=== PATIENT | male | born 1955 | race Two or more races ===

== ENCOUNTER 2020-12-29 15:27 | Emergency (ER) | payer SELFPAY ==
[~2020-12-29] VITALS: Ht 162.6 cm; Wt 76.2 kg
--- NOTE | 2020-12-29 15:40 | NUR ---
[id number] C/O GEN WEAKNESS X 4DAYS. BG 84. PT AAOX4, VSS. RR EVEN & UNLABORED. DENIES CP, SOB, DIZZINESS, N/V/D AT THIS TIME. AWAITING EVAL BY ERMD & WILL CONT TO MONITOR.
[2020-12-29] MEDS ORDERED: BISACODYL SUPP (10 MG) 10 MG/SUPP.RECT SUPP.RECT RC ONE (16:08)
[2020-12-29] MEDS: BISACODYL SUPP (10 MG) 10 MG/SUPP.RECT SUPP.RECT RC ONE (16:11)
--- NOTE | 2020-12-29 16:11 | NUR ---
MEDICATED ORDERED, PT TIMUR WELL.
[2020-12-29 16:17] LABS: BASOPHILS # (AUTO) 0.1 K/uL (0.0-0.2); BASOPHILS % (AUTO) 0.5 % (0.0-2.0); EOSINOPHILS % (AUTO) 1.4 % (0.0-6.0); HEMATOCRIT 43 % (39-51); HEMOGLOBIN 14.2 g/dL (13.5-17.5); LYMPHOCYTES # (AUTO) 2.7 K/uL (0.8-4.8); LYMPHOCYTES % (AUTO) 28.8 % (20.0-44.0); MEAN CORPUSCULAR HGB CONC 33 g/dl (31.0-36.0); MEAN CORPUSCULAR VOLUME 87 fL (80-96); MONOCYTES # (AUTO) 0.9 K/uL (0.1-1.30); MONOCYTES % (AUTO) 9.6 % (2.0-12.0); NEUTROPHILS # (AUTO) 5.5 K/uL (1.8-8.9); NEUTROPHILS % (AUTO) 59.7 % (43.0-81.0); PLATELET COUNT (AUTO) 405 K/uL (150-450); RED BLOOD CELL COUNT(AUTO) 4.91 MIL/uL (4.5-6.0); WHITE BLOOD COUNT (AUTO) 9.2 K/uL (4.3-11.0)
[2020-12-29 17:15] LABS: CREATININE 1.6 mg/dL (0.6-1.3); POTASSIUM 3.6 mmol/L (3.5-5.1)
[2020-12-29 17:31] LABS: ALBUMIN 3.9 g/dL (3.4-5.0); BILIRUBIN,DIRECT 0.2 mg/dL (0.0-0.2); BILIRUBIN,TOTAL 0.9 mg/dL (0.2-1.0); TOTAL PROTEIN, SERUM 7.6 g/dL (6.4-8.2)
[2020-12-29 17:53] LABS: BILIRUBIN,URINE SMALL (NEGATIVE); COLOR,URINE DARK YELLOW (YELLOW); LEUKOCYTE ESTERASE ,URINE NEGATIVE (NEGATIVE); NITRITE, URINE NEGATIVE (NEGATIVE); PROTEIN,URINE 100 mg/dl (NEGATIVE); UGLUCOSE NEGATIVE (NEGATIVE); UROBILINOGEN,URINE 0.2 EU/dL (0.2)
[2020-12-29 18:00] LABS: BACTERIA,URINE None seen /HPF (None Seen); RBC,URINE 0-2 /HPF (0-2); SQUAMOUS EPITHELIAL CELL,UR Few /HPF (None Seen)
[2020-12-29 18:01] LABS: MUCUS,URINE Moderate /LPF (None Seen); SPERM,URINE Many /HPF (None Seen); URINE AMORPHOUS URATE Moderate /HPF (None Seen)
[2020-12-29] MEDS ORDERED: POLY17PO4 PO (18:40)
--- NOTE | 2020-12-29 19:16 | NUR ---
Patient discharged to home in stable condition. Written and verbal after care instructions given. Patient verbalizes understanding of instruction. IV removed. Catheter intact and site benign. Pressure and 4x4 applied to site. No bleeding noted.
[2020-12-29 19:17] VITALS: BP 118/65
== END 2020-12-29 19:17 | disposition home or self-care (01) ==
LOC: ER 15:32
DX: K59.00 Constipation, unspecified (principal); N28.9 Disorder of kidney and ureter, unspecified; E11.9 Type 2 diabetes mellitus without complications; I10 Essential (primary) hypertension; I25.10 Atherosclerotic heart disease of native coronary artery without angina pectoris; E78.5 Hyperlipidemia, unspecified; D64.9 Anemia, unspecified
CPT/HCPCS: 36415; 80048-TC; 80076-TC; 81001; 83690-TC; 84484-TC; 85025-TC

== ENCOUNTER 2020-12-31 16:52 | Inpatient (IN) | payer MEDICARE, OTHER ==
[~2020-12-31] VITALS: Ht 165.1 cm; Wt 70.3 kg
[~2020-12-31 16:52] MED LIST: POLY17PO4 PO
--- NOTE | 2020-12-31 17:20 | NUR ---
PATIENT BIB RA [facility] HOME C/O INCREASING HALLUCINATIONS X 4 DAYS. PATIENT ALERT AND ORIENTED X3. PATIENT AWAKE AND COOPERATIVE. NO RESPIRATORY DISTRESS NOTED. RESPIRATIONS EVEN AND UNLABORED. WILL CONTINUE TO MONITOR.
[2020-12-31] MEDS ORDERED: APIX5TAB PO (18:01)
[2020-12-31] MEDS ORDERED: CARV6.252 PO (18:01)
[2020-12-31] MEDS ORDERED: EZET10TA32 PO (18:01)
[2020-12-31] MEDS ORDERED: ATOR80TA PO (18:01)
[2020-12-31] MEDS ORDERED: SPIR25TA6 PO (18:01)
[2020-12-31] MEDS ORDERED: ARIP10TA9 PO (18:01)
[2020-12-31] MEDS ORDERED: FLUO40CA49 PO (18:01)
--- NOTE | 2020-12-31 18:08 | NUR ---
MOVE SHEET SUBMITTED.
[2020-12-31] MEDS ORDERED: HYDR-3980 PO (18:14)
[2020-12-31] MEDS ORDERED: LOSA1TAB39 PO (18:14)
[2020-12-31] MEDS ORDERED: OMEP1CAP25 PO (18:14)
[2020-12-31] MEDS ORDERED: GABA800T11 PO (18:14)
[2020-12-31] MEDS ORDERED: QUET200T PO (18:14)
[2020-12-31] MEDS ORDERED: FURO40TA5 PO (18:14)
[2020-12-31] MEDS ORDERED: TRAZ-182 PO (18:14)
[2020-12-31] MEDS ORDERED: POTA10TA48 PO (18:15)
[2020-12-31] MEDS ORDERED: METF-440 PO (18:15)
--- NOTE | 2020-12-31 18:20 | NUR ---
BLOOD AND URINE SENT TO LAB
--- NOTE | 2020-12-31 18:39 | NUR ---
COVID SWAB SENT TO LAB
[2020-12-31 18:40] LABS: BILIRUBIN,URINE Negative (NEGATIVE); COLOR,URINE YELLOW (YELLOW); LEUKOCYTE ESTERASE ,URINE Negative (NEGATIVE); NITRITE, URINE Negative (NEGATIVE); PH,URINE 5.5 (5.0-8.0); PROTEIN,URINE Negative (NEGATIVE); UGLUCOSE Negative (NEGATIVE); UROBILINOGEN,URINE 0.2 EU/dL (0.2)
[2020-12-31 18:43] LABS: BASOPHILS # (AUTO) 0.1 K/uL (0.0-0.2); BASOPHILS % (AUTO) 0.8 % (0.0-2.0); EOSINOPHILS % (AUTO) 2.7 % (0.0-6.0); HEMATOCRIT 42 % (39-51); HEMOGLOBIN 13.9 g/dL (13.5-17.5); LYMPHOCYTES # (AUTO) 2.9 K/uL (0.8-4.8); LYMPHOCYTES % (AUTO) 35.9 % (20.0-44.0); MEAN CORPUSCULAR HGB CONC 34 g/dl (31.0-36.0); MEAN CORPUSCULAR VOLUME 87 fL (80-96); MONOCYTES # (AUTO) 0.9 K/uL (0.1-1.30); MONOCYTES % (AUTO) 10.7 % (2.0-12.0); NEUTROPHILS % (AUTO) 49.9 % (43.0-81.0); PLATELET COUNT (AUTO) 376 K/uL (150-450); RED BLOOD CELL COUNT(AUTO) 4.76 MIL/uL (4.5-6.0); WHITE BLOOD COUNT (AUTO) 8.1 K/uL (4.3-11.0)
[2020-12-31 18:47] LABS: BACTERIA,URINE None seen /HPF (None Seen); RBC,URINE 0-2 /HPF (0-2); SQUAMOUS EPITHELIAL CELL,UR Few /HPF (None Seen); WBC,URINE 0-2 /HPF (0-3)
[2020-12-31 18:52] LABS: CALCIUM, SERUM 8.9 mg/dL (8.5-10.1); CARBON DIOXIDE 23 mmol/L (21-32); CHLORIDE 108 mmol/L (98-107); CREATININE 1.4 mg/dL (0.6-1.3); GLUCOSE 109 mg/dL (74-106); SODIUM SERUM 142 mmol/L (136-145); UREA NITROGEN, BLOOD 28 mg/dL (7-18)
[2020-12-31 18:57] LABS: ACETAMINOPHEN < 0 ug/ml (10-30); ALANINE AMINOTRANSFERASE 16 U/L (12-78); ALBUMIN 3.6 g/dL (3.4-5.0); ALCOHOL, BLOOD < 3 mg/dL (0-0); ALKALINE PHOSPHATASE 97 U/L (46-116); ASPARTATE AMINOTRANSFERASE 15 U/L (15-37); BILIRUBIN,DIRECT 0.1 mg/dL (0.0-0.2); BILIRUBIN,TOTAL 0.4 mg/dL (0.2-1.0); TOTAL PROTEIN, SERUM 7.2 g/dL (6.4-8.2)
[2020-12-31] MEDS ORDERED: IV NS 0.9% 500 ML BAG IV ONE ×2 (19:30→20:00)
--- NOTE | 2020-12-31 22:00 | NUR ---
PATIENT IN BED RESTING. PATIENT VSS, PATIENT CONNECTEDTO MONITORS. PATIENT IN NO ACUTE DISTRESS.
--- NOTE | 2020-12-31 22:09 | NUR ---
CALLED AFFILIATE MARKETING SPECIALIST PATRICIA LEFT VOICEMAIL
--- NOTE | 2020-12-31 22:18 | NUR ---
RECEIVED CALL FROM ART, STATES WILL ARRIVE HERE LATER AFTER ENCINO CASE
--- NOTE | 2021-01-01 01:17 | NUR ---
REPORT GIVEN TO GPS RN
--- NOTE | 2021-01-01 01:21 | NUR ---
PATIENT TRANSFERRED TO GPS ROOM 214, PT VSS, NO ACUTE DISTRESS NOTED.
[2021-01-01 01:30] VITALS: BP 123/76
[2021-01-01] MEDS ORDERED: ACETAMINOPHEN 325 MG TABLET PO PRN (02:00)
[2021-01-01] MEDS ORDERED: MAG HYDROX/AL HYDROX/SIMETH 30 ML UDC PO PRN (02:00)
[2021-01-01] MEDS ORDERED: TEMAZEPAM 7.5 MG CAPSULE PO PRN (02:00)
[2021-01-01] MEDS ORDERED: MAGNESIUM HYDROXIDE 30 ML UDC PO PRN (02:00)
[2021-01-01] MEDS ORDERED: LORAZEPAM 0.5 MG TABLET PO PRN (02:00)
[2021-01-01] MEDS ORDERED: BLOOD SUGAR DIAGNOSTIC 1 EACH STRIP IN ONE (02:30)
--- NOTE | 2021-01-01 02:38 | NUR ---
GPS JUMPBASTING ARMHOLE BASTER NOTES: RECEIVED PATIENT FROM [facility] ER. PATIENT ARRIVED TO GPS AT 0125 ON A GURNEY WITH AN ER ESCORT. PATIENT IS ON A 5150 HOLD FOR GD. PER HOLD, PATIENT IS A & O IN ALL SPHERES EXCEPT THE MONTH. HE REPORTS FEELING VERY DEPRESSED AND UNABLE TO TAKE CARE OF HIMSELF. PATIENT HAS NO IDEA WHY HE IS DEPRESSED. PATIENT IS A POOR HISTORIAN. HE IS SOMEWHAT DISORGANIZED. PATIENT HEARS VOICES AND AT TIMES SEES THINGS THAT ARE NOT THERE. PATIENT IS UNABLE TO TO PROVIDE FOR HIS FOOD, USP OR CLOTHING DUE TO A MENTAL DISORDER. UPON FACE TO FACE EVALUATION, PATIENT IS ALERT AND ORIENTED X2, FORGETFUL. APPEARS DEPRESSED AND TIRED, DISHEVELED, COOPERATIVE, PASSIVE, GUARDED. DISORGANIZED, FLAT AFFECT, HALLUCINATES, ANXIOUS AT TIMES BUT REDIRECTABLE. PATIENT BS 100MG/DL. SKIN ASSESSMENT DONE, PICTURES TAKEN, PLACED IN CHART. PATIENT REFUSED TO SIGN ALL ADMISSION PAPER WORKS DUE TO CURRENT MENTAL STATUS. PATIENT DENIES SI/HI AT THIS TIME. PATIENT HAS NO S/S OF DISTRESS AND NO C/O OF PAIN AT THIS TIME. RESPIRATION EVEN AND UNLABORED WITH EQUAL RISE AND FALL OF THE CHEST, ON ROOM AIR. PER PATIENT, PATIENT ADVISED OF HIS HOLD AND PATIENT RIGHT HANDBOOK AND A GUIDE TO PRESCRIPTION MEDICATIONS BOOKLET GIVEN. PATIENT IS UNDER THE PSYCHIATRIC CARE OF DR BANEGAS AND MEDICAL CARE OF DR GABO BROOKS. PATIENT BELONGINGS WERE INVENTORIED AND CHECKED FOR CONTRABAND. ALL PATIENT CARE NEEDS HAVE BEEN MET AT THIS TIME. AMBULATORY BUT UNSTEADY AT TIMES. REMINDED THE PATIENT TO CALL FOR HELP WHEN NEEDED. BED ALARM ON. BED IS IN LOWEST POSITION AND LOCKED, WILL CONTINUE TO MONITOR Q15 FOR SAFETY, MOOD AND BEHAVIOR.
--- NOTE | 2021-01-01 02:48 | NUR ---
RN NOTE PER PATIENT THERE IS NO FAMILY TO INFORM ABOUT HIS ADMISSION AT [facility] GPS UNIT. PER PATIENT HE LIVES WITH SOMEONE & HAS NO CLOSE FAMILY MEMBER TO BE NOTIFIED.
--- NOTE | 2021-01-01 03:20 | NUR ---
GPS RN NOTE, PAGED [facility]. INFORMED GABO BROOKS DNP THAT THIS PATIENT WAS ADMITTED AND NEEDS A MEDICATION RECONCILIATION. GABO BROOKS DNP AGREED DO HIS THIS PATIENT MEDICATION RECONCILIATION SOON POSSIBLE. WILL CONTINUE TO MONITOR THIS PATIENT WITH THE HELP OF STAFF.
[2021-01-01] MEDS ORDERED: HYDROCODONE/APAP 10/325MG TABLET PO PRN (04:00)
--- NOTE | 2021-01-01 04:06 | NUR ---
RN NOTE GABO BROOKS DNP RECONCILED PATIENT'S MEDICATIONS.
[2021-01-01 08:00] VITALS: BP 116/64
[2021-01-01] MEDS: GLUCERNA SHAKE 237 ML CAN PO SCH ×2 (08:00→17:11)
--- NOTE | 2021-01-01 09:02 | NUR ---
WOUND CARE CONSULT: PT PRESENTS WITH DISCOLORATIONS TO BILATERAL ARMS, NO DRAINAGE. WILL SEE PRN. CURRENT ROMINA SCORE IS 20.
[2021-01-01] MEDS: LOSARTAN/HCTZ 50-12.5MG/ 1 EA TABLET PO SCH (09:10)
[2021-01-01] MEDS: CARVEDILOL 6.25 MG TABLET PO SCH ×2 (09:11→16:07)
[2021-01-01] MEDS: SPIRONOLACTONE 25 MG TABLET PO SCH (09:11)
[2021-01-01] MEDS: PANTOPRAZOLE 40 MG TABLET.DR PO SCH (09:11)
[2021-01-01] MEDS: METFORMIN 500 MG TABLET PO SCH ×2 (09:11→16:07)
[2021-01-01] MEDS: FUROSEMIDE 40 MG TABLET PO SCH (09:11)
[2021-01-01] MEDS: POTASSIUM CHLORIDE 20 MEQ POWDER PACKET PO SCH (09:11)
[2021-01-01] MEDS: EZETIMIBE 10 MG TABLET PO SCH (09:11)
[2021-01-01] MEDS: APIXABAN 5 MG TABLET PO SCH ×2 (09:12→17:11)
--- NOTE | 2021-01-01 10:12 | NUR ---
RN OPENING NOTE PT IN BED RESTING. MED COMPLIANT. DEPRESSED. WILL CONTINUE TO MONITOR Q15 MINUTES FOR SAFETY.
--- NOTE | 2021-01-01 14:30 | NUR ---
Point of Contact: SW stated he has a son who is not really active in his life and pt. states he does not want son involved in his care. However, pt. provided number for his SW, Montserrat Martin [phone] who he would like to be involved. Noted.
[2021-01-01 16:00] VITALS: BP 103/74
[2021-01-01] MEDS: GABAPENTIN 300 MG CAPSULE PO SCH (16:07)
--- NOTE | 2021-01-01 16:30 | NUR ---
Initial D/C Plan: [place] [facility] [facility] [address] [address]. Pt. states he rents a room and his roommate, Kerri [phone] is a support system for him. Pt. states he would like to return there once ready for D/C.
--- NOTE | 2021-01-01 18:01 | NUR ---
RN CLOSING NOTE PT RESTING IN BED COMFORTABLY. COOPERATIVE AND DEPRESSED. ANXIOUS IN PERIODS. AVH PRESENT. DENIES ANY SI/HI. MED COMPLIANT. SAFETY PRECAUTIONS IN PLACE. Q15 MINUTE CHECKS SIGNED. WILL GIVE REPORT TO NIGHT NURSE FOR GIULIA.
[2021-01-01 20:35] VITALS: BP 106/74
[2021-01-01] MEDS: ARIPIPRAZOLE 5 MG TABLET PO SCH (21:40)
[2021-01-01] MEDS: MIRTAZAPINE 15 MG TABLET PO SCH (21:41)
[2021-01-01] MEDS: ATORVASTATIN 40 MG TABLET PO SCH (21:41)
[2021-01-02 07:03] LABS: BASOPHILS # (AUTO) 0.1 K/uL (0.0-0.2); BASOPHILS % (AUTO) 0.7 % (0.0-2.0); EOSINOPHILS % (AUTO) 3.1 % (0.0-6.0); HEMATOCRIT 42 % (39-51); HEMOGLOBIN 14.1 g/dL (13.5-17.5); LYMPHOCYTES # (AUTO) 3.1 K/uL (0.8-4.8); LYMPHOCYTES % (AUTO) 35.8 % (20.0-44.0); MEAN CORPUSCULAR HGB CONC 33 g/dl (31.0-36.0); MEAN CORPUSCULAR VOLUME 88 fL (80-96); MONOCYTES # (AUTO) 0.8 K/uL (0.1-1.30); MONOCYTES % (AUTO) 9.7 % (2.0-12.0); NEUTROPHILS # (AUTO) 4.4 K/uL (1.8-8.9); NEUTROPHILS % (AUTO) 50.7 % (43.0-81.0); PLATELET COUNT (AUTO) 347 K/uL (150-450); RED BLOOD CELL COUNT(AUTO) 4.82 MIL/uL (4.5-6.0); WHITE BLOOD COUNT (AUTO) 8.7 K/uL (4.3-11.0)
[2021-01-02 07:29] LABS: ALBUMIN 3.6 g/dL (3.4-5.0); BILIRUBIN,TOTAL 0.7 mg/dL (0.2-1.0); CALCIUM, SERUM 9.5 mg/dL (8.5-10.1); CREATININE 1.2 mg/dL (0.6-1.3); POTASSIUM 3.9 mmol/L (3.5-5.1); TOTAL PROTEIN, SERUM 7.3 g/dL (6.4-8.2)
[2021-01-02 08:00] VITALS: BP 100/64
[2021-01-02] MEDS: LOSARTAN/HCTZ 50-12.5MG/ 1 EA TABLET PO SCH (09:00)
[2021-01-02] MEDS: SPIRONOLACTONE 25 MG TABLET PO SCH (09:00)
[2021-01-02] MEDS: FUROSEMIDE 40 MG TABLET PO SCH (09:00)
[2021-01-02] MEDS: METFORMIN 500 MG TABLET PO SCH ×2 (09:03→16:25)
[2021-01-02] MEDS: EZETIMIBE 10 MG TABLET PO SCH (09:03)
[2021-01-02] MEDS: POTASSIUM CHLORIDE 20 MEQ POWDER PACKET PO SCH (09:04)
[2021-01-02] MEDS: PANTOPRAZOLE 40 MG TABLET.DR PO SCH (09:05)
[2021-01-02] MEDS: APIXABAN 5 MG TABLET PO SCH ×2 (09:08→16:25)
[2021-01-02] MEDS: GLUCERNA SHAKE 237 ML CAN PO SCH ×2 (09:09→16:26)
[2021-01-02] MEDS: GABAPENTIN 300 MG CAPSULE PO SCH ×3 (09:13→16:25)
[2021-01-02] MEDS: CARVEDILOL 6.25 MG TABLET PO SCH ×2 (09:14→16:26)
[2021-01-02] MEDS: FLUOXETINE HCL 20 MG CAPSULE PO SCH (13:04)
[2021-01-02 16:00] VITALS: BP 100/65
[2021-01-02 20:00] VITALS: BP 101/69
[2021-01-02 20:20] VITALS: BP 101/69
[2021-01-02] MEDS: ARIPIPRAZOLE 5 MG TABLET PO SCH (21:23)
[2021-01-02] MEDS: ATORVASTATIN 40 MG TABLET PO SCH (21:24)
[2021-01-02] MEDS: MIRTAZAPINE 15 MG TABLET PO SCH (21:24)
--- NOTE | 2021-01-02 23:56 | NUR ---
RN NOTES: --AT 2222 PATIENT WAS STILL AWAKE, HE REQUEST TO HAVE HIS SLEEPING PILL, PUT IN COMFORTABLE POSITION , ADDITIONAL BLANKER PROVIDED, ENCOURAGE TO DO DEEP BREATHING TO MAKE HIM RELAX AND ENHANCE SLEEP. -- AT 2350- PATIENT IS IN DEEP SLEEP, FALL AND SAFETY PRECAUTION OBSERVED, BED LOW AND LOCKED.
--- NOTE | 2021-01-03 06:44 | NUR ---
RN NOTES: ENDORSED TO F/U IN THE MORNING, 5150 HOLD DUE ON 01/03/2021 AT 2352.
[2021-01-03 08:00] VITALS: BP 125/73
[2021-01-03] MEDS: LOSARTAN/HCTZ 50-12.5MG/ 1 EA TABLET PO SCH (08:38)
[2021-01-03] MEDS: CARVEDILOL 6.25 MG TABLET PO SCH ×2 (08:38→16:36)
[2021-01-03] MEDS: METFORMIN 500 MG TABLET PO SCH ×2 (08:38→16:36)
[2021-01-03] MEDS: PANTOPRAZOLE 40 MG TABLET.DR PO SCH (08:39)
[2021-01-03] MEDS: SPIRONOLACTONE 25 MG TABLET PO SCH (08:39)
[2021-01-03] MEDS: EZETIMIBE 10 MG TABLET PO SCH (08:39)
[2021-01-03] MEDS: POTASSIUM CHLORIDE 20 MEQ POWDER PACKET PO SCH (08:39)
[2021-01-03] MEDS: APIXABAN 5 MG TABLET PO SCH ×2 (08:40→16:36)
[2021-01-03] MEDS: GABAPENTIN 300 MG CAPSULE PO SCH ×3 (08:40→16:36)
[2021-01-03] MEDS: FUROSEMIDE 40 MG TABLET PO SCH (08:41)
[2021-01-03] MEDS: GLUCERNA SHAKE 237 ML CAN PO SCH ×2 (08:42→16:37)
[2021-01-03] MEDS: FLUOXETINE HCL 20 MG CAPSULE PO SCH (12:17)
[2021-01-03 16:00] VITALS: BP 117/71
[2021-01-03 20:20] VITALS: BP 107/72
[2021-01-03] MEDS: ARIPIPRAZOLE 5 MG TABLET PO SCH (21:03)
[2021-01-03] MEDS: ATORVASTATIN 40 MG TABLET PO SCH (21:03)
[2021-01-03] MEDS: MIRTAZAPINE 15 MG TABLET PO SCH (21:12)
[2021-01-04] MEDS: GLUCERNA SHAKE 237 ML CAN PO SCH ×2 (07:42→17:35)
[2021-01-04] MEDS: PANTOPRAZOLE 40 MG TABLET.DR PO SCH (07:54)
[2021-01-04 08:00] VITALS: BP 118/80
[2021-01-04] MEDS: EZETIMIBE 10 MG TABLET PO SCH (08:06)
[2021-01-04] MEDS: METFORMIN 500 MG TABLET PO SCH ×2 (08:06→16:41)
[2021-01-04] MEDS: FUROSEMIDE 40 MG TABLET PO SCH (08:06)
[2021-01-04] MEDS: GABAPENTIN 300 MG CAPSULE PO SCH ×3 (08:06→16:41)
[2021-01-04] MEDS: CARVEDILOL 6.25 MG TABLET PO SCH ×2 (08:06→16:43)
[2021-01-04] MEDS: SPIRONOLACTONE 25 MG TABLET PO SCH (08:06)
[2021-01-04] MEDS: POTASSIUM CHLORIDE 20 MEQ POWDER PACKET PO SCH (08:12)
[2021-01-04] MEDS: LOSARTAN/HCTZ 50-12.5MG/ 1 EA TABLET PO SCH (08:12)
[2021-01-04] MEDS: APIXABAN 5 MG TABLET PO SCH ×2 (08:14→16:42)
[2021-01-04] MEDS: Fluoxetine 10 mg capsule PO SCH (12:17)
[2021-01-04 16:00] VITALS: BP_SYST 100; BP_SYST 92; BP_DIAS 62
[2021-01-04 20:00] VITALS: BP 91/50
[2021-01-04] MEDS: MIRTAZAPINE 15 MG TABLET PO SCH (21:15)
[2021-01-04] MEDS: ATORVASTATIN 40 MG TABLET PO SCH (21:15)
[2021-01-04] MEDS: ARIPIPRAZOLE 5 MG TABLET PO SCH (21:15)
--- NOTE | 2021-01-04 21:21 | NUR ---
GPS RN NOTES: ABILIFY 2.5MG PARTIAL DOSE WASTED PER ORDER.
--- NOTE | 2021-01-05 07:01 | NUR ---
GPS RN CLOSING NOTES: PATIENT IS SLEEPING COMFORTABLY IN BED. NO BEHAVIORAL ISSUES THIS SHIFT. PATIENT HAS NO S/S OF DISTRESS. RESPIRATION EVEN AND UNLABORED WITH EQUAL RISE AND FALL OF THE CHEST, ON ROOM AIR. ALL PATIENT CARE NEEDS HAVE BEEN MET ANTICIPATED. WILL CONTINUE TO MONITOR AND ENDORSE TO AM SHIFT.
[2021-01-05] MEDS: GLUCERNA SHAKE 237 ML CAN PO SCH ×2 (07:42→16:04)
[2021-01-05] MEDS: PANTOPRAZOLE 40 MG TABLET.DR PO SCH (07:42)
[2021-01-05 08:00] VITALS: BP 134/94
[2021-01-05] MEDS: APIXABAN 5 MG TABLET PO SCH ×2 (08:18→16:15)
[2021-01-05] MEDS: GABAPENTIN 300 MG CAPSULE PO SCH ×3 (08:18→16:14)
[2021-01-05] MEDS: EZETIMIBE 10 MG TABLET PO SCH (08:18)
[2021-01-05] MEDS: CARVEDILOL 6.25 MG TABLET PO SCH ×2 (08:18→16:13)
[2021-01-05] MEDS: FUROSEMIDE 40 MG TABLET PO SCH (08:19)
[2021-01-05] MEDS: POTASSIUM CHLORIDE 20 MEQ POWDER PACKET PO SCH (08:19)
[2021-01-05] MEDS: LOSARTAN/HCTZ 50-12.5MG/ 1 EA TABLET PO SCH (08:19)
[2021-01-05] MEDS: METFORMIN 500 MG TABLET PO SCH ×2 (08:19→16:14)
[2021-01-05] MEDS: SPIRONOLACTONE 25 MG TABLET PO SCH (08:23)
[2021-01-05] MEDS: Fluoxetine 10 mg capsule PO SCH (12:09)
[2021-01-05] MEDS: FLUOXETINE HCL 20 MG CAPSULE PO SCH (13:00)
[2021-01-05 16:00] VITALS: BP 101/64
[2021-01-05 20:00] VITALS: BP 100/61
[2021-01-05 21:40] VITALS: BP 98/58
[2021-01-05] MEDS: ATORVASTATIN 40 MG TABLET PO SCH (21:55)
[2021-01-05] MEDS: ARIPIPRAZOLE 5 MG TABLET PO SCH (21:56)
[2021-01-05] MEDS: MIRTAZAPINE 15 MG TABLET PO SCH (21:56)
--- NOTE | 2021-01-05 21:57 | NUR ---
RN NOTE - ABILIFY AND REMERON NOT GIVEN DUE TO DECREASED BP.
--- NOTE | 2021-01-06 06:49 | NUR ---
GPS RN NOTE: PATIENT SLEPT WELL AT NIGHT.. NO BEHAVIORAL ISSUES THIS SHIFT. PATIENT HAS NO S/S OF DISTRESS NOTED. ALL PATIENT CARE NEEDS HAVE BEEN MET ANTICIPATED. WILL CONTINUE TO MONITOR FOR SAFETY AND BEHAVIOR.
[2021-01-06 08:00] VITALS: BP 93/64
[2021-01-06] MEDS: GLUCERNA SHAKE 237 ML CAN PO SCH ×2 (08:21→17:17)
[2021-01-06] MEDS: PANTOPRAZOLE 40 MG TABLET.DR PO SCH (08:21)
[2021-01-06] MEDS: POTASSIUM CHLORIDE 20 MEQ POWDER PACKET PO SCH (08:59)
[2021-01-06] MEDS: EZETIMIBE 10 MG TABLET PO SCH (09:00)
[2021-01-06] MEDS: METFORMIN 500 MG TABLET PO SCH ×2 (09:00→17:15)
[2021-01-06] MEDS: LOSARTAN/HCTZ 50-12.5MG/ 1 EA TABLET PO SCH (09:00)
[2021-01-06] MEDS: CARVEDILOL 6.25 MG TABLET PO SCH ×2 (09:00→17:00)
[2021-01-06] MEDS: GABAPENTIN 300 MG CAPSULE PO SCH ×3 (09:00→17:15)
[2021-01-06] MEDS: FUROSEMIDE 40 MG TABLET PO SCH (09:00)
[2021-01-06] MEDS: APIXABAN 5 MG TABLET PO SCH ×2 (09:04→17:16)
[2021-01-06] MEDS: SPIRONOLACTONE 25 MG TABLET PO SCH (09:04)
[2021-01-06] MEDS: FLUOXETINE HCL 20 MG CAPSULE PO SCH (12:09)
--- NOTE | 2021-01-06 12:33 | NUR ---
SNF referral SW fax[facility] clinical[facility], , for review.
[2021-01-06 16:00] VITALS: BP 107/63
[2021-01-06 20:41] VITALS: BP 118/69
[2021-01-06] MEDS: ARIPIPRAZOLE 5 MG TABLET PO SCH (21:01)
[2021-01-06] MEDS: MIRTAZAPINE 15 MG TABLET PO SCH (21:01)
[2021-01-06] MEDS: ATORVASTATIN 40 MG TABLET PO SCH (21:01)
[2021-01-07] MEDS: GLUCERNA SHAKE 237 ML CAN PO SCH ×2 (07:46→16:02)
[2021-01-07 08:00] VITALS: BP 125/72
[2021-01-07] MEDS: PANTOPRAZOLE 40 MG TABLET.DR PO SCH (08:07)
[2021-01-07] MEDS: SPIRONOLACTONE 25 MG TABLET PO SCH (08:07)
[2021-01-07] MEDS: EZETIMIBE 10 MG TABLET PO SCH (08:07)
[2021-01-07] MEDS: POTASSIUM CHLORIDE 20 MEQ POWDER PACKET PO SCH (08:08)
[2021-01-07] MEDS: FUROSEMIDE 40 MG TABLET PO SCH (08:08)
[2021-01-07] MEDS: GABAPENTIN 300 MG CAPSULE PO SCH ×3 (08:08→16:02)
[2021-01-07] MEDS: METFORMIN 500 MG TABLET PO SCH ×2 (08:08→16:02)
[2021-01-07] MEDS: CARVEDILOL 6.25 MG TABLET PO SCH ×2 (08:08→16:02)
[2021-01-07] MEDS: LOSARTAN/HCTZ 50-12.5MG/ 1 EA TABLET PO SCH (08:08)
[2021-01-07] MEDS: APIXABAN 5 MG TABLET PO SCH ×2 (08:12→16:02)
[2021-01-07] MEDS: FLUOXETINE HCL 20 MG CAPSULE PO SCH (12:01)
--- NOTE | 2021-01-07 12:30 | NUR ---
Probable Cause Hearing Pt's 5250 hold is upheld on the grounds of gravely disabled.
[2021-01-07 16:00] VITALS: BP 110/63
[2021-01-07 20:54] VITALS: BP 95/61
[2021-01-07] MEDS: ATORVASTATIN 40 MG TABLET PO SCH (21:10)
[2021-01-07] MEDS: ARIPIPRAZOLE 5 MG TABLET PO SCH (21:10)
[2021-01-07] MEDS: MIRTAZAPINE 15 MG TABLET PO SCH (21:11)
--- NOTE | 2021-01-08 06:14 | NUR ---
RN notes No significant change of condition. Compliant with medication. Stayed in bed the whole night.
[2021-01-08 07:19] LABS: CALCIUM, SERUM 8.7 mg/dL (8.5-10.1); CREATININE 1.3 mg/dL (0.6-1.3)
[2021-01-08 08:00] VITALS: BP 110/63
[2021-01-08] MEDS: METFORMIN 500 MG TABLET PO SCH ×2 (08:34→16:59)
[2021-01-08] MEDS: APIXABAN 5 MG TABLET PO SCH ×2 (08:34→16:58)
[2021-01-08] MEDS: POTASSIUM CHLORIDE 20 MEQ POWDER PACKET PO SCH (08:34)
[2021-01-08] MEDS: EZETIMIBE 10 MG TABLET PO SCH (08:34)
[2021-01-08] MEDS: GABAPENTIN 300 MG CAPSULE PO SCH ×3 (08:35→16:59)
[2021-01-08] MEDS: PANTOPRAZOLE 40 MG TABLET.DR PO SCH (08:35)
[2021-01-08] MEDS: GLUCERNA SHAKE 237 ML CAN PO SCH ×2 (08:36→16:56)
[2021-01-08] MEDS: FUROSEMIDE 40 MG TABLET PO SCH (08:37)
[2021-01-08] MEDS: CARVEDILOL 6.25 MG TABLET PO SCH ×2 (08:37→16:59)
[2021-01-08] MEDS: SPIRONOLACTONE 25 MG TABLET PO SCH (08:37)
[2021-01-08] MEDS: LOSARTAN/HCTZ 50-12.5MG/ 1 EA TABLET PO SCH (08:38)
--- NOTE | 2021-01-08 11:00 | NUR ---
SNF Referral SW faxed clinicals to [facility], , for review.
[2021-01-08] MEDS: FLUOXETINE HCL 20 MG CAPSULE PO SCH (13:45)
--- NOTE | 2021-01-08 13:58 | NUR ---
SNF Update SW was notified that pt has been accepted to [facility] ([phone]).
[2021-01-08 16:00] VITALS: BP 111/67
[2021-01-08 20:44] VITALS: BP 103/61
[2021-01-08] MEDS: ARIPIPRAZOLE 5 MG TABLET PO SCH (21:14)
[2021-01-08] MEDS: ATORVASTATIN 40 MG TABLET PO SCH (21:15)
[2021-01-08] MEDS: MIRTAZAPINE 15 MG TABLET PO SCH (21:15)
[2021-01-09 08:00] VITALS: BP 122/76
[2021-01-09] MEDS: GLUCERNA SHAKE 237 ML CAN PO SCH ×2 (08:13→17:08)
[2021-01-09] MEDS: APIXABAN 5 MG TABLET PO SCH ×2 (08:17→17:12)
[2021-01-09] MEDS: POTASSIUM CHLORIDE 20 MEQ POWDER PACKET PO SCH (08:53)
[2021-01-09] MEDS: FUROSEMIDE 40 MG TABLET PO SCH (08:54)
[2021-01-09] MEDS: PANTOPRAZOLE 40 MG TABLET.DR PO SCH (08:54)
[2021-01-09] MEDS: EZETIMIBE 10 MG TABLET PO SCH (08:54)
[2021-01-09] MEDS: CARVEDILOL 6.25 MG TABLET PO SCH ×2 (08:54→17:11)
[2021-01-09] MEDS: METFORMIN 500 MG TABLET PO SCH ×2 (08:54→17:10)
[2021-01-09] MEDS: GABAPENTIN 300 MG CAPSULE PO SCH ×3 (08:54→17:10)
[2021-01-09] MEDS: LOSARTAN/HCTZ 50-12.5MG/ 1 EA TABLET PO SCH (08:55)
[2021-01-09] MEDS: SPIRONOLACTONE 25 MG TABLET PO SCH (08:55)
[2021-01-09] MEDS: FLUOXETINE HCL 20 MG CAPSULE PO SCH (13:24)
[2021-01-09 16:00] VITALS: BP 113/63
[2021-01-09 20:06] VITALS: BP 108/74
[2021-01-09] MEDS: ATORVASTATIN 40 MG TABLET PO SCH (21:37)
[2021-01-09] MEDS: MIRTAZAPINE 15 MG TABLET PO SCH (21:37)
[2021-01-09] MEDS: ARIPIPRAZOLE 5 MG TABLET PO SCH (21:37)
[2021-01-10] MEDS: PANTOPRAZOLE 40 MG TABLET.DR PO SCH (06:32)
[2021-01-10 08:00] VITALS: BP 100/65
[2021-01-10] MEDS: APIXABAN 5 MG TABLET PO SCH ×2 (08:14→17:53)
[2021-01-10] MEDS: GLUCERNA SHAKE 237 ML CAN PO SCH ×2 (08:25→17:50)
[2021-01-10] MEDS: SPIRONOLACTONE 25 MG TABLET PO SCH (08:45)
[2021-01-10] MEDS: LOSARTAN/HCTZ 50-12.5MG/ 1 EA TABLET PO SCH (08:45)
[2021-01-10] MEDS: CARVEDILOL 6.25 MG TABLET PO SCH ×2 (08:45→17:52)
[2021-01-10] MEDS: POTASSIUM CHLORIDE 20 MEQ POWDER PACKET PO SCH (08:46)
[2021-01-10] MEDS: FUROSEMIDE 40 MG TABLET PO SCH (08:46)
[2021-01-10] MEDS: EZETIMIBE 10 MG TABLET PO SCH (08:48)
[2021-01-10] MEDS: METFORMIN 500 MG TABLET PO SCH ×2 (08:48→17:51)
[2021-01-10] MEDS: GABAPENTIN 300 MG CAPSULE PO SCH ×3 (08:48→17:51)
[2021-01-10] MEDS: FLUOXETINE HCL 20 MG CAPSULE PO SCH (13:59)
[2021-01-10 16:00] VITALS: BP 110/64
[2021-01-10 20:28] VITALS: BP 112/65
[2021-01-10] MEDS: ATORVASTATIN 40 MG TABLET PO SCH (21:56)
[2021-01-10] MEDS: ARIPIPRAZOLE 5 MG TABLET PO SCH (21:56)
[2021-01-10] MEDS: MIRTAZAPINE 15 MG TABLET PO SCH (21:56)
[2021-01-11 08:00] VITALS: BP 116/75
[2021-01-11] MEDS: GLUCERNA SHAKE 237 ML CAN PO SCH ×2 (08:01→16:36)
[2021-01-11] MEDS: METFORMIN 500 MG TABLET PO SCH ×2 (08:07→16:36)
[2021-01-11] MEDS: EZETIMIBE 10 MG TABLET PO SCH (08:07)
[2021-01-11] MEDS: APIXABAN 5 MG TABLET PO SCH ×2 (08:07→16:37)
[2021-01-11] MEDS: SPIRONOLACTONE 25 MG TABLET PO SCH (08:07)
[2021-01-11] MEDS: PANTOPRAZOLE 40 MG TABLET.DR PO SCH (08:07)
[2021-01-11] MEDS: CARVEDILOL 6.25 MG TABLET PO SCH ×2 (08:08→16:38)
[2021-01-11] MEDS: GABAPENTIN 300 MG CAPSULE PO SCH ×3 (08:08→16:37)
[2021-01-11] MEDS: POTASSIUM CHLORIDE 20 MEQ POWDER PACKET PO SCH (08:09)
[2021-01-11] MEDS: LOSARTAN/HCTZ 50-12.5MG/ 1 EA TABLET PO SCH (08:16)
[2021-01-11] MEDS: FUROSEMIDE 40 MG TABLET PO SCH (08:17)
[2021-01-11 10:08] LABS: CALCIUM, SERUM 8.9 mg/dL (8.5-10.1); CREATININE 1.2 mg/dL (0.6-1.3)
[2021-01-11] MEDS: FLUOXETINE HCL 20 MG CAPSULE PO SCH (12:07)
[2021-01-11 16:00] VITALS: BP 106/68
[2021-01-11 20:00] VITALS: BP 103/50
[2021-01-11 20:06] VITALS: BP 103/50
[2021-01-11] MEDS: MIRTAZAPINE 15 MG TABLET PO SCH (21:44)
[2021-01-11] MEDS: ARIPIPRAZOLE 5 MG TABLET PO SCH (21:44)
[2021-01-11] MEDS: ATORVASTATIN 40 MG TABLET PO SCH (21:46)
--- NOTE | 2021-01-11 21:48 | NUR ---
RN NOTE IN OMNICELL, 10 LIPITOR TABLETS 40 MG EACH WAS THERE. PATIENT NEEDED TO TAKE 80 MG (2 TABLETS) BUT RESERVOIR CARETAKER TOOK 1 TABLET 40 MG OUT ONLY. SECOND LIPITOR 40 MG WAS TAKEN OUT AGAIN & TOTAL OF 8 LIPITOR TABLETS WERE REMAINING IN OMNICELL.
--- NOTE | 2021-01-12 06:51 | NUR ---
RN NOTE PATIENT SLEPT WELL AT NIGHT, NO BEHAVIOR EPISODE NOTED THROUGH OUT THE SHIFT.
[2021-01-12 08:00] VITALS: BP 106/65
[2021-01-12] MEDS: EZETIMIBE 10 MG TABLET PO SCH (08:27)
[2021-01-12] MEDS: METFORMIN 500 MG TABLET PO SCH (08:28)
[2021-01-12] MEDS: GABAPENTIN 300 MG CAPSULE PO SCH ×2 (08:28→12:17)
[2021-01-12] MEDS: PANTOPRAZOLE 40 MG TABLET.DR PO SCH (08:28)
[2021-01-12] MEDS: FUROSEMIDE 40 MG TABLET PO SCH (08:30)
[2021-01-12] MEDS: APIXABAN 5 MG TABLET PO SCH (08:37)
[2021-01-12] MEDS: POTASSIUM CHLORIDE 20 MEQ POWDER PACKET PO SCH (08:38)
[2021-01-12] MEDS: LOSARTAN/HCTZ 50-12.5MG/ 1 EA TABLET PO SCH (08:38)
[2021-01-12] MEDS: CARVEDILOL 6.25 MG TABLET PO SCH (08:38)
[2021-01-12] MEDS: SPIRONOLACTONE 25 MG TABLET PO SCH (08:39)
[2021-01-12] MEDS: GLUCERNA SHAKE 237 ML CAN PO SCH (08:49)
[2021-01-12] MEDS: FLUOXETINE HCL 20 MG CAPSULE PO SCH (12:17)
--- NOTE | 2021-01-12 15:05 | NUR ---
Homehealth Order Faxed SW faxed Homehealth MD order to [facility] at [phone] (ph: [phone]).
[2021-01-12 16:00] VITALS: BP 114/65
--- NOTE | 2021-01-12 17:04 | NUR ---
RN-DISCHARGE NOTES PATIENT HAD A DISCHARGE ORDER FROM DR. BANEGAS ( PSYCHIATRIST) DR. WHITE MEDICALLY CLEARED PATIENT FOR DISCHARGE.PATIENT WAS DISCHARGE TO HOME ,PATIENT DID NOT VERBALIZE SI/HI ,DENIES VISUAL/AUDITORY HALLUCINATIONS AT THE TIME OF DISCHARGE. INSTRUCTED PATIENT TO FOLLOW UP WITH PSYCHIATRIST AND PCP APPOINTMENT IN A WEEK OR NEEDED. ALL DISCHARGE MEDICATIONS WAS REVIEWED WITH THE PATIENT WITH UNDERSTANDING. RX WAS GIVEN TO HIM. INSTRUCTED PATIENT TO CALL 911 OR GO TO THE NEAREST EMERGENCY ROOM IN CASE OF EMERGENCY.PATIENT LEFT THE UNIT IN STABLE CONDITION A/O X3 AMBULATORY STEADY GAIT. HE WAS ASSISTED IN THE LOBBY BY ONE COMPUTATIONAL LINGUIST FOR SAFETY WITH ALL HIS BELONGINGS.LEFT THE HOSPITAL VIA TAXI.
--- NOTE | 2021-01-13 09:52 | NUR ---
SS D/C NOTE Pt. was discharged back to his apartment located at [[address] [address]] with roommate, Kerri [phone] and resumed [facility] [phone]. Pt. was discharged at around 5 pm via Taxi. Pt.s SW, Montserrat Martin [phone] was made aware of the discharge and was agreeable. Upon discharge, pt. was in a euthymic mood and presented with a calm affect. Pt. was alert and oriented x4 (time, place, self and situation). Pt. ambulates independently. Pt denied both suicidal and homicidal ideation as well as auditory and visual hallucinations. Pt. has an appt. with psychiatrist, Dr. Sraah Borges on 01/16/2021 10:45 am and appt. with PCP: Dr. Ema Desouza on 01/13/2021 2:30 pm at [facility] [[address] [facility] [address]; [phone]]. The multidisciplinary exit care form was done, printed, signed, and given to the patient.
== END 2021-01-12 17:00 | disposition home or self-care (01) | DRG 885 ==
LOC: ER 16:54 → GPS 01-01 01:10
PROVIDERS: ADMIT Psychiatry & Neurology Psychosomatic Medicine; ATTEND Nurse Practitioner Acute Care
DX: F33.3 Major depressive disorder, recurrent, severe with psychotic symptoms (principal); F01.50 Vascular dementia, unspecified severity, without behavioral disturbance, psychotic disturbance, mood disturbance, and anxiety; N17.0 Acute kidney failure with tubular necrosis; I11.0 Hypertensive heart disease with heart failure; G93.41 Metabolic encephalopathy; D68.59 Other primary thrombophilia; I50.32 Chronic diastolic (congestive) heart failure; F29 Unspecified psychosis not due to a substance or known physiological condition; F41.9 Anxiety disorder, unspecified; E11.40 Type 2 diabetes mellitus with diabetic neuropathy, unspecified; F43.10 Post-traumatic stress disorder, unspecified; I48.0 Paroxysmal atrial fibrillation; Z79.01 Long term (current) use of anticoagulants; Z79.84 Long term (current) use of oral hypoglycemic drugs; Z79.899 Other long term (current) drug therapy; E78.5 Hyperlipidemia, unspecified; Z20.822 Contact with and (suspected) exposure to COVID-19; Z73.6 Limitation of activities due to disability
CPT/HCPCS: 36415; 80048-TC; 80053-TC; 80061-TC; 80076-TC; 81001; 82962-TC; 83690-TC; 84484-TC; 85025-TC; 87081-TC; 97116-TC; 97530-TC; C9803; G0480

== ENCOUNTER 2021-01-18 15:20 | Inpatient (IN) | payer MEDICARE, OTHER ==
[~2021-01-18] VITALS: Ht 162.6 cm; Wt 80.3 kg
[2021-01-18] VITALS (17 sets, daily range): BP systolic 71–153; BP diastolic 45–68
[~2021-01-18 15:20] MED LIST changes: +APIX5TAB PO; +ATOR80TA PO; +CARV6.252 PO; +EZET10TA32 PO; +FURO40TA5 PO; +GABA800T11 PO; +HYDR-3980 PO; +LOSA1TAB39 PO; +METF-440 PO; +OMEP1CAP25 PO; -POLY17PO4 PO; +POTA10TA48 PO; +SPIR25TA6 PO
--- NOTE | 2021-01-18 15:50 | NUR ---
dylan, from home, c/o abd pain since last night 8 ps. On room air, breathing evenly and unlabored. Connected to the monitor and pulse ox. Kept comfortable, will continue to monitor accordingly.
--- NOTE | 2021-01-18 15:55 | NUR ---
IV started and blood drawned and sent to lab. Urine collected.
[2021-01-18 16:09] LABS: BASOPHILS # (AUTO) 0.1 K/uL (0.0-0.2); BASOPHILS % (AUTO) 0.5 % (0.0-2.0); HEMATOCRIT 36 % (39-51); HEMOGLOBIN 11.7 g/dL (13.5-17.5); LYMPHOCYTES # (AUTO) 1.4 K/uL (0.8-4.8); LYMPHOCYTES % (AUTO) 8.1 % (20.0-44.0); MEAN CORPUSCULAR HGB CONC 33 g/dl (31.0-36.0); MEAN CORPUSCULAR VOLUME 89 fL (80-96); MONOCYTES # (AUTO) 1.1 K/uL (0.1-1.30); MONOCYTES % (AUTO) 6.4 % (2.0-12.0); NEUTROPHILS # (AUTO) 14.3 K/uL (1.8-8.9); PLATELET COUNT (AUTO) 325 K/uL (150-450); RED BLOOD CELL COUNT(AUTO) 4.03 MIL/uL (4.5-6.0); WHITE BLOOD COUNT (AUTO) 16.8 K/uL (4.3-11.0)
[2021-01-18 16:28] LABS: BILIRUBIN,URINE SMALL (NEGATIVE); COLOR,URINE YELLOW (YELLOW); LEUKOCYTE ESTERASE ,URINE Negative (NEGATIVE); NITRITE, URINE Negative (NEGATIVE); PH,URINE 5.5 (5.0-8.0); PROTEIN,URINE 30 mg/dl (NEGATIVE); UGLUCOSE Negative (NEGATIVE)
[2021-01-18 16:29] LABS: CALCIUM, SERUM 8.5 mg/dL (8.5-10.1); CARBON DIOXIDE 23 mmol/L (21-32); CHLORIDE 105 mmol/L (98-107); CREATININE 1.3 mg/dL (0.6-1.3); GLUCOSE 132 mg/dL (74-106); POTASSIUM 3.7 mmol/L (3.5-5.1); SODIUM SERUM 138 mmol/L (136-145); UREA NITROGEN, BLOOD 14 mg/dL (7-18)
[2021-01-18 16:30] LABS: BACTERIA,URINE Rare /HPF (None Seen); RBC,URINE NONE SEEN /HPF (0-2); SQUAMOUS EPITHELIAL CELL,UR Few /HPF (None Seen); WBC,URINE NONE SEEN /HPF (0-3)
[2021-01-18 16:35] LABS: ALANINE AMINOTRANSFERASE 22 U/L (12-78); ALBUMIN 3.2 g/dL (3.4-5.0); ALKALINE PHOSPHATASE 72 U/L (46-116); ASPARTATE AMINOTRANSFERASE 14 U/L (15-37); BILIRUBIN,DIRECT 0.3 mg/dL (0.0-0.2); BILIRUBIN,TOTAL 1.6 mg/dL (0.2-1.0); LIPASE 69 U/L (73-393); TOTAL PROTEIN, SERUM 7.1 g/dL (6.4-8.2)
[2021-01-18] MEDS ORDERED: IOHEXOL-300 100 ML VIAL IV ONE (16:39)
[2021-01-18] MEDS ORDERED: PIPERACILLIN /TAZOBACTAM 3.375 G in IV D5W 50 ML IV ONE (17:30)
--- NOTE | 2021-01-18 17:38 | NUR ---
NURSING SUP GAVE M/S 322.
--- NOTE | 2021-01-18 17:48 | NUR ---
REPORT GIVEN TO CHARGE NURSE ARLIN FOR GIULIA.
[2021-01-18] MEDS ORDERED: ARIP5TAB59 PO (18:02)
[2021-01-18] MEDS ORDERED: GABA-532 PO (18:02)
[2021-01-18] MEDS ORDERED: ROSU20TA32 PO (18:02)
[2021-01-18] MEDS ORDERED: FLUO20CA42 PO (18:02)
[2021-01-18] MEDS ORDERED: POTA10TA11 PO (18:02)
[2021-01-18] MEDS ORDERED: MIRT-90 PO (18:02)
--- NOTE | 2021-01-18 18:18 | NUR ---
patient picked up by OR nurse going to OR for surgery.
[2021-01-18] MEDS ORDERED: HYDROMORPHONE INJ 2 MG/ML DISP.SYRIN ONE (18:26)
[2021-01-18] MEDS ORDERED: FENTANYL PF 250MCG/5ML AMPUL ONE (18:26)
[2021-01-18] MEDS ORDERED: ROCURONIUM BROMIDE 50 MG/5 ML ONE (18:27)
[2021-01-18] MEDS ORDERED: FAMOTIDINE/PF INJ 20 MG/2 ML VIAL IV ONE (18:27)
[2021-01-18] MEDS ORDERED: MIDAZOLAM HCL 2 MG/2ML VIAL ONE (18:27)
[2021-01-18] MEDS ORDERED: Z GUARD REMEDY 2 OZ OINT TP PRN (18:30)
[2021-01-18] MEDS ORDERED: ACETAMINOPHEN 325 MG TABLET PO PRN (18:30)
[2021-01-18] MEDS ORDERED: MORPHINE SULFATE INJ 2 MG/ML DISP.SYRIN IV PRN (18:30)
[2021-01-18] MEDS ORDERED: ONDANSETRON HCL/PF 4 MG/2 ML VIAL IVP PRN (18:30)
[2021-01-18] MEDS ORDERED: IV NS 0.9% 1,000 ML IV PRN (18:30)
[2021-01-18] MEDS ORDERED: BUPIVACAINE 0.5 % PF 150 MG/30 ML VIAL ONE (18:58)
[2021-01-18] MEDS ORDERED: FUROSEMIDE 20 MG/2 ML VIAL ONE (20:03)
[2021-01-18] MEDS ORDERED: HYDROCODONE/APAP 5/325MG TABLET PO PRN (20:30)
--- NOTE | 2021-01-18 20:30 | NUR ---
RN/ICU- RECEIVED PT FROM OR VIA GURRAHEL, ACCOMPANIED BY OR CREW AND ANESTHESIA PER ACLS PROTOCOL. W/ ETT ON CONTINUOUS BAGGING BY ANESTHESIA, PT. AGITATED, THRASHING, JODY. SOFT WRIST RESTRAINT APPLIED IMMEDIATELY PER PROTOCOL. WILL OBTAIN ORDER AND START DIPRIVAN DRIP PER PROTOCOL.EKG ST W/ RBBB. 124/MIN. BP-129/73. S/P LAP APPENDECTOMY, NOTED X3 ABDOMINAL SCOPE INCISIONS INTACT W/OCCLUSIVE DRESSING,W/ I GEOVANNA DRAIN CHARGED, W/ MODERATE AMOUNT OF SEROSANGUINEOUS OUTPUT. FEVERISH TEMPT.100/F, COOLING MEASURES IN EFFECT. WILL MEDICATE TYLENOL 650MG PER NGT.NO S/S OF PAIN OR DISTRESS.PT. IS A FULL CODE.
[2021-01-18] MEDS: PROPOFOL 100 ML IV PRN (20:40)
--- NOTE | 2021-01-18 20:40 | NUR ---
RN/ICU-PT. REMAINS AGITATED SAS 6, W/ JODY. WRIST RESTRAINTS, DIPRIVAN DRIP STARTED AT 5 MCG/KG/MIN. PER PROTOCOL.
--- NOTE | 2021-01-18 20:50 | NUR ---
RT NOTE Pt rec'd orally intubated via ETT sz #8.0 secured @ 23CM from OR department. ETT is patent and secured. Pt placed on mech on AC mode settings as charted. Pt sx'd for thick pale yellow mod amount of secretions. Alarms are set and audible. Vent plugged into red outlet. Ambu bag bedside. ABG to be taken within 1 hr. Waiting on Chest Xray results. Will continue to monitor closely. Addendum: 01/18/21 at 2056 by RADHA SHIPLEY RT Amended: Links added.
[2021-01-18 21:43] LABS: ABG OXYGEN SATURATION 95.8 % (92.0-98.5); ABG PCO2 30.6 mmHg (35.0-45.0); ABG PH 7.367 (7.350-7.450); ABG PO2 83.1 mmHg (75.0-100.0); COHb 0.6 % (0.5-1.5); MetHb 0.1 % (0.0-1.5); O2Hb 95.1 % (94.0-97.0); PEEP,BG 5 cm H2O; SITE, ABG Right Brachial; VENT MODE, BG AC18 VT550 60% PEEP+5; VT, ABG 550 mL
--- NOTE | 2021-01-18 21:50 | NUR ---
RN/ICU-ABG DONE BY RT W/ RESULTS IN , RELAYED TO DR. TAVAREZ W/ ORDERS NOTED, NO VENT CHANGES.
[2021-01-18] MEDS ORDERED: PIPERACILLIN /TAZOBACTAM 3.375 G VIAL IV ONE (22:02)
[2021-01-18] MEDS: PIPERACILLIN /TAZOBACTAM 3.375 G in IV D5W 100 ML IV SCH (22:04)
--- NOTE | 2021-01-18 23:26 | NUR ---
RN/ICU- BP-75/52,HR-110,DR. TAVAREZ MADE AWARE OF PT. BP. W/ ORDERS NOTED.
[2021-01-18] MEDS ORDERED: IV NS 0.9% 1,000 ML IV STA (23:29)
[2021-01-18] MEDS ORDERED: MIDODRINE HCL (5MG) 5 MG TABLET PO STA (23:31)
[2021-01-19] VITALS (56 sets, daily range): BP systolic 62–124; BP diastolic 31–78
[2021-01-19] MEDS ORDERED: PIPERACILLIN /TAZOBACTAM 4.5 G in IV D5W 50 ML IV SCH
--- NOTE | 2021-01-19 | NUR ---
RN/ICU- LATEST TEMPT-97/F, BP-80/52, HR-105, W/ ONGOING NS IL WIDE OPEN.MIDODRINE 10MG/NGT GIVEN WELL. WILL REASSESSED PT. FOR EFFECTIVENESS
[2021-01-19] MEDS ORDERED: NOREPINEPHRINE 8MG/250ML RTU 250 ML IV ONE (01:36)
--- NOTE | 2021-01-19 01:50 | NUR ---
RN/ICU-BP REMAINS LOW 63/45, HR-95, DR. TAVAREZ NOTIFIED W/ PHONE ORDER. LEVOPHED DRIP STARTED AT .1MCG/KG/MIN PER PROTOCOL. WILL TITRATE TO KEEP MAP65.
[2021-01-19] MEDS: NOREPINEPHRINE 8 MG in IV NS 0.9% 242 ML IV PRN (01:57)
--- NOTE | 2021-01-19 02:00 | NUR ---
RN/ICU- NOW PT. NOTED TO HAVE UNI FOCCAL PVCS IN TRIGEMINY AND COUPLETS, WILL CONTINUE TO MONITOR PER PROTOCOL.
--- NOTE | 2021-01-19 02:20 | NUR ---
RN/ICU-NOW PT. NOTED OCCASIONAL UNI FOCCAL PVCS. WILL CONTINUE TO MONITOR PER PROTOCOL.
[2021-01-19] MEDS: PROPOFOL 100 ML IV PRN (03:07)
[2021-01-19 04:34] LABS: HEMATOCRIT 33 % (39-51); LYMPHOCYTES # (AUTO) 0.5 K/uL (0.8-4.8); LYMPHOCYTES % (AUTO) 2.4 % (20.0-44.0); MEAN CORPUSCULAR HGB CONC 33 g/dl (31.0-36.0); MEAN CORPUSCULAR VOLUME 89 fL (80-96); MONOCYTES # (AUTO) 0.6 K/uL (0.1-1.30); MONOCYTES % (AUTO) 2.8 % (2.0-12.0); NEUTROPHILS # (AUTO) 20.4 K/uL (1.8-8.9); NEUTROPHILS % (AUTO) 94.8 % (43.0-81.0); PLATELET COUNT (AUTO) 272 K/uL (150-450); RED BLOOD CELL COUNT(AUTO) 3.73 MIL/uL (4.5-6.0); WHITE BLOOD COUNT (AUTO) 21.6 K/uL (4.3-11.0)
[2021-01-19 05:10] LABS: ALBUMIN 2.7 g/dL (3.4-5.0); CALCIUM, SERUM 7.5 mg/dL (8.5-10.1); CREATININE 2.4 mg/dL (0.6-1.3); MAGNESIUM 1.7 mg/dL (1.8-2.4); PHOSPHORUS 2.1 mg/dL (2.5-4.9); POTASSIUM 3.6 mmol/L (3.5-5.1); TOTAL PROTEIN, SERUM 6.3 g/dL (6.4-8.2)
[2021-01-19] MEDS ORDERED: PIPERACILLIN /TAZOBACTAM 3.375 G VIAL IV ONE (05:17)
[2021-01-19] MEDS: PIPERACILLIN /TAZOBACTAM 3.375 G in IV D5W 100 ML IV SCH ×3 (05:23→21:52)
[2021-01-19 06:18] LABS: BAND % (MANUAL) 19 % (0.0-5.0); LYMPHOCYTES % (MANUAL) 2 % (16-48); MONOCYTES % (MANUAL) 2 % (0-11.0); NEUTROPHILS % (MANUAL) 77 (42-76)
--- NOTE | 2021-01-19 06:42 | NUR ---
RN/ICU-PT. REMAINS LIGHTLY SEDATED W/ DIPRIVAN DRIP AT 30MCG/KG/MIN, W/ JODY. SOFT WRIST RESTRAINTS, W/ OFF AND ON AGITATION. REMAINS ON LEVOPHED DRIP PER PROTOCOL. U/O 465. AFEBRILE, NO S/S OF DISTRESS OR PAIN.
--- NOTE | 2021-01-19 07:30 | NUR ---
RN OPENING NOTES PATIENT RECEIVED IN BED ON DIPRIVAN RUNNING AT 30 MCG/KG/ MIN AND LEVO AT 0.05 MCG/KG. PATIENT NOTED WITH BILATERAL WRIST RESTRAINTS AND NOTED WITH MOVEMENT OF EYES TO TOUCH. PATIENT NOTED WITH RIGHT NARE NG TUBE CLAMPED. WILL CONTINUE TO MONITOR. CALL LIGHT WITH IN REACH.
[2021-01-19 08:42] LABS: ABG BASE EXCESS -7.2 mmol/L; ABG OXYGEN SATURATION 97.4 % (92.0-98.5); ABG PCO2 28.8 mmHg (35.0-45.0); ABG PH 7.382 (7.350-7.450); AaDO2 156.1 mmHg; COHb 0.3 % (0.5-1.5); MetHb 0.3 % (0.0-1.5); O2Hb 96.8 % (94.0-97.0); SITE, ABG Right Radial; VENT MODE, BG ac18 550 40% +5
--- NOTE | 2021-01-19 08:45 | NUR ---
Diprivan titration started. Patient tolerating well.
--- NOTE | 2021-01-19 09:30 | NUR ---
Received order from Dr johnson for SIMV 4 PEEP OF 5 I:E RATIO PSV 15. RT aware and changed made. Blood gas to be taken at 10 am.
[2021-01-19] MEDS ORDERED: Magnesium 1GM/D5W 100ML PREMIX 100 ML IV SCH (10:00)
[2021-01-19] MEDS ORDERED: HEPARIN SODIUM, PORCINE 5000 UNITS/1 ML VIAL SQ SCH (10:00)
[2021-01-19 10:12] LABS: ABG BASE EXCESS -8.7 mmol/L; ABG OXYGEN SATURATION 95.7 % (92.0-98.5); ABG PCO2 24.7 mmHg (35.0-45.0); ABG PH 7.392 (7.350-7.450); ABG PO2 79.4 mmHg (75.0-100.0); AaDO2 105.5 mmHg; COHb 0.3 % (0.5-1.5); O2Hb 95.4 % (94.0-97.0); SITE, ABG Right Radial
--- NOTE | 2021-01-19 10:30 | NUR ---
Patient tolerating well and awake and alert and not in any distress.
[2021-01-19] MEDS: IV NS 0.9% 1,000 ML IV PRN ×2 (10:50→15:12)
[2021-01-19] MEDS ORDERED: Sodium Phosphate 30 MMOL in IV NS 0.9% 250 ML IV SCH (12:00)
[2021-01-19 14:59] LABS: ABG BASE EXCESS -5.9 mmol/L; ABG OXYGEN SATURATION 96.7 % (92.0-98.5); ABG PCO2 28.1 mmHg (35.0-45.0); ABG PH 7.413 (7.350-7.450); ABG PO2 91.3 mmHg (75.0-100.0); AaDO2 89.6 mmHg; COHb 0.3 % (0.5-1.5); MetHb 0.2 % (0.0-1.5); O2Hb 96.2 % (94.0-97.0); SITE, ABG Right Femoral
--- NOTE | 2021-01-19 15:45 | NUR ---
Patient extubated and tolerating well , on room air. Will monitor. HOB kept elevated. Vitals wnl.
[2021-01-19] MEDS ORDERED: DC PROPOFOL WHEN EXTUBATED XX SCH (16:00)
[2021-01-19] MEDS ORDERED: DEXTROSE 50%-WATER 50 ML DISP.SYRIN IV PRN (17:00)
--- NOTE | 2021-01-19 17:00 | NUR ---
NURSING SWALLOW EVAL DONE AND PATIENT ABLE TO TOLERATE WITHOUT COUGHING. PER DR MAGDALENO OK TO RESUME DIET. PER DR ROZ FERNANDEZ MILD SLIDING SCALE INSULIN. ORDERS NOTED AND CARRIED OUT.
[2021-01-19] MEDS: INSULIN REGULAR, HUMAN 100 UNIT/ML 3 ML VIAL SQ PRN ×2 (18:18→22:00)
[2021-01-19] MEDS: BLOOD SUGAR DIAGNOSTIC 1 EACH STRIP IN SCH ×2 (18:18→21:52)
--- NOTE | 2021-01-19 19:28 | NUR ---
ORDNANCE KEEPER CLOSING NOTES Patient is in bed in stable condition. No c/o pain or discomfort. Breathing even and unlabored. Patient is on room air saturating well. HOB kept elevated. right upper arm picc line flushes and patent. Right ac, left wrist and left forearm iv sites patent and flushes well. Noted with urine output of 1100 cc. GEOVANNA drainage noted with 10 cc output sanguineous in color. Patient kept clean and dry. Patient had intake of 100 % for dinner marky well. No coughing noted. Endorsed to next shift for GIULIA. Call light with in reach. Bed is in lowest and locked position.
--- NOTE | 2021-01-19 19:30 | NUR ---
RN NOTE RECEIVED PATIENT IN BED. A/OX3, SAMI SPEAKING, ABLE TO MAKE BASIC NEEDS KNOWN. TOLERATING ROOM AIR. RESPIRATIONS ARE EVEN AND UNLABORED. NO S/S SOB NOTED. C/O PAIN IN ABDOMEN, INFORMED HIM HIS BP IS TOO LOW AT THIS TIME. TELE MONITOR READS SINUS RHYTHM WITH BBB, WITH OCCASIONAL PVCS HR 94. IN NO APPARENT DISTRESS. IV ACCESS IN SUSANNA PICC LINE, RAC #18, NOLA #22 and LFA#20 PATENT AND SALINE LOCKED. GEOVANNA DRAIN IN LLQ TO BULB SUCTION. VILLA CATHETER IS PRESENT, DRAINING TO GRAVITY, URINE IS YELLOW AND CLEAR. BED IS LOW AND LOCKED, HOB ELEVATED IN SEMI FOWLERS, SIDE RIALS UP X2, CALL LIGHT WITHIN REACH. WILL CONTINUE TO MONITOR THROUGHOUT THE SHIFT.
[2021-01-20] VITALS (51 sets, daily range): BP systolic 93–123; BP diastolic 51–81
[2021-01-20] MEDS: MORPHINE SULFATE INJ 2 MG/ML DISP.SYRIN IV PRN ×4 (01:02→19:36)
[2021-01-20] MEDS: NOREPINEPHRINE 8 MG in IV NS 0.9% 242 ML IV PRN (01:52)
[2021-01-20 04:49] LABS: BASOPHILS % (AUTO) 0.2 % (0.0-2.0); EOSINOPHILS % (AUTO) 0.3 % (0.0-6.0); HEMATOCRIT 44 % (39-51); HEMOGLOBIN 14.5 g/dL (13.5-17.5); LYMPHOCYTES # (AUTO) 0.8 K/uL (0.8-4.8); LYMPHOCYTES % (AUTO) 5.4 % (20.0-44.0); MEAN CORPUSCULAR HGB CONC 33 g/dl (31.0-36.0); MEAN CORPUSCULAR VOLUME 89 fL (80-96); MONOCYTES # (AUTO) 0.8 K/uL (0.1-1.30); MONOCYTES % (AUTO) 5.2 % (2.0-12.0); NEUTROPHILS % (AUTO) 88.9 % (43.0-81.0); PLATELET COUNT (AUTO) 155 K/uL (150-450); RED BLOOD CELL COUNT(AUTO) 4.94 MIL/uL (4.5-6.0); WHITE BLOOD COUNT (AUTO) 14.6 K/uL (4.3-11.0)
[2021-01-20] MEDS: PIPERACILLIN /TAZOBACTAM 3.375 G in IV D5W 100 ML IV SCH ×3 (05:04→21:43)
[2021-01-20 05:14] LABS: ALBUMIN 2.3 g/dL (3.4-5.0); BILIRUBIN,TOTAL 1.2 mg/dL (0.2-1.0); CALCIUM, SERUM 7.6 mg/dL (8.5-10.1); CREATININE 1.5 mg/dL (0.6-1.3); MAGNESIUM 2.4 mg/dL (1.8-2.4); POTASSIUM 3.3 mmol/L (3.5-5.1); TOTAL PROTEIN, SERUM 6.1 g/dL (6.4-8.2)
--- NOTE | 2021-01-20 06:32 | NUR ---
RN NOTE PATIENT RESTING IN BED. A/OX3, HAD INTERRUPT SLEEP. TOLERATING ROOM AIR. NO RESP DISTRESS. PLACED ON O2 2L NC FOR AN HOUR BUT PATIENT REMOVED HE WAS UNCOMFORTABLE AND TRYING TO SLEEP, O2 SAT REMAIN FINE AFTER REMOVAL. TELE MONITOR READS SINUS RHYTHM. RESTARTED LEVO AT 2230 D/T BP 80/50S. LEVO NOW RUNNING AT 0.02MCG. IV ACCESS IN SUSANNA PICC LINE, RAC #18, NOLA #22 and LFA#20 . GEOVANNA DRAIN OUTPUT SANGUINEOUS 10CC. VILLA CATHETER OUTPUT 550CC, YELLOW AND CLEAR. BED REMAINS LOW AND LOCKED, HOB ELEVATED IN SEMI FOWLERS, SIDE RIALS UP X2, CALL LIGHT WITHIN REACH. WILL ENDORSE TO ONCOMING SHIFT.
--- NOTE | 2021-01-20 07:30 | NUR ---
SHIRT FOLDING MACHINE OPERATOR OPENING NOTES Patient is alert and oriented. Breathing even and unlabored. On room air with 02 saturation of 98%. Patient noted with right upper arm picc line and rac peripheral line 20 gauze. Noted with left wrist and left forearm iv sites, saline lock. HOB kept elevated. Bravo cath intact and hanging to gravity with clear yellow urine. Patient is noted with raul drain. Will continue to monitor. Call light with in reach.
[2021-01-20] MEDS: BLOOD SUGAR DIAGNOSTIC 1 EACH STRIP IN SCH ×4 (07:52→21:41)
[2021-01-20] MEDS: INSULIN REGULAR, HUMAN 100 UNIT/ML 3 ML VIAL SQ PRN ×3 (07:53→17:22)
--- NOTE | 2021-01-20 08:00 | NUR ---
MD LICONA INFORMED REGARDING PATIENT FINISHING 2 LITERS OF FLUIDS AND IF ANY FURTHER ORDERS. PER MD HE WILL REVIEW HIS CHART.
--- NOTE | 2021-01-20 09:34 | NUR ---
MED RECON FAXED AND PER MD LICONA PATIENT TO START ELIQUIS AND OTHER MEDS AND HOLD BP AND DIURETICS.
[2021-01-20] MEDS: POTASSIUM CL. PREMIX PERIPHER. 50 ML IV SCH ×3 (09:37→11:40)
[2021-01-20] MEDS: IV NS 0.9% 1,000 ML IV PRN ×2 (10:39→18:43)
--- NOTE | 2021-01-20 10:40 | NUR ---
LEVO TURNED OFF AND PATIENT TOLERATING WELL AND BP WNL
[2021-01-20] MEDS ORDERED: HYDROCODONE/APAP 10/325MG TABLET PO PRN (13:00)
[2021-01-20] MEDS: GABAPENTIN 100 MG CAPSULE PO SCH ×2 (13:30→17:20)
[2021-01-20] MEDS: METFORMIN 500 MG TABLET PO SCH (17:20)
[2021-01-20] MEDS: APIXABAN 5 MG TABLET PO SCH (17:22)
--- NOTE | 2021-01-20 19:21 | NUR ---
OLIVE PACKER CLOSING NOTES Patient is alert and oriented. Breathing even and unlabored. On room air with 02 saturation of 99%. Patient noted with right upper arm picc line and rac peripheral line 18 gauze SALINE LOCK. HOB kept elevated. Bravo cath intact and hanging to gravity with clear yellow urine. Patient is noted with raul drain and total ouput of 600 cc during shift. 400cc of output of serosanguineous and 200 cc of serous thereafter. Patient provided morphine with good effect.Bed is in lowest and locked position. Dr Carson made aware of drainage from RAUL DRAIN. Will continue to monitor. Call light with in reach. Endorsed to next shift for GIULIA. Iv lines to left wrist and left forearm discontinued due to patient c/o discomfort.
--- NOTE | 2021-01-20 19:36 | NUR ---
RN/ICU-RECEIVED PT. 1N BED ON HIGH GORDILLO'S POSITION,AWAKE, ALERT, EXPRESSIVE OF NEEDS. BREATHING SPONTANEOUSLY TO ROOM AIR. SATS.-96%, EKG SR W/ RBBB W/ OCCASIONAL UNI FOCAL PVCS. PT. W/ 3 SCOPE INCISIONS INTACT W/ OCCLUSIVE DRESSING, W/ 1 GEOVANNA DRAIN CHARGED W/ LARGE AMOUNT OF SEROUS OUTPUT. AFEBRILE. NOT IN ANY DISTRESS. COMPLAINED OF ABDOMINAL INCISIONAL PAIN, SHARP, 10/10, MEDICATED W/ MORPHINE 2 MG SIVP. WILL REASSESS FOR PRN EFFECTIVENESS.PT. IS A FULL CODE.
[2021-01-20] MEDS: ARIPIPRAZOLE 5 MG TABLET PO SCH (21:39)
[2021-01-20] MEDS: MIRTAZAPINE 15 MG TABLET PO SCH (21:39)
[2021-01-21] VITALS (16 sets, daily range): BP systolic 105–128; BP diastolic 64–88
[2021-01-21] MEDS: IV NS 0.9% 1,000 ML IV PRN ×2 (03:24→12:24)
[2021-01-21 04:20] LABS: BASOPHILS # (AUTO) 0.1 K/uL (0.0-0.2); BASOPHILS % (AUTO) 0.5 % (0.0-2.0); EOSINOPHILS % (AUTO) 1.7 % (0.0-6.0); HEMATOCRIT 31 % (39-51); HEMOGLOBIN 10.2 g/dL (13.5-17.5); LYMPHOCYTES # (AUTO) 1.6 K/uL (0.8-4.8); LYMPHOCYTES % (AUTO) 10.8 % (20.0-44.0); MEAN CORPUSCULAR HGB CONC 33 g/dl (31.0-36.0); MEAN CORPUSCULAR VOLUME 89 fL (80-96); MONOCYTES % (AUTO) 6.3 % (2.0-12.0); NEUTROPHILS # (AUTO) 12.2 K/uL (1.8-8.9); NEUTROPHILS % (AUTO) 80.7 % (43.0-81.0); PLATELET COUNT (AUTO) 268 K/uL (150-450); RED BLOOD CELL COUNT(AUTO) 3.49 MIL/uL (4.5-6.0); WHITE BLOOD COUNT (AUTO) 15.2 K/uL (4.3-11.0)
[2021-01-21] MEDS: MORPHINE SULFATE INJ 2 MG/ML DISP.SYRIN IV PRN ×4 (04:30→19:58)
[2021-01-21 04:36] LABS: CALCIUM, SERUM 7.5 mg/dL (8.5-10.1); CREATININE 1.2 mg/dL (0.6-1.3)
[2021-01-21] MEDS: PIPERACILLIN /TAZOBACTAM 3.375 G in IV D5W 100 ML IV SCH ×3 (06:06→21:53)
--- NOTE | 2021-01-21 07:30 | NUR ---
OPENING NOTE: REPORT RECEIVED FROM CHEMA SANTIAGO. PT ALERT OX3. PT ON RA. 3 POKE SITES NOTED ON ABD FROM LAP APPY, WITH GEOVANNA NOTED, DRAINING SEROUS FLUID, COMPRESSED PER MD ORDERS. PER REPORT LEVOPHED HAS BEEN OFF SINCE YESTERDAY AT 1600. PT CHECKED ON HOURLY AND PRN BY NURSING STAFF.
[2021-01-21] MEDS: BLOOD SUGAR DIAGNOSTIC 1 EACH STRIP IN SCH ×4 (07:47→21:53)
[2021-01-21] MEDS: EZETIMIBE 10 MG TABLET PO SCH (08:32)
[2021-01-21] MEDS: PANTOPRAZOLE 40 MG TABLET.DR PO SCH (08:32)
[2021-01-21] MEDS: GABAPENTIN 100 MG CAPSULE PO SCH ×3 (08:32→16:46)
[2021-01-21] MEDS: ATORVASTATIN 40 MG TABLET PO SCH (08:32)
[2021-01-21] MEDS: APIXABAN 5 MG TABLET PO SCH ×2 (08:33→16:46)
[2021-01-21] MEDS: METFORMIN 500 MG TABLET PO SCH ×2 (08:34→16:46)
[2021-01-21] MEDS: FLUOXETINE HCL 20 MG CAPSULE PO SCH (08:34)
--- NOTE | 2021-01-21 10:05 | NUR ---
TELEPHONE REPORT GIVEN TO STEPHAN SANTIAGO FOR TRANSFER TO ROOM 321-2 MED/SURG
--- NOTE | 2021-01-21 10:49 | NUR ---
PT TRANSPORTED TO BED 321-1 VIA BED ACCOMPANIED BY RN AND DIRECTOR FEDERAL. PT WORE FACEMASK FOR TRANSPORT. STEPHAN RN MET RN IN ROOM FOR HANDOFF OF PATIENT. VILLA CATHETER AND GEOVANNA DRAIN EMPTIED PRIOR TO TRANSPORT. PT STATED UNDERSTANDING OF TRANSPORT. ALL PERSONAL BELONGINGS SENT WITH PATIENT.
--- NOTE | 2021-01-21 10:51 | NUR ---
RN NOTES PT TRANSFERRED FROM ICU TO 321-1 VIA HIS BED ACCOMPANIED BY KRISTY SCRAP SORTER. PT IS A/O X4. ABLE TO MAKE NEEDS KNOWN. ORIENTED TO STAFF AND ROOM. ON ROOM AIR, BREATHING EVEN AND UNLABORED. PT WITH 3 SURGICAL INCISION ON LOWER ABDOMEN ALL C/D/I. GEOVANNA DRAIN ON MED LOWER ABDOMEN IN PLACE WITH SEROUS DRAINAGE OUTPUT NOTED. PT WITH TRIPLE LUMEN PICC LINE IN PLACE ON SUSANNA WITH IVF OF NS @ 125ML/HR INFUSING WELL. SAFETY MEASURES IN PLACE: BED PLACED IN LOWEST LOCKED POSITION WITH SR UP X2. CALL LIGHT AND BEDSIDE TABLE W/IN EASY REACH OF PT. WILL CONTINUE TO MONITOR PT.
[2021-01-21] MEDS: INSULIN REGULAR, HUMAN 100 UNIT/ML 3 ML VIAL SQ PRN ×2 (11:41→18:19)
--- NOTE | 2021-01-21 19:27 | NUR ---
MS RN CLOSING NOTES PT IN BED AWAKE AND WATCHING TV AT THIS TIME. A/O X4. ABLE TO MAKE NEEDS KNOWN. ON ROOM AIR, BREATHING EVEN AND UNLABORED. 3 SURGICAL INCISION ON LOWER ABDOMEN ALL C/D/I. GEOVANNA DRAIN ON MED LOWER ABDOMEN IN PLACE WITH SEROUS DRAINAGE OUTPUT NOTED. TRIPLE LUMEN PICC LINE IN PLACE ON SUSANNA WITH IVF OF NS @ 125ML/HR INFUSING WELL. VILLA IN PLACE AND DRAINING TEA COLORED URINE TO BEDSIDE URINARY BAG, VILLA CARE DONE. ALL NEEDS AND CARE ATTENDED WELL. SAFETY MEASURES IN PLACE: BED PLACED IN LOWEST LOCKED POSITION WITH SR UP X2. CALL LIGHT AND BEDSIDE TABLE W/IN EASY REACH OF PT. ENDORSED GIULIA TO FURNITURE REPAIRER RN AMERICO.
--- NOTE | 2021-01-21 19:45 | NUR ---
MS RN NOTES RECEIVED ON BED WITH HOB ELEVATED,A/O X4,SPEAK NAMIBIAN,ABLE TO UNDERSTAND CHINESE,S/P LAP APPY,WITH X3 SMALL ABDOMINAL INCISION,WITH J CARLOS BARBER IN PLACE DRAINING SANGUINOUS OUTPUT.WITH RIGHT UPPER ARM PICC LINE INFUSING IV ABX VIA IV PUMP.RIGHT AC SALINE LOCK INTACT AND PATENT.WILL CONTINUE TO MONITOR STATUS.
--- NOTE | 2021-01-21 19:58 | NUR ---
MS RN NOTES PAIN MANAGEMENT MOANING IN PAIN 9/10 ON PAIN SCALE,MEDICATED WITH MORPHINE 2MG IV ORDERED FOR SEVERE PAIN, BP-118/85,PULSE-99.
--- NOTE | 2021-01-21 21:30 | NUR ---
MS RN NOTES ACCU-CHECK BLOOD SUGAR CHECK 113,NO INSULIN COVERAGE
[2021-01-21] MEDS: MIRTAZAPINE 15 MG TABLET PO SCH (21:53)
[2021-01-21] MEDS: ARIPIPRAZOLE 5 MG TABLET PO SCH (21:53)
[2021-01-22] MEDS: MORPHINE SULFATE INJ 2 MG/ML DISP.SYRIN IV PRN ×4 (00:20→14:52)
--- NOTE | 2021-01-22 05:30 | NUR ---
MS RN NOTES ACCU-CHECK BLOOD SUGAR CHECK 84,NO INSULIN COVERAGE.
[2021-01-22] MEDS: PIPERACILLIN /TAZOBACTAM 3.375 G in IV D5W 100 ML IV SCH ×2 (05:34→14:10)
[2021-01-22] MEDS: BLOOD SUGAR DIAGNOSTIC 1 EACH STRIP IN SCH ×4 (06:09→22:21)
--- NOTE | 2021-01-22 06:09 | NUR ---
MS RN NOTES PAIN MANAGEMENT MOANS IN PAIN,CLAIMED 12/08,MEDICATED WITH MORPHINE 2MG IV ORDERED
--- NOTE | 2021-01-22 06:32 | NUR ---
MS RN NOTES MOANS WHEN IN PAIN,MANAGE WITH MORPHINE,IV ABX INFUSING THIS TIME AT EXTENDED RATE VIA RIGHT UPPER ARM PICC LINE VIA IV PUMP.ABLE TO AMBULATE WITH WALKER.VITAL SIGNS WITH IN NORMAL LIMITS.IN NO ACUTE DISTRESS.
[2021-01-22 06:47] LABS: BASOPHILS % (AUTO) 0.4 % (0.0-2.0); EOSINOPHILS % (AUTO) 3.6 % (0.0-6.0); HEMATOCRIT 31 % (39-51); HEMOGLOBIN 10.4 g/dL (13.5-17.5); LYMPHOCYTES # (AUTO) 1.8 K/uL (0.8-4.8); LYMPHOCYTES % (AUTO) 16.8 % (20.0-44.0); MEAN CORPUSCULAR HGB CONC 33 g/dl (31.0-36.0); MEAN CORPUSCULAR VOLUME 89 fL (80-96); MONOCYTES # (AUTO) 0.9 K/uL (0.1-1.30); MONOCYTES % (AUTO) 8.6 % (2.0-12.0); NEUTROPHILS # (AUTO) 7.5 K/uL (1.8-8.9); NEUTROPHILS % (AUTO) 70.6 % (43.0-81.0); PLATELET COUNT (AUTO) 281 K/uL (150-450); WHITE BLOOD COUNT (AUTO) 10.7 K/uL (4.3-11.0)
[2021-01-22 07:08] LABS: CALCIUM, SERUM 7.6 mg/dL (8.5-10.1); CREATININE 1.1 mg/dL (0.6-1.3); POTASSIUM 3.6 mmol/L (3.5-5.1)
--- NOTE | 2021-01-22 07:40 | NUR ---
MS/RN OPENING NOTES RECEIVED PATIENT ON BED WITH HOB ELEVATED,A/O X4,SPEAK ENGLISH,ABLE TO UNDERSTAND SWEDISH. STABLE ON ROOM AIR. NO DISTRESS NOTED. S/P LAP APPY,WITH X3 SMALL ABDOMINAL INCISION,WITH J CARLOS BARBER IN PLACE DRAINING SANGUINOUS OUTPUT.WITH RIGHT UPPER ARM PICC LINE INFUSING IV ABX VIA IV PUMP.RIGHT AC SALINE LOCK INTACT AND PATENT. VILLA CATHETER IS DRAINING INTO A BLOOD TINGE URINE. SAFETY PRECAUTIONS IN PLACED: BED LOCKED ON LOWEST POSITION, SIDE RAILS UPX2, CALL LIGHT WITHIN REACH. WILL CONTINUE TO MONITOR STATUS.
[2021-01-22] MEDS: GABAPENTIN 100 MG CAPSULE PO SCH ×3 (09:02→17:24)
[2021-01-22] MEDS: EZETIMIBE 10 MG TABLET PO SCH (09:03)
[2021-01-22] MEDS: ATORVASTATIN 40 MG TABLET PO SCH (09:03)
[2021-01-22] MEDS: APIXABAN 5 MG TABLET PO SCH ×2 (09:03→17:26)
[2021-01-22] MEDS: METFORMIN 500 MG TABLET PO SCH ×2 (09:03→17:23)
[2021-01-22] MEDS: PANTOPRAZOLE 40 MG TABLET.DR PO SCH (09:03)
[2021-01-22] MEDS: FLUOXETINE HCL 20 MG CAPSULE PO SCH (09:08)
[2021-01-22 10:35] VITALS: BP 126/71
[2021-01-22] MEDS: IV NS 0.9% 1,000 ML IV PRN (14:13)
[2021-01-22] MEDS ORDERED: POTASSIUM CHLORIDE 20 MEQ TAB.PRT.SR PO ONE (17:00)
[2021-01-22] MEDS: MEROPENEM 1 G in IV NS 0.9% 100 ML IV SCH (18:39)
--- NOTE | 2021-01-22 19:19 | NUR ---
MS/RN CLOSING NOTES PATIENT ON BED WITH HOB ELEVATED,A/O X4,SPEAK MALAY,ABLE TO UNDERSTAND ARABIC. STABLE ON ROOM AIR. NO DISTRESS NOTED. S/P LAP APPY,WITH X3 SMALL ABDOMINAL INCISION,WITH J CARLOS BARBER IN PLACE DRAINING TO YELLOW CLEAR OUTPUT.WITH RIGHT UPPER ARM PICC LINE INFUSING IV ABX VIA IV PUMP.RIGHT AC SALINE LOCK INTACT AND PATENT. VILLA CATHETER IS DRAINING INTO A BLOOD TINGE URINE. SAFETY PRECAUTIONS IN PLACED: BED LOCKED ON LOWEST POSITION, SIDE RAILS UPX2, CALL LIGHT WITHIN REACH. WILL ENDORSE TO THE NEXT SHIFT FOR GIULIA.
--- NOTE | 2021-01-22 19:56 | NUR ---
MS RN OPENING NOTES: RECEIVED PATIENT AWAKE IN BED, BED IN LOW POSITION, CALL LIGHTS WITHIN REACH, NO COMPLAIN OF PAIN AND DISCOMFORT AT THIS TIME, PATIENT WAS BR HOB AT 30-45 DEGREE ON RA NO RESP DISTRESS WAS OBSERVED, ON FC WITH 200CC URINE OUTPUT, GINA COLORED, PER AM NURSE WAS MADE AWARE, GEOVANNA RANJAN ON LEFT SIDE, PATIENT KEPT CLEAN AND DRY, ALL NEEDS, WILL CONTINUE TO MONITOR.
[2021-01-22 20:00] VITALS: BP 115/72
[2021-01-22] MEDS: MIRTAZAPINE 15 MG TABLET PO SCH (21:57)
[2021-01-22] MEDS: ARIPIPRAZOLE 5 MG TABLET PO SCH (21:57)
[2021-01-23] MEDS: MEROPENEM 1 G in IV NS 0.9% 100 ML IV SCH ×3 (02:52→17:07)
[2021-01-23 04:10] VITALS: BP 115/72
[2021-01-23 06:37] LABS: BASOPHILS % (AUTO) 0.4 % (0.0-2.0); EOSINOPHILS % (AUTO) 5.7 % (0.0-6.0); HEMATOCRIT 34 % (39-51); HEMOGLOBIN 11.3 g/dL (13.5-17.5); LYMPHOCYTES # (AUTO) 1.7 K/uL (0.8-4.8); MEAN CORPUSCULAR HGB CONC 33 g/dl (31.0-36.0); MEAN CORPUSCULAR VOLUME 89 fL (80-96); MONOCYTES # (AUTO) 1.2 K/uL (0.1-1.30); MONOCYTES % (AUTO) 14.8 % (2.0-12.0); NEUTROPHILS # (AUTO) 4.9 K/uL (1.8-8.9); NEUTROPHILS % (AUTO) 59.1 % (43.0-81.0); PLATELET COUNT (AUTO) 290 K/uL (150-450); RED BLOOD CELL COUNT(AUTO) 3.84 MIL/uL (4.5-6.0); WHITE BLOOD COUNT (AUTO) 8.2 K/uL (4.3-11.0)
[2021-01-23 06:51] LABS: CALCIUM, SERUM 8.1 mg/dL (8.5-10.1); CREATININE 1.1 mg/dL (0.6-1.3); POTASSIUM 3.6 mmol/L (3.5-5.1)
[2021-01-23] MEDS: BLOOD SUGAR DIAGNOSTIC 1 EACH STRIP IN SCH ×4 (06:54→21:17)
--- NOTE | 2021-01-23 07:30 | NUR ---
MS/RN OPENING NOTES RECEIVED PATIENT ON BED WITH HOB ELEVATED,A/O X4,SPEAK POLISH,ABLE TO UNDERSTAND AZERI. STABLE ON ROOM AIR. NO DISTRESS NOTED. S/P LAP APPY,WITH X3 SMALL ABDOMINAL INCISION,WITH J CARLOS BARBER IN PLACE DRAINING YELLOW OUTPUT.WITH RIGHT UPPER ARM PICC LINE ON SALINE LOCK. VILLA CATHETER IS DRAINING INTO GINA COLORED URINE. SAFETY PRECAUTIONS IN PLACED: BED LOCKED ON LOWEST POSITION, SIDE RAILS UPX2, CALL LIGHT WITHIN REACH. WILL CONTINUE TO MONITOR STATUS.
--- NOTE | 2021-01-23 07:33 | NUR ---
MS RN CLOSING NOTE: RECEIVED PATIENT AWAKE IN BED, BED IN LOW POSITION, CALL LIGHTS WITHIN REACH, NO COMPLAIN OF PAIN AND DISCOMFORT AT THIS TIME, PATIENT ON FC WITH 1450 CC OUTPUT, ON GEOVANNA PRAT- 150 OUTPUT, PATIENT HAS SUSANNA PICC LINE, KEPT CLEAN AND DRY, ALL NEEDS MET, ENDORSE TO INCOMING SHIFT.
[2021-01-23] MEDS: MORPHINE SULFATE INJ 2 MG/ML DISP.SYRIN IV PRN (07:47)
[2021-01-23] MEDS ORDERED: MAGNESIUM HYDROXIDE 30 ML UDC PO PRN (08:30)
[2021-01-23] MEDS: GABAPENTIN 100 MG CAPSULE PO SCH ×3 (08:51→16:25)
[2021-01-23] MEDS: ATORVASTATIN 40 MG TABLET PO SCH (08:51)
[2021-01-23] MEDS: EZETIMIBE 10 MG TABLET PO SCH (08:51)
[2021-01-23] MEDS: METFORMIN 500 MG TABLET PO SCH ×2 (08:51→16:25)
[2021-01-23] MEDS: PANTOPRAZOLE 40 MG TABLET.DR PO SCH (08:51)
[2021-01-23] MEDS: FLUOXETINE HCL 20 MG CAPSULE PO SCH (08:51)
[2021-01-23] MEDS: APIXABAN 5 MG TABLET PO SCH ×2 (08:55→16:26)
[2021-01-23 10:50] VITALS: BP 129/78
--- NOTE | 2021-01-23 12:03 | NUR ---
MS/RN NOTES- ANXIETY PATIENT REPORTED HE IS HAVING ANXIETY, REQUESTING MEDICATION THAT COULD CALM HIM DOWN. CALLED DR. COURTNEY AND MD ORDERED ATIVAN 0.5MG PO ONE TIME ONLY. WILL CARRY OUT ORDER.
[2021-01-23] MEDS ORDERED: LORAZEPAM 0.5 MG TABLET PO ONE (12:30)
--- NOTE | 2021-01-23 16:27 | NUR ---
MS/RN NOTES- WITHHELD ELIQUIS WITHHELD ELIQUIS MEDICATION DUE TO BLOOD TINGE URINE. DR. COURTNEY AWARE.
--- NOTE | 2021-01-23 18:53 | NUR ---
MS/RN CLOSING NOTES PATIENT ON BED WITH HOB ELEVATED,A/O X4,SPEAK CHINESE,ABLE TO UNDERSTAND [place]. STABLE ON ROOM AIR. NO DISTRESS NOTED. S/P LAP MK,WITH X3 SMALL ABDOMINAL INCISION,WITH J CARLOS BARBER IN PLACE DRAINING YELLOW OUTPUT.WITH RIGHT UPPER ARM PICC LINE ON SALINE LOCK. VILLA CATHETER IS DRAINING INTO BLOOD TINGED URINE. ALL NEEDS MET. SAFETY PRECAUTIONS IN PLACED: BED LOCKED ON LOWEST POSITION, SIDE RAILS UPX2, CALL LIGHT WITHIN REACH. WILL ENDORSE TO THE NEXT SHIFT FOR GIULIA.
--- NOTE | 2021-01-23 19:30 | NUR ---
MS RN OPENING NOTE RECEIVED PT AWAKE IN BED. A/O X4. PT IS GUAMANIAN-SPEAKING, ABLE TO UNDERSTAND MICRONESIAN. PT IS STABLE ON ROOM AIR WITH NO SOB OR S/S OF RESPIRATORY DISTRESS NOTED. S/P LAP APPENDECTOMY WITH X 3 SMALL ABDOMINAL INCISIONS. PT NOTED WITH J CARLOS BARBER IN PLACE DRAINING YELLOW OUTPUT. IV ACCESS IN SUSANNA PICC LINE SALINE-LOCKED. VILLA CATH IN PLACE DRAINING GINA-COLORED URINE. SAFETY PRECAUTIONS MAINTAINED. BED IN LOWEST LOCKED POSITION, HOB ELEVATED, SIDE RAILS UP X2. CALL LIGHT AND TABLE WITHIN REACH. WILL CONTINUE TO MONITOR.
[2021-01-23 20:00] VITALS: BP 125/81
[2021-01-23] MEDS: ARIPIPRAZOLE 5 MG TABLET PO SCH (21:06)
[2021-01-23] MEDS: MIRTAZAPINE 15 MG TABLET PO SCH (21:06)
[2021-01-24] MEDS: MEROPENEM 1 G in IV NS 0.9% 100 ML IV SCH ×3 (01:45→17:44)
[2021-01-24] MEDS: LORAZEPAM 0.5 MG TABLET PO PRN (01:57)
--- NOTE | 2021-01-24 01:57 | NUR ---
RN NOTE ANXIETY PT C/O ANXIETY AND REQUESTED ATIVAN. RECEIVED ORDERS FROM SHUKRI FINK CREW LEADER/CONTROL ROOM OPERATOR TO ADMINISTER ATIVAN 0.5MG PO Q6H PRN. ORDER READ BACK AND CARRIED OUT. WILL CONTINUE TO MONITOR PT.
[2021-01-24] MEDS: BLOOD SUGAR DIAGNOSTIC 1 EACH STRIP IN SCH ×4 (06:33→22:43)
[2021-01-24 06:55] LABS: BASOPHILS % (AUTO) 0.4 % (0.0-2.0); EOSINOPHILS % (AUTO) 4.9 % (0.0-6.0); HEMATOCRIT 33 % (39-51); HEMOGLOBIN 11.1 g/dL (13.5-17.5); LYMPHOCYTES # (AUTO) 2.3 K/uL (0.8-4.8); MEAN CORPUSCULAR HGB CONC 33 g/dl (31.0-36.0); MEAN CORPUSCULAR VOLUME 88 fL (80-96); MONOCYTES # (AUTO) 1.6 K/uL (0.1-1.30); MONOCYTES % (AUTO) 17.3 % (2.0-12.0); NEUTROPHILS # (AUTO) 4.8 K/uL (1.8-8.9); NEUTROPHILS % (AUTO) 52.4 % (43.0-81.0); PLATELET COUNT (AUTO) 295 K/uL (150-450); RED BLOOD CELL COUNT(AUTO) 3.77 MIL/uL (4.5-6.0); WHITE BLOOD COUNT (AUTO) 9.1 K/uL (4.3-11.0)
--- NOTE | 2021-01-24 07:00 | NUR ---
MS RN CLOSING NOTE PT IS IN BED WITH EYES CLOSED, AROUSABLE TO STIMULATION. A/O X4. PT IS WALLISIAN-SPEAKING, ABLE TO UNDERSTAND ALBANIAN. PT IS STABLE ON ROOM AIR WITH NO SOB OR S/S OF RESPIRATORY DISTRESS NOTED. S/P LAP APPENDECTOMY WITH X 3 SMALL ABDOMINAL INCISIONS. PT NOTED WITH J CARLOS BARBER IN PLACE DRAINING YELLOW OUTPUT. IV ACCESS IN SUSANNA PICC LINE SALINE-LOCKED. VILLA CATH IN PLACE DRAINING GINA-COLORED URINE. ALL NEEDS HAVE BEEN MET. SAFETY PRECAUTIONS MAINTAINED AT ALL TIMES. BED IN LOWEST LOCKED POSITION, HOB ELEVATED, SIDE RAILS UP X2. CALL LIGHT AND TABLE WITHIN REACH. WILL ENDORSE TO ONCOMING NURSE FOR GIULIA.
[2021-01-24 07:47] LABS: CALCIUM, SERUM 8.2 mg/dL (8.5-10.1); CREATININE 0.9 mg/dL (0.6-1.3); POTASSIUM 3.7 mmol/L (3.5-5.1)
--- NOTE | 2021-01-24 07:49 | NUR ---
MS/RN OPENING NOTES RECEIVED PATIENT IN BED WITH HOB ELEVATED,A/O X4,SPEAK TURKISH,ABLE TO UNDERSTAND NIGERIAN. STABLE ON ROOM AIR. NO DISTRESS NOTED. S/P LAP MK,WITH X3 SMALL ABDOMINAL INCISION,WITH J CARLOS BARBER IN PLACE DRAINING YELLOW OUTPUT.WITH RIGHT UPPER ARM PICC LINE ON SALINE LOCK. VILLA CATHETER IS DRAINING INTO GINA COLORED URINE WITH SOME BLOOD NOTED. SAFETY PRECAUTIONS IN PLACED: BED LOCKED ON LOWEST POSITION, SIDE RAILS UPX2, CALL LIGHT WITHIN REACH. WILL CONTINUE TO MONITOR STATUS.
[2021-01-24 08:25] VITALS: BP 109/78
[2021-01-24] MEDS: ATORVASTATIN 40 MG TABLET PO SCH (08:45)
[2021-01-24] MEDS: GABAPENTIN 100 MG CAPSULE PO SCH ×3 (08:45→16:27)
[2021-01-24] MEDS: FLUOXETINE HCL 20 MG CAPSULE PO SCH (08:45)
[2021-01-24] MEDS: EZETIMIBE 10 MG TABLET PO SCH (08:45)
[2021-01-24] MEDS: PANTOPRAZOLE 40 MG TABLET.DR PO SCH (08:45)
[2021-01-24] MEDS: METFORMIN 500 MG TABLET PO SCH ×2 (08:45→16:27)
[2021-01-24] MEDS: APIXABAN 5 MG TABLET PO SCH ×2 (08:46→16:28)
--- NOTE | 2021-01-24 08:46 | NUR ---
MS/RN NOTES- ELIQUIS EYAD ALLEN DUE TO SOME BLOOD PRESENT IN THE URINE. DR. COURTNEY IS AWARE. WILL CONTINUE TO MONITOR
[2021-01-24 10:33] VITALS: BP 109/78
[2021-01-24 16:35] VITALS: BP 114/76
--- NOTE | 2021-01-24 19:20 | NUR ---
MS RN CLOSING NOTE PT IS IN BED WITH EYES CLOSED, AROUSABLE TO STIMULATION. A/O X4. PT IS ALGERIAN-SPEAKING, ABLE TO UNDERSTAND [place]. PT IS STABLE ON ROOM AIR WITH NO SOB OR S/S OF RESPIRATORY DISTRESS NOTED. S/P LAP APPENDECTOMY WITH X 3 SMALL ABDOMINAL INCISIONS. PT NOTED WITH J CARLOS BARBER IN PLACE DRAINING YELLOW OUTPUT. IV ACCESS IN SUSANNA PICC LINE SALINE-LOCKED. VILLA CATH IN PLACE DRAINING GINA-COLORED URINE. ALL NEEDS HAVE BEEN MET. SAFETY PRECAUTIONS MAINTAINED AT ALL TIMES. BED IN LOWEST LOCKED POSITION, HOB ELEVATED, SIDE RAILS UP X2. CALL LIGHT AND TABLE WITHIN REACH. WILL ENDORSE TO ONCOMING NURSE FOR GIULIA.
--- NOTE | 2021-01-24 19:50 | NUR ---
MS RN OPENING NOTES PATIENT WAS LAST SEEN AWAKE RESTING IN BED. PATIENT'S A/OX3. PATIENT'S STABLE ON ROOM AIR. PATIENT'S NOTED WITH A J CARLOS BARBER DRAIN. SUSANNA PICC LINE NOTED SALINE-LOCKED. VILLA CATH IN PLACE. PATIENT'S IN NO ACUTE DISTRESS AT THIS TIME. SAFETY MEASURES IN PLACE: BED LOCKED, BED ALARM ON, SIDE RAILS UPX3, AND CALL LIGHT WITHIN REACH OF THE PATIENT. WILL ENDORSE TO THE DAY SHIFT NURSE.
[2021-01-24 20:00] VITALS: BP 126/86
[2021-01-24] MEDS: ARIPIPRAZOLE 5 MG TABLET PO SCH (21:38)
[2021-01-24] MEDS: MIRTAZAPINE 15 MG TABLET PO SCH (21:38)
--- NOTE | 2021-01-24 22:50 | NUR ---
MS RN NOTES PATIENT'S BS AT 2223 WAS 102 MG/DL. WILL CONTINUE TO MONITOR THE PATIENT.
[2021-01-25] MEDS: LORAZEPAM 0.5 MG TABLET PO PRN ×2 (02:02→12:32)
[2021-01-25] MEDS: MEROPENEM 1 G in IV NS 0.9% 100 ML IV SCH ×3 (02:02→18:26)
[2021-01-25 06:28] LABS: BASOPHILS % (AUTO) 0.5 % (0.0-2.0); EOSINOPHILS % (AUTO) 4.5 % (0.0-6.0); HEMATOCRIT 32 % (39-51); HEMOGLOBIN 10.9 g/dL (13.5-17.5); LYMPHOCYTES # (AUTO) 2.5 K/uL (0.8-4.8); LYMPHOCYTES % (AUTO) 26.3 % (20.0-44.0); MEAN CORPUSCULAR HGB CONC 34 g/dl (31.0-36.0); MEAN CORPUSCULAR VOLUME 89 fL (80-96); MONOCYTES # (AUTO) 1.3 K/uL (0.1-1.30); MONOCYTES % (AUTO) 13.1 % (2.0-12.0); NEUTROPHILS # (AUTO) 5.4 K/uL (1.8-8.9); NEUTROPHILS % (AUTO) 55.6 % (43.0-81.0); PLATELET COUNT (AUTO) 307 K/uL (150-450); RED BLOOD CELL COUNT(AUTO) 3.66 MIL/uL (4.5-6.0); WHITE BLOOD COUNT (AUTO) 9.6 K/uL (4.3-11.0)
--- NOTE | 2021-01-25 06:45 | NUR ---
MS RN NOTES PATIENT'S BLOOD SUGAR AT 0642 WAS 91 MG/DL. WILL CONTINUE TO MONITOR THE PATIENT.
[2021-01-25] MEDS: BLOOD SUGAR DIAGNOSTIC 1 EACH STRIP IN SCH ×4 (06:46→22:56)
--- NOTE | 2021-01-25 06:54 | NUR ---
MS RN CLOSING NOTES PATIENT WAS LAST SEEN AWAKE RESTING IN BED. PATIENT'S A/OX3. PATIENT'S STABLE ON ROOM AIR. PATIENT'S NOTED WITH A J CARLOS BARBER DRAIN. SUSANNA PICC LINE NOTED SALINE-LOCKED. VILLA CATH IN PLACE. PATIENT'S IN NO ACUTE DISTRESS AT THIS TIME. SAFETY MEASURES IN PLACE: BED LOCKED, BED ALARM ON, SIDE RAILS UPX3, AND CALL LIGHT WITHIN REACH OF THE PATIENT. WILL ENDORSE TO THE DAY SHIFT NURSE.
[2021-01-25 07:26] LABS: POTASSIUM 3.5 mmol/L (3.5-5.1)
--- NOTE | 2021-01-25 07:34 | NUR ---
MS RN OPENING NOTE RECEIVED PATIENT IN BED, ASLEEP, EASY TO AROUSE. ALERT AND ORIENTED X 4, MACEDONIAN SPEAKING. NO S/S OF DISTRESS NOTED. BREATHING IS EVEN AND UNLABORED. IV ACCESS SUSANNA PICC PATENT AND INTACT. PATIENT NOTED WITH GEOVANNA DRAIN WITH SEROUS FLUID. SAFETY MEASURES IN PLACE WITH BED LOCKED IN LOW POSITION, SIDE RAILS UP X 2. CALL LIGHT WITHIN REACH. WILL CONTINUE TO MONITOR THROUGHOUT SHIFT.
[2021-01-25 08:00] VITALS: BP 132/54
[2021-01-25] MEDS: APIXABAN 5 MG TABLET PO SCH ×2 (08:44→16:41)
[2021-01-25] MEDS: FLUOXETINE HCL 20 MG CAPSULE PO SCH (08:44)
[2021-01-25] MEDS: PANTOPRAZOLE 40 MG TABLET.DR PO SCH (08:44)
[2021-01-25] MEDS: METFORMIN 500 MG TABLET PO SCH ×2 (08:44→16:47)
[2021-01-25] MEDS: EZETIMIBE 10 MG TABLET PO SCH (08:44)
[2021-01-25] MEDS: ATORVASTATIN 40 MG TABLET PO SCH (08:44)
[2021-01-25] MEDS: GABAPENTIN 100 MG CAPSULE PO SCH ×3 (08:44→16:46)
[2021-01-25 09:04] LABS: BAND % (MANUAL) 2 % (0.0-5.0); EOSINOPHILS % (MANUAL) 3 % (0-4); LYMPHOCYTES % (MANUAL) 30 % (16-48); METAMYELOCYTES % 1 % (0-0); MONOCYTES % (MANUAL) 9 % (0-11.0); MYELOCYTES % 1 % (0-0); NEUTROPHILS % (MANUAL) 54 (42-76)
[2021-01-25 16:00] VITALS: BP 128/61
--- NOTE | 2021-01-25 19:26 | NUR ---
MS RN CLOSING NOTE PATIENT IN BED RESTING COMFORTABLY. ALERT AND ORIENTED X 4, UKRAINIAN SPEAKING. NO S/S OF DISTRESS NOTED. BREATHING IS EVEN AND UNLABORED. IV ACCESS SUSANNA PICC PATENT AND INTACT. PATIENT NOTED WITH GEOVANNA DRAIN WITH SEROUS FLUID. SAFETY MEASURES MAINTAINED. CALL LIGHT WITHIN REACH. ALL NEEDS MET THROUGHOUT SHIFT. WILL ENDORSE CONTINUITY OF CARE TO ONCOMING SHIFT.
--- NOTE | 2021-01-25 19:29 | NUR ---
RN OPENING NOTES PATIENT IN BED RESTING COMFORTABLY. ALERT AND ORIENTED X 4, CITIZEN OF [place] SPEAKING. NO S/S OF DISTRESS NOTED. BREATHING IS EVEN AND UNLABORED. IV ACCESS SUSANNA PICC PATENT AND INTACT. PATIENT NOTED WITH GEOVANNA DRAIN WITH SEROUS FLUID. SAFETY MEASURES MAINTAINED. CALL LIGHT WITHIN REACH. ALL NEEDS MET AT THIS TIME. WILL CONTINUE TO MONITOR.
[2021-01-25 20:00] VITALS: BP 116/66
[2021-01-25] MEDS: ARIPIPRAZOLE 5 MG TABLET PO SCH (22:13)
[2021-01-25] MEDS: MIRTAZAPINE 15 MG TABLET PO SCH (22:13)
[2021-01-26] MEDS: MEROPENEM 1 G in IV NS 0.9% 100 ML IV SCH ×2 (01:23→12:05)
--- NOTE | 2021-01-26 04:22 | NUR ---
RN NOTES PT WAS FEELING NAUSEATED PRN ZOFRAN GIVEN WILL CONTINUE TO MONITOR.
--- NOTE | 2021-01-26 06:31 | NUR ---
RN NOTES PATIENT IN BED RESTING COMFORTABLY. ALERT AND ORIENTED X 4, DUTCH SPEAKING. NO S/S OF DISTRESS NOTED. BREATHING IS EVEN AND UNLABORED. IV ACCESS SUSANNA PICC PATENT AND INTACT. PATIENT NOTED WITH GEOVANNA DRAIN WITH SEROUS FLUID 80 ML. SAFETY MEASURES MAINTAINED. CALL LIGHT WITHIN REACH. ALL NEEDS MET AT THIS TIME. WILL ENDORSE CARE TO DAY SHIFT NURSE.
[2021-01-26 06:57] LABS: BASOPHILS # (AUTO) 0.1 K/uL (0.0-0.2); BASOPHILS % (AUTO) 0.6 % (0.0-2.0); EOSINOPHILS % (AUTO) 3.6 % (0.0-6.0); HEMATOCRIT 32 % (39-51); HEMOGLOBIN 10.8 g/dL (13.5-17.5); LYMPHOCYTES # (AUTO) 2.4 K/uL (0.8-4.8); LYMPHOCYTES % (AUTO) 20.8 % (20.0-44.0); MEAN CORPUSCULAR HGB CONC 34 g/dl (31.0-36.0); MEAN CORPUSCULAR VOLUME 88 fL (80-96); MONOCYTES # (AUTO) 1.1 K/uL (0.1-1.30); MONOCYTES % (AUTO) 9.3 % (2.0-12.0); NEUTROPHILS # (AUTO) 7.6 K/uL (1.8-8.9); NEUTROPHILS % (AUTO) 65.7 % (43.0-81.0); PLATELET COUNT (AUTO) 337 K/uL (150-450); RED BLOOD CELL COUNT(AUTO) 3.63 MIL/uL (4.5-6.0); WHITE BLOOD COUNT (AUTO) 11.6 K/uL (4.3-11.0)
--- NOTE | 2021-01-26 07:12 | NUR ---
RN OPENING NOTES PATIENT IN BED RESTING COMFORTABLY. ALERT AND ORIENTED X 4, MONGOLIAN SPEAKING MOSTLY. NO S/S OF DISTRESS NOTED. BREATHING IS EVEN AND UNLABORED. IV ACCESS SUSANNA PICC PATENT AND INTACT. PATIENT NOTED WITH GEOVANNA DRAIN WITH SEROUS FLUID. SAFETY MEASURES MAINTAINED. CALL LIGHT WITHIN REACH. SAFETY MEASURES ENSURED WITH BED AT LOWEST POSITION AND LOCKED. SIDERAILS RAISED. CALL LIGHT AND BEDSIDE TABLE WITHIN REACH AT ALL TIMES. WILL CONTINUE TO MONITOR PATIENT.
[2021-01-26 07:23] LABS: CALCIUM, SERUM 7.8 mg/dL (8.5-10.1); CREATININE 0.9 mg/dL (0.6-1.3); POTASSIUM 3.7 mmol/L (3.5-5.1)
[2021-01-26 08:00] VITALS: BP 122/66
[2021-01-26] MEDS: BLOOD SUGAR DIAGNOSTIC 1 EACH STRIP IN SCH ×2 (08:02→12:06)
[2021-01-26] MEDS: EZETIMIBE 10 MG TABLET PO SCH (09:23)
[2021-01-26] MEDS: METFORMIN 500 MG TABLET PO SCH (09:24)
[2021-01-26] MEDS: FLUOXETINE HCL 20 MG CAPSULE PO SCH (09:24)
[2021-01-26] MEDS: PANTOPRAZOLE 40 MG TABLET.DR PO SCH (09:24)
[2021-01-26] MEDS: GABAPENTIN 100 MG CAPSULE PO SCH ×2 (09:24→12:23)
[2021-01-26] MEDS: ATORVASTATIN 40 MG TABLET PO SCH (09:24)
[2021-01-26] MEDS: APIXABAN 5 MG TABLET PO SCH (09:36)
--- NOTE | 2021-01-26 11:00 | NUR ---
MS RN NOTE PATIENT WITH ORDER FOR DISCHARGE. DISCHARGE INSTRUCTIONS GIVEN TO PATIENT. VERBALIZED UNDERSTANDIGN AND APPRECIATION. WILL CONTINUE TO MONITOR PATIENT.
[2021-01-26 12:46] LABS: EOSINOPHILS % (MANUAL) 5 % (0-4); LYMPHOCYTES % (MANUAL) 25 % (16-48); MONOCYTES % (MANUAL) 6 % (0-11.0); MYELOCYTES % 2 % (0-0); NEUTROPHILS % (MANUAL) 62 (42-76)
--- NOTE | 2021-01-26 13:30 | NUR ---
MS R NOTE PATIENT DISCHARGED ORDERED TO [place]. PATIENT ENDORSED TO JACK [phone]. IV ACCESS REMOVED AND COVERED WIT DRESSING. TOLERATED WELL. ID BAN REMOVED. ACCOMPANIED BY EMT VIA [facility]. IN STABLE CONDITION. ENDORSED ACCORDINGLY.
== END 2021-01-26 13:38 | DRG 853 ==
LOC: ER 15:49 → MED 17:37 → ICU 20:28 → MED 01-21 10:37
PROVIDERS: ADMIT Internal Medicine; ATTEND Internal Medicine
PROC: 0DTJ4ZZ Resection of Appendix, Percutaneous Endoscopic Approach (ICD-10-PCS; principal; 2021-01-18)
PROC: 5A1935Z Respiratory Ventilation, Less than 24 Consecutive Hours (ICD-10-PCS; 2021-01-18)
PROC: 0BH17EZ Insertion of Endotracheal Airway into Trachea, Via Natural or Artificial Opening (ICD-10-PCS; 2021-01-18)
PROC: 02HV33Z Insertion of Infusion Device into Superior Vena Cava, Percutaneous Approach (ICD-10-PCS; 2021-01-19)
PROC: B548ZZA Ultrasonography of Superior Vena Cava, Guidance (ICD-10-PCS; 2021-01-19)
DX: A41.9 Sepsis, unspecified organism (principal); N17.0 Acute kidney failure with tubular necrosis; E43 Unspecified severe protein-calorie malnutrition; J96.01 Acute respiratory failure with hypoxia; K35.33 Acute appendicitis with perforation, localized peritonitis, and gangrene, with abscess; R65.21 Severe sepsis with septic shock; I50.32 Chronic diastolic (congestive) heart failure; E11.52 Type 2 diabetes mellitus with diabetic peripheral angiopathy with gangrene; E87.2 Acidosis; I11.0 Hypertensive heart disease with heart failure; I48.0 Paroxysmal atrial fibrillation; E11.9 Type 2 diabetes mellitus without complications; N40.0 Benign prostatic hyperplasia without lower urinary tract symptoms; E78.5 Hyperlipidemia, unspecified; E83.39 Other disorders of phosphorus metabolism; E83.42 Hypomagnesemia; E86.1 Hypovolemia; E87.6 Hypokalemia; Z79.01 Long term (current) use of anticoagulants; Z79.84 Long term (current) use of oral hypoglycemic drugs; Z87.891 Personal history of nicotine dependence; Z20.822 Contact with and (suspected) exposure to COVID-19; Z68.30 Body mass index [BMI] 30.0-30.9, adult; R31.9 Hematuria, unspecified; Z79.899 Other long term (current) drug therapy; E88.09 Other disorders of plasma-protein metabolism, not elsewhere classified
CPT/HCPCS: 31720; 36415; 36569; 36600; 71045-TC; 80048-TC; 80053-TC; 80076-TC; 81001; 82533; 82565-TC; 82803-TC; 82962-TC; 83605-TC; 83690-TC; 83735-TC; 84100-TC; 84484-TC; 85025-TC; 85730-TC; 87040-TC; 87070-TC; 87075-TC; 87081-TC; 87086-TC; 87186-TC; 88304-TC; 93307-TC; 94002-TC; 94003-TC; 94799-TC; 97112-TC; 97116-TC; 97530-TC; A9563; G0378; J0690; J1170; J1815; J1940; J2185; J2250; J2270; J2405; J2543; J2704; J2765; J3010; J3475; J3480; J3490; J7030; J7050; J7060; Q9967

== ENCOUNTER 2021-02-03 17:43 | Inpatient (IN) | payer MEDICARE, OTHER ==
[~2021-02-03] VITALS: Ht 162.6 cm; Wt 76.7 kg
[~2021-02-03 17:43] MED LIST changes: +ARIP5TAB59 PO; -ATOR80TA PO; +FLUO20CA42 PO; +GABA-532 PO; -GABA800T11 PO; +MIRT-90 PO; +POTA10TA11 PO; -POTA10TA48 PO; +ROSU20TA32 PO
--- NOTE | 2021-02-03 18:04 | NUR ---
BIB RA 39 FROM HOME,HOME HEALTH NURSE CALLED 911 DURING A VISIT, NO REASON GIVEN, C/O BODY PAIN P/S 09/07, AAOX4, BREATHING EVEN AND NON LABORED, ATTACHED TO MONITOR
[2021-02-03 18:27] LABS: BASOPHILS # (AUTO) 0.1 K/uL (0.0-0.2); BASOPHILS % (AUTO) 1.1 % (0.0-2.0); EOSINOPHILS % (AUTO) 1.9 % (0.0-6.0); HEMATOCRIT 39 % (39-51); HEMOGLOBIN 12.7 g/dL (13.5-17.5); LYMPHOCYTES # (AUTO) 2.5 K/uL (0.8-4.8); LYMPHOCYTES % (AUTO) 33.5 % (20.0-44.0); MEAN CORPUSCULAR HGB CONC 33 g/dl (31.0-36.0); MEAN CORPUSCULAR VOLUME 88 fL (80-96); MONOCYTES # (AUTO) 1.2 K/uL (0.1-1.30); MONOCYTES % (AUTO) 16.1 % (2.0-12.0); NEUTROPHILS # (AUTO) 3.5 K/uL (1.8-8.9); NEUTROPHILS % (AUTO) 47.4 % (43.0-81.0); PLATELET COUNT (AUTO) 652 K/uL (150-450); RED BLOOD CELL COUNT(AUTO) 4.39 MIL/uL (4.5-6.0); WHITE BLOOD COUNT (AUTO) 7.4 K/uL (4.3-11.0)
[2021-02-03 18:48] LABS: CALCIUM, SERUM 8.7 mg/dL (8.5-10.1); CREATININE 1.5 mg/dL (0.6-1.3); POTASSIUM 3.9 mmol/L (3.5-5.1)
[2021-02-03 19:01] LABS: ALBUMIN 3.4 g/dL (3.4-5.0); BILIRUBIN,DIRECT 0.1 mg/dL (0.0-0.2); BILIRUBIN,TOTAL 0.5 mg/dL (0.2-1.0); TOTAL PROTEIN, SERUM 7.5 g/dL (6.4-8.2)
[2021-02-03 19:09] LABS: LYMPHOCYTES % (MANUAL) 35 % (16-48); MONOCYTES % (MANUAL) 15 % (0-11.0); NEUTROPHILS % (MANUAL) 50 (42-76)
--- NOTE | 2021-02-03 19:11 | NUR ---
COVID SWAB DONE. SPECIMEN TO THE LAB
--- NOTE | 2021-02-03 19:37 | NUR ---
RECIEVED REPORT FOR GIULIA. PT RESTING COMOFRTABLY IN BED RESPIRATIONS EVEN AND UNLABORED VSS.
--- NOTE | 2021-02-03 19:54 | NUR ---
CALLED HOUSE [facility]P FOR MS BED
--- NOTE | 2021-02-03 20:05 | NUR ---
DR COSTA ON THE PHONE WITH YANET RIVERA NP
--- NOTE | 2021-02-03 20:17 | NUR ---
MOVE SHEET SUBMITTED
--- NOTE | 2021-02-03 20:21 | NUR ---
GOT BED 327-2
--- NOTE | 2021-02-03 20:58 | NUR ---
REPORT GIVEN TO KARL
--- NOTE | 2021-02-03 21:14 | NUR ---
PT TRANSPORTED WITHOUT INCIDENT
[2021-02-03 21:20] VITALS: BP 97/70
[2021-02-03] MEDS ORDERED: IV 1/2NS 1000 ML 1,000 ML IV ONE (21:30)
[2021-02-03] MEDS ORDERED: ONDANSETRON HCL/PF 4 MG/2 ML VIAL IVP PRN (21:30)
[2021-02-03] MEDS ORDERED: ACETAMINOPHEN 325 MG TABLET PO PRN (21:30)
[2021-02-03] MEDS: CARVEDILOL 6.25 MG TABLET PO SCH (21:30)
[2021-02-03] MEDS ORDERED: MAG HYDROX/AL HYDROX/SIMETH 30 ML UDC PO PRN (21:30)
[2021-02-03] MEDS ORDERED: Z GUARD REMEDY 2 OZ OINT TP PRN (21:30)
[2021-02-03] MEDS ORDERED: ZOLPIDEM TARTRATE 5 MG TABLET PO PRN (21:30)
[2021-02-03] MEDS ORDERED: MAGNESIUM HYDROXIDE 30 ML UDC PO PRN (21:30)
[2021-02-03 21:53] VITALS: BP 97/70
[2021-02-03] MEDS: MIRTAZAPINE 15 MG TABLET PO SCH (22:21)
[2021-02-03] MEDS: ARIPIPRAZOLE 5 MG TABLET PO SCH (22:21)
[2021-02-03] MEDS: APIXABAN 5 MG TABLET PO SCH (22:24)
--- NOTE | 2021-02-03 23:34 | NUR ---
ADMISSION NOTES PATIENT ARRIVED AT 2119. PT IS AOx4. ABLE TO MAKE NEEDS KNOWN. VENEZUELAN SPEAKING BUT UNDERSTANDS SOME SOMALI. ON RA AND TOLERATING WELL. NO SOB NOTED. NO S/SX OF RESPIRATORY DISTRESS NOTED. IV ACCESS IN RAC#20. IV IS INTACT, PATENT AND FLUSHING WELL. SAFETY PRECAUTIONS IN PLACE: BED IN LOWEST, LOCKED POSITION, SIDERAILS UPx2, BRAKES ON. TABLE AND CALL LIGHT WITHIN REACH. WILL CONTINUE TO MONITOR.
[2021-02-04 06:12] LABS: BASOPHILS # (AUTO) 0.1 K/uL (0.0-0.2); BASOPHILS % (AUTO) 1.3 % (0.0-2.0); EOSINOPHILS % (AUTO) 2.9 % (0.0-6.0); HEMATOCRIT 37 % (39-51); HEMOGLOBIN 12.6 g/dL (13.5-17.5); LYMPHOCYTES # (AUTO) 2.5 K/uL (0.8-4.8); MEAN CORPUSCULAR HGB CONC 34 g/dl (31.0-36.0); MEAN CORPUSCULAR VOLUME 88 fL (80-96); MONOCYTES # (AUTO) 0.9 K/uL (0.1-1.30); MONOCYTES % (AUTO) 14.1 % (2.0-12.0); NEUTROPHILS # (AUTO) 2.6 K/uL (1.8-8.9); NEUTROPHILS % (AUTO) 41.7 % (43.0-81.0); PLATELET COUNT (AUTO) 620 K/uL (150-450); RED BLOOD CELL COUNT(AUTO) 4.25 MIL/uL (4.5-6.0); WHITE BLOOD COUNT (AUTO) 6.3 K/uL (4.3-11.0)
--- NOTE | 2021-02-04 06:44 | NUR ---
MS RN OPENING NOTES PT IN BED, SLEEPING, AWAKENS TO VERBAL STIMULI. PT IS AOx4. ABLE TO MAKE NEEDS KNOWN. SAMI SPEAKING BUT UNDERSTANDS SOME CHINESE. ON RA AND TOLERATING WELL. NO SOB NOTED. NO S/SX OF RESPIRATORY DISTRESS NOTED. IV ACCESS IN RAC#20. IV IS INTACT, PATENT AND FLUSHING WELL. ALL NEEDS MET. PT KEPT CLEAN AND DRY. SAFETY PRECAUTIONS IN PLACE: BED IN LOWEST, LOCKED POSITION, SIDERAILS UPx2, BRAKES ON. TABLE AND CALL LIGHT WITHIN REACH. WILL ENDORSE TO ONCOMING SHIFT.
[2021-02-04 07:11] LABS: THYROID STIMULATING HORMONE 1.644 uIU/mL (0.358-3.74)
[2021-02-04 07:15] LABS: CALCIUM, SERUM 8.7 mg/dL (8.5-10.1); CREATININE 1.3 mg/dL (0.6-1.3); MAGNESIUM 2.5 mg/dL (1.8-2.4); POTASSIUM 4.4 mmol/L (3.5-5.1)
--- NOTE | 2021-02-04 07:30 | NUR ---
MS RN OPENING NOTES RECEIVED PATIENT ON BED, AWAKE AND A/O X4. ON ROOM AIR TOLERATING WELL. NO SOB NOTED. NOT IN DISTRESS. WITH NO COMPLAINTS OF PAIN OR DISCOMFORT AT THIS TIME. WITH IV ACCESS AT RIGHT AC G20 WITH IVF 1/2 NS AT 75ML/HR, INTACT AND PATENT. SAFETY MEASURES IN PLACE. CALL LIGHT WITHIN REACH. BED ON LOWEST AND LOCKED POSITION. SIDE RAILS UP X2. WILL CONTINUE TO MONITOR.
[2021-02-04] MEDS: PANTOPRAZOLE 40 MG TABLET.DR PO SCH (07:53)
[2021-02-04 08:57] VITALS: BP 112/68
[2021-02-04] MEDS: SPIRONOLACTONE 25 MG TABLET PO SCH (08:58)
[2021-02-04] MEDS: EZETIMIBE 10 MG TABLET PO SCH (08:58)
[2021-02-04] MEDS: FUROSEMIDE 40 MG TABLET PO SCH (08:59)
[2021-02-04] MEDS: ATORVASTATIN 40 MG TABLET PO SCH (08:59)
[2021-02-04] MEDS: GABAPENTIN 300 MG CAPSULE PO SCH ×3 (09:00→16:28)
[2021-02-04] MEDS ORDERED: Medication Not On Formulary EA (Losartan/Hydrochlorothiazide (Losartan-Hctz 100-25 Mg Ta PO SCH (09:00)
[2021-02-04] MEDS: FLUOXETINE HCL 20 MG CAPSULE PO SCH (09:01)
[2021-02-04] MEDS: APIXABAN 5 MG TABLET PO SCH ×2 (09:02→16:29)
[2021-02-04] MEDS: CARVEDILOL 6.25 MG TABLET PO SCH ×2 (09:03→16:53)
[2021-02-04] MEDS: NICOTINE PATCH (14MG) 14 MG PATCH.TD24 TD SCH (09:05)
[2021-02-04 16:12] VITALS: BP 99/64
--- NOTE | 2021-02-04 18:38 | NUR ---
MS RN CLOSING NOTES PATIENT RESTING ON BED, AWAKE AND A/O X4. ON ROOM AIR TOLERATING WELL. NO SOB NOTED. NOT IN DISTRESS. WITH NO COMPLAINTS OF PAIN OR DISCOMFORT AT THIS TIME. WITH IV ACCESS AT LEFT HAND G22, SALINE LOCKED, INTACT AND PATENT. DUE MEDS GIVEN. SAFETY MEASURES IN PLACE. CALL LIGHT WITHIN REACH. BED ON LOWEST AND LOCKED POSITION. SIDE RAILS UP X2. WILL ENDORSE TO NEXT SHIFT FOR GIULIA.
--- NOTE | 2021-02-04 19:40 | NUR ---
MS RN OPENING NOTE PT A/OX4 ABLE TO MAKE NEEDS KNOWN. TOLERATING R/A WELL WITH NO SOB. PT DENIES PAIN OR DISCOMFORT AT THIS TIME. R HAND #22G S/L; PATENT AND INTACT. SAFETY MEASURES IN PLACE: BED IN LOWEST LOCKED POSITION; SIDE RAILS UPX2, CALL LIGHT WITHIN EASY REACH, BED ALARMS ON. PATIENT IN STABLE CONDITION, WILL CONTINUE PLAN OF CARE.
[2021-02-04 20:11] VITALS: BP 108/64
[2021-02-04] MEDS: MIRTAZAPINE 15 MG TABLET PO SCH (21:34)
[2021-02-04] MEDS: ARIPIPRAZOLE 5 MG TABLET PO SCH (21:34)
[2021-02-05 00:25] VITALS: BP 109/66
--- NOTE | 2021-02-05 06:09 | NUR ---
MS RN CLOSING NOTE PT A/OX4 ABLE TO MAKE NEEDS KNOWN. TOLERATING R/A WELL WITH NO SOB. PT DENIES PAIN OR DISCOMFORT AT THIS TIME. R HAND #22G S/L; PATENT AND INTACT. SAFETY MEASURES IN PLACE: BED IN LOWEST LOCKED POSITION; SIDE RAILS UPX2, CALL LIGHT WITHIN EASY REACH, BED ALARMS ON. PATIENT IN STABLE CONDITION, WILL ENDORSE PLAN OF CARE TO ONCOMING MORNING RN.
--- NOTE | 2021-02-05 07:30 | NUR ---
MS RN OPENING NOTE RECEIVED PT AWAKE IN BED. A/O X4. PT IS STABLE ON ROOM AIR TOLERATING WELL. NO SOB OR S/S OF RESPIRATORY DISTRESS NOTED. PT HAS NO C/O PAIN OR DISCOMFORT AT THIS TIME. IV ACCESS IN RIGHT HAND #22 SALINE-LOCKED, INTACT AND PATENT. SAFETY PRECAUTIONS MAINTAINED. BED IN LOWEST LOCKED POSITION, HOB ELEVATED, SIDE RAILS UP X2. CALL LIGHT AND TABLE WITHIN REACH. WILL CONTINUE WITH PLAN OF CARE.
--- NOTE | 2021-02-05 07:40 | NUR ---
WOUND CARE CONSULT: PT PRESENTS WITH OPEN AREA TO LOWER ABDOMEN, PRESENT ON ADMISSION. SURGICAL CONSULT REQUESTED FROM DR SARAH DUNNE. PT ALSO NOTE3D TO HAVE LESION/RASH TO LOWER BACK/BUTTOCKS AREA. RECOMMENDATIONS MADE FOR SKIN PROTECTION. DISCUSSED WITH NURSING STAFF. IN AGREEMENT WITH PLAN OF CARE. Addendum: 02/05/21 at 4944 by JEREL KAN WNDNU Amended: Links added.
[2021-02-05] MEDS: PANTOPRAZOLE 40 MG TABLET.DR PO SCH (07:41)
[2021-02-05] MEDS: NICOTINE PATCH (14MG) 14 MG PATCH.TD24 TD SCH (08:58)
[2021-02-05] MEDS: GABAPENTIN 300 MG CAPSULE PO SCH ×2 (08:58→12:54)
[2021-02-05] MEDS: FLUOXETINE HCL 20 MG CAPSULE PO SCH (08:58)
[2021-02-05] MEDS: FUROSEMIDE 40 MG TABLET PO SCH (08:59)
[2021-02-05] MEDS: EZETIMIBE 10 MG TABLET PO SCH (08:59)
[2021-02-05] MEDS: ATORVASTATIN 40 MG TABLET PO SCH (08:59)
[2021-02-05] MEDS: SPIRONOLACTONE 25 MG TABLET PO SCH (09:00)
[2021-02-05 09:01] VITALS: BP 175/78
[2021-02-05] MEDS: CARVEDILOL 6.25 MG TABLET PO SCH (09:01)
[2021-02-05] MEDS: APIXABAN 5 MG TABLET PO SCH (09:03)
[2021-02-05] MEDS ORDERED: INFLUENZA VACCINE 2021-22 0.5 ML DISP.SYRIN IM ONE (12:30)
--- NOTE | 2021-02-05 17:15 | NUR ---
MS MANAGER RESTAURANT NOTE PT DISCHARGED [place] [facility] [place]. PT IS MEDICALLY STABLE AND CLEARED FOR DISCHARGE BY DR. BURGER. ALL PT CARE, NEEDS, MEDICATIONS, AND TREATMENT ADMINISTERED PER ORDER. DISCHARGE INSTRUCTIONS PROVIDED TO PT. PT VERBALIZED UNDERSTANDING. PT KEPT CLEAN AND DRY. PT'S MEDICATIONS PICKED UP FROM PHARMACY AND RETURNED TO PT. PICTURES TAKEN AND FILED IN CHART. BELONGINGS LIST ACCOUNTED FOR AND SIGNED BY PT. IV ACCESS REMOVED, PRESSURE APPLIED, AND SECURED WITH GAUZE AND TAPE. NO SIGNS OF BLEEDING NOTED. ID BAND REMOVED. PT TRANSPORTED VIA [facility] BY 2 EMT'S. DONNELL CHARGE NURSE AND DR. BURGER AWARE.
== END 2021-02-05 17:06 | DRG 683 ==
LOC: ER 17:51 → MED 20:28
PROVIDERS: ADMIT Nurse Practitioner Family
DX: N17.0 Acute kidney failure with tubular necrosis (principal); I50.32 Chronic diastolic (congestive) heart failure; R62.7 Adult failure to thrive; I11.0 Hypertensive heart disease with heart failure; I48.0 Paroxysmal atrial fibrillation; E78.5 Hyperlipidemia, unspecified; K21.9 Gastro-esophageal reflux disease without esophagitis; E11.9 Type 2 diabetes mellitus without complications; Z79.01 Long term (current) use of anticoagulants; Z79.84 Long term (current) use of oral hypoglycemic drugs; F17.210 Nicotine dependence, cigarettes, uncomplicated; Z71.6 Tobacco abuse counseling; R60.0 Localized edema; Z20.822 Contact with and (suspected) exposure to COVID-19
CPT/HCPCS: 36415; 71045-TC; 76770-TC; 80048-TC; 80076-TC; 83690-TC; 83735-TC; 84443-TC; 85025-TC; 87081-TC; 93971-TC; 97116-TC; 97530-TC; C9803; G0378; J3490; Q2036

== ENCOUNTER 2021-10-07 03:51 | Inpatient (IN) | payer MEDICARE, OTHER ==
[~2021-10-07] VITALS: Ht 162.6 cm; Wt 81.6 kg
--- NOTE | 2021-10-07 04:06 | NUR ---
HELEN 86 FROM HOME FOR C/O L SIDED NON- RADIATING CP. ASA 325MG AND 1 SPRAY OF NITRO GIVEN HEAT TREATER HELPER. PATIENT ALERT AND ORIENTED X3. AMBULATORY WTIH NON LABORED BREATHING IN BED 09 AWAITING MD CARL.
--- NOTE | 2021-10-07 04:13 | NUR ---
BLOOD COLLECTED AND SENT TO LAB
--- NOTE | 2021-10-07 04:15 | NUR ---
EMT AT BEDSIDE FOR EKG
[2021-10-07 04:18] LABS: BASOPHILS # (AUTO) 0.1 K/uL (0.0-0.2); BASOPHILS % (AUTO) 0.9 % (0.0-2.0); EOSINOPHILS % (AUTO) 4.5 % (0.0-6.0); HEMATOCRIT 46 % (39-51); HEMOGLOBIN 15.4 g/dL (13.5-17.5); LYMPHOCYTES # (AUTO) 2.9 K/uL (0.8-4.8); LYMPHOCYTES % (AUTO) 28.7 % (20.0-44.0); MEAN CORPUSCULAR HGB CONC 33 g/dl (31.0-36.0); MEAN CORPUSCULAR VOLUME 89 fL (80-96); MONOCYTES # (AUTO) 1.1 K/uL (0.1-1.30); NEUTROPHILS # (AUTO) 5.5 K/uL (1.8-8.9); NEUTROPHILS % (AUTO) 54.9 % (43.0-81.0); PLATELET COUNT (AUTO) 329 K/uL (150-450); RED BLOOD CELL COUNT(AUTO) 5.15 MIL/uL (4.5-6.0)
--- NOTE | 2021-10-07 04:28 | NUR ---
COVID SWAB DONE AND SENT TO LAB
[2021-10-07 04:42] LABS: ALANINE AMINOTRANSFERASE 28 U/L (12-78); ALBUMIN 3.7 g/dL (3.4-5.0); ALKALINE PHOSPHATASE 107 U/L (46-116); ASPARTATE AMINOTRANSFERASE 20 U/L (15-37); BILIRUBIN,DIRECT 0.1 mg/dL (0.0-0.2); BILIRUBIN,TOTAL 0.7 mg/dL (0.2-1.0); CHLORIDE 105 mmol/L (98-107); POTASSIUM 4.1 mmol/L (3.5-5.1); SODIUM SERUM 142 mmol/L (136-145); TOTAL PROTEIN, SERUM 7.5 g/dL (6.4-8.2)
[2021-10-07 04:51] LABS: CARBON DIOXIDE 28 mmol/L (21-32); CREATININE 1.5 mg/dL (0.6-1.3); GLUCOSE 106 mg/dL (74-106); UREA NITROGEN, BLOOD 15 mg/dL (7-18)
[2021-10-07] MEDS ORDERED: Z GUARD REMEDY 4 OZ OINT TP PRN (05:00)
[2021-10-07] MEDS ORDERED: MAG HYDROX/AL HYDROX/SIMETH 30 ML UDC PO PRN (05:00)
[2021-10-07] MEDS ORDERED: ONDANSETRON HCL/PF 4 MG/2 ML VIAL IVP PRN (05:00)
[2021-10-07] MEDS ORDERED: ZOLPIDEM TARTRATE 5 MG TABLET PO PRN (05:00)
[2021-10-07] MEDS ORDERED: ACETAMINOPHEN 325 MG TABLET PO PRN (05:00)
[2021-10-07] MEDS ORDERED: ENOXAPARIN SODIUM 40 MG/0.4 ML DISP.SYRIN SQ SCH (05:00)
[2021-10-07] MEDS ORDERED: MAGNESIUM HYDROXIDE 30 ML UDC PO PRN (05:00)
[2021-10-07] MEDS ORDERED: IV 1/2NS 1000 ML 1,000 ML IV PRN (05:00)
--- NOTE | 2021-10-07 06:19 | NUR ---
REPORT GIVEN TO JACK CAN
--- NOTE | 2021-10-07 06:44 | NUR ---
patient transferred to [facility] via acls
[2021-10-07 06:50] VITALS: BP 140/90
--- NOTE | 2021-10-07 06:52 | NUR ---
NEW ADMIT Patient transferred from ER via [facility]. Patient ambulated to the bed, independent with mobility. VS taken, recorded. [place] to room, unit, staff. Leads applied, on Tele monitor. Patient seen by Cardio Dr. Ron. Instructed to use call light if assistance needed, patient verbalized understanding. Will endorse to oncoming RN to complete admission process.
[2021-10-07] MEDS ORDERED: SACU1TAB7 PO (07:23)
[2021-10-07] MEDS ORDERED: PANTOPRAZOLE 40 MG TABLET.DR PO SCH (07:30)
--- NOTE | 2021-10-07 07:48 | NUR ---
MELTER CASTER OPENING NOTE RECEIVED PATIENT IN BED DURING SHIFT CHANGE. PATIENT A&0X4. RECEIVED WITH R ACH IV ACCESS. HOB UP @ 30 DEGREES, SIDE RAILS UP X2. NO SOB, NO SIGN OF DISTRESS OR PAIN OBSERVED. CALL-LIGHT WITHIN REACH. WILL CONTINUE TO MONITOR.
[2021-10-07 08:00] VITALS: BP 125/60
[2021-10-07] MEDS ORDERED: ASPIRIN 81 MG TAB.CHEW PO SCH (09:00)
[2021-10-07] MEDS ORDERED: ASPI-1420 PO (10:24)
--- NOTE | 2021-10-07 10:30 | NUR ---
COMBINATION MACHINE TOOL OPERATOR NOTE PATIENT SEEN BY DOCTOR SARAH
[2021-10-07 12:26] VITALS: BP 142/85
--- NOTE | 2021-10-07 12:56 | NUR ---
AIR PUMPERGLASS SELECTOR NOTE PATIENT DISCHARGED ORDERED. IN STABLE MEDICAL CONDITION. IV ACCESS REMOVED AND DISCONTINUED. PATIENT TEACHING AND MEDICATION ORDERS GIVEN; VERBALIZED UNDERSTANDING. PATIENT ACCOMPANIED TO LOBBY BY NURSE VIA WHEELCHAIR. ENDORSE ACCORDINGLY.
== END 2021-10-07 13:40 | disposition home or self-care (01) | DRG 303 ==
LOC: ER 04:09 → TELE 05:39
PROVIDERS: ADMIT Student in an Organized Health Care Education/Training Program; ATTEND Student in an Organized Health Care Education/Training Program
DX: I25.10 Atherosclerotic heart disease of native coronary artery without angina pectoris (principal); I50.22 Chronic systolic (congestive) heart failure; I42.9 Cardiomyopathy, unspecified; I11.0 Hypertensive heart disease with heart failure; I48.0 Paroxysmal atrial fibrillation; E78.5 Hyperlipidemia, unspecified; E11.9 Type 2 diabetes mellitus without complications; I44.7 Left bundle-branch block, unspecified; Z79.01 Long term (current) use of anticoagulants; E66.9 Obesity, unspecified; Z68.30 Body mass index [BMI] 30.0-30.9, adult; Z20.822 Contact with and (suspected) exposure to COVID-19; F29 Unspecified psychosis not due to a substance or known physiological condition
CPT/HCPCS: 36415; 71045-TC; 80048-TC; 80076-TC; 83880; 84484-TC; 85025-TC; 85730-TC; 87081-TC; C9803; G0378; J1650; J3490

== ENCOUNTER 2021-10-30 17:29 | Inpatient (IN) | payer MEDICARE, OTHER ==
[~2021-10-30] VITALS: Ht 162.6 cm; Wt 84.4 kg
[~2021-10-30 17:29] MED LIST changes: +ASPI-1420 PO; +SACU1TAB7 PO
--- NOTE | 2021-10-30 17:37 | NUR ---
TO ER BED 8. [id number] C/O ABDOMINAL PAIN 7/10 X5DAYS, -NAUSEA/VOMITING/DIARRHEA. VITALS ARE WITHIN NORMAL LIMITS, NO RESP DISTRESS NOTED. AWAITING MD CARL.
[2021-10-30] MEDS ORDERED: ONDANSETRON HCL/PF 4 MG/2 ML VIAL IVP ONE (18:00)
[2021-10-30] MEDS ORDERED: MORPHINE SULFATE INJ 2 MG/ML DISP.SYRIN IV ONE (18:00)
[2021-10-30] MEDS ORDERED: MORPHINE SULFATE INJ 4 MG/ML DISP.SYRIN ONE (18:10)
[2021-10-30] MEDS ORDERED: ONDANSETRON HCL/PF 4 MG/2 ML VIAL ONE (18:10)
--- NOTE | 2021-10-30 18:18 | NUR ---
PT TAKEN TO CT VIA [place]
--- NOTE | 2021-10-30 18:30 | NUR ---
ANAI Claire FA 18G. LABS DRAWN AND COLLECTED AT BEDSIDE.
--- NOTE | 2021-10-30 18:42 | NUR ---
COVID TEST COLLECTED AND SENT
--- NOTE | 2021-10-30 19:17 | NUR ---
URINE COLLECTED AND SENT
[2021-10-30 19:47] LABS: CALCIUM, SERUM 8.6 mg/dL (8.5-10.1); CARBON DIOXIDE 25 mmol/L (21-32); CHLORIDE 106 mmol/L (98-107); CREATININE 1.2 mg/dL (0.6-1.3); GLUCOSE 103 mg/dL (74-106); POTASSIUM 3.7 mmol/L (3.5-5.1); SODIUM SERUM 138 mmol/L (136-145); UREA NITROGEN, BLOOD 14 mg/dL (7-18)
[2021-10-30 19:52] LABS: ALANINE AMINOTRANSFERASE 19 U/L (12-78); ALBUMIN 3.7 g/dL (3.4-5.0); ALKALINE PHOSPHATASE 89 U/L (46-116); ASPARTATE AMINOTRANSFERASE 13 U/L (15-37); BILIRUBIN,DIRECT 0.1 mg/dL (0.0-0.2); BILIRUBIN,TOTAL 0.6 mg/dL (0.2-1.0); LIPASE 200 U/L (73-393); TOTAL PROTEIN, SERUM 7.4 g/dL (6.4-8.2)
[2021-10-30 19:55] LABS: BILIRUBIN,URINE SMALL (NEGATIVE); COLOR,URINE YELLOW (YELLOW); LEUKOCYTE ESTERASE ,URINE NEGATIVE (NEGATIVE); NITRITE, URINE NEGATIVE (NEGATIVE); PH,URINE 5.5 (5.0-8.0); PROTEIN,URINE NEGATIVE (NEGATIVE); UGLUCOSE NEGATIVE (NEGATIVE); UROBILINOGEN,URINE 0.2 EU/dL (0.2)
[2021-10-30] MEDS ORDERED: PIPERACILLIN /TAZOBACTAM 3.375 G in IV D5W 50 ML IV ONE (20:00)
[2021-10-30] MEDS ORDERED: IV NS 0.9% 1,000 ML BAG IV ONE (20:00)
--- NOTE | 2021-10-30 20:00 | NUR ---
PT RESTING COMFORTABLY IN BED, DENIES ANY PAIN AT THIS TIME. WILL CONTINUE TO MONITOR.
[2021-10-30] MEDS ORDERED: PIPERACILLIN /TAZOBACTAM 3.375 G VIAL IV ONE (20:04)
[2021-10-30 20:38] LABS: BASOPHILS # (AUTO) 0.1 K/uL (0.0-0.2); BASOPHILS % (AUTO) 0.5 % (0.0-2.0); EOSINOPHILS % (AUTO) 1.6 % (0.0-6.0); HEMATOCRIT 46 % (39-51); HEMOGLOBIN 15.3 g/dL (13.5-17.5); LYMPHOCYTES # (AUTO) 2.5 K/uL (0.8-4.8); LYMPHOCYTES % (AUTO) 21.6 % (20.0-44.0); MEAN CORPUSCULAR HGB CONC 33 g/dl (31.0-36.0); MEAN CORPUSCULAR VOLUME 90 fL (80-96); MONOCYTES # (AUTO) 1.1 K/uL (0.1-1.30); MONOCYTES % (AUTO) 9.1 % (2.0-12.0); NEUTROPHILS # (AUTO) 7.9 K/uL (1.8-8.9); NEUTROPHILS % (AUTO) 67.2 % (43.0-81.0); PLATELET COUNT (AUTO) 336 K/uL (150-450); RED BLOOD CELL COUNT(AUTO) 5.16 MIL/uL (4.5-6.0); WHITE BLOOD COUNT (AUTO) 11.7 K/uL (4.3-11.0)
[2021-10-30] MEDS ORDERED: PIPERACILLIN /TAZOBACTAM 3.375 G in IV D5W 50 ML IV SCH (21:00)
[2021-10-30] MEDS ORDERED: ONDANSETRON HCL/PF 4 MG/2 ML VIAL IVP PRN (21:00)
[2021-10-30] MEDS ORDERED: Z GUARD REMEDY 4 OZ OINT TP PRN (21:00)
--- NOTE | 2021-10-30 22:28 | NUR ---
TRANSFERRING PT TO 311-1 VIA [facility]
--- NOTE | 2021-10-30 22:28 | NUR ---
REPORT GIVEN TO JACK FLORES
[2021-10-30 22:45] VITALS: BP 109/64
--- NOTE | 2021-10-30 23:00 | NUR ---
MS RN NOTES PT A/O X4 FRENCH SPEAKING BUT UNDERSTAND MICRONESIAN.ABLE TO MAKE NEEDS KNOWN NO REPORT OF PAIN OR DISTRESS AT THIS TIME. ON ROOM AIR TOLERATING WELL. PT WAS ABLE TO AMBULATE TO BED WITHIN USE OF CANE AND STAND BY BY ASSIST. IV ACCESS NOTED ON THE RIGHT HAND 18G RUNNING D5 1/2 NS @ 50 ML/HR TOLERATING WELL. PT REFUSED SKIN ASSESSMENT PER PT " I DON'T HAVE ANY WOUNDS YOU DON'T HAVE TO CHECK" RISK AND BENEFITS EXPLAINED X3. BELONGINGS CHECKED. PT TO REMAIN NPO AT THIS TIME PT AWARE AND UNDERSTANDS. BILATERAL SIDE RAILS UP CALL LIGHT AND TABLE WITHIN REACH. ORIENTED TO UNIT AND ROOM.WILL CONTINUE TO MONITOR.
[2021-10-30 23:21] VITALS: BP 119/70
[2021-10-30] MEDS: PANTOPRAZOLE 40 MG VIAL IV SCH (23:32)
[2021-10-30] MEDS: IV D5/0.45 NACL 1,000 ML IV PRN (23:33)
[2021-10-31] MEDS ORDERED: PIPERACILLIN /TAZOBACTAM 3.375 G in IV D5W 50 ML IV SCH (05:00)
[2021-10-31] MEDS ORDERED: PIPERACILLIN /TAZOBACTAM 3.375 G VIAL IV ONE (05:39)
[2021-10-31] MEDS: MORPHINE SULFATE INJ 2 MG/ML DISP.SYRIN IV PRN ×4 (05:47→19:48)
--- NOTE | 2021-10-31 06:14 | NUR ---
ms rn notes prn morphine given pt moaning for pain 8/10 on a numeric pain scale tolerated well.
--- NOTE | 2021-10-31 06:33 | NUR ---
MS RN NOTES PT A/O X4 MACEDONIAN SPEAKING BUT UNDERSTAND [place].ABLE TO MAKE NEEDS KNOWN NO REPORT OF PAIN OR DISTRESS AT THIS TIME. ON ROOM AIR TOLERATING WELL. IV ACCESS NOTED ON THE RIGHT HAND 18G RUNNING D5 1/2 NS @ 50 ML/HR TOLERATING WELL. PT REFUSED SKIN ASSESSMENT PER PT " I DON'T HAVE ANY WOUNDS YOU DON'T HAVE TO CHECK" RISK AND BENEFITS EXPLAINED X3. PT TO REMAIN NPO AT THIS TIME PT AWARE AND UNDERSTANDS. BILATERAL SIDE RAILS UP CALL LIGHT AND TABLE WITHIN REACH. ORIENTED TO UNIT AND ROOM.WILL CONTINUE TO MONITOR.
[2021-10-31 06:34] LABS: BASOPHILS % (AUTO) 0.4 % (0.0-2.0); EOSINOPHILS % (AUTO) 2.1 % (0.0-6.0); HEMATOCRIT 45 % (39-51); HEMOGLOBIN 14.5 g/dL (13.5-17.5); LYMPHOCYTES # (AUTO) 2.4 K/uL (0.8-4.8); LYMPHOCYTES % (AUTO) 26.7 % (20.0-44.0); MEAN CORPUSCULAR HGB CONC 33 g/dl (31.0-36.0); MEAN CORPUSCULAR VOLUME 90 fL (80-96); MONOCYTES % (AUTO) 10.7 % (2.0-12.0); NEUTROPHILS # (AUTO) 5.4 K/uL (1.8-8.9); NEUTROPHILS % (AUTO) 60.1 % (43.0-81.0); PLATELET COUNT (AUTO) 293 K/uL (150-450); RED BLOOD CELL COUNT(AUTO) 4.95 MIL/uL (4.5-6.0); WHITE BLOOD COUNT (AUTO) 8.9 K/uL (4.3-11.0)
[2021-10-31 07:12] LABS: CALCIUM, SERUM 8.4 mg/dL (8.5-10.1); CREATININE 1.3 mg/dL (0.6-1.3); MAGNESIUM 2.3 mg/dL (1.8-2.4); PHOSPHORUS 3.1 mg/dL (2.5-4.9); POTASSIUM 3.9 mmol/L (3.5-5.1)
--- NOTE | 2021-10-31 07:38 | NUR ---
MS RN NOTES PT A/O X4 LAO SPEAKING, WITH SOME NEPALI COMPREHENSION. ABLE TO MAKE NEEDS KNOWN, DENIES PAIN OR DISTRESS AT THIS TIME. ON ROOM AIR TOLERATING WELL, NO S/S OF SOB NOTED. IV ACCESS ON THE RIGHT HAND 18G RUNNING D5 1/2 NS @ 50 ML/HR TOLERATING WELL. PT TO REMAIN NPO AT THIS TIME PT AWARE AND UNDERSTANDS. SAFETY MEASURES IN PLACE: BILATERAL SIDE RAILS UP, CALL LIGHT AND TABLE WITHIN REACH, WILL CONTINUE TO MONITOR.
[2021-10-31 08:00] VITALS: BP 100/70
[2021-10-31] MEDS: PANTOPRAZOLE 40 MG VIAL IV SCH (08:33)
--- NOTE | 2021-10-31 12:00 | NUR ---
MS RN NOTES: PT STILL COMPLAINS OF ABD PAIN @ 7-12/08 AFTER RECEIVING MORPHINE 4MG IV @ 1047. MESSAGE SENT TO FOR ADVISE, CHANGED ORDER TO Q3, DISCONTINUED MORPHINE 4MG IV, Q4.
[2021-10-31] MEDS: PIPERACILLIN /TAZOBACTAM 3.375 G in IV D5W 100 ML IV SCH ×2 (13:47→21:52)
--- NOTE | 2021-10-31 15:00 | NUR ---
MS RN NOTES: PT EJECTION FRACTION = 30%, MD IS AWARE. AWAITING LIFE VE[facility] TO TAKE HOME AT DISCHARGE.
[2021-10-31 16:00] VITALS: BP 104/60
--- NOTE | 2021-10-31 18:58 | NUR ---
MS RN CLOSING NOTES PT IS ASLEEP BUT EASILY ROUSED. A/O X4 BILINGUAL UPPER SORBIAN/MAORI. ABLE TO MAKE NEEDS KNOWN. NO ACUTE DISTRESS NOTED AND PAIN IS CONTROLLED AT THIS TIME. ON ROOM AIR TOLERATING WELL, NO S/S OF SOB NOTED. IV ACCESS ON THE RIGHT HAND 18G RUNNING D5 1/2 NS @ 50 ML/HR TOLERATING WELL. PT WAS CHANGED TO CLEAR LIQUID DIET, RATIONALE EXPLAINED BY RN, PT VERBALIZED UNDERSTANDING. SAFETY MEASURES IN PLACE: BILATERAL SIDE RAILS UP, CALL LIGHT AND TABLE WITHIN REACH, WILL ENDORSE TO NEXT SHIFT.
--- NOTE | 2021-10-31 20:14 | NUR ---
MS RN OPENING NOTES: RECEIVED PATIENT AWAKE IN BED, BED IN LOW POSITION CALL LIGHTS WITHIN REACH, NO COMPLAIN OF PAIN AND DISCOMFORT AT THIS TIME, ON ROOM AIR SATURATING WELL, WITH IV LINE AT RT HAND #22 WITH ONGOING D5 1/2 NSS@50ML/HR INFUSING WELL, PATIENT KEPT CLEAN AND DRY ALL NEEDS MET WILL CONTINUE TO MONITOR.
[2021-10-31 20:17] VITALS: BP 107/68
[2021-11-01] MEDS: IV D5/0.45 NACL 1,000 ML IV PRN (04:42)
[2021-11-01] MEDS: PIPERACILLIN /TAZOBACTAM 3.375 G in IV D5W 100 ML IV SCH ×3 (05:47→22:00)
[2021-11-01] MEDS: MORPHINE SULFATE INJ 2 MG/ML DISP.SYRIN IV PRN ×2 (07:08→16:01)
--- NOTE | 2021-11-01 07:59 | NUR ---
MS RN CLOSING NOTES: PATIENT SLEEP IN BED COMFORTABLY, AROUSABLE TO VERBAL STIMULI, BED IN LOW POSITION CALL LIGHTS WITHIN REACH, NO COMPLAIN OF PAIN AND DISCOMFORT AT THIS TIME, ON ROOM AIR SATURATING WELL, WITH IV LINE AT RIGHT HAND #20 WITH D5 1/2 NSS@50ML PER HOUR INFUSING WELL, PATIENT KEPT CLEAN AND DRY ALL NEEDS MET ENDORSE TO INCOMING SHIFT.
--- NOTE | 2021-11-01 08:03 | NUR ---
RN OPENING NOTE PATIENT RECEIVED IN BED, AO X 4, ABLE TO RESPONDS ALL STIMULI. IN NO ACUTE DISTRESS NOTED. DENIES ABD PAIN AT THIS TIME. RESPIRATORY EVEN AND UNLABORED ON ROOM AIR. SKIN IS WARM TO TOUCH, KEEP CLEAN/DRY. KEPT ELEVATED HOB FOR ENSURE AIRWAY AND ASPIRATION PRECAUTION, ALSO LOWEST POSITION OF THE BED, S/R UP X 3, BED ALARM IS ON AT ALL THE TIMES. ALL SAFETY PRECAUTION APPLIED. CALL LIGHT WITHIN REACH, WILL CONTINUE TO MONITOR.
[2021-11-01] MEDS: PANTOPRAZOLE 40 MG VIAL IV SCH (08:16)
[2021-11-01] MEDS: VALSARTAN 80 MG TABLET PO SCH (09:30)
--- NOTE | 2021-11-01 18:47 | NUR ---
RN CLOSING NOTE PATIENT IN BED SLEEPING, AO X 3-4, TEL[place] SPEAKING. PRESENT. IN NO ACUTE DISTRESS NOTED. RESPIRATORY EVEN AND UNLABORED ON ROOM AIR. SKIN IS WARM TO TOUCH, KEEP CLEAN/DRY. KEPT ELEVATED HOB FOR ENSURE AIRWAY AND ASPIRATION PRECAUTION, BED IN LOWEST POSITION AND LOCK. BED ALARM IS ON AT ALL THE TIMES. SAFETY MEASURED IN PLACED. CALL LIGHT WITHIN REACH, WILL ENDORSED TO NEXT SHIFT.
[2021-11-01 20:00] VITALS: BP 109/66
--- NOTE | 2021-11-01 20:18 | NUR ---
MS RN OPENING NOTES: RECEIVED PATIENT AWAKE IN BED, BED IN LOW POSITION CALL LIGHTS WITHIN REACH, ON ROOM AIR SATURATING WELL, NO COMPLAIN OF PAIN AND DISCOMFORT AT THIS TIME, PATIENT ON PAIN MANAGEMENT , AMBULATORY WITH ASSISTANCE, WITH IV LINE AT RAC#20 WITH ONGOING D5 1/2 NSS@50 ML/HR INFUSING WELL, PATIENT KEPT CLEAN AND DRY ALL NEEDS MET WILL CONTINUE TO MONITOR.
[2021-11-02] MEDS ORDERED: TEMAZEPAM 15 MG CAPSULE PO PRN
[2021-11-02] MEDS: PIPERACILLIN /TAZOBACTAM 3.375 G in IV D5W 100 ML IV SCH ×3 (05:59→22:10)
--- NOTE | 2021-11-02 07:31 | NUR ---
MS RN CLOSING NOTES: PATIENT SLEEP IN BED COMFORTABLY, AROUSABLE TO VERBAL STIMULI, BED IN LOW POSITION CALL LIGHTS WITHIN REACH, NO COMPLAIN OF PAIN AND DISCOMFORT AT THIS TIME, ON ROOM AIR SATURATING WELL, WITH IV LINE AT RAC#20 WITH ONGOING D5 1/2 NSS@50ML/HR INFUSING WELL, PATIENT IS A/OX4 AMBULATORY ABLE TO MAKE NEEDS KNOWN, PATIENT KEPT CLEAN AND DRY ALL NEEDS MET ENDORSE TO INCOMING SHIFT.
[2021-11-02 08:00] VITALS: BP 116/72
[2021-11-02] MEDS: PANTOPRAZOLE 40 MG VIAL IV SCH (08:06)
[2021-11-02] MEDS: VALSARTAN 80 MG TABLET PO SCH (08:06)
[2021-11-02] MEDS: MORPHINE SULFATE INJ 2 MG/ML DISP.SYRIN IV PRN ×4 (08:06→20:45)
--- NOTE | 2021-11-02 08:06 | NUR ---
RN NOTE PARTIAL MORPHINE DOSE GIVEN RETURNED 2MG/1ML BACK TO [facility].
--- NOTE | 2021-11-02 09:57 | NUR ---
RN OPENING NOTES: RECEIVED PATIENT AWAKE IN BED, BED IN LOW POSITION CALL LIGHTS WITHIN REACH, ON ROOM AIR SATURATING WELL, NO COMPLAIN OF PAIN AND DISCOMFORT AT THIS TIME, PATIENT ON PAIN MANAGEMENT , AMBULATORY WITH ASSISTANCE, WITH IV LINE AT RAC#20R.
[2021-11-02] MEDS ORDERED: LEVO750T46 PO (10:44)
[2021-11-02 16:00] VITALS: BP 118/79
[2021-11-02 16:04] VITALS: BP 118/79
--- NOTE | 2021-11-02 18:42 | NUR ---
RN CLOSING NOTES: PATIENT SLEEP IN BED COMFORTABLY, RESPONDS TO VERBAL STIMULI, BED IN LOW POSITION CALL LIGHTS WITHIN REACH, NO COMPLAIN OF PAIN AND DISCOMFORT AT THIS TIME, ON ROOM AIR SATURATING WELL, WITH IV LINE AT RAC#20 WITH ONGOING D5 1/2 NSS@50ML/HR INFUSING WELL, PATIENT IS A/OX4 AMBULATORY ABLE TO MAKE NEEDS KNOWN, PATIENT KEPT CLEAN AND DRY ALL NEEDS MET ENDORSE TO INCOMING SHIFT.
--- NOTE | 2021-11-02 19:47 | NUR ---
MS/TELE/RN RECEIVED PATIENT LYING IN BED APPEARS SLEEPING, APPEARS COMFORTABLE, NO SIGNS OF DISTRESS NOTED, CALL LIGHT IN REACH, FALL PRECAUTIONS PER PROTOCOL IMPLEMENTED, WILL MONITOR.
[2021-11-02 20:00] VITALS: BP 98/59
--- NOTE | 2021-11-03 02:09 | NUR ---
MS/TELE/RN PATIENT IS SLEEPING, APPEARS COMFORTABLE, NO SIGNS OF DISTRESS NOTED, CALL LIGHT IN REACH, WILL CONTINUE TO MONITOR.
[2021-11-03] MEDS: MORPHINE SULFATE INJ 2 MG/ML DISP.SYRIN IV PRN ×4 (03:22→18:34)
[2021-11-03] MEDS: PIPERACILLIN /TAZOBACTAM 3.375 G in IV D5W 100 ML IV SCH ×3 (05:42→21:20)
[2021-11-03] MEDS: LORAZEPAM INJ 2 MG/ML VIAL IV PRN ×2 (05:50→15:05)
--- NOTE | 2021-11-03 05:56 | NUR ---
MS/TELE/RN PATIENT IS VERY ANXIOUS REQUESTED FOR ATIVAN, ATIVAN 1 MG IVP WAS GIVEN ORDERED. WILL MONITOR.
--- NOTE | 2021-11-03 06:42 | NUR ---
MS/TELE/RN PATIENT IS SLEEPING AT THIS TIME, APPEARS COMFORTABLE, NO SIGNS OF DISTRESS NOTED, CALL LIGHT IN REACH, ALL NEEDS ATTENDED AT THIS TIME, WILL CONTINUE TO MONITOR.
[2021-11-03 08:00] VITALS: BP 104/58
--- NOTE | 2021-11-03 08:01 | NUR ---
RN OPENING NOTE PATIENT AWAKE IN BED RESTING, A/O X 4. NO S/S OF PAIN NOTED AT THIS TIME. ON ROOM AIR, NO DISTRESS OR SHORTNESS OF BREATH NOTED. IV ACCESS, RAC #20G, INTACT PATENT AND FLUSHING WELL. FALL AND SAFETY MEASURES IN PLACE, BED ALARM ON, BED IN LOW AND LOCK POSITION, CALL LIGHT AND TABLE WITHIN EASY REACH, SIDE RAILS UP X2. WILL CONTINUE TO MONITOR.
[2021-11-03] MEDS: PANTOPRAZOLE 40 MG TABLET.DR PO SCH (08:47)
[2021-11-03] MEDS: VALSARTAN 80 MG TABLET PO SCH (08:48)
[2021-11-03] MEDS: IV D5/0.45 NACL 1,000 ML IV PRN (15:05)
[2021-11-03 15:57] VITALS: BP 120/81
--- NOTE | 2021-11-03 19:30 | NUR ---
MS RN NOTES RECEIVED ON BED SLEEPING,EASILY AROUSABLE TO VERBAL STIMULI,BREATHING EASY,NO SOB,PRESENT IVF INFUSING WELL VIA IV PUMP ON LEFT HAND #20,SITE PATENT.DENIES DISCOMFORTS AT THE MOMENT.FALL PRECAUTION OBSERVED,BED ALAR,.BED ON LOWEST POSITION AND LOCKED,CALL LIGHT IN REACH,NEEDS ANTICIPATED.
--- NOTE | 2021-11-03 19:39 | NUR ---
RN CLOSING NOTE PATIENT AWAKE IN BED RESTING, A/O X 4. NO S/S OF PAIN NOTED AT THIS TIME. ON ROOM AIR, NO DISTRESS OR SHORTNESS OF BREATH NOTED. IV ACCESS, RAC #20G, INTACT PATENT AND FLUSHING WELL. FALL AND SAFETY MEASURES IN PLACE, BED ALARM ON, BED IN LOW AND LOCK POSITION, CALL LIGHT AND TABLE WITHIN EASY REACH, SIDE RAILS UP X2. WILL ENDORSE TO WELL SERVICE FLOOR WORKER.
[2021-11-03 20:00] VITALS: BP 118/65
[2021-11-04] MEDS: LORAZEPAM INJ 2 MG/ML VIAL IV PRN ×2 (01:52→08:43)
--- NOTE | 2021-11-04 01:52 | NUR ---
MS RN NOTES FEELING ANXIOUS,COMMENTED "VERY STRONG",ATIVAN 1MG IV GIVEN PER PATIENT REQUEST.
[2021-11-04] MEDS: PIPERACILLIN /TAZOBACTAM 3.375 G in IV D5W 100 ML IV SCH (05:21)
--- NOTE | 2021-11-04 06:50 | NUR ---
MS RN NOTES NO SIGNIFICANT CHANGE IN STATUS,SLEEP WELL AT NIGHT WITH ATIVAN,NO FALL NO INJURY,FOR DISCHARGE TODAY TO [facility].ENDORSE TO DAY NURSE FOR GIULIA.
--- NOTE | 2021-11-04 07:35 | NUR ---
RN OPENING NOTE PATIENT AWAKE IN BED RESTING, A/O X 4. NO S/S OF PAIN NOTED AT THIS TIME. ON ROOM AIR, NO DISTRESS OR SHORTNESS OF BREATH NOTED. IV ACCESS, R HAND #20G, INTACT PATENT AND FLUSHING WELL. FALL AND SAFETY MEASURES IN PLACE, BED ALARM ON, BED IN LOW AND LOCK POSITION, CALL LIGHT AND TABLE WITHIN EASY REACH, SIDE RAILS UP X2. WILL CONTINUE TO MONITOR.
[2021-11-04 08:00] VITALS: BP 131/88
[2021-11-04] MEDS: PANTOPRAZOLE 40 MG TABLET.DR PO SCH (08:42)
[2021-11-04 08:43] VITALS: BP 131/88
[2021-11-04] MEDS: VALSARTAN 80 MG TABLET PO SCH (08:43)
--- NOTE | 2021-11-04 09:40 | NUR ---
SACK LIFTER NOTE PATIENT DISCHARGED IN MEDICAL STABLE CONDITION. A/O X4. V/S TAKEN, STABLE AND RECORDED. NO IV ACCESS. SKIN ASSESSMENT DONE, SKIN INTACT. NAME ARM BAND REMOVED. ALL BELONGINGS CHECKED AND SIGNED. HEALTH TEACHING AND DISCHARGE INSTRUCTIONS GIVEN AND VERBALIZED UNDERSTANDING. REPORT WAS GIVEN TO XENIA AT [facility] . PATIENT LEFT UNIT VIA GURNEY WITH NO SIGNS OF DISTRESS, ACCOMPANIED BY RN TO THE LOBBY. CHARGE NURSE AWARE OF DISCHARGE.
== END 2021-11-04 10:20 | DRG 391 ==
LOC: ER 17:36 → TELE 22:21 → MED 23:52
PROVIDERS: ADMIT Nurse Practitioner Acute Care; ATTEND Internal Medicine
DX: K57.20 Diverticulitis of large intestine with perforation and abscess without bleeding (principal); K65.9 Peritonitis, unspecified; I50.22 Chronic systolic (congestive) heart failure; I42.9 Cardiomyopathy, unspecified; I11.0 Hypertensive heart disease with heart failure; I48.0 Paroxysmal atrial fibrillation; Z79.01 Long term (current) use of anticoagulants; E11.9 Type 2 diabetes mellitus without complications; E66.9 Obesity, unspecified; Z68.30 Body mass index [BMI] 30.0-30.9, adult; E78.5 Hyperlipidemia, unspecified; F17.210 Nicotine dependence, cigarettes, uncomplicated; F32.A Depression, unspecified; K21.9 Gastro-esophageal reflux disease without esophagitis; Z79.82 Long term (current) use of aspirin; Z79.84 Long term (current) use of oral hypoglycemic drugs; Z79.899 Other long term (current) drug therapy; Z90.49 Acquired absence of other specified parts of digestive tract; Z20.822 Contact with and (suspected) exposure to COVID-19; I25.10 Atherosclerotic heart disease of native coronary artery without angina pectoris; I77.811 Abdominal aortic ectasia
CPT/HCPCS: 36415; 71045-TC; 80048-TC; 80076-TC; 83605-TC; 83690-TC; 83735-TC; 84100-TC; 84484-TC; 85025-TC; 85730-TC; 87040-TC; 87081-TC; 93307-TC; C9113; C9803; G0378; J2060; J2270; J2405; J2543; J3490; J7060

== ENCOUNTER 2021-11-05 07:59 | Inpatient (IN) | payer MEDICARE, OTHER ==
[~2021-11-05] VITALS: Ht 162.6 cm; Wt 84.4 kg
[~2021-11-05 07:59] MED LIST changes: +LEVO750T46 PO
--- NOTE | 2021-11-05 08:14 | NUR ---
RN NOTE PHLEB AT BEDSIDE FOR BLOOD DRAW.
--- NOTE | 2021-11-05 08:19 | NUR ---
RN NOTE CHEST X RAY DONE.
[2021-11-05 08:25] LABS: BASOPHILS % (AUTO) 0.6 % (0.0-2.0); HEMATOCRIT 45 % (39-51); LYMPHOCYTES # (AUTO) 1.9 K/uL (0.8-4.8); MEAN CORPUSCULAR HGB CONC 34 g/dl (31.0-36.0); MEAN CORPUSCULAR VOLUME 89 fL (80-96); MONOCYTES # (AUTO) 0.6 K/uL (0.1-1.30); MONOCYTES % (AUTO) 9.3 % (2.0-12.0); NEUTROPHILS # (AUTO) 3.9 K/uL (1.8-8.9); NEUTROPHILS % (AUTO) 59.1 % (43.0-81.0); PLATELET COUNT (AUTO) 319 K/uL (150-450); RED BLOOD CELL COUNT(AUTO) 5.02 MIL/uL (4.5-6.0); WHITE BLOOD COUNT (AUTO) 6.7 K/uL (4.3-11.0)
[2021-11-05 08:40] LABS: CALCIUM, SERUM 8.9 mg/dL (8.5-10.1); CARBON DIOXIDE 27 mmol/L (21-32); CHLORIDE 106 mmol/L (98-107); CREATININE 1.2 mg/dL (0.6-1.3); GLUCOSE 117 mg/dL (74-106); POTASSIUM 3.5 mmol/L (3.5-5.1); SODIUM SERUM 144 mmol/L (136-145); UREA NITROGEN, BLOOD 11 mg/dL (7-18)
--- NOTE | 2021-11-05 09:33 | NUR ---
MOVE PACKET SUBMITTED.
--- NOTE | 2021-11-05 09:53 | NUR ---
TELE BED REQUESTED.
[2021-11-05] MEDS ORDERED: FUROSEMIDE 40 MG/4 ML VIAL IV ONE (10:00)
[2021-11-05] MEDS ORDERED: FUROSEMIDE 40 MG/4 ML VIAL ONE (10:08)
--- NOTE | 2021-11-05 13:24 | NUR ---
BED 324-1
--- NOTE | 2021-11-05 13:29 | NUR ---
REPORT GIVEN TO DEMARIO SANTIAGO OF TELE UNIT
[2021-11-05] MEDS ORDERED: INSULIN REGULAR, HUMAN 100 UNIT/ML 3 ML VIAL SQ PRN (13:30)
[2021-11-05] MEDS ORDERED: TEMAZEPAM 15 MG CAPSULE PO PRN (13:30)
[2021-11-05] MEDS ORDERED: Z GUARD REMEDY 4 OZ OINT TP PRN (13:30)
[2021-11-05] MEDS ORDERED: MAGNESIUM HYDROXIDE 30 ML UDC PO PRN (13:30)
[2021-11-05] MEDS ORDERED: ONDANSETRON HCL/PF 4 MG/2 ML VIAL IVP PRN (13:30)
[2021-11-05] MEDS ORDERED: HOME MED MISCELLANEOUS XX SCH (13:30)
[2021-11-05] MEDS ORDERED: MAG HYDROX/AL HYDROX/SIMETH 30 ML UDC PO PRN (13:30)
[2021-11-05] MEDS ORDERED: DEXTROSE 50%-WATER 50 ML DISP.SYRIN IV PRN (13:30)
[2021-11-05] MEDS ORDERED: ACETAMINOPHEN 325 MG TABLET PO PRN (13:30)
[2021-11-05] MEDS ORDERED: ENTRESTO PO SCH (13:30)
[2021-11-05] MEDS ORDERED: MORPHINE SULFATE INJ 4 MG/ML DISP.SYRIN IV PRN (14:00)
--- NOTE | 2021-11-05 14:00 | NUR ---
ADVERTISING SALES CONSULTANT ADMITTING NOTE PATIENT ARRIVED TO UNIT VIA GURNEY FROM ER AND TRANSFERRED TO BED WITHOUT INCIDENT. PATIENT PRESENTED WITH STABLE VITAL SIGNS, TOLERATING WELL ON ROOM AIR WITH NO S/S RESPIRATORY DISTRESS, AND NO COMPLAINT OF PAIN OR DISCOMFORT. R AC # 18 G SL CLEAN, INTACT, AND FLUSHING WELL. SAFETY MEASURES INITIATED: BED IN LOWEST LOCKED POSITION, SIDE RAILS UP X 2, CALL LIGHT WITHIN REACH. WILL CONTINUE TO MONITOR.
[2021-11-05] MEDS: HYDROCODONE/APAP 5/325MG TABLET PO PRN ×2 (14:54→14:56)
[2021-11-05] MEDS: LEVOFLOXACIN (250MG) 250 MG TABLET PO SCH (14:54)
[2021-11-05] MEDS: CARVEDILOL 6.25 MG TABLET PO SCH (16:47)
[2021-11-05] MEDS: LORAZEPAM 0.5 MG TABLET PO PRN (16:47)
[2021-11-05] MEDS: METFORMIN 500 MG TABLET PO SCH ×2 (16:47→16:58)
[2021-11-05] MEDS: APIXABAN 5 MG TABLET PO SCH (16:54)
[2021-11-05] MEDS: BLOOD SUGAR DIAGNOSTIC 1 EACH STRIP IN SCH ×2 (16:55→21:12)
--- NOTE | 2021-11-05 18:51 | NUR ---
SALVAGE INSPECTOR WOOD PARTS CLOSING NOTE PATIENT LAYING IN BED, A/O X 4, NIGERIAN SPEAKING, ABLE TO MAKE NEEDS KNOWN. TOLERATING WELL ON ROOM AIR WITH NO S/S RESPIRATORY DISTRESS. NO COMPLAINTS OF PAIN OR DISCOMFORT AT THIS TIME. R AC # 18G SL CLEAN, INTACT, AND FLUSHING WELL. SAFETY MEASURES IN PLACE: BED IN LOWEST LOCKED POSITION, SIDE RAILS UP X 2, CALL LIGHT WITHIN REACH. ALL NEEDS MET. WILL ENDORSE TO FIRE FIGHTER AIRPORT FOR GIULIA.
[2021-11-05 20:00] VITALS: BP 138/92
[2021-11-05] MEDS ORDERED: MIRTAZAPINE 15 MG TABLET PO SCH (22:00)
[2021-11-05] MEDS ORDERED: ARIPIPRAZOLE 5 MG TABLET PO SCH (22:00)
[2021-11-06] MEDS: LORAZEPAM 0.5 MG TABLET PO PRN ×2 (00:42→09:21)
--- NOTE | 2021-11-06 05:20 | NUR ---
CLOSING NOTES: ALERT AND ORIENTATED X4 ANXIOUS ORDERED ATIVAN PO GIVEN WITH SOME RELEIDF RESTORIL GIVEN SLEPT 5 HOURS NO CHESTPAIN THIS 12 HOURS NO SOB SKIN WARM AND DRY
[2021-11-06 06:11] LABS: BASOPHILS % (AUTO) 0.3 % (0.0-2.0); EOSINOPHILS % (AUTO) 1.4 % (0.0-6.0); HEMATOCRIT 46 % (39-51); HEMOGLOBIN 15.4 g/dL (13.5-17.5); LYMPHOCYTES # (AUTO) 1.8 K/uL (0.8-4.8); LYMPHOCYTES % (AUTO) 18.8 % (20.0-44.0); MEAN CORPUSCULAR HGB CONC 33 g/dl (31.0-36.0); MEAN CORPUSCULAR VOLUME 89 fL (80-96); MONOCYTES # (AUTO) 1.1 K/uL (0.1-1.30); NEUTROPHILS # (AUTO) 6.6 K/uL (1.8-8.9); NEUTROPHILS % (AUTO) 68.5 % (43.0-81.0); PLATELET COUNT (AUTO) 311 K/uL (150-450); RED BLOOD CELL COUNT(AUTO) 5.19 MIL/uL (4.5-6.0); WHITE BLOOD COUNT (AUTO) 9.7 K/uL (4.3-11.0)
[2021-11-06] MEDS: BLOOD SUGAR DIAGNOSTIC 1 EACH STRIP IN SCH ×3 (06:20→17:25)
[2021-11-06 06:44] LABS: CALCIUM, SERUM 9.1 mg/dL (8.5-10.1); CREATININE 1.1 mg/dL (0.6-1.3); MAGNESIUM 2.6 mg/dL (1.8-2.4); PHOSPHORUS 2.9 mg/dL (2.5-4.9); POTASSIUM 3.4 mmol/L (3.5-5.1)
--- NOTE | 2021-11-06 07:00 | NUR ---
THEATER EDUCATION TEACHER OPENING NOTES PATIENT LAYING IN BED, A/O X 4, COMORAN SPEAKING, ABLE TO MAKE NEEDS KNOWN. TOLERATING WELL ON ROOM AIR WITH NO S/S RESPIRATORY DISTRESS. NO COMPLAINTS OF PAIN OR DISCOMFORT AT THIS TIME. R AC # 18G SL CLEAN, INTACT, AND FLUSHING WELL. SAFETY MEASURES IN PLACE: BED IN LOWEST LOCKED POSITION, SIDE RAILS UP X 2, CALL LIGHT WITHIN REACH. WILL CONTINUE TO MONITOR.
[2021-11-06] MEDS ORDERED: PANTOPRAZOLE 40 MG TABLET.DR PO SCH (07:30)
[2021-11-06] MEDS: METFORMIN 500 MG TABLET PO SCH ×2 (08:57→16:16)
[2021-11-06] MEDS: CARVEDILOL 6.25 MG TABLET PO SCH ×2 (08:59→16:24)
[2021-11-06] MEDS ORDERED: HYDROCHLOROTHIAZIDE 25 MG TABLET PO SCH (09:00)
[2021-11-06] MEDS ORDERED: FUROSEMIDE 40 MG/4 ML VIAL IV SCH (09:00)
[2021-11-06] MEDS ORDERED: ATORVASTATIN 40 MG TABLET PO SCH (09:00)
[2021-11-06] MEDS ORDERED: POTASSIUM CHLORIDE 10 MEQ TABLET.SA PO SCH (09:00)
[2021-11-06] MEDS ORDERED: GABAPENTIN 300 MG CAPSULE PO SCH (09:00)
[2021-11-06] MEDS ORDERED: LOSARTAN POTASSIUM 50 MG TABLET PO SCH (09:00)
[2021-11-06] MEDS ORDERED: SPIRONOLACTONE 25 MG TABLET PO SCH (09:00)
[2021-11-06] MEDS ORDERED: EZETIMIBE 10 MG TABLET PO SCH (09:00)
[2021-11-06] MEDS ORDERED: ASPIRIN EC 81 MG TABLET.DR PO SCH (09:00)
[2021-11-06] MEDS ORDERED: FLUOXETINE HCL 20 MG CAPSULE PO SCH (09:00)
[2021-11-06] MEDS: APIXABAN 5 MG TABLET PO SCH ×2 (09:01→16:24)
[2021-11-06] MEDS: POTASSIUM CHLORIDE 20 MEQ TAB.PRT.SR PO SCH ×3 (09:21→10:06)
[2021-11-06] MEDS: HYDROCODONE/APAP 5/325MG TABLET PO PRN (11:13)
[2021-11-06] MEDS: LEVOFLOXACIN (250MG) 250 MG TABLET PO SCH (13:23)
--- NOTE | 2021-11-06 17:00 | NUR ---
RECORDIST CHIEFCONTROLLED AREA CHECKER NOTES PATIENT MADE AWARE OF MD DISCHARGE NOTES. PATIENT VERBALIZED UNDERSTANDING OF MD DISCHARGE INSTRUCTIONS AND SIGNED MD DISCHARGE INSTRUCTIONS SHEET. PATIENT VERBALIZED POSSESSION OF ALL BELONGINGS AND SIGNED BELONGINGS SHEET. IV LINE AND ID BANDS REMOVED. TELE MONITOR REMOVED. FACILITY CALLED AND REPORT GIVEN TO FACILITY RN. COPIES OF ALL PAPERWORK PROVIDED TO PATIENT. PATIENT TRANSFERRED TO [facility] WITHOUT INCIDENT AND TRANSPORTED OFF OF UNIT ACCOMPANIED BY 2 SHIRT MARKER. PATIENT STABLE AT TIME OF DISCHARGE.
== END 2021-11-06 17:25 | DRG 291 ==
LOC: ER 08:14 → TELE 13:02
PROVIDERS: ADMIT Nurse Practitioner Acute Care; ATTEND Nurse Practitioner Acute Care
DX: I11.0 Hypertensive heart disease with heart failure (principal); I50.23 Acute on chronic systolic (congestive) heart failure; K57.92 Diverticulitis of intestine, part unspecified, without perforation or abscess without bleeding; I48.0 Paroxysmal atrial fibrillation; E11.9 Type 2 diabetes mellitus without complications; E78.5 Hyperlipidemia, unspecified; F17.210 Nicotine dependence, cigarettes, uncomplicated; F32.A Depression, unspecified; I42.9 Cardiomyopathy, unspecified; K21.9 Gastro-esophageal reflux disease without esophagitis; Z79.01 Long term (current) use of anticoagulants; Z79.82 Long term (current) use of aspirin; Z79.84 Long term (current) use of oral hypoglycemic drugs; R07.89 Other chest pain; Z20.822 Contact with and (suspected) exposure to COVID-19
CPT/HCPCS: 36415; 71045-TC; 80048-TC; 82962-TC; 83735-TC; 83880; 84100-TC; 84484-TC; 85025-TC; 87081-TC; C9803; G0378; J1815; J1940; J2270

== ENCOUNTER 2022-02-11 10:27 | Emergency (ER) | payer MEDICARE, OTHER ==
[~2022-02-11] VITALS: Ht 162.6 cm; Wt 79.8 kg
--- NOTE | 2022-02-11 10:41 | NUR ---
TECH AT BEDSIDE FOR EKG
--- NOTE | 2022-02-11 11:29 | NUR ---
PT RETURNED FROM RADIOLOGY
--- NOTE | 2022-02-11 11:43 | NUR ---
L WRIST #20 ESTABLISHED AUDIENCE COORDINATOR; BLOOD DRAWN AND SENT TO LAB
--- NOTE | 2022-02-11 11:43 | NUR ---
URINE SAMPLE COLLECTED AND SENT TO LAB
[2022-02-11 11:58] LABS: BASOPHILS % (AUTO) 0.5 % (0.0-2.0); EOSINOPHILS % (AUTO) 0.3 % (0.0-6.0); HEMATOCRIT 43 % (39-51); HEMOGLOBIN 14.4 g/dL (13.5-17.5); LYMPHOCYTES # (AUTO) 1.9 K/uL (0.8-4.8); LYMPHOCYTES % (AUTO) 21.4 % (20.0-44.0); MEAN CORPUSCULAR HGB CONC 33 g/dl (31.0-36.0); MEAN CORPUSCULAR VOLUME 90 fL (80-96); MONOCYTES # (AUTO) 0.9 K/uL (0.1-1.30); MONOCYTES % (AUTO) 10.5 % (2.0-12.0); NEUTROPHILS % (AUTO) 67.3 % (43.0-81.0); PLATELET COUNT (AUTO) 280 K/uL (150-450); RED BLOOD CELL COUNT(AUTO) 4.79 MIL/uL (4.5-6.0)
[2022-02-11 12:08] LABS: BILIRUBIN,URINE NEGATIVE (NEGATIVE); COLOR,URINE YELLOW (YELLOW); LEUKOCYTE ESTERASE ,URINE NEGATIVE (NEGATIVE); NITRITE, URINE NEGATIVE (NEGATIVE); PROTEIN,URINE NEGATIVE (NEGATIVE); UGLUCOSE NEGATIVE (NEGATIVE); UROBILINOGEN,URINE 0.2 EU/dL (0.2)
[2022-02-11 12:20] LABS: ALANINE AMINOTRANSFERASE 19 U/L (12-78); ALBUMIN 3.4 g/dL (3.4-5.0); ALKALINE PHOSPHATASE 69 U/L (46-116); ASPARTATE AMINOTRANSFERASE 16 U/L (15-37); BILIRUBIN,DIRECT 0.1 mg/dL (0.0-0.2); BILIRUBIN,TOTAL 0.7 mg/dL (0.2-1.0); CALCIUM, SERUM 8.9 mg/dL (8.5-10.1); CARBON DIOXIDE 25 mmol/L (21-32); CHLORIDE 106 mmol/L (98-107); CREATININE 1.1 mg/dL (0.6-1.3); GLUCOSE 114 mg/dL (74-106); LIPASE 138 U/L (73-393); POTASSIUM 3.7 mmol/L (3.5-5.1); SODIUM SERUM 141 mmol/L (136-145); TOTAL PROTEIN, SERUM 6.8 g/dL (6.4-8.2); UREA NITROGEN, BLOOD 17 mg/dL (7-18)
[2022-02-11] MEDS ORDERED: FAMO20TA8 PO (14:41)
[2022-02-11] MEDS ORDERED: DICYCLOMINE HCL 10 MG CAPSULE PO ONE ×2 (15:00)
--- NOTE | 2022-02-11 16:29 | NUR ---
TY FROM [facility] CALLED [phone].
--- NOTE | 2022-02-11 16:29 | NUR ---
JACKIE [phone] WORKS WITH [facility].
[2022-02-11] MEDS ORDERED: LORA-259 PO (16:47)
[2022-02-11] MEDS ORDERED: FLUO20CA42 PO (16:47)
[2022-02-11] MEDS ORDERED: ARIP5TAB10 PO (16:47)
--- NOTE | 2022-02-11 17:12 | NUR ---
[facility] CALLED FOR TRANSPORT ETA 60-75 MINS.
--- NOTE | 2022-02-11 18:06 | NUR ---
IV removed. Catheter intact and site benign. Pressure and 4x4 applied to site. No bleeding noted.
--- NOTE | 2022-02-11 18:15 | NUR ---
EMT AT BEDSIDE TO PICKUP PT
--- NOTE | 2022-02-11 18:18 | NUR ---
Patient discharged to home in stable condition, accompanied by 2 emergency department nurse via [facility]. Written and verbal after care instructions given. Patient verbalizes understanding of instruction.
[2022-02-11 18:19] VITALS: BP 124/70
== END 2022-02-11 18:20 | disposition home or self-care (01) ==
LOC: ER 10:30
DX: R10.84 Generalized abdominal pain (principal); I10 Essential (primary) hypertension; E11.9 Type 2 diabetes mellitus without complications; I48.91 Unspecified atrial fibrillation; K21.9 Gastro-esophageal reflux disease without esophagitis; F41.9 Anxiety disorder, unspecified; Z90.89 Acquired absence of other organs; Z60.2 Problems related to living alone; Z79.899 Other long term (current) drug therapy
CPT/HCPCS: 36415; 71045-TC; 80048-TC; 80076-TC; 83690-TC; 84484-TC; 85025-TC

== ENCOUNTER 2022-05-19 15:25 | Inpatient (IN) | payer MEDICARE, OTHER ==
[~2022-05-19] VITALS: Ht 167.6 cm; Wt 72.6 kg
[~2022-05-19 15:25] MED LIST changes: +ARIP5TAB10 PO; +FAMO20TA8 PO; +LORA-259 PO
--- NOTE | 2022-05-19 15:40 | NUR ---
RT NOTE PLACED PT ON BIPAP MODE PER ER MD ORDER. TOLERATING WELL AT THIS TIME. RN NOTIFIED AND AWARE. WILL CONTINUE TO MONITOR THE PATIENT FOR ANY CHANGES.
[2022-05-19] MEDS ORDERED: FUROSEMIDE 40 MG/4 ML VIAL ONE (15:57)
[2022-05-19] MEDS ORDERED: CEFEPIME 1 GM in IV D5W 50 ML IV ONE (16:00)
[2022-05-19] MEDS ORDERED: FUROSEMIDE 40 MG/4 ML VIAL IV ONE (16:00)
[2022-05-19] MEDS ORDERED: VANCOMYCIN 1 GM in IV D5W 250 ML IV ONE (16:00)
--- NOTE | 2022-05-19 16:00 | NUR ---
RAC #18. PT AWAKE AND VERBALLEY RESPONSIVE, LASIX IV GIVEN INDICATED.
[2022-05-19] MEDS ORDERED: OLAN2.5T3 PO (16:04)
--- NOTE | 2022-05-19 16:10 | NUR ---
COVID SWAB COLLECTED AND SENT TO LAB
[2022-05-19 16:26] LABS: BASOPHILS # (AUTO) 0.1 K/uL (0.0-0.2); BASOPHILS % (AUTO) 0.8 % (0.0-2.0); EOSINOPHILS % (AUTO) 1.5 % (0.0-6.0); HEMATOCRIT 47 % (39-51); HEMOGLOBIN 15.2 g/dL (13.5-17.5); LYMPHOCYTES # (AUTO) 4.9 K/uL (0.8-4.8); LYMPHOCYTES % (AUTO) 34.1 % (20.0-44.0); MEAN CORPUSCULAR HGB CONC 32 g/dl (31.0-36.0); MEAN CORPUSCULAR VOLUME 92 fL (80-96); MONOCYTES # (AUTO) 1.3 K/uL (0.1-1.30); MONOCYTES % (AUTO) 8.8 % (2.0-12.0); NEUTROPHILS # (AUTO) 7.8 K/uL (1.8-8.9); NEUTROPHILS % (AUTO) 54.8 % (43.0-81.0); PLATELET COUNT (AUTO) 397 K/uL (150-450); RED BLOOD CELL COUNT(AUTO) 5.14 MIL/uL (4.5-6.0); WHITE BLOOD COUNT (AUTO) 14.3 K/uL (4.3-11.0)
[2022-05-19 16:51] LABS: CALCIUM, SERUM 8.3 mg/dL (8.5-10.1); CARBON DIOXIDE 19 mmol/L (21-32); CHLORIDE 104 mmol/L (98-107); CREATININE 1.6 mg/dL (0.6-1.3); GLUCOSE 210 mg/dL (74-106); SODIUM SERUM 139 mmol/L (136-145); UREA NITROGEN, BLOOD 24 mg/dL (7-18)
[2022-05-19 16:57] LABS: ABG BASE EXCESS -3.3 mmol/L; ABG PCO2 37.3 mmHg (35.0-45.0); ABG PH 7.375 (7.350-7.450); COHb 1.4 % (0.5-1.5); MetHb 0.3 % (0.0-1.5); O2Hb 96.9 % (94.0-97.0); SITE, ABG Right Radial
--- NOTE | 2022-05-19 17:00 | NUR ---
RT AT BEDSIDE FOR BIPAP SETTING
[2022-05-19 17:02] LABS: ALANINE AMINOTRANSFERASE 14 U/L (12-78); ALBUMIN 3.2 g/dL (3.4-5.0); ALKALINE PHOSPHATASE 96 U/L (46-116); ASPARTATE AMINOTRANSFERASE 22 U/L (15-37); BILIRUBIN,DIRECT 0.1 mg/dL (0.0-0.2); BILIRUBIN,TOTAL 0.5 mg/dL (0.2-1.0); TOTAL PROTEIN, SERUM 7.2 g/dL (6.4-8.2)
[2022-05-19] MEDS ORDERED: DEXTROSE 50%-WATER 50 ML DISP.SYRIN IV PRN (17:30)
[2022-05-19] MEDS ORDERED: ONDANSETRON HCL/PF 4 MG/2 ML VIAL IVP PRN (17:30)
[2022-05-19] MEDS ORDERED: Z GUARD REMEDY 4 OZ OINT TP PRN (17:30)
[2022-05-19] MEDS ORDERED: ACETAMINOPHEN 325 MG TABLET PO PRN (17:30)
[2022-05-19] MEDS ORDERED: PIPERACILLIN /TAZOBACTAM 4.5 G in IV D5W 50 ML IV SCH (18:00)
[2022-05-19] MEDS ORDERED: ASPIRIN 325 MG TABLET PO ONE (19:30)
[2022-05-19] MEDS ORDERED: ASPIRIN EC 325 MG TABLET.DR PO ONE (19:48)
[2022-05-19 19:50] LABS: BAND % (MANUAL) 1 % (0.0-5.0); EOSINOPHILS % (MANUAL) 3 % (0-4); LYMPHOCYTES % (MANUAL) 20 % (16-48); MONOCYTES % (MANUAL) 12 % (0-11.0); NEUTROPHILS % (MANUAL) 64 (42-76)
[2022-05-19] MEDS ORDERED: MORPHINE SULFATE INJ 2 MG/ML DISP.SYRIN IV ONE (20:00)
[2022-05-19] MEDS ORDERED: ONDANSETRON HCL/PF - ER 4 MG/2 ML VIAL IV ONE (20:00)
--- NOTE | 2022-05-19 20:08 | NUR ---
PT TO CT
[2022-05-19] MEDS ORDERED: ONDANSETRON HCL/PF 4 MG/2 ML VIAL ONE (21:41)
[2022-05-19] MEDS ORDERED: MORPHINE SULFATE INJ 4 MG/ML DISP.SYRIN ONE (21:42)
[2022-05-19] MEDS: MIRTAZAPINE 15 MG TABLET PO SCH (22:00)
[2022-05-19] MEDS: ARIPIPRAZOLE 5 MG TABLET PO SCH (22:00)
--- NOTE | 2022-05-19 22:06 | NUR ---
REPORT GIVEN TO JACK BEJARANO
[2022-05-19 22:45] VITALS: BP 94/62
[2022-05-19] MEDS: BLOOD SUGAR DIAGNOSTIC 1 EACH STRIP VI SCH ×2 (22:49→22:51)
--- NOTE | 2022-05-19 22:49 | NUR ---
PATIENT TRANSFFERED UNDER ACLS
[2022-05-19 23:00] VITALS: BP 90/57
[2022-05-19] MEDS ORDERED: PIPERACILLIN /TAZOBACTAM 2.25 G VIAL IV ONE (23:22)
[2022-05-19] MEDS: IV NS 0.9% 250 ML IV PRN (23:22)
[2022-05-19] MEDS: ZOSYN IVPB 4.5 G in IV D5W 50ml IV SCH (23:28)
[2022-05-20] VITALS (27 sets, daily range): BP systolic 73–113; BP diastolic 24–73
--- NOTE | 2022-05-20 | NUR ---
HAND BOX COVERER. ADMISSION. RECEIVED THE PT FROM ER VIA [employer]. PT IA AWAKE, ALERT. FOLLOW COMMANDS. PT BEING ADMITTED FOR PNA. SEPSIS, N STEMI. BARKEEPER SHOWING NSR. IV RT AND LT HAND 20G. TKO RUNNING. HOB ELEVATED. OXYGEN VENTURI MASK 40%, 4L SAT 94%. NO ACUTE DISTRESS NOTED. WILL CONTINUE TO MONITOR VITALS.
--- NOTE | 2022-05-20 01:17 | NUR ---
INSECTICIDE SUPERVISOR. JOSE AND ELIANA 2200 NOT GIVEN.PT IS SLEEPING
[2022-05-20] MEDS ORDERED: NOREPINEPHRINE 8 MG in IV NS 0.9% 242 ML IV PRN (02:30)
[2022-05-20] MEDS ORDERED: PIPERACILLIN /TAZOBACTAM 2.25 G VIAL IV ONE (02:53)
--- NOTE | 2022-05-20 03:59 | NUR ---
SECTION SUPERVISOR. AM CARE GIVEN, REMAINING SAME OXYGEN TOLERATED WELL. SAT 98%. NO ACUTE DISTRESS NOTED. GAMING CAGE WORKER SHOWING NSR. IV RT AND LT HAND TKO RUNNING, HOB ELEVATED. WILL CONTINUE TO MONITOR VITALS.
[2022-05-20 04:44] LABS: BASOPHILS % (AUTO) 0.3 % (0.0-2.0); EOSINOPHILS % (AUTO) 0.3 % (0.0-6.0); HEMATOCRIT 41 % (39-51); HEMOGLOBIN 13.4 g/dL (13.5-17.5); LYMPHOCYTES # (AUTO) 1.6 K/uL (0.8-4.8); LYMPHOCYTES % (AUTO) 12.7 % (20.0-44.0); MEAN CORPUSCULAR HGB CONC 33 g/dl (31.0-36.0); MEAN CORPUSCULAR VOLUME 90 fL (80-96); MONOCYTES # (AUTO) 1.2 K/uL (0.1-1.30); MONOCYTES % (AUTO) 9.2 % (2.0-12.0); NEUTROPHILS # (AUTO) 9.9 K/uL (1.8-8.9); NEUTROPHILS % (AUTO) 77.5 % (43.0-81.0); PLATELET COUNT (AUTO) 267 K/uL (150-450); RED BLOOD CELL COUNT(AUTO) 4.52 MIL/uL (4.5-6.0); WHITE BLOOD COUNT (AUTO) 12.8 K/uL (4.3-11.0)
[2022-05-20 04:58] LABS: ABG BASE EXCESS 1.4 mmol/L; ABG OXYGEN SATURATION 94.2 % (92.0-98.5); ABG PCO2 43.1 mmHg (35.0-45.0); ABG PH 7.405 (7.350-7.450); ABG PO2 73.7 mmHg (75.0-100.0); AaDO2 161.9 mmHg; COHb 1.3 % (0.5-1.5); MetHb 0.1 % (0.0-1.5); O2Hb 92.9 % (94.0-97.0); SITE, ABG Right Radial; VENT MODE, BG VENTI MASK 40%
[2022-05-20 05:19] LABS: ALBUMIN 2.8 g/dL (3.4-5.0); BILIRUBIN,TOTAL 1.4 mg/dL (0.2-1.0); CREATININE 1.3 mg/dL (0.6-1.3); MAGNESIUM 2.2 mg/dL (1.8-2.4); PHOSPHORUS 3.2 mg/dL (2.5-4.9); POTASSIUM 3.7 mmol/L (3.5-5.1); TOTAL PROTEIN, SERUM 6.2 g/dL (6.4-8.2)
[2022-05-20] MEDS: ZOSYN IVPB 4.5 G in IV D5W 50ml IV SCH (05:46)
--- NOTE | 2022-05-20 07:05 | NUR ---
ELECTRICAL LINE WORKER Bedside report taken from [facility] nurse Celeste SANTIAGO. pt awake, alert and oriented x3, follows commands. pt moves bue and ble 5/5. perrla. pt on venturi mask 4 L at 40 % spo2 98%, tolerating well. jeff lung sounds clear but diminished. pt npo at this time except meds. pt NSR on monitor with HR 80s, bue and ble pulses present and palpable. pt has bowel sounds, abdomen soft and rounded. pt continent of urine and stool, voids in urinal. all lines traced. all drips verified. safety measures in place. will continue to monitor.
[2022-05-20] MEDS: BLOOD SUGAR DIAGNOSTIC 1 EACH STRIP VI SCH ×4 (07:30→22:29)
--- NOTE | 2022-05-20 08:30 | NUR ---
GEOTHERMAL ELECTRICAL ENGINEER Dr Silva at bedside assessing pt and updated on pt status. new orders pending per md.
--- NOTE | 2022-05-20 08:45 | NUR ---
CARDIOPULMONARY PHYSICAL THERAPIST Pt sitting up in bed feeding self breakfast tray. pt tolerating well. no visible signs of aspiration noted. vitals stable. will continue to monitor.
[2022-05-20] MEDS: APIXABAN 5 MG TABLET PO SCH ×2 (08:51→17:07)
[2022-05-20] MEDS: GABAPENTIN 100 MG CAPSULE PO SCH ×3 (08:51→17:16)
[2022-05-20] MEDS: SPIRONOLACTONE 25 MG TABLET PO SCH (08:52)
[2022-05-20] MEDS: FUROSEMIDE 40 MG/4 ML VIAL IV SCH ×3 (08:52→21:31)
[2022-05-20] MEDS: OLANZAPINE 2.5 MG TABLET PO SCH (08:52)
[2022-05-20] MEDS: EZETIMIBE 10 MG TABLET PO SCH (08:55)
[2022-05-20] MEDS: CARVEDILOL 6.25 MG TABLET PO SCH ×2 (09:00→17:00)
--- NOTE | 2022-05-20 09:16 | NUR ---
ACCOUNTING INSTRUCTOR covid test done and taken to lab.
--- NOTE | 2022-05-20 09:51 | NUR ---
VISION SPECIALIST consent for CT angio with 3d photos signed by pt and placed in pt chart.
[2022-05-20] MEDS: ZOSYN IVPB 3.375 G in IV D5W 50ml IV SCH ×2 (11:29→17:08)
--- NOTE | 2022-05-20 11:44 | NUR ---
SHEET METAL FOREMAN Pt sitting up in bed feeding self lunch tray. pt tolerating well. no visible signs of aspiration noted. vitals stable. will continue to monitor.
--- NOTE | 2022-05-20 15:29 | NUR ---
TOLL TEST WORKER per CT angio team, pt unable to be taken to procedure today because pt hr too high 80s and bp too low 90-105, and pt bp will not tolerate metoprolol to lower HR. charge nurse Shira SANTIAGO aware. Per charge nurse she will notify
--- NOTE | 2022-05-20 15:31 | NUR ---
SHOOK SPLICER Pt bathed and cleaned. linen change done. skin check done, no new wounds noted. pt tolerated well. vitals stable. safety measures in place. will continue to monitor.
[2022-05-20] MEDS ORDERED: VANCOMYCIN 1.25 GM in IV D5W 250 ML IV SCH (16:00)
--- NOTE | 2022-05-20 18:55 | NUR ---
HOUSEKEEPER/CUSTODIAN/LAUNDRY WORKER Bedside report given to noc nurse Celeste SANTIAGO. pt asleep, easily arousable. AAO x3, independent bed mobility. pt ambulatory with steady gait. pt clean and dry. safety measures in place. no signs of acute distress at this time.
[2022-05-20] MEDS ORDERED: CEFEPIME 1 GM in IV D5W 50 ML IV SCH (20:30)
[2022-05-20] MEDS: CEFEPIME 2 GM in IV D5W 100 ML IV SCH (21:31)
[2022-05-20] MEDS: ARIPIPRAZOLE 5 MG TABLET PO SCH (21:32)
[2022-05-20] MEDS: MIRTAZAPINE 15 MG TABLET PO SCH (22:29)
--- NOTE | 2022-05-20 22:30 | NUR ---
agricultural extension educator. initial assessment. received the pt rest in bed. awake, alert , follow commands. site monitor showing nsr. iv rt hand 20g. tko running. hob elevated. rt ac iv was leaking , changed , will continue to monitor vitals.
[2022-05-21] VITALS (22 sets, daily range): BP systolic 89–127; BP diastolic 21–84
--- NOTE | 2022-05-21 02:49 | NUR ---
curriculum and assessment coordinator. am care given. remaining same oxygen tolerated well. sat 98%. no acute distress noted. screen printing inspector showing nsr. will continue to monitor vitals.
--- NOTE | 2022-05-21 07:30 | NUR ---
OPENING NOTE: REPORT RECEIVED FROM LIANNA SANTIAGO. ORDERS AND LABS REVIEWED DURING REPORT. PT ALERT OX3, INDEPENDENT IN ROOM. PT IS ON 4L NASAL CANNULA AT THIS TIME. PT CHECKED ON HOURLY AND PRN BY NURSING STAFF.
[2022-05-21 08:08] LABS: BASOPHILS % (AUTO) 0.4 % (0.0-2.0); EOSINOPHILS % (AUTO) 2.8 % (0.0-6.0); HEMATOCRIT 43 % (39-51); HEMOGLOBIN 14.1 g/dL (13.5-17.5); LYMPHOCYTES # (AUTO) 1.8 K/uL (0.8-4.8); LYMPHOCYTES % (AUTO) 20.6 % (20.0-44.0); MEAN CORPUSCULAR HGB CONC 33 g/dl (31.0-36.0); MEAN CORPUSCULAR VOLUME 91 fL (80-96); MONOCYTES # (AUTO) 0.9 K/uL (0.1-1.30); NEUTROPHILS # (AUTO) 5.7 K/uL (1.8-8.9); NEUTROPHILS % (AUTO) 66.2 % (43.0-81.0); PLATELET COUNT (AUTO) 291 K/uL (150-450); RED BLOOD CELL COUNT(AUTO) 4.73 MIL/uL (4.5-6.0); WHITE BLOOD COUNT (AUTO) 8.6 K/uL (4.3-11.0)
[2022-05-21] MEDS: BLOOD SUGAR DIAGNOSTIC 1 EACH STRIP VI SCH ×4 (08:14→21:12)
[2022-05-21 08:20] LABS: CALCIUM, SERUM 8.8 mg/dL (8.5-10.1); CREATININE 1.2 mg/dL (0.6-1.3); POTASSIUM 3.7 mmol/L (3.5-5.1)
[2022-05-21] MEDS: CEFEPIME 2 GM in IV D5W 100 ML IV SCH ×2 (09:04→21:11)
[2022-05-21] MEDS: OLANZAPINE 2.5 MG TABLET PO SCH (09:05)
[2022-05-21] MEDS: EZETIMIBE 10 MG TABLET PO SCH (09:05)
[2022-05-21] MEDS: CARVEDILOL 6.25 MG TABLET PO SCH ×2 (09:05→16:46)
[2022-05-21] MEDS: SPIRONOLACTONE 25 MG TABLET PO SCH (09:06)
[2022-05-21] MEDS: GABAPENTIN 100 MG CAPSULE PO SCH ×3 (09:06→16:46)
[2022-05-21] MEDS: APIXABAN 5 MG TABLET PO SCH ×2 (09:08→16:48)
[2022-05-21] MEDS: IV NS 0.9% 250 ML IV PRN (09:08)
[2022-05-21] MEDS: POTASSIUM CHLORIDE 20 MEQ TAB.PRT.SR PO SCH ×3 (09:51→11:49)
[2022-05-21] MEDS: FUROSEMIDE 40 MG/4 ML VIAL IV SCH ×3 (09:51→16:49)
[2022-05-21] MEDS: LORAZEPAM 0.5 MG TABLET PO PRN ×3 (09:52→23:09)
[2022-05-21] MEDS ORDERED: PANTOPRAZOLE 40 MG VIAL IV SCH (10:00)
[2022-05-21] MEDS: INSULIN REGULAR, HUMAN 100 UNIT/ML 3 ML VIAL SQ PRN (12:14)
--- NOTE | 2022-05-21 13:50 | NUR ---
PT TRANSFERRED TO ROOM 110 VIA BED USING ACLS PROTOCOL. TELEPHONE REPORT GIVEN TO GRAND SANTIAGO WITH BEDSIDE UPDATES. PT SETTLED IN ROOM. GRAND SANTIAGO MET CLOTH FINISHING RANGE OPERATOR CHIEF IN ROOM FOR HAND OFF. ALL BELONGINGS SENT WITH PATIENT.
--- NOTE | 2022-05-21 14:00 | NUR ---
RECEIVED PATIENT FROM [id number], BUD RN, PATIENT IS AWAKE,ALERT,ORIENTEDX3, NO SIGNS OF IN DISTRESS, SPO2-99% ROOM AIR , UNLABORED BREATHING, VITAL SIGNS ARE STABLE, NO COMPLAINT OF PAIN, NO EDEMA NOTICED, RIGHT HAND PIV, LEFT AC PIV, PATENT, SIDE RAILS UP, CALL LIGHT WITHIN REACH.
--- NOTE | 2022-05-21 15:59 | NUR ---
ATIVAN 0.5MG PO GIVEN DUE TO ANXIETY.
--- NOTE | 2022-05-21 19:38 | NUR ---
RN OPENING NOTE PATIENT AWAKE IN BED. A/OX3. NO S/S OF DISTRESS, BREATHING WITHOUT DIFFICULTY ON ROOM AIR. R-HAND #20 SL INTACT AND PATENT. TELE READS SR 75. SAFETY MEASURES IN PLACE: BED LOCKED IN PLACE WITH BED AT LOWEST POSITION, RAILS UP X2, CALL BETTENCOURT WITHIN REACH. WILL CONTINUE TO MONITOR PATIENT.
[2022-05-21] MEDS: ARIPIPRAZOLE 5 MG TABLET PO SCH (21:11)
[2022-05-21] MEDS: *INSULIN REGULAR(HUMULIN R)HUM 100 UNIT/ML VIAL SQ PRN (21:12)
[2022-05-21] MEDS: MIRTAZAPINE 15 MG TABLET PO SCH (21:12)
[2022-05-22 00:37] VITALS: BP 105/68
[2022-05-22 04:29] VITALS: BP_SYST 107; BP_SYST 98; BP_DIAS 59; BP_DIAS 67
--- NOTE | 2022-05-22 06:08 | NUR ---
RN CLOSING NOTE PATIENT ASLEEP IN BED. A/OX3. NO S/S OF DISTRESS, BREATHING WITHOUT DIFFICULTY ON ROOM AIR. L-HAND #20 SL INTACT AND PATENT. TELE READS SR 80. SAFETY MEASURES IN PLACE: BED LOCKED IN PLACE WITH BED AT LOWEST POSITION, RAILS UP X2, CALL BETTENCOURT WITHIN REACH. WILL ENDORSE TO NEXT SHIFT FOR GIULIA.
[2022-05-22] MEDS: LORAZEPAM 0.5 MG TABLET PO PRN ×2 (06:13→13:42)
--- NOTE | 2022-05-22 07:30 | NUR ---
DRESS OPERATOR OPEN NOTE: AWAKE AND RESPONSIVE TO VERBAL STIMULI. MOIST ORAL MUCOSA. UNLABORED BREATHING AT ROOM AIR SATING 96 %. ON SKATE MAKER WITH A READING OF SINUS RHYTHM 82. IV ON RIGHT HAND PATENT. NO S/S OF COMPLICATIONS. KEPT CLEAN AND COMFORTABLE. HOB ELEVATED SEMI-FOWLERS POSITION. BED IN LOCKED, IN LOW POSITION, EXIT ALARM ON. CALL LIGHT IN REACH. BILATERAL HALF SIDE RAILS UP X2.
[2022-05-22 07:39] LABS: BASOPHILS # (AUTO) 0.1 K/uL (0.0-0.2); EOSINOPHILS % (AUTO) 2.7 % (0.0-6.0); HEMATOCRIT 46 % (39-51); HEMOGLOBIN 15.1 g/dL (13.5-17.5); LYMPHOCYTES # (AUTO) 2.5 K/uL (0.8-4.8); LYMPHOCYTES % (AUTO) 29.5 % (20.0-44.0); MEAN CORPUSCULAR HGB CONC 33 g/dl (31.0-36.0); MEAN CORPUSCULAR VOLUME 91 fL (80-96); MONOCYTES # (AUTO) 0.8 K/uL (0.1-1.30); MONOCYTES % (AUTO) 10.2 % (2.0-12.0); NEUTROPHILS # (AUTO) 4.7 K/uL (1.8-8.9); NEUTROPHILS % (AUTO) 56.6 % (43.0-81.0); PLATELET COUNT (AUTO) 343 K/uL (150-450); RED BLOOD CELL COUNT(AUTO) 5.08 MIL/uL (4.5-6.0); WHITE BLOOD COUNT (AUTO) 8.3 K/uL (4.3-11.0)
[2022-05-22] MEDS: PANTOPRAZOLE 40 MG TABLET.DR PO SCH (07:41)
[2022-05-22] MEDS: BLOOD SUGAR DIAGNOSTIC 1 EACH STRIP VI SCH ×4 (07:48→23:20)
[2022-05-22 07:56] LABS: ALBUMIN 3.4 g/dL (3.4-5.0); BILIRUBIN,TOTAL 0.9 mg/dL (0.2-1.0); CALCIUM, SERUM 9.1 mg/dL (8.5-10.1); CREATININE 1.4 mg/dL (0.6-1.3); MAGNESIUM 2.7 mg/dL (1.8-2.4); PHOSPHORUS 2.9 mg/dL (2.5-4.9); POTASSIUM 3.9 mmol/L (3.5-5.1); TOTAL PROTEIN, SERUM 7.9 g/dL (6.4-8.2)
[2022-05-22 08:00] VITALS: BP 120/65
[2022-05-22] MEDS: APIXABAN 5 MG TABLET PO SCH ×2 (09:00→18:04)
[2022-05-22] MEDS: CEFEPIME 2 GM in IV D5W 100 ML IV SCH (10:11)
[2022-05-22] MEDS: CARVEDILOL 6.25 MG TABLET PO SCH ×2 (10:12→17:57)
[2022-05-22] MEDS: OLANZAPINE 2.5 MG TABLET PO SCH (10:12)
[2022-05-22] MEDS: GABAPENTIN 100 MG CAPSULE PO SCH ×3 (10:13→17:57)
[2022-05-22] MEDS: EZETIMIBE 10 MG TABLET PO SCH (10:13)
[2022-05-22] MEDS: SPIRONOLACTONE 25 MG TABLET PO SCH (10:13)
--- NOTE | 2022-05-22 10:14 | NUR ---
Mauri held patient going for procedure.
[2022-05-22] MEDS ORDERED: METOPROLOL TARTRATE 50 MG TABLET PO ONE (10:40)
[2022-05-22 12:00] VITALS: BP 110/65
[2022-05-22] MEDS ORDERED: IOHEXOL-350 100 ML VIAL IV ONE (13:50)
[2022-05-22] MEDS ORDERED: IV NS 0.9% 250 ML IV ONE (13:50)
[2022-05-22] MEDS ORDERED: CT SWABBABLE VALVE TRANS SET 1 EA INFUS.SET MC ONE (13:50)
--- NOTE | 2022-05-22 14:30 | NUR ---
PATIENT VITAL SIGNS BP 110/60 HR 77 R [address] ANGIO HEART WIHT 3D IMAGE PROCEDURE ON HOLD DUE TO BP 110/60 ADELITA AT RADIOLOGY INFORMED PER DEPARTMENT CHAIRPERSON. NEW IV LINE ON LEFT FOREARM INTACT. PATENT.
[2022-05-22 16:00] VITALS: BP 100/59
--- NOTE | 2022-05-22 18:30 | NUR ---
REFRIGERATOR CAR ICER CLOSING NOTE: AWAKE AND RESPONSIVE TO VERBAL STIMULI. MOIST ORAL MUCOSA. UNLABORED BREATHING AT ROOM AIR SATING 98 %. ON AUTO CLAIM REPRESENTATIVE WITH A READING OF SINUS RHYTHM 79. IV ON RIGHT HAND PATENT. IV ON LEFT FOREARM INTACT, PATENT. NO S/S OF COMPLICATIONS. KEPT CLEAN AND COMFORTABLE. HOB ELEVATED SEMI-FOWLERS POSITION. BED IN LOCKED, IN LOW POSITION, EXIT ALARM ON. CALL LIGHT IN REACH. BILATERAL HALF SIDE RAILS UP X2. DECLINES PAIN OR DISCOMFORT
[2022-05-22 20:00] VITALS: BP 114/53
--- NOTE | 2022-05-22 20:00 | NUR ---
JUNIOR PHP DEVELOPER OPENING NOTE PT AWAKE, ALERT AND ORIENTED X3. ON RA, NO SOB, NO ACUTE RESP DISTRESS NOTED, O2 SAT 94%. IV ACCESS ON R HAND #20 SL, PATENT AND LFA G18 INTACT AND PATENT SL, NO S/S INFX/INFILTRATION. SAFETY PRECAUTIONS IMPLEMENTED: BED IN LOCKED, IN LOW POSITION. CALL LIGHT WITHIN EASY REACH. BSR X2. WILL CONT POC.
[2022-05-22] MEDS: ARIPIPRAZOLE 5 MG TABLET PO SCH (22:29)
[2022-05-22] MEDS: MIRTAZAPINE 15 MG TABLET PO SCH (22:29)
[2022-05-22] MEDS: *INSULIN REGULAR(HUMULIN R)HUM 100 UNIT/ML VIAL SQ PRN (23:20)
[2022-05-23] VITALS: BP 96/64
[2022-05-23 04:00] VITALS: BP 113/72
--- NOTE | 2022-05-23 06:59 | NUR ---
CAPACITY PLANNING MANAGER CLOSING NOTE PT IN BED, ASLEEP, EASILY AROUSABLE. ON RA, NO SOB, NO ACUTE RESP DISTRESS NOTED, O2 SAT 96%. IV ACCESS ON R HAND #20 SL, PATENT AND LFA G18 INTACT AND PATENT SL, NO S/S INFX/INFILTRATION. ALL DUE MEDICATIONS GIVEN ORDERED. ALL NEEDS ATTENDED. SAFETY PRECAUTIONS IMPLEMENTED: BED IN LOCKED, IN LOW POSITION. CALL LIGHT WITHIN EASY REACH. BSR X2. WILL ENDORSE TO AM NURSE.
--- NOTE | 2022-05-23 07:10 | NUR ---
BELLSTAFF OPENING NOTES: RECEIVED PATIENT IN BED, AWAKE, ALERT, ORIENTED X 3. NO RESPIRATORY DISTRESS NOTED AT THIS TIME, BREATHING EVEN AND UNLABORED. ON SR ON TELE MONITOR WITH HR OF 87. PATIENT HAS IV ACCESSES ON RIGHT HAND AND LEFT FOREARM, BOTH INTACT, PATENT AND FLUSHES WELL WITH NO S/S INFILTRATION NOTED. NO C/O PAIN OR DISCOMFORT AT THIS TIME. ALL SAFETY MEASURES IN PLACE. BED LOCKED AND IN LOWEST POSITION WITH BED ALARM ON. CALL LIGHT WITHIN REACH. WILL CONTINUE TO MONITOR PATIENT THROUGHOUT SHIFT.
[2022-05-23] MEDS: PANTOPRAZOLE 40 MG TABLET.DR PO SCH (07:35)
[2022-05-23] MEDS: BLOOD SUGAR DIAGNOSTIC 1 EACH STRIP VI SCH ×4 (07:49→21:49)
[2022-05-23 08:00] VITALS: BP 115/74
[2022-05-23] MEDS: OLANZAPINE 2.5 MG TABLET PO SCH (08:14)
[2022-05-23] MEDS: SPIRONOLACTONE 25 MG TABLET PO SCH (08:14)
[2022-05-23] MEDS: LORAZEPAM 0.5 MG TABLET PO PRN (08:15)
[2022-05-23] MEDS: EZETIMIBE 10 MG TABLET PO SCH (08:15)
[2022-05-23] MEDS: GABAPENTIN 100 MG CAPSULE PO SCH ×3 (08:15→16:15)
[2022-05-23] MEDS: CARVEDILOL 6.25 MG TABLET PO SCH ×2 (08:24→16:15)
[2022-05-23] MEDS: APIXABAN 5 MG TABLET PO SCH ×2 (08:28→16:14)
[2022-05-23] MEDS ORDERED: METOPROLOL SUCCINATE 50 MG TAB.SR.24H PO SCH (08:30)
[2022-05-23 12:00] VITALS: BP 105/67
--- NOTE | 2022-05-23 14:00 | NUR ---
PATIENT RECEIVED COVID PCR RESULT NON DETECTED. PATIENT INFORMED.
--- NOTE | 2022-05-23 14:25 | NUR ---
PATIENT WAS PICKED UP FOR CTA WITH SR ON TELE MONITOR WITH HR OF 65
[2022-05-23] MEDS ORDERED: NITROGLYCERIN 0.4 MG/TAB BOTTLE SL ONE (15:00)
[2022-05-23] MEDS: METOPROLOL TARTRATE INJ 5 MG/5 ML AMPUL IVP PRN ×2 (15:00→15:05)
[2022-05-23] MEDS ORDERED: IOHEXOL-350 100 ML VIAL IV ONE (15:01)
--- NOTE | 2022-05-23 15:01 | NUR ---
PATIENT WAS PLACED BACK IN THE ROOM AFTER THE PROCEDURE IN NO ACUTE DISTRESS NOTED
[2022-05-23 16:00] VITALS: BP 106/68
--- NOTE | 2022-05-23 18:27 | NUR ---
FIELD APPLICATION ENGINEER CLOSING NOTE PATIENT IN BED, ASLEEP BUT EASILY AROUSES TO VOICE AND TOUCH. NO RESPIRATORY DISTRESS NOTED THROUGHOUT SHIFT. ON RA WITH OXYGEN SATURATION OF 91%. PATIENT ON SR WITH HR OF 61 PER TELE MONITOR. IV ACCESS INTACT ON LEFT FOREARM AND RIGHT HAND, BOTH FLUSHES WELL AND NO S/S INFILTRATION NOTED. PATIENT SAFELY AMBULATES TO THE BATHROOM AND EMPTIED 800 ML OF YELLOW COLORED URINE, NO HEMATURIA AND NO SEDIMENTATION NOTED. ALL NEEDS MET AND ATTENDED TO. SAFETY PRECAUTIONS IMPLEMENTED: BED IN LOCKED AND IN LOW POSITION WITH BED ALARM ON. CALL LIGHT WITHIN EASY REACH. WILL ENDORSE TO NEXT SHIFT NURSE.
--- NOTE | 2022-05-23 19:50 | NUR ---
CHIEF I DISPATCHER NOTE PT IN BED ASLEEP, EASILY AROUSABLE. NO SOB,NO DISTRESS OR DISCOMFORT NOTED. DENIES PAIN. ON TELE SR 69. SL LFA #18 G AND RT HAND #20 G INTACT AND PATENT. NO SS OF HYPO OR HYPERGLYCEMIA NOTED. SIDE RAILS UP X 2 AND CALL LIGHT WITHIN REACH. VSS. CONTINUE TO MONITOR.
[2022-05-23 20:00] VITALS: BP 101/53
[2022-05-23] MEDS: ARIPIPRAZOLE 5 MG TABLET PO SCH (21:39)
[2022-05-23] MEDS: MIRTAZAPINE 15 MG TABLET PO SCH (21:39)
[2022-05-24] VITALS: BP 99/66
[2022-05-24 04:00] VITALS: BP 96/58
[2022-05-24] MEDS: LORAZEPAM 0.5 MG TABLET PO PRN ×2 (04:51→21:49)
--- NOTE | 2022-05-24 04:51 | NUR ---
GENERATION TECHNOLOGIST NOTE PT WOKE UP AND C/O ANXIETY, ATIVAN 0.5 MG PO GIVEN. CONTINUE TO MONITOR HIM.
--- NOTE | 2022-05-24 06:58 | NUR ---
ASBESTOS MICROSCOPIST NOTE PT IN BED ASLEEP, AROUSABLE. ANXIETY SUBSIDED. NO DISTRESS OR DISCOMFORT NOTED. DENIES PAIN. ON TELE S R. SIDE RAILS UP X 2 AND CALL LIGHT WITHIN REACH. WILL ENDORSE TO DAY SHIFT NURSE FOR CONTINUE TO CARE.
--- NOTE | 2022-05-24 07:20 | NUR ---
REALTY SPECIALIST OPEN NOTE: PT IN BED AWAKE AND RESPONSIVE TO VERBAL STIMULI. MOIST ORAL MUCOSA. UNLABORED BREATHING AT ROOM AIR SATING 96 %. ON WHEAT FARMER WITH A READING OF SINUS RHYTHM 82. IV ON RIGHT HAND PATENT. NO S/S OF COMPLICATIONS. KEPT CLEAN AND COMFORTABLE. HOB ELEVATED SEMI-FOWLERS POSITION. BED IN LOCKED, IN LOW POSITION, EXIT ALARM ON. CALL LIGHT IN REACH. BILATERAL HALF SIDE RAILS UP X2.
[2022-05-24] MEDS: PANTOPRAZOLE 40 MG TABLET.DR PO SCH (07:34)
[2022-05-24] MEDS: BLOOD SUGAR DIAGNOSTIC 1 EACH STRIP VI SCH ×4 (07:46→21:58)
[2022-05-24 08:00] VITALS: BP 107/74
[2022-05-24] MEDS: SPIRONOLACTONE 25 MG TABLET PO SCH (09:16)
[2022-05-24] MEDS: GABAPENTIN 100 MG CAPSULE PO SCH ×3 (09:16→17:22)
[2022-05-24] MEDS: OLANZAPINE 2.5 MG TABLET PO SCH (09:16)
[2022-05-24] MEDS: EZETIMIBE 10 MG TABLET PO SCH (09:16)
[2022-05-24] MEDS: CARVEDILOL 6.25 MG TABLET PO SCH ×2 (09:16→17:23)
[2022-05-24 12:00] VITALS: BP 110/76
[2022-05-24 16:00] VITALS: BP 108/61
[2022-05-24 20:00] VITALS: BP 107/74
[2022-05-24] MEDS: MIRTAZAPINE 15 MG TABLET PO SCH (21:41)
[2022-05-24] MEDS: ARIPIPRAZOLE 5 MG TABLET PO SCH (21:41)
[2022-05-24] MEDS: INSULIN REGULAR, HUMAN 100 UNIT/ML 3 ML VIAL SQ PRN (21:59)
[2022-05-25] VITALS: BP 110/67
[2022-05-25 04:00] VITALS: BP 100/60
[2022-05-25 05:54] LABS: BASOPHILS % (AUTO) 0.5 % (0.0-2.0); EOSINOPHILS % (AUTO) 2.9 % (0.0-6.0); HEMATOCRIT 43 % (39-51); HEMOGLOBIN 14.2 g/dL (13.5-17.5); LYMPHOCYTES # (AUTO) 1.9 K/uL (0.8-4.8); LYMPHOCYTES % (AUTO) 28.8 % (20.0-44.0); MEAN CORPUSCULAR HGB CONC 33 g/dl (31.0-36.0); MEAN CORPUSCULAR VOLUME 90 fL (80-96); MONOCYTES # (AUTO) 0.8 K/uL (0.1-1.30); MONOCYTES % (AUTO) 11.1 % (2.0-12.0); NEUTROPHILS # (AUTO) 3.8 K/uL (1.8-8.9); NEUTROPHILS % (AUTO) 56.7 % (43.0-81.0); PLATELET COUNT (AUTO) 293 K/uL (150-450); RED BLOOD CELL COUNT(AUTO) 4.78 MIL/uL (4.5-6.0); WHITE BLOOD COUNT (AUTO) 6.8 K/uL (4.3-11.0)
[2022-05-25 06:28] LABS: CALCIUM, SERUM 8.7 mg/dL (8.5-10.1); CREATININE 1.1 mg/dL (0.6-1.3); MAGNESIUM 2.3 mg/dL (1.8-2.4); PHOSPHORUS 2.9 mg/dL (2.5-4.9); POTASSIUM 4.1 mmol/L (3.5-5.1)
--- NOTE | 2022-05-25 07:28 | NUR ---
TECHNICAL DOCUMENTATION SPECIALIST OPENING NOTE RECEIVED PT ASLEEP IN BED, EASILY AROUSED. PT IS A/O X3, AFGHAN SPEAKING. CREDIT COLLECTIONS SPECIALIST AVAILABLE NEEDED. PT ABLE TO MAKE NEED KNOWN. PT IS ON ROOM AIR, TOLERATING WELL. NO SOB NOTED. NOT IN ANY SIGN OF RESPIRATORY DISTRESS. ON TELE NETWORK DEVELOPER WITH CURRENT READING OF SINUS RHYTHM, HR 85. NO C/O CARDIAC DISTRESS VOICED OUT AT THIS TIME. IV ACCESS IN LFA G#18 AND RIGHT HAND G#20, INTACT AND PATENT. SAFETY MEASURE IN PLACE: BED IN LOWEST AND LOCKED POSITION, SIDE RAILS UP X2, AND CALL LIGHT WITHIN REACH. WILL CONTINUE TO MONITOR PT.
[2022-05-25 08:00] VITALS: BP 105/62
[2022-05-25] MEDS: INSULIN REGULAR, HUMAN 100 UNIT/ML 3 ML VIAL SQ PRN ×3 (08:10→16:38)
[2022-05-25] MEDS: BLOOD SUGAR DIAGNOSTIC 1 EACH STRIP VI SCH ×4 (08:10→21:32)
--- NOTE | 2022-05-25 08:11 | NUR ---
PATIENT NOW NPO PER MD'S ORDER. PATIENT IS FOR ACD PLACEMENT TODAY. CONSENT FOR THE PROCEDURE, ANAESTHESIA CONSENT AND PRE OP CHECK LISTS WERE ALL PRINTED OUT FOR THE PATIENT. PATIENT SIGNED THE CONSENT FOR THE ACD PLACEMENT AT 12OO NOON TODAY SINCE THE MD SAID TO HAVE EXPLAINED THE PROCEDURE WITH IT'S PROS AND CONS OF THE PROCEDURE AND THE PATIENT ACKNOWLEDGED.
[2022-05-25] MEDS: PANTOPRAZOLE 40 MG TABLET.DR PO SCH (08:13)
[2022-05-25] MEDS: SPIRONOLACTONE 25 MG TABLET PO SCH (08:40)
[2022-05-25] MEDS: GABAPENTIN 100 MG CAPSULE PO SCH ×3 (08:40→16:30)
[2022-05-25] MEDS: EZETIMIBE 10 MG TABLET PO SCH (08:40)
[2022-05-25] MEDS: CARVEDILOL 6.25 MG TABLET PO SCH ×2 (08:41→16:30)
[2022-05-25] MEDS: OLANZAPINE 2.5 MG TABLET PO SCH (08:41)
[2022-05-25] MEDS ORDERED: ANESTHESIA TRAY IN PYXIS 1 EA TRAY MC ONE ×3 (09:46→12:37)
[2022-05-25] MEDS ORDERED: LIDOCAINE HCL/MPF 1% 30 ML VIAL IJ ONE (09:48)
[2022-05-25] MEDS ORDERED: BUPIVACAINE 0.25% 75 MG/30 ML VIAL ONE (10:17)
[2022-05-25] MEDS ORDERED: IOHEXOL 240MG/ML 0 ML IV ONE (10:17)
[2022-05-25] MEDS ORDERED: LIDOCAINE 1% INJ 50 ML MDV IJ ONE (10:17)
[2022-05-25] MEDS ORDERED: HEPARIN SODIUM, PORCINE 1,000 UNIT/ML VIAL ONE (10:17)
[2022-05-25] MEDS ORDERED: MIDAZOLAM HCL 2 MG/2ML VIAL ONE (11:13)
[2022-05-25] MEDS ORDERED: KETAMINE HCL (500MG/10ML) 50 MG/ML VIAL ONE (11:13)
[2022-05-25] MEDS ORDERED: FENTANYL PF 100MCG/2ML AMPUL ONE (11:13)
--- NOTE | 2022-05-25 11:45 | NUR ---
RN NOTE PT LEFT THE UNIT TO OR VIA BED ACCOMPANIED BY THE OR NURSE FOR A BIV ICD INSERTION PROCEDURE.
[2022-05-25 12:00] VITALS: BP 108/70
--- NOTE | 2022-05-25 12:30 | NUR ---
RN NOTE PT BACK FROM OR VIA BED ACCOMPANIED BY OR NURSE ROSA. PER ROSA, ANESTHESIOLOGIST CANCELLED THE PROCEDURE BECAUSE PT'S CONDITION IS A HIGH RISK AND IS A COMPLICATED CASE AND SHOULD BE PERFORMED AT A HOSPITAL WITH CARDIOPULMONARY BYPASS. CALLED YANET RIVERA NP AND MADE HIM AWARE WITH NO NEW ORDERS AT THIS TIME.
--- NOTE | 2022-05-25 13:00 | NUR ---
RN NOTE CALLED DR. LICONA AND ALSO MADE HIM AWARE THAT THE BIV ICD INSERTION PROCEDURE WAS CANCELLED BY THE ANESTHESIOLOGIST. PER DR. LICONA, TO DC AND TO FOLLOW UP WITH DR. CARTER.
[2022-05-25 16:00] VITALS: BP 99/54
[2022-05-25] MEDS: LORAZEPAM 0.5 MG TABLET PO PRN (16:40)
--- NOTE | 2022-05-25 16:42 | NUR ---
RN NOTE PT C/O FEELING ANXIOUS AND REQUESTED FOR ATIVAN. ATIVAN 0.5MG PO GIVEN ORDERED QID PRN FOR ANXIETY. WILL MONITOR AND REASSESS PT.
--- NOTE | 2022-05-25 18:52 | NUR ---
INTERFACE CONTROL OFFICER CLOSING NOTE PT ASLEEP IN BED, EASILY AROUSED. PT IS A/O X3, MALTESE SPEAKING. EDUCATION RN AVAILABLE NEEDED. PT ABLE TO MAKE NEED KNOWN. PT IS ON ROOM AIR, TOLERATING WELL. NO SOB NOTED. NOT IN ANY SIGN OF RESPIRATORY DISTRESS. ON TELE SHIP OFFICER WITH CURRENT READING OF SINUS RHYTHM, HR 70. NO C/O CARDIAC DISTRESS VOICED OUT AT THIS TIME. IV ACCESS IN LFA G#18 AND RIGHT HAND G#20, INTACT AND PATENT. ALL NEEDS ATTENDED. KEPT CLEAN AND COMFORTABLE AT ALL TIMES. SAFETY MEASURE IN PLACE: BED IN LOWEST AND LOCKED POSITION, SIDE RAILS UP X2, AND CALL LIGHT WITHIN REACH. WILL ENDORSE TO ACTIVITIES COORDINATOR NURSE FOR GIULIA.
--- NOTE | 2022-05-25 19:00 | NUR ---
WAITER/WAITRESS COCKTAIL LOUNGE OPENING NOTE PT IS SLEEPING IN BED, EASILY BEING AROUSED. PT IS ALERT AND ORIENTED, A/O X3. PT IS TAJIK SPEAKING, BUT ABLE TO UNDERSTAND SIMPLE MOLDOVAN. PT IS ABLE TO MAKE NEED KNOWN. HE IS ON ROOM AIR, TOLERATING WELL. NO SOB OR DISTRESS. ON EXTERNAL RACE RELATIONS ADVISER, IT SHOWS PT'S HEART RHYTHM IS SINUS RHYTHM WITH BBB WITH HR AT 60S. PT DENIES OF HAVING CHEST PAIN. PT DID NOT HAVE ANY IV ACCESS. SAFETY MEASURES IN PLACE: BED IN LOWEST AND LOCKED POSITION, SIDE RAILS UP X2, AND CALL LIGHT WITHIN REACH. WILL CONTINUE MONITOR THE PATIENT AND PROVIDE THE CARE PATIENT NEEDS.
--- NOTE | 2022-05-25 19:10 | NUR ---
SUPERVISOR FUSING ROOM NOTE INSERTED IV ACCESS ON PT'S RIGHT HAND, #22G. SALINE LOCK. PATIENT AND INTACT.
[2022-05-25 20:00] VITALS: BP 103/56
[2022-05-25] MEDS: MIRTAZAPINE 15 MG TABLET PO SCH (21:31)
[2022-05-25] MEDS: ARIPIPRAZOLE 5 MG TABLET PO SCH (21:31)
[2022-05-26] VITALS: BP 94/49
[2022-05-26 04:00] VITALS: BP 101/62
[2022-05-26] MEDS: LORAZEPAM 0.5 MG TABLET PO PRN ×2 (04:23→13:22)
[2022-05-26 06:27] LABS: BASOPHILS % (AUTO) 0.5 % (0.0-2.0); EOSINOPHILS % (AUTO) 2.1 % (0.0-6.0); HEMATOCRIT 43 % (39-51); HEMOGLOBIN 14.3 g/dL (13.5-17.5); LYMPHOCYTES # (AUTO) 2.2 K/uL (0.8-4.8); MEAN CORPUSCULAR HGB CONC 33 g/dl (31.0-36.0); MEAN CORPUSCULAR VOLUME 89 fL (80-96); MONOCYTES # (AUTO) 0.9 K/uL (0.1-1.30); MONOCYTES % (AUTO) 11.7 % (2.0-12.0); NEUTROPHILS # (AUTO) 4.2 K/uL (1.8-8.9); NEUTROPHILS % (AUTO) 56.7 % (43.0-81.0); PLATELET COUNT (AUTO) 297 K/uL (150-450); WHITE BLOOD COUNT (AUTO) 7.5 K/uL (4.3-11.0)
--- NOTE | 2022-05-26 06:46 | NUR ---
AUTOMOTIVE SPECIALTY TECHNICIAN CLOSING NOTE PT IS SLEEPING IN BED, EASILY BEING AROUSED. PT IS ALERT AND ORIENTED, A/O X3. PT IS ABLE TO MAKE NEEDS KNOWN DURING THE SHIFT. HE IS ON ROOM AIR, TOLERATING WELL. NO SOB OR DISTRESS. ON EXTERNAL INFORMATION TECHNOLOGY COORDINATOR, IT SHOWS PT'S HEART RHYTHM IS SINUS RHYTHM WITH BBB WITH HR AT 60S. PT DENIES OF HAVING CHEST PAIN. IV ACCESS IS ON HIS RIGHT HAND, #22G; PATENT AND INTACT. SAFETY MEASURES IN PLACE: BED IN LOWEST AND LOCKED POSITION, SIDE RAILS UP X2, AND CALL LIGHT WITHIN REACH. WILL ENDORSE NEXT SHIFT NURSE FOR CONTINUING PATIENT CARE.
[2022-05-26] MEDS: BLOOD SUGAR DIAGNOSTIC 1 EACH STRIP VI SCH ×2 (06:49→13:14)
[2022-05-26 06:51] LABS: CALCIUM, SERUM 9.1 mg/dL (8.5-10.1); MAGNESIUM 2.4 mg/dL (1.8-2.4); PHOSPHORUS 2.9 mg/dL (2.5-4.9); POTASSIUM 4.3 mmol/L (3.5-5.1)
[2022-05-26 08:00] VITALS: BP 120/78
[2022-05-26] MEDS: OLANZAPINE 2.5 MG TABLET PO SCH (08:36)
[2022-05-26 08:37] VITALS: BP 120/78
[2022-05-26] MEDS: PANTOPRAZOLE 40 MG TABLET.DR PO SCH (08:37)
[2022-05-26] MEDS: SPIRONOLACTONE 25 MG TABLET PO SCH (08:37)
[2022-05-26] MEDS: CARVEDILOL 6.25 MG TABLET PO SCH (08:37)
[2022-05-26] MEDS: GABAPENTIN 100 MG CAPSULE PO SCH ×2 (08:37→13:22)
[2022-05-26] MEDS: EZETIMIBE 10 MG TABLET PO SCH (09:38)
[2022-05-26] MEDS: *INSULIN REGULAR(HUMULIN R)HUM 100 UNIT/ML VIAL SQ PRN (13:20)
== END 2022-05-26 15:49 | disposition home or self-care (01) | DRG 871 ==
LOC: ER 15:28 → ICU 21:49 → TELE1 05-21 13:48
PROVIDERS: ADMIT Internal Medicine; ATTEND Nurse Practitioner Family
PROC: 5A09357 Assistance with Respiratory Ventilation, Less than 24 Consecutive Hours, Continuous Positive Airway Pressure (ICD-10-PCS; principal; 2022-05-19)
DX: A41.9 Sepsis, unspecified organism (principal); I21.A1 Myocardial infarction type 2; J69.0 Pneumonitis due to inhalation of food and vomit; I50.23 Acute on chronic systolic (congestive) heart failure; J96.01 Acute respiratory failure with hypoxia; N17.0 Acute kidney failure with tubular necrosis; D68.59 Other primary thrombophilia; I42.0 Dilated cardiomyopathy; I11.0 Hypertensive heart disease with heart failure; Z20.822 Contact with and (suspected) exposure to COVID-19; Z90.49 Acquired absence of other specified parts of digestive tract; F17.210 Nicotine dependence, cigarettes, uncomplicated; I48.91 Unspecified atrial fibrillation; K29.70 Gastritis, unspecified, without bleeding; E11.9 Type 2 diabetes mellitus without complications; F43.10 Post-traumatic stress disorder, unspecified; F29 Unspecified psychosis not due to a substance or known physiological condition; E78.5 Hyperlipidemia, unspecified; D64.9 Anemia, unspecified; Z79.899 Other long term (current) drug therapy; Z79.84 Long term (current) use of oral hypoglycemic drugs; Z79.01 Long term (current) use of anticoagulants; Z79.82 Long term (current) use of aspirin; K21.9 Gastro-esophageal reflux disease without esophagitis; F32.A Depression, unspecified; E88.09 Other disorders of plasma-protein metabolism, not elsewhere classified; Z53.9 Procedure and treatment not carried out, unspecified reason; I71.43 Infrarenal abdominal aortic aneurysm, without rupture; N30.91 Cystitis, unspecified with hematuria
CPT/HCPCS: 36415; 36600; 71045-TC; 71250-TC; 75574; 80048-TC; 80053-TC; 80076-TC; 82803-TC; 82962-TC; 83605-TC; 83735-TC; 83880; 84100-TC; 84484-TC; 85025-TC; 85610-TC; 87040-TC; 87081-TC; 93307-TC; 94799-TC; C9113; C9803; G0378; J0692; J1644; J1815; J1940; J2250; J2270; J2405; J2543; J3010; J3370; J3490; J7050; J7060; Q9966; Q9967; U0003

== ENCOUNTER 2022-07-03 18:39 | Inpatient (IN) | payer MEDICARE, OTHER ==
[~2022-07-03] VITALS: Ht 167.6 cm; Wt 83.7 kg
[~2022-07-03 18:39] MED LIST changes: -ARIP5TAB10 PO; -ASPI-1420 PO; -FAMO20TA8 PO; -FLUO20CA42 PO; -LEVO750T46 PO; +OLAN2.5T3 PO
[2022-07-03] MEDS ORDERED: Magnesium 1GM/D5W 100ML PREMIX 200 ML IV ONE (18:53)
[2022-07-03] MEDS ORDERED: FUROSEMIDE 40 MG/4 ML VIAL ONE (18:53)
[2022-07-03] MEDS ORDERED: methylPREDNISolone SOD SUCC 125 MG/2ML VIAL ONE (18:53)
[2022-07-03] MEDS ORDERED: ALBUTEROL FS 2.5 MG/3 ML VIAL.NEB CONTNEB ONE (19:00)
[2022-07-03] MEDS ORDERED: FUROSEMIDE 40 MG/4 ML VIAL IV ONE (19:00)
[2022-07-03] MEDS ORDERED: methylPREDNISolone SOD SUCC 125 MG/2ML VIAL IV ONE (19:00)
[2022-07-03] MEDS ORDERED: Magnesium 1 GM/2 ML VIAL IV ONE (19:00)
[2022-07-03] MEDS ORDERED: ALBUTEROL FS 2.5 MG/3 ML VIAL.NEB ONE (19:24)
[2022-07-03 19:40] LABS: CALCIUM, SERUM 8.1 mg/dL (8.5-10.1); CARBON DIOXIDE 19 mmol/L (21-32); CHLORIDE 106 mmol/L (98-107); CREATININE 1.6 mg/dL (0.6-1.3); GLUCOSE 171 mg/dL (74-106); POTASSIUM 3.8 mmol/L (3.5-5.1); SODIUM SERUM 140 mmol/L (136-145); UREA NITROGEN, BLOOD 20 mg/dL (7-18)
[2022-07-03 19:54] LABS: ALANINE AMINOTRANSFERASE 25 U/L (12-78); ALBUMIN 3.5 g/dL (3.4-5.0); ALKALINE PHOSPHATASE 97 U/L (46-116); ASPARTATE AMINOTRANSFERASE 20 U/L (15-37); BILIRUBIN,DIRECT 0.1 mg/dL (0.0-0.2); BILIRUBIN,TOTAL 0.5 mg/dL (0.2-1.0); TOTAL PROTEIN, SERUM 7.3 g/dL (6.4-8.2)
[2022-07-03 20:08] LABS: BASOPHILS # (AUTO) 0.1 K/uL (0.0-0.2); BASOPHILS % (AUTO) 0.6 % (0.0-2.0); EOSINOPHILS % (AUTO) 1.9 % (0.0-6.0); HEMATOCRIT 45 % (39-51); HEMOGLOBIN 14.9 g/dL (13.5-17.5); LYMPHOCYTES # (AUTO) 3.6 K/uL (0.8-4.8); LYMPHOCYTES % (AUTO) 38.1 % (20.0-44.0); MEAN CORPUSCULAR HGB CONC 33 g/dl (31.0-36.0); MEAN CORPUSCULAR VOLUME 90 fL (80-96); MONOCYTES # (AUTO) 0.9 K/uL (0.1-1.30); MONOCYTES % (AUTO) 9.5 % (2.0-12.0); NEUTROPHILS # (AUTO) 4.7 K/uL (1.8-8.9); NEUTROPHILS % (AUTO) 49.9 % (43.0-81.0); PLATELET COUNT (AUTO) 343 K/uL (150-450); RED BLOOD CELL COUNT(AUTO) 5.04 MIL/uL (4.5-6.0); WHITE BLOOD COUNT (AUTO) 9.4 K/uL (4.3-11.0)
[2022-07-03 22:00] VITALS: BP 109/67
[2022-07-03] MEDS ORDERED: ONDANSETRON HCL/PF 4 MG/2 ML VIAL IVP PRN (22:00)
[2022-07-03] MEDS ORDERED: ALBUTEROL FS 2.5 MG/0.5 ML VIAL.NEB NEB PRN (22:00)
[2022-07-03] MEDS ORDERED: DEXTROSE 50%-WATER 50 ML DISP.SYRIN IV PRN (22:00)
[2022-07-03] MEDS ORDERED: ACETAMINOPHEN 325 MG TABLET PO PRN (22:00)
[2022-07-03] MEDS ORDERED: MORPHINE SULFATE INJ 2 MG/ML DISP.SYRIN IV PRN (22:00)
[2022-07-03] MEDS: ARIPIPRAZOLE 5 MG TABLET PO SCH (22:24)
[2022-07-03] MEDS: BLOOD SUGAR DIAGNOSTIC 1 EACH STRIP VI SCH (22:31)
[2022-07-03] MEDS: *INSULIN REGULAR(HUMULIN R)HUM 100 UNIT/ML VIAL SQ PRN (22:34)
[2022-07-03 23:00] VITALS: BP 90/55
[2022-07-03] MEDS ORDERED: FUROSEMIDE 40 MG/4 ML VIAL IV SCH (23:30)
[2022-07-04] VITALS (27 sets, daily range): BP systolic 80–144; BP diastolic 42–113
[2022-07-04] MEDS ORDERED: IPRATROPIUM/ALBUTEROL INHALER IH SCH
[2022-07-04] MEDS: IPRATROPIUM NEB FS 0.5 MG/2.5 ML AMPUL.NEB NEB SCH ×4 (01:50→19:42)
[2022-07-04 05:22] LABS: HEMATOCRIT 44 % (39-51); HEMOGLOBIN 14.2 g/dL (13.5-17.5); LYMPHOCYTES # (AUTO) 1.2 K/uL (0.8-4.8); LYMPHOCYTES % (AUTO) 8.2 % (20.0-44.0); MEAN CORPUSCULAR HGB CONC 33 g/dl (31.0-36.0); MEAN CORPUSCULAR VOLUME 89 fL (80-96); MONOCYTES # (AUTO) 0.4 K/uL (0.1-1.30); MONOCYTES % (AUTO) 2.9 % (2.0-12.0); NEUTROPHILS # (AUTO) 12.5 K/uL (1.8-8.9); NEUTROPHILS % (AUTO) 88.9 % (43.0-81.0); PLATELET COUNT (AUTO) 305 K/uL (150-450); RED BLOOD CELL COUNT(AUTO) 4.88 MIL/uL (4.5-6.0); WHITE BLOOD COUNT (AUTO) 14.1 K/uL (4.3-11.0)
[2022-07-04 05:37] LABS: ALBUMIN 3.5 g/dL (3.4-5.0); BILIRUBIN,TOTAL 0.6 mg/dL (0.2-1.0); CALCIUM, SERUM 8.5 mg/dL (8.5-10.1); CREATININE 1.4 mg/dL (0.6-1.3); MAGNESIUM 2.9 mg/dL (1.8-2.4); PHOSPHORUS 3.2 mg/dL (2.5-4.9); POTASSIUM 4.4 mmol/L (3.5-5.1); TOTAL PROTEIN, SERUM 7.3 g/dL (6.4-8.2)
[2022-07-04] MEDS: BLOOD SUGAR DIAGNOSTIC 1 EACH STRIP VI SCH ×4 (07:33→21:30)
[2022-07-04] MEDS: PANTOPRAZOLE 40 MG TABLET.DR PO SCH (07:33)
[2022-07-04] MEDS: FUROSEMIDE 100 MG/10 ML VIAL IV SCH ×3 (08:28→16:27)
[2022-07-04] MEDS: SPIRONOLACTONE 25 MG TABLET PO SCH (08:29)
[2022-07-04] MEDS: EZETIMIBE 10 MG TABLET PO SCH (08:29)
[2022-07-04] MEDS: CARVEDILOL 6.25 MG TABLET PO SCH ×2 (08:30→16:29)
[2022-07-04] MEDS: OLANZAPINE 2.5 MG TABLET PO SCH (08:30)
[2022-07-04] MEDS: GABAPENTIN 100 MG CAPSULE PO SCH ×3 (08:30→16:28)
[2022-07-04] MEDS: POTASSIUM CHLORIDE 10 MEQ TABLET.SA PO SCH (08:30)
[2022-07-04] MEDS: APIXABAN 5 MG TABLET PO SCH ×2 (08:32→16:31)
[2022-07-04] MEDS: *INSULIN REGULAR(HUMULIN R)HUM 100 UNIT/ML VIAL SQ PRN ×2 (08:33→21:30)
[2022-07-04] MEDS ORDERED: FUROSEMIDE 40 MG/4 ML VIAL IV SCH (09:00)
[2022-07-04] MEDS ORDERED: Medication Not On Formulary EA (Omeprazole/Sodium Bicarbonate (Omeprazole-Bicarb 40-1,10 PO SCH (09:00)
[2022-07-04] MEDS ORDERED: CEFEPIME 2 GM in IV D5W 100 ML IV SCH (09:00)
[2022-07-04] MEDS: CEFEPIME 2 GM in IV D5W 100 ML IV SCH ×2 (09:20→21:17)
[2022-07-04] MEDS ORDERED: IV NS 0.9% 250 ML IV PRN (09:30)
[2022-07-04] MEDS: INSULIN REGULAR, HUMAN 100 UNIT/ML 3 ML VIAL SQ PRN (11:27)
[2022-07-04] MEDS: SACUBITRIL PO SCH ×2 (14:01→20:00)
[2022-07-04] MEDS: VALSARTAN PO SCH ×2 (14:01→20:00)
[2022-07-04 16:00] LABS: CREATININE, URINE 18.3 MG/DL (30.0-125.0)
[2022-07-04 16:13] LABS: BILIRUBIN,URINE NEGATIVE (NEGATIVE); COLOR,URINE YELLOW (YELLOW); LEUKOCYTE ESTERASE ,URINE NEGATIVE (NEGATIVE); NITRITE, URINE NEGATIVE (NEGATIVE); PH,URINE 5.5 (5.0-8.0); PROTEIN,URINE NEGATIVE (NEGATIVE); UGLUCOSE NEGATIVE (NEGATIVE); UROBILINOGEN,URINE 0.2 EU/dL (0.2)
[2022-07-04] MEDS: ARIPIPRAZOLE 5 MG TABLET PO SCH (21:17)
[2022-07-04] MEDS: ATORVASTATIN 40 MG TABLET PO SCH (21:17)
[2022-07-05] VITALS (23 sets, daily range): BP systolic 79–116; BP diastolic 35–76
[2022-07-05] MEDS: IPRATROPIUM NEB FS 0.5 MG/2.5 ML AMPUL.NEB NEB SCH ×4 (01:28→20:07)
[2022-07-05] MEDS: LORAZEPAM 1 MG TABLET PO PRN ×4 (03:55→21:34)
[2022-07-05 04:05] LABS: BASOPHILS % (AUTO) 0.3 % (0.0-2.0); EOSINOPHILS % (AUTO) 0.3 % (0.0-6.0); HEMATOCRIT 47 % (39-51); HEMOGLOBIN 15.1 g/dL (13.5-17.5); LYMPHOCYTES # (AUTO) 2.5 K/uL (0.8-4.8); LYMPHOCYTES % (AUTO) 20.3 % (20.0-44.0); MEAN CORPUSCULAR HGB CONC 33 g/dl (31.0-36.0); MEAN CORPUSCULAR VOLUME 89 fL (80-96); MONOCYTES # (AUTO) 1.2 K/uL (0.1-1.30); MONOCYTES % (AUTO) 9.5 % (2.0-12.0); NEUTROPHILS # (AUTO) 8.6 K/uL (1.8-8.9); NEUTROPHILS % (AUTO) 69.6 % (43.0-81.0); PLATELET COUNT (AUTO) 319 K/uL (150-450); RED BLOOD CELL COUNT(AUTO) 5.21 MIL/uL (4.5-6.0); WHITE BLOOD COUNT (AUTO) 12.4 K/uL (4.3-11.0)
[2022-07-05 05:02] LABS: ALBUMIN 3.7 g/dL (3.4-5.0); BILIRUBIN,TOTAL 0.7 mg/dL (0.2-1.0); CALCIUM, SERUM 8.7 mg/dL (8.5-10.1); CREATININE 1.7 mg/dL (0.6-1.3); MAGNESIUM 2.7 mg/dL (1.8-2.4); PHOSPHORUS 4.6 mg/dL (2.5-4.9); POTASSIUM 3.3 mmol/L (3.5-5.1); TOTAL PROTEIN, SERUM 7.8 g/dL (6.4-8.2)
[2022-07-05 05:15] LABS: THYROID STIMULATING HORMONE 0.873 uIU/mL (0.358-3.74)
[2022-07-05] MEDS: BLOOD SUGAR DIAGNOSTIC 1 EACH STRIP VI SCH ×4 (08:04→21:30)
[2022-07-05] MEDS: EZETIMIBE 10 MG TABLET PO SCH (08:31)
[2022-07-05] MEDS: VALSARTAN PO SCH ×2 (08:31→17:52)
[2022-07-05] MEDS: SACUBITRIL PO SCH ×2 (08:31→17:52)
[2022-07-05] MEDS: SPIRONOLACTONE 25 MG TABLET PO SCH (08:32)
[2022-07-05] MEDS: POTASSIUM CHLORIDE 10 MEQ TABLET.SA PO SCH (08:32)
[2022-07-05] MEDS: OLANZAPINE 2.5 MG TABLET PO SCH (08:32)
[2022-07-05] MEDS: CARVEDILOL 6.25 MG TABLET PO SCH ×2 (08:32→17:00)
[2022-07-05] MEDS: GABAPENTIN 100 MG CAPSULE PO SCH ×3 (08:32→17:53)
[2022-07-05] MEDS: PANTOPRAZOLE 40 MG TABLET.DR PO SCH (08:32)
[2022-07-05] MEDS: APIXABAN 5 MG TABLET PO SCH ×2 (08:34→17:54)
[2022-07-05] MEDS: ATORVASTATIN 40 MG TABLET PO SCH (21:03)
[2022-07-05] MEDS: ARIPIPRAZOLE 5 MG TABLET PO SCH (21:03)
[2022-07-05] MEDS: INSULIN REGULAR, HUMAN 100 UNIT/ML 3 ML VIAL SQ PRN (21:29)
[2022-07-06] MEDS: IPRATROPIUM NEB FS 0.5 MG/2.5 ML AMPUL.NEB NEB SCH ×3 (01:21→13:41)
[2022-07-06] MEDS: LORAZEPAM 1 MG TABLET PO PRN ×2 (04:54→11:20)
[2022-07-06 06:08] LABS: BASOPHILS % (AUTO) 0.4 % (0.0-2.0); EOSINOPHILS % (AUTO) 1.6 % (0.0-6.0); HEMATOCRIT 47 % (39-51); HEMOGLOBIN 15.3 g/dL (13.5-17.5); LYMPHOCYTES # (AUTO) 2.4 K/uL (0.8-4.8); LYMPHOCYTES % (AUTO) 24.4 % (20.0-44.0); MEAN CORPUSCULAR HGB CONC 33 g/dl (31.0-36.0); MEAN CORPUSCULAR VOLUME 89 fL (80-96); MONOCYTES # (AUTO) 1.2 K/uL (0.1-1.30); MONOCYTES % (AUTO) 12.2 % (2.0-12.0); NEUTROPHILS % (AUTO) 61.4 % (43.0-81.0); PLATELET COUNT (AUTO) 343 K/uL (150-450); RED BLOOD CELL COUNT(AUTO) 5.27 MIL/uL (4.5-6.0); WHITE BLOOD COUNT (AUTO) 9.8 K/uL (4.3-11.0)
[2022-07-06 06:24] VITALS: BP 95/57
[2022-07-06] MEDS: BLOOD SUGAR DIAGNOSTIC 1 EACH STRIP VI SCH ×2 (06:40→11:53)
[2022-07-06 06:55] LABS: CALCIUM, SERUM 8.6 mg/dL (8.5-10.1); CREATININE 1.2 mg/dL (0.6-1.3); PHOSPHORUS 3.2 mg/dL (2.5-4.9); POTASSIUM 3.7 mmol/L (3.5-5.1)
[2022-07-06 08:00] VITALS: BP 93/61
[2022-07-06] MEDS: EZETIMIBE 10 MG TABLET PO SCH (09:13)
[2022-07-06] MEDS: PANTOPRAZOLE 40 MG TABLET.DR PO SCH (09:13)
[2022-07-06] MEDS: OLANZAPINE 2.5 MG TABLET PO SCH (09:13)
[2022-07-06] MEDS: APIXABAN 5 MG TABLET PO SCH ×2 (09:13→16:08)
[2022-07-06] MEDS: GABAPENTIN 100 MG CAPSULE PO SCH ×3 (09:13→16:08)
[2022-07-06] MEDS: SPIRONOLACTONE 25 MG TABLET PO SCH (09:13)
[2022-07-06] MEDS: POTASSIUM CHLORIDE 10 MEQ TABLET.SA PO SCH (09:13)
[2022-07-06] MEDS: CARVEDILOL 6.25 MG TABLET PO SCH ×2 (09:14→16:08)
[2022-07-06 12:00] VITALS: BP 74/39
[2022-07-06] MEDS: SACUBITRIL PO SCH (12:40)
[2022-07-06] MEDS: VALSARTAN PO SCH (12:40)
[2022-07-06 16:00] VITALS: BP 91/77
[2022-07-06 16:08] VITALS: BP 74/39
== END 2022-07-06 16:30 | disposition short-term general hospital (02) | DRG 291 ==
LOC: ER 18:47 → ICU 21:33 → TELE 07-05 18:16
PROVIDERS: ADMIT Internal Medicine; ATTEND Nurse Practitioner Acute Care
PROC: 5A09357 Assistance with Respiratory Ventilation, Less than 24 Consecutive Hours, Continuous Positive Airway Pressure (ICD-10-PCS; principal; 2022-07-03)
DX: I13.0 Hypertensive heart and chronic kidney disease with heart failure and stage 1 through stage 4 chronic kidney disease, or unspecified chronic kidney disease (principal); I50.43 Acute on chronic combined systolic (congestive) and diastolic (congestive) heart failure; J96.21 Acute and chronic respiratory failure with hypoxia; N17.0 Acute kidney failure with tubular necrosis; E78.5 Hyperlipidemia, unspecified; F32.A Depression, unspecified; I42.0 Dilated cardiomyopathy; I48.91 Unspecified atrial fibrillation; K21.9 Gastro-esophageal reflux disease without esophagitis; Z20.822 Contact with and (suspected) exposure to COVID-19; Z79.84 Long term (current) use of oral hypoglycemic drugs; Z79.01 Long term (current) use of anticoagulants; I25.10 Atherosclerotic heart disease of native coronary artery without angina pectoris; F17.210 Nicotine dependence, cigarettes, uncomplicated; N18.9 Chronic kidney disease, unspecified; E11.22 Type 2 diabetes mellitus with diabetic chronic kidney disease; J47.9 Bronchiectasis, uncomplicated; I95.9 Hypotension, unspecified; I35.1 Nonrheumatic aortic (valve) insufficiency
CPT/HCPCS: 36415; 36600; 71045-TC; 71250-TC; 76770-TC; 80048-TC; 80053-TC; 80076-TC; 82570-TC; 82803-TC; 82962-TC; 83735-TC; 83880; 84100-TC; 84300-TC; 84443-TC; 84484-TC; 85025-TC; 85730-TC; 87081-TC; 94660; 94799-TC; A4223; C9803; G0378; J0692; J1815; J1940; J2930; J3475; J7030; J7040; J7050; J7060

== ENCOUNTER 2023-01-29 17:10 | Emergency (ER) | payer OTHER ==
[~2023-01-29] VITALS: Ht 167.6 cm; Wt 85.3 kg
[2023-01-29 17:51] LABS: BASOPHILS # (AUTO) 0.1 K/uL (0.0-0.2); BASOPHILS % (AUTO) 0.7 % (0.0-2.0); EOSINOPHILS # (AUTO) 0.3 K/uL (0.0-0.7); EOSINOPHILS % (AUTO) 3.4 % (0.0-6.0); HEMATOCRIT 45 % (39-51); HEMOGLOBIN 14.9 g/dL (13.5-17.5); LYMPHOCYTES # (AUTO) 2.2 K/uL (0.8-4.8); LYMPHOCYTES % (AUTO) 30.5 % (20.0-44.0); MEAN CORPUSCULAR HEMOGLOBIN 29 PG (26.0-33.0); MEAN CORPUSCULAR HGB CONC 33 g/dl (31.0-36.0); MEAN CORPUSCULAR VOLUME 89 fL (80-96); MONOCYTES # (AUTO) 0.8 K/uL (0.1-1.30); MONOCYTES % (AUTO) 11.2 % (2.0-12.0); NEUTROPHILS % (AUTO) 54.2 % (43.0-81.0); PLATELET COUNT (AUTO) 238 K/uL (150-450); RED CELL DISTRIBUTION WIDTH 16.5 % (11.5-15.0); WHITE BLOOD COUNT (AUTO) 7.4 K/uL (4.3-11.0)
[2023-01-29] MEDS ORDERED: LIDOCAINE VISCOUS 2% UD 15 ML UDC MM ONE (18:00)
[2023-01-29] MEDS ORDERED: PANTOPRAZOLE 40 MG VIAL IV ONE (18:00)
[2023-01-29] MEDS ORDERED: MAG HYDROX/AL HYDROX/SIMETH 30 ML UDC PO ONE (18:00)
[2023-01-29] MEDS ORDERED: IV NS 0.9% 1,000 ML BAG IV ONE (18:00)
[2023-01-29] MEDS ORDERED: MAG HYDROX/AL HYDROX/SIMETH 30 ML UDC ONE (18:01)
[2023-01-29] MEDS ORDERED: PANTOPRAZOLE 40 MG VIAL ONE (18:01)
[2023-01-29] MEDS ORDERED: LIDOCAINE VISCOUS 2% UD 15 ML UDC ONE (18:02)
[2023-01-29 18:33] LABS: CALCIUM, SERUM 9.2 mg/dL (8.5-10.1); CREATININE 1.2 mg/dL (0.6-1.3); POTASSIUM 3.8 mmol/L (3.5-5.1)
[2023-01-29 18:36] LABS: APPEARANCE,URINE CLEAR (CLEAR); BILIRUBIN,URINE NEGATIVE (NEGATIVE); BLOOD, URINE NEGATIVE Ery/uL (NEGATIVE); COLOR,URINE YELLOW (YELLOW); KETONES,URINE NEGATIVE (NEGATIVE); LEUKOCYTE ESTERASE ,URINE NEGATIVE (NEGATIVE); NITRITE, URINE NEGATIVE (NEGATIVE); PROTEIN,URINE 1+ mg/dl (NEGATIVE); UGLUCOSE 3+ mg/dL (NEGATIVE)
[2023-01-29 18:39] LABS: ALBUMIN 3.5 g/dL (3.4-5.0); BILIRUBIN,DIRECT 0.1 mg/dL (0.0-0.2); BILIRUBIN,TOTAL 0.4 mg/dL (0.2-1.0); TOTAL PROTEIN, SERUM 7.3 g/dL (6.4-8.2)
[2023-01-29 18:41] LABS: INR 0.98 (0.91-1.10); PARTIAL THROMBOPLASTIN TIME 27.5 SEC (24.3-34.3); PROTHROMBIN TIME 10.4 SECS (9.2-11.1)
[2023-01-29] MEDS ORDERED: OMEP1CAP25 PO (18:44)
[2023-01-29] MEDS ORDERED: ONDA4TAB11 PO (18:45)
[2023-01-29 18:53] LABS: ADD URINE CULTURE NO; BACTERIA,URINE None seen /HPF (None Seen); RBC,URINE 0-2 /HPF (0-2); SQUAMOUS EPITHELIAL CELL,UR 0-2 /HPF (None Seen); WBC,URINE 0-2 /HPF (0-3)
[2023-01-29 19:54] VITALS: BP 139/86; TEMP 98; O2SAT 99
== END 2023-01-29 19:55 | disposition home or self-care (01) ==
LOC: ER 17:33
DX: K29.70 Gastritis, unspecified, without bleeding (principal); R10.84 Generalized abdominal pain; I10 Essential (primary) hypertension; I48.91 Unspecified atrial fibrillation; E11.9 Type 2 diabetes mellitus without complications; D64.9 Anemia, unspecified; F17.200 Nicotine dependence, unspecified, uncomplicated; Z79.899 Other long term (current) drug therapy; Z90.49 Acquired absence of other specified parts of digestive tract; Z60.2 Problems related to living alone
CPT/HCPCS: 99283; 96374; 96361; 85025; 80048; 83690; 80076; 81001; 36415; 85730; J7030; C9113

== ENCOUNTER 2023-08-21 18:02 | Inpatient (IN) | payer OTHER ==
[~2023-08-21] VITALS: Ht 162.6 cm; Wt 89.4 kg
[~2023-08-21 18:02] MED LIST changes: +ONDA4TAB11 PO
[2023-08-21 19:04] LABS: APPEARANCE,URINE Clear (CLEAR); BILIRUBIN,URINE Negative (NEGATIVE); BLOOD, URINE Negative Ery/uL (NEGATIVE); COLOR,URINE LIGHT YELLOW (YELLOW); KETONES,URINE Negative (NEGATIVE); LEUKOCYTE ESTERASE ,URINE Negative (NEGATIVE); NITRITE, URINE Negative (NEGATIVE); PH,URINE 5.5 (5.0-8.0); PROTEIN,URINE Negative (NEGATIVE); UGLUCOSE Negative (NEGATIVE); UROBILINOGEN,URINE 0.2 EU/dL (0.2)
[2023-08-21 19:06] LABS: BASOPHILS # (AUTO) 0.1 K/uL (0.0-0.2); BASOPHILS % (AUTO) 0.7 % (0.0-2.0); EOSINOPHILS # (AUTO) 0.3 K/uL (0.0-0.7); EOSINOPHILS % (AUTO) 3.3 % (0.0-6.0); HEMATOCRIT 45 % (39-51); HEMOGLOBIN 14.9 g/dL (13.5-17.5); LYMPHOCYTES # (AUTO) 2.6 K/uL (0.8-4.8); LYMPHOCYTES % (AUTO) 32.2 % (20.0-44.0); MEAN CORPUSCULAR HEMOGLOBIN 29 PG (26.0-33.0); MEAN CORPUSCULAR HGB CONC 33 g/dl (31.0-36.0); MEAN CORPUSCULAR VOLUME 87 fL (80-96); MONOCYTES # (AUTO) 0.7 K/uL (0.1-1.30); MONOCYTES % (AUTO) 9.4 % (2.0-12.0); NEUTROPHILS # (AUTO) 4.3 K/uL (1.8-8.9); NEUTROPHILS % (AUTO) 54.4 % (43.0-81.0); PLATELET COUNT (AUTO) 198 K/uL (150-450); RED BLOOD CELL COUNT(AUTO) 5.14 MIL/uL (4.5-6.0); RED CELL DISTRIBUTION WIDTH 16.1 % (11.5-15.0); WHITE BLOOD COUNT (AUTO) 7.9 K/uL (4.3-11.0)
[2023-08-21 19:15] LABS: CALCIUM, SERUM 9.4 mg/dL (8.5-10.1); CARBON DIOXIDE 29 mmol/L (21-32); CHLORIDE 105 mmol/L (98-107); CREATININE 1.4 mg/dL (0.6-1.3); GLUCOSE 100 mg/dL (74-106); POTASSIUM 3.8 mmol/L (3.5-5.1); SODIUM SERUM 139 mmol/L (136-145); UREA NITROGEN, BLOOD 21 mg/dL (7-18)
[2023-08-21 19:27] LABS: ALANINE AMINOTRANSFERASE 37 U/L (12-78); ALBUMIN 3.9 g/dL (3.4-5.0); ALKALINE PHOSPHATASE 86 U/L (46-116); ASPARTATE AMINOTRANSFERASE 20 U/L (15-37); BILIRUBIN,DIRECT 0.1 mg/dL (0.0-0.2); BILIRUBIN,TOTAL 0.5 mg/dL (0.2-1.0); NT-PRO BNP 5690 pg/mL (0-125); TOTAL PROTEIN, SERUM 7.6 g/dL (6.4-8.2)
[2023-08-21] MEDS ORDERED: ONDANSETRON HCL/PF 4 MG/2 ML VIAL ONE (20:28)
[2023-08-21] MEDS ORDERED: MORPHINE SULFATE INJ 4 MG/ML DISP.SYRIN ONE (20:29)
[2023-08-21] MEDS: ONDANSETRON HCL/PF 4 MG/2 ML VIAL IVP ONE (20:33)
[2023-08-21] MEDS: MORPHINE SULFATE INJ 2 MG/ML DISP.SYRIN IV ONE (20:33)
[2023-08-21] MEDS ORDERED: ONDANSETRON HCL/PF 4 MG/2 ML VIAL IVP PRN (22:30)
[2023-08-21] MEDS ORDERED: hydrALAZINE HCL IV 20 MG VIAL IV PRN (22:30)
[2023-08-21] MEDS ORDERED: ACETAMINOPHEN 325 MG TABLET PO PRN (22:30)
[2023-08-21] MEDS ORDERED: DEXTROSE 50%-WATER 50 ML DISP.SYRIN IV PRN (22:30)
[2023-08-21] MEDS: ASPIRIN EC 325 MG TABLET.DR PO ONE (22:31)
[2023-08-21] MEDS ORDERED: ASPIRIN 325 MG TABLET ONE (22:31)
[2023-08-21 22:50] VITALS: BP 127/79; TEMP 97.5; O2SAT 97
[2023-08-22] VITALS: BP 113/73; TEMP 98.1; O2SAT 96
[2023-08-22 07:42] LABS: ALBUMIN 3.2 g/dL (3.4-5.0); BILIRUBIN,TOTAL 0.6 mg/dL (0.2-1.0); CALCIUM, SERUM 8.5 mg/dL (8.5-10.1); CREATININE 1.3 mg/dL (0.6-1.3); MAGNESIUM 2.1 mg/dL (1.8-2.4); PHOSPHORUS 4.4 mg/dL (2.5-4.9); TOTAL PROTEIN, SERUM 6.8 g/dL (6.4-8.2)
[2023-08-22 08:16] LABS: BASOPHILS % (AUTO) 0.4 % (0.0-2.0); EOSINOPHILS # (AUTO) 0.3 K/uL (0.0-0.7); EOSINOPHILS % (AUTO) 3.4 % (0.0-6.0); HEMATOCRIT 40 % (39-51); HEMOGLOBIN 13.2 g/dL (13.5-17.5); LYMPHOCYTES # (AUTO) 1.8 K/uL (0.8-4.8); LYMPHOCYTES % (AUTO) 21.4 % (20.0-44.0); MEAN CORPUSCULAR HEMOGLOBIN 29 PG (26.0-33.0); MEAN CORPUSCULAR HGB CONC 33 g/dl (31.0-36.0); MEAN CORPUSCULAR VOLUME 88 fL (80-96); MONOCYTES # (AUTO) 0.8 K/uL (0.1-1.30); NEUTROPHILS # (AUTO) 5.7 K/uL (1.8-8.9); NEUTROPHILS % (AUTO) 65.8 % (43.0-81.0); PLATELET COUNT (AUTO) 185 K/uL (150-450); RED BLOOD CELL COUNT(AUTO) 4.53 MIL/uL (4.5-6.0); RED CELL DISTRIBUTION WIDTH 16.7 % (11.5-15.0); WHITE BLOOD COUNT (AUTO) 8.6 K/uL (4.3-11.0)
[2023-08-22 08:30] VITALS: BP 125/82; TEMP 98.8; O2SAT 99
[2023-08-22] MEDS: MORPHINE SULFATE INJ 2 MG/ML DISP.SYRIN IV PRN (08:49)
[2023-08-22] MEDS: BLOOD SUGAR DIAGNOSTIC 1 EACH STRIP VI SCH (08:56)
[2023-08-22] MEDS: FUROSEMIDE 40 MG/4 ML VIAL IV SCH (09:05)
[2023-08-22] MEDS: VALSARTAN 40 MG TABLET PO SCH (09:06)
[2023-08-22] MEDS: CARVEDILOL 6.25 MG TABLET PO SCH (09:08)
[2023-08-22] MEDS: SPIRONOLACTONE 25 MG TABLET PO SCH (09:09)
[2023-08-22] MEDS: APIXABAN 5 MG TABLET PO SCH (09:15)
[2023-08-22] MEDS: MAG HYDROX/AL HYDROX/SIMETH 30 ML UDC PO PRN (11:12)
[2023-08-22 11:30] VITALS: BP 122/86; TEMP 98.2; O2SAT 98
[2023-08-22] MEDS: INSULIN REGULAR, HUMAN 100 UNIT/ML 3 ML VIAL SQ PRN (12:20)
[2023-08-22] MEDS ORDERED: PANTOPRAZOLE 40 MG TABLET.DR PO SCH (14:00)
[2023-08-22] MEDS: PANTOPRAZOLE 40 MG VIAL IV SCH (14:34)
[2023-08-22] MEDS ORDERED: EMPA10TA PO (14:37)
[2023-08-22] MEDS ORDERED: MIRT-91 PO (14:37)
[2023-08-22] MEDS ORDERED: OLAN10TA3 PO (14:37)
[2023-08-22] MEDS ORDERED: CARV12.5 PO (14:37)
[2023-08-22] MEDS ORDERED: LORA-258 PO (14:37)
[2023-08-22] MEDS ORDERED: SERT50TA PO (14:37)
[2023-08-22] MEDS ORDERED: ROSU20TA2 PO (14:37)
[2023-08-22] MEDS ORDERED: SACU1TAB PO (14:37)
[2023-08-22] MEDS ORDERED: FURO-144 PO (14:37)
[2023-08-22] MEDS ORDERED: PARO10TA86 PO (14:37)
[2023-08-22] MEDS ORDERED: ARIP10TA9 PO (14:37)
[2023-08-22] MEDS ORDERED: TRAZ-182 PO (14:37)
[2023-08-22 15:10] LABS: CREATININE, URINE 64.1 MG/DL (30.0-125.0); URINE TOTAL PROTEIN 10.3 mg/dL (0-11.9)
[2023-08-22 16:00] VITALS: BP 122/67; TEMP 99; O2SAT 98
[2023-08-22] MEDS: HALOPERIDOL LACTATE INJ 5 MG/ML VIAL IM ONE (17:07)
[2023-08-22 20:00] VITALS: BP 119/81; TEMP 98.1; O2SAT 99
[2023-08-22] MEDS: LORAZEPAM 0.5 MG TABLET PO SCH (20:06)
[2023-08-22] MEDS: ATORVASTATIN 40 MG TABLET PO SCH (21:40)
[2023-08-22] MEDS: *INSULIN REGULAR(HUMULIN R)HUM 100 UNIT/ML VIAL SQ PRN (21:52)
[2023-08-23] VITALS: BP 144/86; TEMP 98.3; O2SAT 100
[2023-08-23 04:00] VITALS: BP 117/61; TEMP 98; O2SAT 99
[2023-08-23 06:47] LABS: BASOPHILS % (AUTO) 0.3 % (0.0-2.0); EOSINOPHILS # (AUTO) 0.2 K/uL (0.0-0.7); EOSINOPHILS % (AUTO) 1.9 % (0.0-6.0); HEMATOCRIT 43 % (39-51); HEMOGLOBIN 14.2 g/dL (13.5-17.5); LYMPHOCYTES # (AUTO) 2.1 K/uL (0.8-4.8); LYMPHOCYTES % (AUTO) 22.1 % (20.0-44.0); MEAN CORPUSCULAR HEMOGLOBIN 29 PG (26.0-33.0); MEAN CORPUSCULAR HGB CONC 33 g/dl (31.0-36.0); MEAN CORPUSCULAR VOLUME 89 fL (80-96); MONOCYTES # (AUTO) 1.1 K/uL (0.1-1.30); MONOCYTES % (AUTO) 11.5 % (2.0-12.0); NEUTROPHILS # (AUTO) 6.1 K/uL (1.8-8.9); NEUTROPHILS % (AUTO) 64.2 % (43.0-81.0); PLATELET COUNT (AUTO) 209 K/uL (150-450); RED BLOOD CELL COUNT(AUTO) 4.83 MIL/uL (4.5-6.0); RED CELL DISTRIBUTION WIDTH 16.5 % (11.5-15.0); WHITE BLOOD COUNT (AUTO) 9.5 K/uL (4.3-11.0)
[2023-08-23 07:25] LABS: ALBUMIN 3.8 g/dL (3.4-5.0); CALCIUM, SERUM 8.7 mg/dL (8.5-10.1); CREATININE 1.3 mg/dL (0.6-1.3); MAGNESIUM 2.2 mg/dL (1.8-2.4); PHOSPHORUS 3.4 mg/dL (2.5-4.9); POTASSIUM 3.6 mmol/L (3.5-5.1); TOTAL PROTEIN, SERUM 7.8 g/dL (6.4-8.2)
[2023-08-23 08:00] VITALS: BP 137/72; TEMP 98.2; O2SAT 98
[2023-08-23 08:15] VITALS: BP 137/72
[2023-08-23] MEDS: PANTOPRAZOLE 40 MG TABLET.DR PO SCH (09:15)
[2023-08-23 10:18] VITALS: O2SAT 93
[2023-08-23] MEDS ORDERED: BISACODYL SUPP (10 MG) 10 MG/SUPP.RECT SUPP.RECT RC PRN (10:30)
[2023-08-23] MEDS ORDERED: DOCUSATE SODIUM 100 MG CAPSULE PO SCH (17:00)
[2023-08-23] MEDS ORDERED: SENNOSIDES 8.6 MG TABLET PO SCH (22:00)
== END 2023-08-23 11:00 | disposition left against medical advice (07) | DRG 391 ==
LOC: ER 18:05 → TELE 21:29
PROVIDERS: ADMIT Internal Medicine
DX: K21.9 Gastro-esophageal reflux disease without esophagitis (principal); I50.43 Acute on chronic combined systolic (congestive) and diastolic (congestive) heart failure; I13.0 Hypertensive heart and chronic kidney disease with heart failure and stage 1 through stage 4 chronic kidney disease, or unspecified chronic kidney disease; N17.9 Acute kidney failure, unspecified; R07.9 Chest pain, unspecified; N18.9 Chronic kidney disease, unspecified; D64.9 Anemia, unspecified; E11.22 Type 2 diabetes mellitus with diabetic chronic kidney disease; E66.9 Obesity, unspecified; E78.5 Hyperlipidemia, unspecified; F17.210 Nicotine dependence, cigarettes, uncomplicated; I25.10 Atherosclerotic heart disease of native coronary artery without angina pectoris; Z79.01 Long term (current) use of anticoagulants; N40.0 Benign prostatic hyperplasia without lower urinary tract symptoms; I71.43 Infrarenal abdominal aortic aneurysm, without rupture; K57.30 Diverticulosis of large intestine without perforation or abscess without bleeding; K40.20 Bilateral inguinal hernia, without obstruction or gangrene, not specified as recurrent; I48.91 Unspecified atrial fibrillation; Z95.810 Presence of automatic (implantable) cardiac defibrillator; R10.9 Unspecified abdominal pain; M89.8X9 Other specified disorders of bone, unspecified site; Z79.4 Long term (current) use of insulin; Z68.33 Body mass index [BMI] 33.0-33.9, adult
CPT/HCPCS: 36415; 71045-TC; 80048-TC; 80053-TC; 80076-TC; 82570-TC; 82962-TC; 83605-TC; 83690-TC; 83735-TC; 83880; 84100-TC; 84300-TC; 84484-TC; 85025-TC; 93307-TC; 94760-TC; 94799-TC; C9113; G0378; J1630; J1815; J1940; J2270; J2405

== ENCOUNTER 2023-09-12 16:13 | Emergency (ER) | payer OTHER ==
[~2023-09-12] VITALS: Ht 170.2 cm; Wt 83.5 kg
[~2023-09-12 16:13] MED LIST changes: -APIX5TAB PO; +ARIP10TA9 PO; -ARIP5TAB59 PO; +CARV12.5 PO; -CARV6.252 PO; +EMPA10TA PO; -EZET10TA32 PO; +FURO-144 PO; -FURO40TA5 PO; -HYDR-3980 PO; +LORA-258 PO; -LORA-259 PO; -LOSA1TAB39 PO; -METF-440 PO; -MIRT-90 PO; +MIRT-91 PO; +OLAN10TA3 PO; -OLAN2.5T3 PO; -OMEP1CAP25 PO; -ONDA4TAB11 PO; +PARO10TA86 PO; -POTA10TA11 PO; +ROSU20TA2 PO; -ROSU20TA32 PO; +SACU1TAB PO; -SACU1TAB7 PO; +SERT50TA PO; +TRAZ-182 PO
[2023-09-12 18:01] LABS: BASOPHILS # (AUTO) 0.1 K/uL (0.0-0.2); BASOPHILS % (AUTO) 1.1 % (0.0-2.0); EOSINOPHILS # (AUTO) 0.1 K/uL (0.0-0.7); EOSINOPHILS % (AUTO) 1.5 % (0.0-6.0); HEMATOCRIT 37 % (39-51); LYMPHOCYTES # (AUTO) 1.8 K/uL (0.8-4.8); LYMPHOCYTES % (AUTO) 25.5 % (20.0-44.0); MEAN CORPUSCULAR HEMOGLOBIN 29 PG (26.0-33.0); MEAN CORPUSCULAR HGB CONC 33 g/dl (31.0-36.0); MEAN CORPUSCULAR VOLUME 89 fL (80-96); MONOCYTES # (AUTO) 0.7 K/uL (0.1-1.30); MONOCYTES % (AUTO) 9.9 % (2.0-12.0); NEUTROPHILS # (AUTO) 4.4 K/uL (1.8-8.9); PLATELET COUNT (AUTO) 97 K/uL (150-450); RED BLOOD CELL COUNT(AUTO) 4.14 MIL/uL (4.5-6.0); RED CELL DISTRIBUTION WIDTH 15.9 % (11.5-15.0); WHITE BLOOD COUNT (AUTO) 7.1 K/uL (4.3-11.0)
[2023-09-12] MEDS ORDERED: ONDANSETRON HCL/PF 4 MG/2 ML VIAL ONE (18:17)
[2023-09-12] MEDS ORDERED: ACETAMINOPHEN 325 MG TABLET ONE (18:17)
[2023-09-12 18:39] LABS: ALBUMIN 3.2 g/dL (3.4-5.0); BILIRUBIN,DIRECT 0.1 mg/dL (0.0-0.2); BILIRUBIN,TOTAL 0.5 mg/dL (0.2-1.0); CALCIUM, SERUM 8.7 mg/dL (8.5-10.1); CREATININE 1.5 mg/dL (0.6-1.3); POTASSIUM 3.9 mmol/L (3.5-5.1); TOTAL PROTEIN, SERUM 7.4 g/dL (6.4-8.2)
[2023-09-12] MEDS: ACETAMINOPHEN 325 MG TABLET PO ONE (18:50)
[2023-09-12] MEDS: ONDANSETRON HCL/PF - ER 4 MG/2 ML VIAL IV ONE (18:50)
[2023-09-12] MEDS ORDERED: ONDA4TAB5 PO (19:06)
[2023-09-12] MEDS ORDERED: TYL2T PO (19:06)
[2023-09-12 20:15] LABS: BAND % (MANUAL) 1 % (0.0-5.0); LYMPHOCYTES % (MANUAL) 27 % (16-48)
[2023-09-12 20:16] LABS: MONOCYTES % (MANUAL) 5 % (0-11.0)
[2023-09-12 20:17] LABS: EOSINOPHILS % (MANUAL) 1 % (0-4); NEUTROPHILS % (MANUAL) 66 (42-76)
[2023-09-12 20:18] LABS: PLATELET ESTIMATE DECREASED
[2023-09-13 00:57] VITALS: BP 134/70; TEMP 97.9; O2SAT 96
[2023-09-30] MEDS ORDERED: OMEP20CA15 PO (18:02)
== END 2023-09-13 00:58 | disposition home or self-care (01) ==
LOC: ER 16:16
DX: M25.552 Pain in left hip (principal); M25.562 Pain in left knee; R10.33 Periumbilical pain; I10 Essential (primary) hypertension; I48.91 Unspecified atrial fibrillation; F17.200 Nicotine dependence, unspecified, uncomplicated; D64.9 Anemia, unspecified; Z90.49 Acquired absence of other specified parts of digestive tract; Z79.899 Other long term (current) drug therapy; Z60.2 Problems related to living alone
CPT/HCPCS: 99285; 74176; 96374; 72170; 73564; 85025; 80048; 83690; 80076; 36415; 85007; J2405

== ENCOUNTER 2023-09-24 23:35 | Emergency (ER) | payer OTHER, MEDICAID ==
[~2023-09-24] VITALS: Ht 177.8 cm; Wt 90.7 kg
[2023-09-25] MEDS ORDERED: IBUPROFEN 600 MG TABLET ONE (00:07)
[2023-09-25] MEDS: IBUPROFEN 600 MG TABLET PO ONE (00:08)
[2023-09-25] MEDS: MENTHOL/CETYLPYRD (CEPACOL) 1 LOZ LOZENGE PO ONE (01:23)
[2023-09-25] MEDS ORDERED: MENTHOL/CETYLPYRD (CEPACOL) 1 LOZ LOZENGE ONE (01:24)
[2023-09-25 09:36] VITALS: BP 112/72; TEMP 97.8; O2SAT 97
[2023-09-30] MEDS ORDERED: OMEP20CA15 PO (18:02)
== END 2023-09-25 09:36 | disposition home or self-care (01) ==
LOC: ER 23:36
DX: R07.0 Pain in throat (principal); F29 Unspecified psychosis not due to a substance or known physiological condition; I10 Essential (primary) hypertension; I48.91 Unspecified atrial fibrillation; F17.200 Nicotine dependence, unspecified, uncomplicated; Z60.2 Problems related to living alone; Z90.49 Acquired absence of other specified parts of digestive tract; Z20.822 Contact with and (suspected) exposure to COVID-19
CPT/HCPCS: 86403-TC; 87070-TC

== ENCOUNTER → 2023-09-30 | Emergency (ER) | payer OTHER, MEDICAID ==
[~2023-09-30] VITALS: Ht 162.6 cm; Wt 83.9 kg
[~2023-09-30] MED LIST changes: +ACETAMINOPHEN 650 MG/20.3 ML UDC ONE; +FAMOTIDINE (20 MG) 20 MG TABLET ONE; +OMEP20CA15 PO
[2023-09-30] MEDS: FAMOTIDINE (20 MG) 20 MG TABLET PO ONE (16:44)
[2023-09-30] MEDS: ACETAMINOPHEN 650 MG/20.3 ML UDC PO ONE (16:44)
[2023-09-30 19:04] VITALS: BP 136/78; TEMP 98; O2SAT 99
== END | disposition home or self-care (01) ==
LOC: ER 16:16
DX: R13.10 Dysphagia, unspecified (principal); M79.662 Pain in left lower leg; M79.661 Pain in right lower leg; F17.200 Nicotine dependence, unspecified, uncomplicated; F29 Unspecified psychosis not due to a substance or known physiological condition; I10 Essential (primary) hypertension; I48.91 Unspecified atrial fibrillation; Z90.49 Acquired absence of other specified parts of digestive tract; Z60.2 Problems related to living alone
CPT/HCPCS: 70490-TC

== ENCOUNTER 2023-10-03 04:24 | Emergency (ER) | payer MEDICARE, OTHER ==
[~2023-10-03] VITALS: Ht 162.6 cm; Wt 83.9 kg
[~2023-10-03 04:24] MED LIST changes: -ACETAMINOPHEN 650 MG/20.3 ML UDC ONE; -FAMOTIDINE (20 MG) 20 MG TABLET ONE
[2023-10-03 05:21] LABS: BASOPHILS % (AUTO) 0.6 % (0.0-2.0); EOSINOPHILS # (AUTO) 0.2 K/uL (0.0-0.7); EOSINOPHILS % (AUTO) 3.7 % (0.0-6.0); HEMATOCRIT 36 % (39-51); HEMOGLOBIN 12.2 g/dL (13.5-17.5); LYMPHOCYTES # (AUTO) 1.7 K/uL (0.8-4.8); LYMPHOCYTES % (AUTO) 29.7 % (20.0-44.0); MEAN CORPUSCULAR HEMOGLOBIN 30 PG (26.0-33.0); MEAN CORPUSCULAR HGB CONC 34 g/dl (31.0-36.0); MEAN CORPUSCULAR VOLUME 89 fL (80-96); MONOCYTES # (AUTO) 0.7 K/uL (0.1-1.30); MONOCYTES % (AUTO) 12.3 % (2.0-12.0); NEUTROPHILS # (AUTO) 3.1 K/uL (1.8-8.9); NEUTROPHILS % (AUTO) 53.7 % (43.0-81.0); PLATELET COUNT (AUTO) 266 K/uL (150-450); RED BLOOD CELL COUNT(AUTO) 4.01 MIL/uL (4.5-6.0); RED CELL DISTRIBUTION WIDTH 15.9 % (11.5-15.0); WHITE BLOOD COUNT (AUTO) 5.8 K/uL (4.3-11.0)
[2023-10-03 05:33] LABS: CALCIUM, SERUM 8.8 mg/dL (8.5-10.1); CARBON DIOXIDE 25 mmol/L (21-32); CHLORIDE 107 mmol/L (98-107); CREATININE 1.3 mg/dL (0.6-1.3); GLUCOSE 109 mg/dL (74-106); POTASSIUM 3.4 mmol/L (3.5-5.1); SODIUM SERUM 144 mmol/L (136-145); UREA NITROGEN, BLOOD 11 mg/dL (7-18)
[2023-10-03 05:38] LABS: ALANINE AMINOTRANSFERASE 21 U/L (12-78); ALBUMIN 2.9 g/dL (3.4-5.0); ALKALINE PHOSPHATASE 85 U/L (46-116); ASPARTATE AMINOTRANSFERASE 15 U/L (15-37); BILIRUBIN,DIRECT 0.2 mg/dL (0.0-0.2); BILIRUBIN,TOTAL 0.7 mg/dL (0.2-1.0); LIPASE 37 U/L (16-77); TOTAL PROTEIN, SERUM 6.3 g/dL (6.4-8.2)
[2023-10-03] MEDS ORDERED: MAG HYDROX/AL HYDROX/SIMETH 30 ML UDC ONE (05:58)
[2023-10-03] MEDS ORDERED: FAMOTIDINE (20 MG) 20 MG TABLET ONE (05:59)
[2023-10-03] MEDS: MAG HYDROX/AL HYDROX/SIMETH 30 ML UDC PO ONE (06:01)
[2023-10-03] MEDS: FAMOTIDINE/PF INJ 20 MG/2 ML VIAL IV ONE (06:02)
[2023-10-03] MEDS: FAMOTIDINE (20 MG) 20 MG TABLET PO ONE (06:32)
[2023-10-03 07:29] VITALS: BP 121/76; TEMP 98.3; O2SAT 98
== END 2023-10-03 07:29 | disposition home or self-care (01) ==
LOC: ER 04:25
DX: R10.13 Epigastric pain (principal); J02.9 Acute pharyngitis, unspecified; I10 Essential (primary) hypertension; I48.91 Unspecified atrial fibrillation; E11.9 Type 2 diabetes mellitus without complications; F17.200 Nicotine dependence, unspecified, uncomplicated; Z79.899 Other long term (current) drug therapy; Z20.822 Contact with and (suspected) exposure to COVID-19
CPT/HCPCS: 36415; 71045-TC; 80048-TC; 80076-TC; 83690-TC; 84484-TC; 85025-TC

== ENCOUNTER 2023-12-04 16:06 | Inpatient (IN) | payer MEDICARE, OTHER ==
[~2023-12-04] VITALS: Ht 170.2 cm; Wt 87.6 kg
[2023-12-04 16:55] LABS: BASOPHILS # (AUTO) 0.1 K/uL (0.0-0.2); BASOPHILS % (AUTO) 0.9 % (0.0-2.0); EOSINOPHILS # (AUTO) 0.1 K/uL (0.0-0.7); EOSINOPHILS % (AUTO) 1.9 % (0.0-6.0); HEMATOCRIT 41 % (39-51); HEMOGLOBIN 13.1 g/dL (13.5-17.5); LYMPHOCYTES # (AUTO) 1.7 K/uL (0.8-4.8); LYMPHOCYTES % (AUTO) 24.7 % (20.0-44.0); MEAN CORPUSCULAR HEMOGLOBIN 29 PG (26.0-33.0); MEAN CORPUSCULAR HGB CONC 32 g/dl (31.0-36.0); MEAN CORPUSCULAR VOLUME 90 fL (80-96); MONOCYTES # (AUTO) 0.8 K/uL (0.1-1.30); MONOCYTES % (AUTO) 11.1 % (2.0-12.0); NEUTROPHILS # (AUTO) 4.3 K/uL (1.8-8.9); NEUTROPHILS % (AUTO) 61.4 % (43.0-81.0); PLATELET COUNT (AUTO) 228 K/uL (150-450); RED BLOOD CELL COUNT(AUTO) 4.56 MIL/uL (4.5-6.0); RED CELL DISTRIBUTION WIDTH 15.4 % (11.5-15.0)
[2023-12-04] MEDS: IV NS 0.9% 1,000 ML BAG IV ONE ×2 (16:58→17:29)
[2023-12-04] MEDS: PIPERACILLIN /TAZOBACTAM 3.375 G in IV D5W 50 ML IV ONE (17:01)
[2023-12-04] MEDS ORDERED: PIPERACI/TAZO 3.375GM/D5W 50ML PB IV ONE (17:01)
[2023-12-04 17:05] LABS: CALCIUM, SERUM 7.9 mg/dL (8.5-10.1); CARBON DIOXIDE 27 mmol/L (21-32); CHLORIDE 106 mmol/L (98-107); CREATININE 1.9 mg/dL (0.6-1.3); GLUCOSE 106 mg/dL (74-106); POTASSIUM 3.6 mmol/L (3.5-5.1); SODIUM SERUM 143 mmol/L (136-145); UREA NITROGEN, BLOOD 29 mg/dL (7-18)
[2023-12-04 17:11] LABS: ALANINE AMINOTRANSFERASE 40 U/L (12-78); ALKALINE PHOSPHATASE 108 U/L (46-116); ASPARTATE AMINOTRANSFERASE 23 U/L (15-37); BILIRUBIN,DIRECT 0.1 mg/dL (0.0-0.2); BILIRUBIN,TOTAL 0.6 mg/dL (0.2-1.0); TOTAL PROTEIN, SERUM 6.8 g/dL (6.4-8.2)
[2023-12-04 17:15] LABS: LACTIC ACID 1.5 mmol/L (0.4-2.0)
[2023-12-04 17:25] LABS: INR 1.03 (0.91-1.10); PARTIAL THROMBOPLASTIN TIME 27.6 SEC (24.3-34.3); PROTHROMBIN TIME 10.9 SECS (9.2-11.1)
[2023-12-04] MEDS ORDERED: ONDANSETRON HCL/PF 4 MG/2 ML VIAL IVP PRN (18:30)
[2023-12-04] MEDS ORDERED: MAGNESIUM HYDROXIDE 30 ML UDC PO PRN (18:30)
[2023-12-04] MEDS ORDERED: Z GUARD REMEDY 4 OZ OINT TP PRN (18:30)
[2023-12-04] MEDS ORDERED: ZOLPIDEM TARTRATE 5 MG TABLET PO PRN (18:30)
[2023-12-04 20:00] VITALS: BP 94/61; TEMP 97.3; O2SAT 96
[2023-12-04] MEDS: IV NS 0.9% 1,000 ML IV PRN (20:12)
[2023-12-04] MEDS: MIRTAZAPINE 15 MG TABLET PO SCH (22:55)
[2023-12-04] MEDS: PIPERACILLIN /TAZOBACTAM 3.375 G in IV D5W 100 ML IV SCH (22:55)
[2023-12-05] VITALS (7 sets, daily range): BP systolic 93–129; BP diastolic 51–76; TEMP 97.3–98.6; O2SAT 94–96
[2023-12-05] MEDS ORDERED: PIPERACILLIN /TAZOBACTAM 3.375 G in IV D5W 50 ML IV SCH
[2023-12-05] MEDS: MAG HYDROX/AL HYDROX/SIMETH 30 ML UDC PO PRN (04:36)
[2023-12-05 06:31] LABS: BASOPHILS % (AUTO) 0.5 % (0.0-2.0); EOSINOPHILS # (AUTO) 0.1 K/uL (0.0-0.7); EOSINOPHILS % (AUTO) 2.2 % (0.0-6.0); HEMATOCRIT 38 % (39-51); HEMOGLOBIN 12.4 g/dL (13.5-17.5); LYMPHOCYTES # (AUTO) 1.9 K/uL (0.8-4.8); LYMPHOCYTES % (AUTO) 30.1 % (20.0-44.0); MEAN CORPUSCULAR HEMOGLOBIN 29 PG (26.0-33.0); MEAN CORPUSCULAR HGB CONC 33 g/dl (31.0-36.0); MEAN CORPUSCULAR VOLUME 89 fL (80-96); MONOCYTES # (AUTO) 0.9 K/uL (0.1-1.30); MONOCYTES % (AUTO) 13.4 % (2.0-12.0); NEUTROPHILS # (AUTO) 3.5 K/uL (1.8-8.9); NEUTROPHILS % (AUTO) 53.8 % (43.0-81.0); PLATELET COUNT (AUTO) 199 K/uL (150-450); RED BLOOD CELL COUNT(AUTO) 4.24 MIL/uL (4.5-6.0); RED CELL DISTRIBUTION WIDTH 15.5 % (11.5-15.0); WHITE BLOOD COUNT (AUTO) 6.4 K/uL (4.3-11.0)
[2023-12-05 06:44] LABS: CALCIUM, SERUM 8.2 mg/dL (8.5-10.1); CREATININE 1.8 mg/dL (0.6-1.3); MAGNESIUM 2.5 mg/dL (1.8-2.4); PHOSPHORUS 3.4 mg/dL (2.5-4.9); POTASSIUM 3.7 mmol/L (3.5-5.1)
[2023-12-05] MEDS: SERTRALINE HCL 50 MG TABLET PO SCH (08:38)
[2023-12-05] MEDS: ATORVASTATIN 40 MG TABLET PO SCH (08:38)
[2023-12-05] MEDS: PANTOPRAZOLE 40 MG TABLET.DR PO SCH (08:38)
[2023-12-05] MEDS: GABAPENTIN 100 MG CAPSULE PO SCH (08:38)
[2023-12-05] MEDS: EMPAGLIFLOZIN 10 MG TABLET PO SCH (08:39)
[2023-12-05] MEDS: ACETAMINOPHEN 325 MG TABLET PO PRN (09:06)
[2023-12-05] MEDS: MORPHINE SULFATE INJ 2 MG/ML DISP.SYRIN IV PRN (18:55)
[2023-12-06] MEDS ORDERED: DEXTROSE 50%-WATER 50 ML DISP.SYRIN IV PRN (05:00)
[2023-12-06] MEDS: BLOOD SUGAR DIAGNOSTIC 1 EACH STRIP IN SCH (05:52)
[2023-12-06 06:00] VITALS: BP 130/75; TEMP 97.9; O2SAT 96
[2023-12-06 06:44] LABS: BASOPHILS % (AUTO) 0.8 % (0.0-2.0); EOSINOPHILS # (AUTO) 0.2 K/uL (0.0-0.7); EOSINOPHILS % (AUTO) 4.1 % (0.0-6.0); HEMATOCRIT 37 % (39-51); HEMOGLOBIN 12.2 g/dL (13.5-17.5); LYMPHOCYTES # (AUTO) 1.9 K/uL (0.8-4.8); LYMPHOCYTES % (AUTO) 33.2 % (20.0-44.0); MEAN CORPUSCULAR HEMOGLOBIN 29 PG (26.0-33.0); MEAN CORPUSCULAR HGB CONC 33 g/dl (31.0-36.0); MEAN CORPUSCULAR VOLUME 90 fL (80-96); MONOCYTES # (AUTO) 0.7 K/uL (0.1-1.30); MONOCYTES % (AUTO) 11.4 % (2.0-12.0); NEUTROPHILS # (AUTO) 2.9 K/uL (1.8-8.9); NEUTROPHILS % (AUTO) 50.5 % (43.0-81.0); PLATELET COUNT (AUTO) 204 K/uL (150-450); RED BLOOD CELL COUNT(AUTO) 4.16 MIL/uL (4.5-6.0); RED CELL DISTRIBUTION WIDTH 15.3 % (11.5-15.0); WHITE BLOOD COUNT (AUTO) 5.8 K/uL (4.3-11.0)
[2023-12-06 06:53] LABS: CALCIUM, SERUM 7.7 mg/dL (8.5-10.1); CREATININE 1.3 mg/dL (0.6-1.3); MAGNESIUM 2.5 mg/dL (1.8-2.4); POTASSIUM 3.7 mmol/L (3.5-5.1)
[2023-12-06 08:00] VITALS: BP 128/62; TEMP 97.7; O2SAT 97
[2023-12-06] MEDS: SPIRONOLACTONE 25 MG TABLET PO SCH (11:05)
[2023-12-06] MEDS: SACUBITRIL/VALSARTAN 24/26MG TABLET PO SCH (11:10)
[2023-12-06] MEDS: CARVEDILOL 12.5 MG TABLET PO SCH (11:10)
[2023-12-06] MEDS: INSULIN REGULAR, HUMAN 100 UNIT/ML 3 ML VIAL SQ PRN (11:52)
[2023-12-06 16:00] VITALS: BP 143/83; TEMP 98.2; O2SAT 95
[2023-12-06 20:00] VITALS: BP 129/70; TEMP 98.2; O2SAT 95
[2023-12-06 20:15] VITALS: BP 129/70; TEMP 98.2; O2SAT 95
[2023-12-07 06:16] VITALS: BP 120/70; O2SAT 96
[2023-12-07 07:00] VITALS: BP 129/82; TEMP 97.7; O2SAT 94
[2023-12-07 08:35] VITALS: BP 130/82
== END 2023-12-07 13:45 | disposition home health service (06) | DRG 682 ==
LOC: ER 16:13 → TELE 18:14 → MED 12-05 14:34
PROVIDERS: ADMIT Nurse Practitioner Acute Care; ATTEND Nurse Practitioner Acute Care
DX: N17.0 Acute kidney failure with tubular necrosis (principal); G93.41 Metabolic encephalopathy; E44.1 Mild protein-calorie malnutrition; I50.42 Chronic combined systolic (congestive) and diastolic (congestive) heart failure; E87.20 Acidosis, unspecified; I13.0 Hypertensive heart and chronic kidney disease with heart failure and stage 1 through stage 4 chronic kidney disease, or unspecified chronic kidney disease; E86.0 Dehydration; Z86.73 Personal history of transient ischemic attack (TIA), and cerebral infarction without residual deficits; D64.9 Anemia, unspecified; E78.5 Hyperlipidemia, unspecified; E88.09 Other disorders of plasma-protein metabolism, not elsewhere classified; I25.10 Atherosclerotic heart disease of native coronary artery without angina pectoris; I48.0 Paroxysmal atrial fibrillation; M19.90 Unspecified osteoarthritis, unspecified site; Z76.5 Malingerer [conscious simulation]; Z79.84 Long term (current) use of oral hypoglycemic drugs; Z79.899 Other long term (current) drug therapy; E11.40 Type 2 diabetes mellitus with diabetic neuropathy, unspecified; Z20.822 Contact with and (suspected) exposure to COVID-19; F03.90 Unspecified dementia, unspecified severity, without behavioral disturbance, psychotic disturbance, mood disturbance, and anxiety; Z68.30 Body mass index [BMI] 30.0-30.9, adult; Z95.810 Presence of automatic (implantable) cardiac defibrillator
CPT/HCPCS: 36415; 70450-TC; 71045-TC; 80048-TC; 80061-TC; 80076-TC; 82962-TC; 83605-TC; 83735-TC; 84100-TC; 84484-TC; 85025-TC; 85730-TC; 87040-TC; 94799-TC; 97110-TC; 97116-TC; 97530-TC; A4223; G0378; J1815; J2270; J2543; J7030; J7060

== ENCOUNTER 2023-12-25 06:25 | Emergency (ER) | payer MEDICARE, MEDICAID ==
[~2023-12-25] VITALS: Ht 170.2 cm; Wt 88.5 kg
[2023-12-25 07:04] LABS: BASOPHILS % (AUTO) 0.7 % (0.0-2.0); EOSINOPHILS # (AUTO) 0.1 K/uL (0.0-0.7); EOSINOPHILS % (AUTO) 1.5 % (0.0-6.0); HEMATOCRIT 42 % (39-51); HEMOGLOBIN 13.8 g/dL (13.5-17.5); LYMPHOCYTES # (AUTO) 1.6 K/uL (0.8-4.8); LYMPHOCYTES % (AUTO) 28.6 % (20.0-44.0); MEAN CORPUSCULAR HEMOGLOBIN 29 PG (26.0-33.0); MEAN CORPUSCULAR HGB CONC 33 g/dl (31.0-36.0); MEAN CORPUSCULAR VOLUME 89 fL (80-96); MONOCYTES # (AUTO) 0.5 K/uL (0.1-1.30); MONOCYTES % (AUTO) 9.2 % (2.0-12.0); NEUTROPHILS # (AUTO) 3.4 K/uL (1.8-8.9); PLATELET COUNT (AUTO) 240 K/uL (150-450); RED BLOOD CELL COUNT(AUTO) 4.76 MIL/uL (4.5-6.0); RED CELL DISTRIBUTION WIDTH 15.2 % (11.5-15.0); WHITE BLOOD COUNT (AUTO) 5.7 K/uL (4.3-11.0)
[2023-12-25 07:25] LABS: ALANINE AMINOTRANSFERASE 18 U/L (12-78); ALBUMIN 3.5 g/dL (3.4-5.0); ALKALINE PHOSPHATASE 103 U/L (46-116); ASPARTATE AMINOTRANSFERASE 12 U/L (15-37); BILIRUBIN,DIRECT 0.1 mg/dL (0.0-0.2); BILIRUBIN,TOTAL 0.4 mg/dL (0.2-1.0); CALCIUM, SERUM 9.3 mg/dL (8.5-10.1); CARBON DIOXIDE 24 mmol/L (21-32); CHLORIDE 107 mmol/L (98-107); CREATININE 1.1 mg/dL (0.6-1.3); GLUCOSE 117 mg/dL (74-106); LIPASE 37 U/L (16-77); SODIUM SERUM 140 mmol/L (136-145); TOTAL PROTEIN, SERUM 6.9 g/dL (6.4-8.2); UREA NITROGEN, BLOOD 16 mg/dL (7-18)
[2023-12-25 08:18] LABS: APPEARANCE,URINE CLEAR (CLEAR); BILIRUBIN,URINE NEGATIVE (NEGATIVE); BLOOD, URINE NEGATIVE Ery/uL (NEGATIVE); COLOR,URINE YELLOW (YELLOW); KETONES,URINE NEGATIVE (NEGATIVE); LEUKOCYTE ESTERASE ,URINE 1+ (NEGATIVE); NITRITE, URINE NEGATIVE (NEGATIVE); PROTEIN,URINE TRACE mg/dl (NEGATIVE); UGLUCOSE NEGATIVE (NEGATIVE)
[2023-12-25 08:41] LABS: ADD URINE CULTURE YES; BACTERIA,URINE Rare /HPF (None Seen); RBC,URINE 0-2 /HPF (0-2)
[2023-12-25 08:42] LABS: SQUAMOUS EPITHELIAL CELL,UR Rare /HPF (None Seen)
[2023-12-25] MEDS ORDERED: MORPHINE SULFATE INJ 2 MG/ML DISP.SYRIN ONE (08:45)
[2023-12-25] MEDS: MORPHINE SULFATE INJ 2 MG/ML DISP.SYRIN IV ONE (08:53)
[2023-12-25] MEDS: METRONIDAZOLE 500 MG TABLET PO ONE (10:00)
[2023-12-25] MEDS: CIPROFLOXACIN HCL 250 MG TABLET PO ONE (10:00)
[2023-12-25] MEDS ORDERED: CIPROFLOXACIN HCL 500 MG TABLET ONE (10:21)
[2023-12-25] MEDS ORDERED: METRONIDAZOLE 500 MG TABLET ONE (10:22)
[2023-12-25] MEDS ORDERED: CIPR500T5 PO (10:54)
[2023-12-25] MEDS ORDERED: METR500T PO (10:54)
[2023-12-25] MEDS ORDERED: KETOROLAC TROMETHAMINE 15 MG/ML VIAL ONE (11:08)
[2023-12-25 11:37] VITALS: BP 118/81; TEMP 98.5; O2SAT 100
== END 2023-12-25 11:37 | disposition home or self-care (01) ==
LOC: ER 06:27
DX: K52.9 Noninfective gastroenteritis and colitis, unspecified (principal); N39.0 Urinary tract infection, site not specified; I10 Essential (primary) hypertension; E11.9 Type 2 diabetes mellitus without complications; I48.91 Unspecified atrial fibrillation; F17.200 Nicotine dependence, unspecified, uncomplicated; Z90.49 Acquired absence of other specified parts of digestive tract
CPT/HCPCS: 99285; 74176; 96374; 93005; 85025; 80048; 87086; 83690; 80076; 81001; 36415; 84484; J2270; J1885

== ENCOUNTER 2024-01-17 17:58 | Inpatient (IN) | payer MEDICARE, OTHER ==
[~2024-01-17] VITALS: Ht 167.6 cm; Wt 86.6 kg
[~2024-01-17 17:58] MED LIST changes: +CIPR500T5 PO; +METR500T PO
[2024-01-17] MEDS ORDERED: MORPHINE SULFATE INJ 2 MG/ML DISP.SYRIN ONE ×2 (18:36)
[2024-01-17 18:58] LABS: BASOPHILS # (AUTO) 0.1 K/uL (0.0-0.2); EOSINOPHILS # (AUTO) 0.2 K/uL (0.0-0.7); EOSINOPHILS % (AUTO) 2.9 % (0.0-6.0); HEMATOCRIT 41 % (39-51); HEMOGLOBIN 13.2 g/dL (13.5-17.5); LYMPHOCYTES # (AUTO) 3.3 K/uL (0.8-4.8); LYMPHOCYTES % (AUTO) 38.6 % (20.0-44.0); MEAN CORPUSCULAR HEMOGLOBIN 28 PG (26.0-33.0); MEAN CORPUSCULAR HGB CONC 33 g/dl (31.0-36.0); MEAN CORPUSCULAR VOLUME 86 fL (80-96); MONOCYTES # (AUTO) 0.8 K/uL (0.1-1.30); MONOCYTES % (AUTO) 9.3 % (2.0-12.0); NEUTROPHILS # (AUTO) 4.1 K/uL (1.8-8.9); NEUTROPHILS % (AUTO) 48.2 % (43.0-81.0); PLATELET COUNT (AUTO) 321 K/uL (150-450); RED BLOOD CELL COUNT(AUTO) 4.72 MIL/uL (4.5-6.0); RED CELL DISTRIBUTION WIDTH 15.4 % (11.5-15.0); WHITE BLOOD COUNT (AUTO) 8.5 K/uL (4.3-11.0)
[2024-01-17] MEDS: IV NS 0.9% 1,000 ML BAG IV ONE ×2 (19:02→19:55)
[2024-01-17] MEDS: MORPHINE SULFATE INJ 2 MG/ML DISP.SYRIN IV ONE ×2 (19:02→20:30)
[2024-01-17 19:19] LABS: ALANINE AMINOTRANSFERASE 23 U/L (12-78); ALBUMIN 3.7 g/dL (3.4-5.0); ALKALINE PHOSPHATASE 105 U/L (46-116); ASPARTATE AMINOTRANSFERASE 19 U/L (15-37); BILIRUBIN,DIRECT 0.1 mg/dL (0.0-0.2); BILIRUBIN,TOTAL 0.5 mg/dL (0.2-1.0); CALCIUM, SERUM 8.6 mg/dL (8.5-10.1); CARBON DIOXIDE 24 mmol/L (21-32); CHLORIDE 105 mmol/L (98-107); CREATININE 1.5 mg/dL (0.6-1.3); GLUCOSE 98 mg/dL (74-106); LIPASE 42 U/L (16-77); POTASSIUM 3.5 mmol/L (3.5-5.1); SODIUM SERUM 141 mmol/L (136-145); TOTAL PROTEIN, SERUM 7.6 g/dL (6.4-8.2); UREA NITROGEN, BLOOD 18 mg/dL (7-18)
[2024-01-17 19:27] LABS: LACTIC ACID 2.8 mmol/L (0.4-2.0)
[2024-01-17] MEDS ORDERED: IV NS 0.9% 250 ML IV ONE (19:27)
[2024-01-17] MEDS ORDERED: IOHEXOL-300 100 ML VIAL IV ONE (19:27)
[2024-01-17] MEDS ORDERED: PIPERACI/TAZO 3.375GM/D5W 50ML PB IV ONE ×2 (19:54→21:48)
[2024-01-17] MEDS: PIPERACILLIN /TAZOBACTAM 3.375 G in IV D5W 50 ML IV ONE ×2 (19:55→21:49)
[2024-01-17 20:07] LABS: APPEARANCE,URINE CLEAR (CLEAR); BILIRUBIN,URINE NEGATIVE (NEGATIVE); BLOOD, URINE NEGATIVE Ery/uL (NEGATIVE); COLOR,URINE YELLOW (YELLOW); KETONES,URINE NEGATIVE (NEGATIVE); LEUKOCYTE ESTERASE ,URINE NEGATIVE (NEGATIVE); NITRITE, URINE NEGATIVE (NEGATIVE); PH,URINE 8.5 (5.0-8.0); PROTEIN,URINE 1+ mg/dl (NEGATIVE); UGLUCOSE NEGATIVE (NEGATIVE); UROBILINOGEN,URINE 0.2 EU/dL (0.2)
[2024-01-17 20:26] LABS: ADD URINE CULTURE NO; BACTERIA,URINE 1+ /HPF (None Seen); MUCUS,URINE Few /LPF (None Seen); RBC,URINE 0-2 /HPF (0-2); SQUAMOUS EPITHELIAL CELL,UR 0-2 /HPF (None Seen)
[2024-01-17] MEDS ORDERED: ONDANSETRON HCL/PF 4 MG/2 ML VIAL IVP PRN (21:30)
[2024-01-17] MEDS ORDERED: Z GUARD REMEDY 4 OZ OINT TP PRN (21:30)
[2024-01-17 22:00] VITALS: BP 139/62; TEMP 98.2; O2SAT 97
[2024-01-17] MEDS: IV NS 0.9% 1,000 ML IV PRN (22:17)
[2024-01-17] MEDS: MORPHINE SULFATE INJ 2 MG/ML DISP.SYRIN IV PRN (23:49)
[2024-01-18 04:00] VITALS: BP 140/82; TEMP 98.1; O2SAT 95
[2024-01-18 06:24] LABS: BASOPHILS % (AUTO) 0.6 % (0.0-2.0); EOSINOPHILS # (AUTO) 0.3 K/uL (0.0-0.7); EOSINOPHILS % (AUTO) 3.4 % (0.0-6.0); HEMATOCRIT 41 % (39-51); HEMOGLOBIN 13.2 g/dL (13.5-17.5); LYMPHOCYTES # (AUTO) 1.6 K/uL (0.8-4.8); LYMPHOCYTES % (AUTO) 20.7 % (20.0-44.0); MEAN CORPUSCULAR HEMOGLOBIN 28 PG (26.0-33.0); MEAN CORPUSCULAR HGB CONC 33 g/dl (31.0-36.0); MEAN CORPUSCULAR VOLUME 87 fL (80-96); MONOCYTES # (AUTO) 0.7 K/uL (0.1-1.30); MONOCYTES % (AUTO) 9.3 % (2.0-12.0); PLATELET COUNT (AUTO) 300 K/uL (150-450); RED BLOOD CELL COUNT(AUTO) 4.66 MIL/uL (4.5-6.0); RED CELL DISTRIBUTION WIDTH 15.4 % (11.5-15.0); WHITE BLOOD COUNT (AUTO) 7.6 K/uL (4.3-11.0)
[2024-01-18 07:19] LABS: LACTIC ACID 1.4 mmol/L (0.4-2.0)
[2024-01-18 07:31] LABS: ALBUMIN 3.6 g/dL (3.4-5.0); BILIRUBIN,DIRECT 0.2 mg/dL (0.0-0.2); BILIRUBIN,TOTAL 0.8 mg/dL (0.2-1.0); CALCIUM, SERUM 8.5 mg/dL (8.5-10.1); CREATININE 1.4 mg/dL (0.6-1.3); MAGNESIUM 2.2 mg/dL (1.8-2.4); PHOSPHORUS 2.8 mg/dL (2.5-4.9); TOTAL PROTEIN, SERUM 7.4 g/dL (6.4-8.2)
[2024-01-18 08:00] VITALS: BP 152/85; TEMP 98; O2SAT 100
[2024-01-18] MEDS: PANTOPRAZOLE 40 MG VIAL IV SCH (08:07)
[2024-01-18 08:36] LABS: THYROID STIMULATING HORMONE 2.73 uIU/mL (0.358-3.74)
[2024-01-18] MEDS: PIPERACILLIN /TAZOBACTAM 3.375 G in IV D5W 100 ML IV SCH (12:29)
[2024-01-18] MEDS: DICYCLOMINE HCL 10 MG CAPSULE PO SCH (12:29)
[2024-01-18 16:00] VITALS: BP 143/80; TEMP 97.9; O2SAT 94
[2024-01-18] MEDS: SIMETHICONE 80 MG TAB.CHEW PO SCH (16:05)
[2024-01-18] MEDS: GABAPENTIN 100 MG CAPSULE PO SCH (16:05)
[2024-01-18] MEDS: LORAZEPAM 0.5 MG TABLET PO SCH (16:06)
[2024-01-18] MEDS: CARVEDILOL 12.5 MG TABLET PO SCH (17:14)
[2024-01-18] MEDS: MIRTAZAPINE 15 MG TABLET PO SCH (21:03)
[2024-01-18] MEDS: OLANZAPINE 10 MG TABLET PO SCH (21:03)
[2024-01-18] MEDS: TRAZODONE 50 MG TABLET PO SCH (21:04)
[2024-01-18 23:34] VITALS: BP 139/78; TEMP 97.7; O2SAT 96
[2024-01-19] MEDS: MORPHINE SULFATE INJ 2 MG/ML DISP.SYRIN IV PRN (00:17)
[2024-01-19 04:00] VITALS: BP 139/78; TEMP 97.7; O2SAT 96
[2024-01-19 07:13] LABS: BASOPHILS % (AUTO) 0.3 % (0.0-2.0); EOSINOPHILS # (AUTO) 0.1 K/uL (0.0-0.7); EOSINOPHILS % (AUTO) 0.5 % (0.0-6.0); HEMATOCRIT 42 % (39-51); HEMOGLOBIN 13.8 g/dL (13.5-17.5); LYMPHOCYTES # (AUTO) 1.2 K/uL (0.8-4.8); LYMPHOCYTES % (AUTO) 9.8 % (20.0-44.0); MEAN CORPUSCULAR HEMOGLOBIN 29 PG (26.0-33.0); MEAN CORPUSCULAR HGB CONC 33 g/dl (31.0-36.0); MEAN CORPUSCULAR VOLUME 87 fL (80-96); MONOCYTES # (AUTO) 0.9 K/uL (0.1-1.30); MONOCYTES % (AUTO) 7.2 % (2.0-12.0); NEUTROPHILS # (AUTO) 9.9 K/uL (1.8-8.9); NEUTROPHILS % (AUTO) 82.2 % (43.0-81.0); PLATELET COUNT (AUTO) 318 K/uL (150-450); RED BLOOD CELL COUNT(AUTO) 4.86 MIL/uL (4.5-6.0); RED CELL DISTRIBUTION WIDTH 15.7 % (11.5-15.0)
[2024-01-19 07:40] LABS: CALCIUM, SERUM 9.3 mg/dL (8.5-10.1); CREATININE 1.4 mg/dL (0.6-1.3); MAGNESIUM 2.3 mg/dL (1.8-2.4); PHOSPHORUS 2.7 mg/dL (2.5-4.9)
[2024-01-19 08:00] VITALS: BP 137/78; TEMP 97.5; O2SAT 100
[2024-01-19] MEDS: SPIRONOLACTONE 25 MG TABLET PO SCH (08:28)
[2024-01-19] MEDS: ATORVASTATIN 40 MG TABLET PO SCH (08:29)
[2024-01-19] MEDS: FUROSEMIDE 40 MG TABLET PO SCH (08:29)
[2024-01-19] MEDS: EMPAGLIFLOZIN 10 MG TABLET PO SCH (08:30)
[2024-01-19] MEDS: ARIPIPRAZOLE 5 MG TABLET PO SCH (08:32)
[2024-01-19] MEDS: PANTOPRAZOLE 40 MG TABLET.DR PO SCH (09:37)
[2024-01-19] MEDS ORDERED: DICY10CA37 PO (15:23)
[2024-01-19] MEDS ORDERED: ASPI-1420 PO (15:23)
[2024-01-19] MEDS ORDERED: METH-647 PO (15:23)
[2024-01-19 16:00] VITALS: BP 97/60; TEMP 99.1; O2SAT 94
[2024-01-19] MEDS: METHOCARBAMOL (750MG) 750 MG TABLET PO SCH (18:41)
[2024-01-19 20:00] VITALS: BP 117/52; TEMP 98.6; O2SAT 97
[2024-01-20] MEDS: MORPHINE SULFATE INJ 2 MG/ML DISP.SYRIN IV ONE (02:11)
[2024-01-20 04:00] VITALS: BP 133/65; TEMP 98.1; O2SAT 99
[2024-01-20] MEDS: TRAMADOL HCL 50 MG TABLET PO ONE (04:49)
[2024-01-20 08:00] VITALS: BP 134/63; TEMP 97.9; O2SAT 99
[2024-01-20] MEDS ORDERED: SUCR1ORA6 PO (15:45)
[2024-01-20] MEDS: SUCRALFATE 1 G/10 ML UDC GT SCH (15:47)
[2024-01-20 16:00] VITALS: BP 108/67; TEMP 97.6; O2SAT 95
[2024-01-20 17:00] VITALS: BP 108/67
[2024-01-26] MEDS ORDERED: AMOX1TAB16 PO (08:47)
== END 2024-01-20 17:33 | DRG 392 ==
LOC: ER 18:03 → MEDSG1 20:54
PROVIDERS: ADMIT Nurse Practitioner Family; ATTEND Nurse Practitioner Family
DX: K58.9 Irritable bowel syndrome, unspecified (principal); E87.20 Acidosis, unspecified; N17.9 Acute kidney failure, unspecified; I13.0 Hypertensive heart and chronic kidney disease with heart failure and stage 1 through stage 4 chronic kidney disease, or unspecified chronic kidney disease; R10.9 Unspecified abdominal pain; K57.30 Diverticulosis of large intestine without perforation or abscess without bleeding; E66.9 Obesity, unspecified; Z68.30 Body mass index [BMI] 30.0-30.9, adult; I48.91 Unspecified atrial fibrillation; N18.9 Chronic kidney disease, unspecified; D64.9 Anemia, unspecified; E11.22 Type 2 diabetes mellitus with diabetic chronic kidney disease; G89.29 Other chronic pain; I50.9 Heart failure, unspecified; I25.2 Old myocardial infarction; Z79.84 Long term (current) use of oral hypoglycemic drugs; M89.8X9 Other specified disorders of bone, unspecified site; Z86.73 Personal history of transient ischemic attack (TIA), and cerebral infarction without residual deficits; Z95.810 Presence of automatic (implantable) cardiac defibrillator; F03.90 Unspecified dementia, unspecified severity, without behavioral disturbance, psychotic disturbance, mood disturbance, and anxiety; E78.5 Hyperlipidemia, unspecified
CPT/HCPCS: 36415; 76700-TC; 80048-TC; 80076-TC; 81001; 83605-TC; 83690-TC; 83735-TC; 84100-TC; 84443-TC; 85025-TC; 87086-TC; A4223; G0378; J2270; J2470; J2543; J7030; J7050; J7060; Q9967

== ENCOUNTER 2024-01-21 17:00 | Emergency (ER) | payer MEDICARE, OTHER ==
[~2024-01-21] VITALS: Ht 162.6 cm; Wt 81.6 kg
[~2024-01-21 17:00] MED LIST changes: +ASPI-1420 PO; -CIPR500T5 PO; +DICY10CA37 PO; +METH-647 PO; -METR500T PO; -MIRT-91 PO; -OMEP20CA15 PO; -SERT50TA PO; +SUCR1ORA6 PO; -TRAZ-182 PO
[2024-01-21] MEDS ORDERED: ACETAMINOPHEN 325 MG TABLET ONE (18:19)
[2024-01-21] MEDS: ACETAMINOPHEN 325 MG TABLET PO ONE (18:28)
[2024-01-21 18:54] LABS: BASOPHILS % (AUTO) 0.6 % (0.0-2.0); EOSINOPHILS # (AUTO) 0.1 K/uL (0.0-0.7); EOSINOPHILS % (AUTO) 1.6 % (0.0-6.0); HEMATOCRIT 42 % (39-51); HEMOGLOBIN 13.6 g/dL (13.5-17.5); LYMPHOCYTES # (AUTO) 1.8 K/uL (0.8-4.8); LYMPHOCYTES % (AUTO) 24.4 % (20.0-44.0); MEAN CORPUSCULAR HEMOGLOBIN 28 PG (26.0-33.0); MEAN CORPUSCULAR HGB CONC 33 g/dl (31.0-36.0); MEAN CORPUSCULAR VOLUME 87 fL (80-96); MONOCYTES % (AUTO) 12.8 % (2.0-12.0); NEUTROPHILS # (AUTO) 4.5 K/uL (1.8-8.9); NEUTROPHILS % (AUTO) 60.6 % (43.0-81.0); PLATELET COUNT (AUTO) 308 K/uL (150-450); RED BLOOD CELL COUNT(AUTO) 4.83 MIL/uL (4.5-6.0); RED CELL DISTRIBUTION WIDTH 15.8 % (11.5-15.0); WHITE BLOOD COUNT (AUTO) 7.5 K/uL (4.3-11.0)
[2024-01-21 19:08] LABS: ALBUMIN 3.9 g/dL (3.4-5.0); BILIRUBIN,DIRECT 0.1 mg/dL (0.0-0.2); BILIRUBIN,TOTAL 0.5 mg/dL (0.2-1.0); CALCIUM, SERUM 8.9 mg/dL (8.5-10.1); CREATININE 1.4 mg/dL (0.6-1.3); TOTAL PROTEIN, SERUM 8.2 g/dL (6.4-8.2)
[2024-01-21] MEDS ORDERED: MORPHINE SULFATE INJ 4 MG/ML DISP.SYRIN ONE (19:23)
[2024-01-21] MEDS: MORPHINE SULFATE INJ 2 MG/ML DISP.SYRIN IV ONE (19:30)
[2024-01-21 20:38] VITALS: BP 136/68; TEMP 98.4; O2SAT 94
== END 2024-01-21 20:39 ==
LOC: ER 17:01
DX: R10.33 Periumbilical pain (principal); I10 Essential (primary) hypertension; I48.91 Unspecified atrial fibrillation; E11.9 Type 2 diabetes mellitus without complications; F17.200 Nicotine dependence, unspecified, uncomplicated; G89.29 Other chronic pain; Z87.19 Personal history of other diseases of the digestive system; Z86.59 Personal history of other mental and behavioral disorders; Z90.49 Acquired absence of other specified parts of digestive tract
CPT/HCPCS: 99285; 74176; 96374; 85025; 80048; 83690; 80076; 36415; J2270

== ENCOUNTER 2024-01-28 21:02 | Inpatient (IN) | payer MEDICARE, OTHER ==
[~2024-01-28] VITALS: Ht 167.6 cm; Wt 85.3 kg
[~2024-01-28 21:02] MED LIST changes: +AMOX1TAB16 PO
[2024-01-28 21:50] LABS: BASOPHILS # (AUTO) 0.1 K/uL (0.0-0.2); BASOPHILS % (AUTO) 0.9 % (0.0-2.0); EOSINOPHILS # (AUTO) 0.2 K/uL (0.0-0.7); EOSINOPHILS % (AUTO) 2.2 % (0.0-6.0); HEMATOCRIT 40 % (39-51); HEMOGLOBIN 13.4 g/dL (13.5-17.5); LYMPHOCYTES # (AUTO) 2.3 K/uL (0.8-4.8); LYMPHOCYTES % (AUTO) 29.8 % (20.0-44.0); MEAN CORPUSCULAR HEMOGLOBIN 29 PG (26.0-33.0); MEAN CORPUSCULAR HGB CONC 33 g/dl (31.0-36.0); MEAN CORPUSCULAR VOLUME 87 fL (80-96); MONOCYTES # (AUTO) 0.9 K/uL (0.1-1.30); MONOCYTES % (AUTO) 11.5 % (2.0-12.0); NEUTROPHILS # (AUTO) 4.2 K/uL (1.8-8.9); NEUTROPHILS % (AUTO) 55.6 % (43.0-81.0); PLATELET COUNT (AUTO) 298 K/uL (150-450); RED BLOOD CELL COUNT(AUTO) 4.63 MIL/uL (4.5-6.0); WHITE BLOOD COUNT (AUTO) 7.6 K/uL (4.3-11.0)
[2024-01-28 22:00] LABS: CALCIUM, SERUM 8.9 mg/dL (8.5-10.1); CREATININE 1.6 mg/dL (0.6-1.3); POTASSIUM 3.8 mmol/L (3.5-5.1)
[2024-01-28 22:12] LABS: ALBUMIN 3.8 g/dL (3.4-5.0); BILIRUBIN,TOTAL 0.3 mg/dL (0.2-1.0); TOTAL PROTEIN, SERUM 7.8 g/dL (6.4-8.2)
[2024-01-28 22:20] LABS: LACTIC ACID 1.4 mmol/L (0.4-2.0)
[2024-01-28 23:16] LABS: APPEARANCE,URINE CLEAR (CLEAR); BILIRUBIN,URINE NEGATIVE (NEGATIVE); BLOOD, URINE NEGATIVE Ery/uL (NEGATIVE); COLOR,URINE YELLOW (YELLOW); KETONES,URINE NEGATIVE (NEGATIVE); LEUKOCYTE ESTERASE ,URINE NEGATIVE (NEGATIVE); NITRITE, URINE NEGATIVE (NEGATIVE); PROTEIN,URINE NEGATIVE (NEGATIVE); UGLUCOSE 3+ mg/dL (NEGATIVE); UROBILINOGEN,URINE 0.2 EU/dL (0.2)
[2024-01-28 23:26] LABS: ADD URINE CULTURE NO; BACTERIA,URINE Rare /HPF (None Seen); RBC,URINE 0-2 /HPF (0-2); SQUAMOUS EPITHELIAL CELL,UR Few /HPF (None Seen); WBC,URINE 0-2 /HPF (0-3)
[2024-01-29] MEDS ORDERED: ONDANSETRON HCL/PF 4 MG/2 ML VIAL IVP PRN (02:30)
[2024-01-29] MEDS ORDERED: DEXTROSE 50%-WATER 50 ML DISP.SYRIN IV PRN (02:30)
[2024-01-29] MEDS ORDERED: ACETAMINOPHEN 325 MG TABLET PO PRN (02:30)
[2024-01-29] MEDS ORDERED: MAGNESIUM HYDROXIDE 30 ML UDC PO PRN (02:30)
[2024-01-29] MEDS ORDERED: Z GUARD REMEDY 4 OZ OINT TP PRN (02:30)
[2024-01-29] MEDS ORDERED: MAG HYDROX/AL HYDROX/SIMETH 30 ML UDC PO PRN (02:30)
[2024-01-29 03:12] VITALS: BP 129/68; TEMP 97.3; O2SAT 100
[2024-01-29] MEDS: MORPHINE SULFATE INJ 4 MG/ML DISP.SYRIN IV PRN (03:26)
[2024-01-29] MEDS: BLOOD SUGAR DIAGNOSTIC 1 EACH STRIP IN SCH (06:36)
[2024-01-29] MEDS: INSULIN REGULAR, HUMAN 100 UNIT/ML 3 ML VIAL SQ PRN (06:38)
[2024-01-29 06:44] LABS: BASOPHILS % (AUTO) 0.6 % (0.0-2.0); EOSINOPHILS # (AUTO) 0.2 K/uL (0.0-0.7); EOSINOPHILS % (AUTO) 3.3 % (0.0-6.0); HEMATOCRIT 41 % (39-51); HEMOGLOBIN 13.5 g/dL (13.5-17.5); LYMPHOCYTES # (AUTO) 2.4 K/uL (0.8-4.8); LYMPHOCYTES % (AUTO) 32.5 % (20.0-44.0); MEAN CORPUSCULAR HEMOGLOBIN 28 PG (26.0-33.0); MEAN CORPUSCULAR HGB CONC 33 g/dl (31.0-36.0); MEAN CORPUSCULAR VOLUME 87 fL (80-96); MONOCYTES # (AUTO) 0.8 K/uL (0.1-1.30); MONOCYTES % (AUTO) 11.7 % (2.0-12.0); NEUTROPHILS # (AUTO) 3.8 K/uL (1.8-8.9); NEUTROPHILS % (AUTO) 51.9 % (43.0-81.0); PLATELET COUNT (AUTO) 298 K/uL (150-450); RED BLOOD CELL COUNT(AUTO) 4.76 MIL/uL (4.5-6.0); WHITE BLOOD COUNT (AUTO) 7.2 K/uL (4.3-11.0)
[2024-01-29 06:46] LABS: CALCIUM, SERUM 8.6 mg/dL (8.5-10.1); CREATININE 1.2 mg/dL (0.6-1.3); MAGNESIUM 2.1 mg/dL (1.8-2.4); PHOSPHORUS 4.2 mg/dL (2.5-4.9); POTASSIUM 3.4 mmol/L (3.5-5.1)
[2024-01-29 07:30] VITALS: BP 142/69; TEMP 97.9; O2SAT 99
[2024-01-29] MEDS: GABAPENTIN 100 MG CAPSULE PO SCH (08:37)
[2024-01-29] MEDS: DOCUSATE SODIUM 100 MG CAPSULE PO SCH (08:37)
[2024-01-29] MEDS: PANTOPRAZOLE 40 MG VIAL IV SCH (08:37)
[2024-01-29] MEDS: CARVEDILOL 12.5 MG TABLET PO SCH (08:38)
[2024-01-29] MEDS: ATORVASTATIN 40 MG TABLET PO SCH (08:38)
[2024-01-29] MEDS: FUROSEMIDE 40 MG TABLET PO SCH (08:38)
[2024-01-29] MEDS: ASPIRIN EC 81 MG TABLET.DR PO SCH (08:38)
[2024-01-29] MEDS: ARIPIPRAZOLE 5 MG TABLET PO SCH (08:38)
[2024-01-29] MEDS: LORAZEPAM 0.5 MG TABLET PO SCH (08:38)
[2024-01-29] MEDS: SPIRONOLACTONE 25 MG TABLET PO SCH (08:44)
[2024-01-29] MEDS: SACUBITRIL/VALSARTAN 24/26MG TABLET PO SCH (08:44)
[2024-01-29] MEDS: PAROXETINE HCL 10 MG TABLET PO SCH (08:44)
[2024-01-29] MEDS ORDERED: DICL100G34 TP (08:47)
[2024-01-29] MEDS ORDERED: ACET325T53 PO (08:47)
[2024-01-29] MEDS ORDERED: MIRT-91 PO (08:47)
[2024-01-29] MEDS ORDERED: PARO30TA4 PO (08:47)
[2024-01-29] MEDS ORDERED: AMIO200T5 PO (08:47)
[2024-01-29] MEDS ORDERED: CLON0.5T4 PO (08:47)
[2024-01-29] MEDS ORDERED: ACET-637 PO (08:47)
[2024-01-29] MEDS ORDERED: NALO4SPR NS (08:47)
[2024-01-29] MEDS ORDERED: GABA300C PO (08:47)
[2024-01-29] MEDS: POTASSIUM CHLORIDE 20 MEQ TAB.PRT.SR PO SCH (10:13)
[2024-01-29] MEDS: EMPAGLIFLOZIN 10 MG TABLET PO SCH (10:18)
[2024-01-29] MEDS ORDERED: clonazePAM 0.5 MG TABLET PO PRN (13:00)
[2024-01-29] MEDS ORDERED: NALOXONE HCL 0.4 MG/ML AMPUL IV PRN (13:00)
[2024-01-29] MEDS ORDERED: NALOXONE HCL 4 MG SPRAY NS SCH (13:00)
[2024-01-29] MEDS: METHOCARBAMOL (500MG) 500 MG TABLET PO PRN (15:00)
[2024-01-29 16:00] VITALS: BP 96/59; TEMP 98.4; O2SAT 94
[2024-01-29] MEDS: AMIODARONE HCL 200 MG TABLET PO SCH (17:51)
[2024-01-29] MEDS: GABAPENTIN 300 MG CAPSULE PO SCH (18:03)
[2024-01-29 20:00] VITALS: BP_SYST 121; BP_SYST 142; BP_DIAS 63; BP_DIAS 90; TEMP 97.7; TEMP 98.1; O2SAT 97
[2024-01-29] MEDS: OLANZAPINE 10 MG TABLET PO SCH (22:01)
[2024-01-29] MEDS: MIRTAZAPINE 15 MG TABLET PO SCH (22:02)
[2024-01-30] VITALS: BP 120/75; TEMP 98.2; O2SAT 98
[2024-01-30 04:00] VITALS: BP 100/67; TEMP 98.1; O2SAT 96
[2024-01-30 06:49] LABS: BASOPHILS % (AUTO) 0.3 % (0.0-2.0); EOSINOPHILS # (AUTO) 0.2 K/uL (0.0-0.7); EOSINOPHILS % (AUTO) 2.3 % (0.0-6.0); HEMATOCRIT 42 % (39-51); HEMOGLOBIN 13.5 g/dL (13.5-17.5); LYMPHOCYTES # (AUTO) 2.2 K/uL (0.8-4.8); MEAN CORPUSCULAR HEMOGLOBIN 28 PG (26.0-33.0); MEAN CORPUSCULAR HGB CONC 33 g/dl (31.0-36.0); MEAN CORPUSCULAR VOLUME 87 fL (80-96); MONOCYTES % (AUTO) 10.6 % (2.0-12.0); NEUTROPHILS # (AUTO) 5.8 K/uL (1.8-8.9); NEUTROPHILS % (AUTO) 62.8 % (43.0-81.0); PLATELET COUNT (AUTO) 291 K/uL (150-450); RED CELL DISTRIBUTION WIDTH 16.3 % (11.5-15.0); WHITE BLOOD COUNT (AUTO) 9.2 K/uL (4.3-11.0)
[2024-01-30 07:20] LABS: CALCIUM, SERUM 8.7 mg/dL (8.5-10.1); CREATININE 2.1 mg/dL (0.6-1.3); POTASSIUM 3.8 mmol/L (3.5-5.1)
[2024-01-30] MEDS: PANTOPRAZOLE 40 MG TABLET.DR PO SCH (09:49)
[2024-01-30] MEDS: PAROXETINE HCL 10 MG TABLET PO SCH (09:49)
[2024-01-30] MEDS: DICYCLOMINE HCL INJ 20 MG/2 ML AMPUL IM ONE (12:11)
[2024-01-30 12:47] LABS: APPEARANCE,URINE CLEAR (CLEAR); BILIRUBIN,URINE NEGATIVE (NEGATIVE); BLOOD, URINE NEGATIVE Ery/uL (NEGATIVE); COLOR,URINE DARK YELLOW (YELLOW); KETONES,URINE TRACE mg/dL (NEGATIVE); LEUKOCYTE ESTERASE ,URINE NEGATIVE (NEGATIVE); NITRITE, URINE NEGATIVE (NEGATIVE); PH,URINE 5.5 (5.0-8.0); PROTEIN,URINE TRACE mg/dl (NEGATIVE); UGLUCOSE 3+ mg/dL (NEGATIVE); UROBILINOGEN,URINE 0.2 EU/dL (0.2)
[2024-01-30 12:54] LABS: ADD URINE CULTURE NO; BACTERIA,URINE 1+ /HPF (None Seen); SQUAMOUS EPITHELIAL CELL,UR 0-2 /HPF (None Seen)
[2024-01-30 12:55] LABS: HYALINE CASTS, URINE Many /LPF (None Seen); MUCUS,URINE Few /LPF (None Seen)
[2024-01-30 13:22] LABS: CREATININE, URINE 404.1 MG/DL (30.0-125.0); URINE TOTAL PROTEIN 63.6 mg/dL (0-11.9)
[2024-01-30 14:08] LABS: EOSINOPHIL,URINE None Seen
[2024-01-30 16:00] VITALS: BP 107/71; TEMP 98.1; O2SAT 97
[2024-01-30 20:00] VITALS: BP 106/51; TEMP 98.4; O2SAT 98
[2024-01-31 07:35] LABS: ALBUMIN 3.5 g/dL (3.4-5.0); BILIRUBIN,TOTAL 0.5 mg/dL (0.2-1.0); CALCIUM, SERUM 8.5 mg/dL (8.5-10.1); CREATININE 1.9 mg/dL (0.6-1.3); MAGNESIUM 2.4 mg/dL (1.8-2.4); PHOSPHORUS 3.4 mg/dL (2.5-4.9); POTASSIUM 3.7 mmol/L (3.5-5.1); TOTAL PROTEIN, SERUM 7.5 g/dL (6.4-8.2)
[2024-01-31 07:41] LABS: BASOPHILS % (AUTO) 0.4 % (0.0-2.0); EOSINOPHILS # (AUTO) 0.3 K/uL (0.0-0.7); EOSINOPHILS % (AUTO) 3.3 % (0.0-6.0); HEMATOCRIT 43 % (39-51); HEMOGLOBIN 13.9 g/dL (13.5-17.5); LYMPHOCYTES # (AUTO) 2.1 K/uL (0.8-4.8); LYMPHOCYTES % (AUTO) 26.9 % (20.0-44.0); MEAN CORPUSCULAR HEMOGLOBIN 28 PG (26.0-33.0); MEAN CORPUSCULAR HGB CONC 33 g/dl (31.0-36.0); MEAN CORPUSCULAR VOLUME 87 fL (80-96); MONOCYTES # (AUTO) 0.8 K/uL (0.1-1.30); MONOCYTES % (AUTO) 10.3 % (2.0-12.0); NEUTROPHILS # (AUTO) 4.6 K/uL (1.8-8.9); NEUTROPHILS % (AUTO) 59.1 % (43.0-81.0); PLATELET COUNT (AUTO) 291 K/uL (150-450); WHITE BLOOD COUNT (AUTO) 7.9 K/uL (4.3-11.0)
[2024-01-31 08:00] VITALS: BP 90/60; TEMP 97.9; O2SAT 96
[2024-01-31] MEDS: DICYCLOMINE HCL 10 MG CAPSULE PO PRN (14:23)
[2024-01-31] MEDS ORDERED: HYDROCODONE/APAP 5/325MG TABLET PO PRN (15:30)
[2024-01-31 16:00] VITALS: BP 106/68; TEMP 98.1; O2SAT 98
[2024-01-31 17:26] VITALS: BP 106/68
== END 2024-01-31 18:17 | DRG 393 ==
LOC: ER 21:03 → MED 01-29 01:29
PROVIDERS: ADMIT Internal Medicine; ATTEND Nurse Practitioner Acute Care
DX: K40.20 Bilateral inguinal hernia, without obstruction or gangrene, not specified as recurrent (principal); N17.0 Acute kidney failure with tubular necrosis; I42.9 Cardiomyopathy, unspecified; I13.0 Hypertensive heart and chronic kidney disease with heart failure and stage 1 through stage 4 chronic kidney disease, or unspecified chronic kidney disease; D68.69 Other thrombophilia; F03.93 Unspecified dementia, unspecified severity, with mood disturbance; K58.9 Irritable bowel syndrome, unspecified; I48.91 Unspecified atrial fibrillation; Z79.84 Long term (current) use of oral hypoglycemic drugs; N18.9 Chronic kidney disease, unspecified; D64.9 Anemia, unspecified; E11.22 Type 2 diabetes mellitus with diabetic chronic kidney disease; E66.9 Obesity, unspecified; E78.5 Hyperlipidemia, unspecified; F32.A Depression, unspecified; Z95.810 Presence of automatic (implantable) cardiac defibrillator; N40.0 Benign prostatic hyperplasia without lower urinary tract symptoms; I50.9 Heart failure, unspecified; K29.70 Gastritis, unspecified, without bleeding
CPT/HCPCS: 36415; 71045-TC; 80048-TC; 80053-TC; 81001; 82550-TC; 82570-TC; 82962-TC; 83605-TC; 83735-TC; 83880; 83970; 84100-TC; 84300-TC; 84484-TC; 85025-TC; 87040-TC; 87081-TC; G0378; J0500; J1815; J2270; J2470

== ENCOUNTER 2024-03-12 15:26 | Emergency (ER) | payer MEDICARE, OTHER ==
[~2024-03-12] VITALS: Ht 162.6 cm; Wt 83.9 kg
[~2024-03-12 15:26] MED LIST changes: +ACET-637 PO; +ACET325T53 PO; +AMIO200T5 PO; +CLON0.5T4 PO; +DICL100G34 TP; -DICY10CA37 PO; -GABA-532 PO; +GABA300C PO; -LORA-258 PO; -METH-647 PO; +MIRT-91 PO; +NALO4SPR NS; -PARO10TA86 PO; +PARO30TA4 PO; -SPIR25TA6 PO; -SUCR1ORA6 PO
[2024-03-12 16:00] VITALS: TEMP 98.2
[2024-03-12] MEDS ORDERED: ONDANSETRON HCL/PF 4 MG/2 ML VIAL ONE (16:25)
[2024-03-12] MEDS ORDERED: MORPHINE SULFATE INJ 4 MG/ML DISP.SYRIN ONE (16:26)
[2024-03-12] MEDS: ONDANSETRON HCL/PF 4 MG/2 ML VIAL IV ONE (16:30)
[2024-03-12] MEDS: IV NS 0.9% 1,000 ML BAG IV ONE (16:45)
[2024-03-12] MEDS: MORPHINE SULFATE INJ 2 MG/ML DISP.SYRIN IV ONE (16:55)
[2024-03-12 17:13] LABS: BASOPHILS # (AUTO) 0.1 K/uL (0.0-0.2); BASOPHILS % (AUTO) 0.9 % (0.0-2.0); EOSINOPHILS # (AUTO) 0.3 K/uL (0.0-0.7); EOSINOPHILS % (AUTO) 4.2 % (0.0-6.0); HEMATOCRIT 37 % (39-51); HEMOGLOBIN 12.2 g/dL (13.5-17.5); LYMPHOCYTES # (AUTO) 2.3 K/uL (0.8-4.8); LYMPHOCYTES % (AUTO) 30.8 % (20.0-44.0); MEAN CORPUSCULAR HEMOGLOBIN 28 PG (26.0-33.0); MEAN CORPUSCULAR HGB CONC 33 g/dl (31.0-36.0); MEAN CORPUSCULAR VOLUME 86 fL (80-96); MONOCYTES # (AUTO) 0.8 K/uL (0.1-1.30); MONOCYTES % (AUTO) 10.3 % (2.0-12.0); NEUTROPHILS # (AUTO) 4.1 K/uL (1.8-8.9); NEUTROPHILS % (AUTO) 53.8 % (43.0-81.0); PLATELET COUNT (AUTO) 287 K/uL (150-450); RED BLOOD CELL COUNT(AUTO) 4.28 MIL/uL (4.5-6.0); RED CELL DISTRIBUTION WIDTH 16.7 % (11.5-15.0); WHITE BLOOD COUNT (AUTO) 7.6 K/uL (4.3-11.0)
[2024-03-12 17:46] LABS: ALBUMIN 3.4 g/dL (3.4-5.0); BILIRUBIN,DIRECT 0.1 mg/dL (0.0-0.2); BILIRUBIN,TOTAL 0.4 mg/dL (0.2-1.0); CALCIUM, SERUM 8.3 mg/dL (8.5-10.1); CREATININE 1.3 mg/dL (0.6-1.3); POTASSIUM 4.5 mmol/L (3.5-5.1); TOTAL PROTEIN, SERUM 7.4 g/dL (6.4-8.2)
[2024-03-12 19:55] LABS: APPEARANCE,URINE CLEAR (CLEAR); BILIRUBIN,URINE NEGATIVE (NEGATIVE); BLOOD, URINE NEGATIVE Ery/uL (NEGATIVE); COLOR,URINE YELLOW (YELLOW); KETONES,URINE NEGATIVE (NEGATIVE); LEUKOCYTE ESTERASE ,URINE NEGATIVE (NEGATIVE); NITRITE, URINE NEGATIVE (NEGATIVE); PROTEIN,URINE NEGATIVE (NEGATIVE); UGLUCOSE NEGATIVE (NEGATIVE); UROBILINOGEN,URINE 0.2 EU/dL (0.2)
[2024-03-12 21:21] VITALS: BP 135/75; O2SAT 98
[2024-03-12] MEDS ORDERED: MORPHINE SULFATE INJ 2 MG/ML DISP.SYRIN IV ONE (21:30)
== END 2024-03-12 21:22 | disposition home or self-care (01) ==
LOC: ER 15:29
DX: R10.31 Right lower quadrant pain (principal); E11.9 Type 2 diabetes mellitus without complications; E78.5 Hyperlipidemia, unspecified; F17.200 Nicotine dependence, unspecified, uncomplicated; I10 Essential (primary) hypertension; I25.10 Atherosclerotic heart disease of native coronary artery without angina pectoris; I48.91 Unspecified atrial fibrillation; R33.8 Other retention of urine; Z79.82 Long term (current) use of aspirin; Z79.84 Long term (current) use of oral hypoglycemic drugs; Z79.899 Other long term (current) drug therapy; Z87.19 Personal history of other diseases of the digestive system; Z90.49 Acquired absence of other specified parts of digestive tract; Z95.1 Presence of aortocoronary bypass graft; Z95.810 Presence of automatic (implantable) cardiac defibrillator; Z86.59 Personal history of other mental and behavioral disorders
CPT/HCPCS: 99285; 74176; 96374; 96361; 96375; 85025; 80048; 83690; 80076; 81003; 36415; J2270; J2405; J7030; A4223

== ENCOUNTER 2024-04-28 01:48 | Emergency (ER) | payer MEDICARE, OTHER ==
[~2024-04-28] VITALS: Ht 170.2 cm; Wt 83.9 kg
[2024-04-28 02:23] LABS: BASOPHILS % (AUTO) 0.7 % (0.0-2.0); EOSINOPHILS # (AUTO) 0.2 K/uL (0.0-0.7); EOSINOPHILS % (AUTO) 3.9 % (0.0-6.0); HEMATOCRIT 42 % (39-51); HEMOGLOBIN 13.6 g/dL (13.5-17.5); LYMPHOCYTES # (AUTO) 2.2 K/uL (0.8-4.8); LYMPHOCYTES % (AUTO) 35.4 % (20.0-44.0); MEAN CORPUSCULAR HEMOGLOBIN 28 PG (26.0-33.0); MEAN CORPUSCULAR HGB CONC 33 g/dl (31.0-36.0); MEAN CORPUSCULAR VOLUME 85 fL (80-96); MONOCYTES # (AUTO) 0.7 K/uL (0.1-1.30); MONOCYTES % (AUTO) 11.9 % (2.0-12.0); NEUTROPHILS # (AUTO) 2.9 K/uL (1.8-8.9); NEUTROPHILS % (AUTO) 48.1 % (43.0-81.0); PLATELET COUNT (AUTO) 234 K/uL (150-450); RED BLOOD CELL COUNT(AUTO) 4.87 MIL/uL (4.5-6.0); RED CELL DISTRIBUTION WIDTH 16.5 % (11.5-15.0); WHITE BLOOD COUNT (AUTO) 6.1 K/uL (4.3-11.0)
[2024-04-28 02:55] LABS: ALBUMIN 3.6 g/dL (3.4-5.0); BILIRUBIN,DIRECT 0.1 mg/dL (0.0-0.2); BILIRUBIN,TOTAL 0.6 mg/dL (0.2-1.0); CALCIUM, SERUM 8.8 mg/dL (8.5-10.1); CREATININE 1.3 mg/dL (0.6-1.3); TOTAL PROTEIN, SERUM 7.7 g/dL (6.4-8.2)
[2024-04-28 03:06] LABS: APPEARANCE,URINE CLEAR (CLEAR); BILIRUBIN,URINE NEGATIVE (NEGATIVE); BLOOD, URINE NEGATIVE Ery/uL (NEGATIVE); COLOR,URINE YELLOW (YELLOW); KETONES,URINE NEGATIVE (NEGATIVE); LEUKOCYTE ESTERASE ,URINE NEGATIVE (NEGATIVE); NITRITE, URINE NEGATIVE (NEGATIVE); PROTEIN,URINE TRACE mg/dl (NEGATIVE); UGLUCOSE NEGATIVE (NEGATIVE)
[2024-04-28 03:10] LABS: POTASSIUM 3.7 mmol/L (3.5-5.1)
[2024-04-28 03:11] LABS: ADD URINE CULTURE NO; BACTERIA,URINE None seen /HPF (None Seen); MUCUS,URINE Few /LPF (None Seen); RBC,URINE NONE SEEN /HPF (0-2); SQUAMOUS EPITHELIAL CELL,UR None Seen /HPF (None Seen); WBC,URINE NONE SEEN /HPF (0-3)
[2024-04-28] MEDS ORDERED: KETOROLAC TROMETHAMINE INJ 30 MG/ML VIAL ONE (03:17)
[2024-04-28] MEDS: KETOROLAC TROMETHAMINE INJ 30 MG/ML VIAL IV ONE (03:30)
[2024-04-28 05:17] VITALS: BP 125/83; TEMP 97.9; O2SAT 96
== END 2024-04-28 05:18 | disposition home or self-care (01) ==
LOC: ER 02:06
DX: R10.9 Unspecified abdominal pain (principal); E11.9 Type 2 diabetes mellitus without complications; E78.5 Hyperlipidemia, unspecified; F17.200 Nicotine dependence, unspecified, uncomplicated; F41.9 Anxiety disorder, unspecified; I11.9 Hypertensive heart disease without heart failure; I25.10 Atherosclerotic heart disease of native coronary artery without angina pectoris; J45.909 Unspecified asthma, uncomplicated; Z79.82 Long term (current) use of aspirin; Z79.84 Long term (current) use of oral hypoglycemic drugs; Z79.899 Other long term (current) drug therapy; Z87.19 Personal history of other diseases of the digestive system; Z90.49 Acquired absence of other specified parts of digestive tract; Z95.810 Presence of automatic (implantable) cardiac defibrillator
CPT/HCPCS: 99285; 74176; 96374; 71045; 93005; 85025; 80048; 83690; 80076; 81001; 36415; J1885

== ENCOUNTER 2024-04-29 00:21 | Inpatient (IN) | payer MEDICARE, OTHER ==
[~2024-04-29] VITALS: Ht 162.6 cm; Wt 95.3 kg
[2024-04-29] MEDS ORDERED: KETOROLAC TROMETHAMINE INJ 30 MG/ML VIAL ONE (01:00)
[2024-04-29] MEDS: KETOROLAC TROMETHAMINE INJ 30 MG/ML VIAL IM ONE (01:04)
[2024-04-29 01:13] LABS: BASOPHILS % (AUTO) 0.5 % (0.0-2.0); EOSINOPHILS # (AUTO) 0.2 K/uL (0.0-0.7); EOSINOPHILS % (AUTO) 2.6 % (0.0-6.0); HEMATOCRIT 42 % (39-51); LYMPHOCYTES % (AUTO) 35.4 % (20.0-44.0); MEAN CORPUSCULAR HEMOGLOBIN 28 PG (26.0-33.0); MEAN CORPUSCULAR HGB CONC 33 g/dl (31.0-36.0); MEAN CORPUSCULAR VOLUME 85 fL (80-96); MONOCYTES % (AUTO) 12.2 % (2.0-12.0); NEUTROPHILS # (AUTO) 4.2 K/uL (1.8-8.9); NEUTROPHILS % (AUTO) 49.3 % (43.0-81.0); PLATELET COUNT (AUTO) 273 K/uL (150-450); RED BLOOD CELL COUNT(AUTO) 4.95 MIL/uL (4.5-6.0); RED CELL DISTRIBUTION WIDTH 16.4 % (11.5-15.0); WHITE BLOOD COUNT (AUTO) 8.6 K/uL (4.3-11.0)
[2024-04-29 01:32] LABS: ALBUMIN 3.8 g/dL (3.4-5.0); BILIRUBIN,DIRECT 0.1 mg/dL (0.0-0.2); BILIRUBIN,TOTAL 0.7 mg/dL (0.2-1.0); CALCIUM, SERUM 8.8 mg/dL (8.5-10.1); CREATININE 1.5 mg/dL (0.6-1.3); POTASSIUM 3.6 mmol/L (3.5-5.1)
[2024-04-29] MEDS ORDERED: MORPHINE SULFATE INJ 4 MG/ML DISP.SYRIN ONE (01:40)
[2024-04-29] MEDS ORDERED: ONDANSETRON HCL/PF 4 MG/2 ML VIAL ONE (01:40)
[2024-04-29] MEDS ORDERED: PANTOPRAZOLE 40 MG VIAL ONE (01:40)
[2024-04-29] MEDS: IV NS 0.9% 1,000 ML BAG IV ONE (01:52)
[2024-04-29] MEDS: ONDANSETRON HCL/PF 4 MG/2 ML VIAL IVP ONE (01:57)
[2024-04-29] MEDS: MORPHINE SULFATE INJ 2 MG/ML DISP.SYRIN IV ONE (01:57)
[2024-04-29] MEDS: PANTOPRAZOLE 40 MG VIAL IV ONE (01:57)
[2024-04-29] MEDS ORDERED: Z GUARD REMEDY 4 OZ OINT TP PRN (02:00)
[2024-04-29] MEDS ORDERED: ONDANSETRON HCL/PF 4 MG/2 ML VIAL IVP PRN (02:00)
[2024-04-29 04:00] VITALS: BP 119/71; TEMP 97.9; O2SAT 96
[2024-04-29] MEDS: IV NS 0.9% 1,000 ML IV PRN (06:13)
[2024-04-29 07:45] LABS: BASOPHILS # (AUTO) 0.1 K/uL (0.0-0.2); BASOPHILS % (AUTO) 0.5 % (0.0-2.0); EOSINOPHILS # (AUTO) 0.4 K/uL (0.0-0.7); EOSINOPHILS % (AUTO) 2.9 % (0.0-6.0); HEMATOCRIT 41 % (39-51); HEMOGLOBIN 13.8 g/dL (13.5-17.5); LYMPHOCYTES # (AUTO) 6.8 K/uL (0.8-4.8); MEAN CORPUSCULAR HEMOGLOBIN 28 PG (26.0-33.0); MEAN CORPUSCULAR HGB CONC 33 g/dl (31.0-36.0); MEAN CORPUSCULAR VOLUME 85 fL (80-96); MONOCYTES # (AUTO) 1.3 K/uL (0.1-1.30); NEUTROPHILS # (AUTO) 3.4 K/uL (1.8-8.9); NEUTROPHILS % (AUTO) 28.6 % (43.0-81.0); PLATELET COUNT (AUTO) 291 K/uL (150-450); RED BLOOD CELL COUNT(AUTO) 4.88 MIL/uL (4.5-6.0); RED CELL DISTRIBUTION WIDTH 16.2 % (11.5-15.0)
[2024-04-29 08:22] LABS: CALCIUM, SERUM 8.5 mg/dL (8.5-10.1); CREATININE 1.6 mg/dL (0.6-1.3); MAGNESIUM 3.1 mg/dL (1.8-2.4); POTASSIUM 3.7 mmol/L (3.5-5.1)
[2024-04-29 08:28] VITALS: BP 153/81; TEMP 98.6; O2SAT 93
[2024-04-29] MEDS: PANTOPRAZOLE 40 MG VIAL IV SCH (09:20)
[2024-04-29] MEDS: MORPHINE SULFATE INJ 2 MG/ML DISP.SYRIN IV PRN (14:10)
[2024-04-29 16:13] VITALS: BP 146/70; TEMP 97.6; O2SAT 98
[2024-04-29 19:58] LABS: APPEARANCE,URINE CLEAR (CLEAR); BILIRUBIN,URINE NEGATIVE (NEGATIVE); BLOOD, URINE NEGATIVE Ery/uL (NEGATIVE); COLOR,URINE YELLOW (YELLOW); KETONES,URINE NEGATIVE (NEGATIVE); LEUKOCYTE ESTERASE ,URINE NEGATIVE (NEGATIVE); NITRITE, URINE NEGATIVE (NEGATIVE); PH,URINE 6.5 (5.0-8.0); PROTEIN,URINE TRACE mg/dl (NEGATIVE); UGLUCOSE NEGATIVE (NEGATIVE); UROBILINOGEN,URINE 0.2 EU/dL (0.2)
[2024-04-29 20:00] VITALS: BP 158/86; TEMP 97.9; O2SAT 95
[2024-04-29 20:11] LABS: CREATININE, URINE 180.9 MG/DL (30.0-125.0); URINE TOTAL PROTEIN 34.9 mg/dL (0-11.9)
[2024-04-29 20:14] LABS: ADD URINE CULTURE NO; BACTERIA,URINE None seen /HPF (None Seen); RBC,URINE 0-2 /HPF (0-2); SQUAMOUS EPITHELIAL CELL,UR 0-2 /HPF (None Seen); WBC,URINE 0-2 /HPF (0-3)
[2024-04-29 20:15] LABS: MUCUS,URINE Few /LPF (None Seen)
[2024-04-29 21:51] LABS: EOSINOPHIL,URINE None Seen
[2024-04-30 00:53] LABS: EOSINOPHILS % (MANUAL) 2 % (0-4); LYMPHOCYTES % (MANUAL) 63 % (16-48); MONOCYTES % (MANUAL) 17 % (0-11.0); NEUTROPHILS % (MANUAL) 18 (42-76); SMUDGE CELLS FEW
[2024-04-30 00:54] LABS: PLATELET ESTIMATE ADEQUATE
[2024-04-30] MEDS: ENOXAPARIN SODIUM 40 MG/0.4 ML DISP.SYRIN SQ SCH (05:58)
[2024-04-30 06:40] LABS: BASOPHILS % (AUTO) 0.2 % (0.0-2.0); EOSINOPHILS % (AUTO) 0.4 % (0.0-6.0); HEMATOCRIT 38 % (39-51); HEMOGLOBIN 12.6 g/dL (13.5-17.5); LYMPHOCYTES # (AUTO) 1.6 K/uL (0.8-4.8); LYMPHOCYTES % (AUTO) 16.8 % (20.0-44.0); MEAN CORPUSCULAR HEMOGLOBIN 28 PG (26.0-33.0); MEAN CORPUSCULAR HGB CONC 33 g/dl (31.0-36.0); MEAN CORPUSCULAR VOLUME 86 fL (80-96); MONOCYTES # (AUTO) 0.9 K/uL (0.1-1.30); MONOCYTES % (AUTO) 9.7 % (2.0-12.0); NEUTROPHILS # (AUTO) 6.8 K/uL (1.8-8.9); NEUTROPHILS % (AUTO) 72.9 % (43.0-81.0); PLATELET COUNT (AUTO) 258 K/uL (150-450); RED BLOOD CELL COUNT(AUTO) 4.47 MIL/uL (4.5-6.0); RED CELL DISTRIBUTION WIDTH 16.6 % (11.5-15.0); WHITE BLOOD COUNT (AUTO) 9.3 K/uL (4.3-11.0)
[2024-04-30 07:29] LABS: CALCIUM, SERUM 8.7 mg/dL (8.5-10.1); CREATININE 1.4 mg/dL (0.6-1.3); MAGNESIUM 2.8 mg/dL (1.8-2.4); PHOSPHORUS 3.1 mg/dL (2.5-4.9); POTASSIUM 3.9 mmol/L (3.5-5.1)
[2024-04-30 08:33] VITALS: BP 146/90; TEMP 98.4; O2SAT 94
[2024-04-30] MEDS: PANTOPRAZOLE 40 MG TABLET.DR PO SCH (08:46)
[2024-04-30] MEDS: AMLODIPINE BESYLATE 5 MG TABLET PO SCH (08:46)
[2024-04-30] MEDS: POLYETHYLENE GLYCOL 3350 17 GM POWD.PACK PO PRN (09:06)
[2024-04-30 11:55] VITALS: BP 150/89; O2SAT 95
[2024-04-30] MEDS: KETOROLAC TROMETHAMINE 15 MG/ML VIAL IV PRN (12:04)
[2024-04-30] MEDS: CARVEDILOL 12.5 MG TABLET PO SCH (13:21)
[2024-04-30] MEDS: SPIRONOLACTONE 25 MG TABLET PO SCH (13:21)
[2024-04-30] MEDS ORDERED: CARVEDILOL 12.5 MG TABLET PO SCH (13:30)
[2024-04-30] MEDS: AMIODARONE HCL 200 MG TABLET PO SCH (14:29)
[2024-04-30] MEDS: ASPIRIN EC 81 MG TABLET.DR PO SCH (14:29)
[2024-04-30] MEDS: GABAPENTIN 300 MG CAPSULE PO SCH (14:30)
[2024-04-30] MEDS: EMPAGLIFLOZIN 10 MG TABLET PO SCH (16:14)
[2024-04-30] MEDS: clonazePAM 0.5 MG TABLET PO PRN (17:41)
[2024-04-30] MEDS: SACUBITRIL/VALSARTAN 24/26MG TABLET PO SCH (17:41)
[2024-04-30 20:00] VITALS: BP 125/57; TEMP 98.6; O2SAT 93
[2024-04-30] MEDS: OLANZAPINE 10 MG TABLET PO SCH (21:02)
[2024-04-30] MEDS: MIRTAZAPINE 15 MG TABLET PO SCH (21:02)
[2024-05-01 08:00] VITALS: BP 101/66; TEMP 98.8; O2SAT 97
[2024-05-01 08:24] LABS: CALCIUM, SERUM 8.8 mg/dL (8.5-10.1); CREATININE 1.4 mg/dL (0.6-1.3); MAGNESIUM 2.8 mg/dL (1.8-2.4); PHOSPHORUS 2.3 mg/dL (2.5-4.9)
[2024-05-01] MEDS: ATORVASTATIN 40 MG TABLET PO SCH (08:42)
[2024-05-01 08:43] VITALS: BP 101/66
[2024-05-01] MEDS: PAROXETINE HCL 10 MG TABLET PO SCH (08:43)
[2024-05-01] MEDS: ARIPIPRAZOLE 5 MG TABLET PO SCH (08:43)
[2024-05-01] MEDS ORDERED: SPIR25TA6 PO (10:46)
[2024-05-01] MEDS ORDERED: APIX5TAB PO (10:46)
[2024-05-01] MEDS ORDERED: K PHOS NEUTRAL 250 MG TABLET PO ONE (15:30)
[2024-05-02] MEDS ORDERED: FAMOTIDINE/PF INJ 20 MG/2 ML VIAL IV ONE (12:00)
[2024-05-02] MEDS ORDERED: IV NS 0.9% 1,000 ML BAG IV ONE (12:00)
[2024-05-02] MEDS ORDERED: LIDOCAINE VISCOUS 2% UD 15 ML UDC MM ONE (12:00)
[2024-05-02] MEDS ORDERED: PANTOPRAZOLE 40 MG VIAL IV ONE (12:00)
[2024-05-02] MEDS ORDERED: MAG HYDROX/AL HYDROX/SIMETH 30 ML UDC PO ONE (12:00)
[2024-05-05] MEDS ORDERED: LIDO30AD10 TP (23:47)
[2024-05-05] MEDS ORDERED: ACET-2030 PO (23:47)
== END 2024-05-01 15:26 | disposition home or self-care (01) | DRG 439 ==
LOC: ER 00:23 → MED 02:24
PROVIDERS: ADMIT Internal Medicine; ATTEND Internal Medicine
DX: K85.90 Acute pancreatitis without necrosis or infection, unspecified (principal); D68.69 Other thrombophilia; I13.0 Hypertensive heart and chronic kidney disease with heart failure and stage 1 through stage 4 chronic kidney disease, or unspecified chronic kidney disease; I50.22 Chronic systolic (congestive) heart failure; I48.91 Unspecified atrial fibrillation; D64.9 Anemia, unspecified; E78.5 Hyperlipidemia, unspecified; F32.A Depression, unspecified; F41.9 Anxiety disorder, unspecified; J45.909 Unspecified asthma, uncomplicated; M89.8X9 Other specified disorders of bone, unspecified site; N18.2 Chronic kidney disease, stage 2 (mild); Z79.82 Long term (current) use of aspirin; Z79.84 Long term (current) use of oral hypoglycemic drugs; K76.0 Fatty (change of) liver, not elsewhere classified; Z95.810 Presence of automatic (implantable) cardiac defibrillator; E86.9 Volume depletion, unspecified; E11.22 Type 2 diabetes mellitus with diabetic chronic kidney disease
CPT/HCPCS: 36415; 71045-TC; 76700-TC; 80048-TC; 80076-TC; 81001; 82570-TC; 83690-TC; 83735-TC; 84100-TC; 84300-TC; 85025-TC; 93307-TC; A4223; G0378; G0480; J1650; J1885; J2270; J2405; J2470; J7030

== ENCOUNTER 2024-05-02 11:04 | Inpatient (IN) | payer MEDICARE, OTHER ==
[~2024-05-02] VITALS: Ht 160 cm; Wt 83.9 kg
[~2024-05-02 11:04] MED LIST changes: -AMOX1TAB16 PO; +APIX5TAB PO; -ASPI-1420 PO; +SPIR25TA6 PO
[2024-05-02] MEDS ORDERED: KETOROLAC TROMETHAMINE 15 MG/ML VIAL ONE (12:40)
[2024-05-02 13:04] LABS: BASOPHILS % (AUTO) 0.7 % (0.0-2.0); EOSINOPHILS # (AUTO) 0.1 K/uL (0.0-0.7); EOSINOPHILS % (AUTO) 0.9 % (0.0-6.0); HEMATOCRIT 40 % (39-51); HEMOGLOBIN 13.2 g/dL (13.5-17.5); LYMPHOCYTES # (AUTO) 1.8 K/uL (0.8-4.8); LYMPHOCYTES % (AUTO) 27.5 % (20.0-44.0); MEAN CORPUSCULAR HEMOGLOBIN 29 PG (26.0-33.0); MEAN CORPUSCULAR HGB CONC 33 g/dl (31.0-36.0); MEAN CORPUSCULAR VOLUME 87 fL (80-96); MONOCYTES # (AUTO) 0.8 K/uL (0.1-1.30); NEUTROPHILS # (AUTO) 3.9 K/uL (1.8-8.9); NEUTROPHILS % (AUTO) 58.9 % (43.0-81.0); PLATELET COUNT (AUTO) 272 K/uL (150-450); RED CELL DISTRIBUTION WIDTH 16.3 % (11.5-15.0); WHITE BLOOD COUNT (AUTO) 6.6 K/uL (4.3-11.0)
[2024-05-02] MEDS: KETOROLAC TROMETHAMINE 15 MG/ML VIAL IV ONE (13:04)
[2024-05-02] MEDS: MAGNESIUM CITRATE 296 ML BOTTLE PO ONE (13:14)
[2024-05-02 13:34] LABS: ALBUMIN 3.4 g/dL (3.4-5.0); BILIRUBIN,DIRECT 0.3 mg/dL (0.0-0.2); BILIRUBIN,TOTAL 1.3 mg/dL (0.2-1.0); CALCIUM, SERUM 8.5 mg/dL (8.5-10.1); CREATININE 1.5 mg/dL (0.6-1.3); TOTAL PROTEIN, SERUM 7.2 g/dL (6.4-8.2)
[2024-05-02] MEDS ORDERED: MORPHINE SULFATE INJ 2 MG/ML DISP.SYRIN ONE (14:00)
[2024-05-02] MEDS: MORPHINE SULFATE INJ 2 MG/ML DISP.SYRIN IV ONE ×2 (14:09→16:03)
[2024-05-02] MEDS ORDERED: MORPHINE SULFATE INJ 4 MG/ML DISP.SYRIN ONE (15:56)
[2024-05-02 18:07] VITALS: BP 130/78; TEMP 97.9; O2SAT 93
[2024-05-02] MEDS ORDERED: ONDANSETRON HCL/PF 4 MG/2 ML VIAL IVP PRN (18:30)
[2024-05-02] MEDS: KETOROLAC TROMETHAMINE 15 MG/ML VIAL IV PRN (18:41)
[2024-05-02 20:00] VITALS: BP 115/89; TEMP 98.1; O2SAT 97
[2024-05-02 22:18] VITALS: BP 115/89; TEMP 98.1; O2SAT 97
[2024-05-02] MEDS: IV 1/2NS 1000 ML 1,000 ML IV PRN (22:59)
[2024-05-03 06:53] LABS: BASOPHILS % (AUTO) 0.6 % (0.0-2.0); EOSINOPHILS # (AUTO) 0.1 K/uL (0.0-0.7); EOSINOPHILS % (AUTO) 1.4 % (0.0-6.0); HEMATOCRIT 39 % (39-51); HEMOGLOBIN 12.7 g/dL (13.5-17.5); LYMPHOCYTES # (AUTO) 1.9 K/uL (0.8-4.8); LYMPHOCYTES % (AUTO) 25.4 % (20.0-44.0); MEAN CORPUSCULAR HEMOGLOBIN 28 PG (26.0-33.0); MEAN CORPUSCULAR HGB CONC 33 g/dl (31.0-36.0); MEAN CORPUSCULAR VOLUME 86 fL (80-96); MONOCYTES # (AUTO) 0.8 K/uL (0.1-1.30); MONOCYTES % (AUTO) 10.6 % (2.0-12.0); NEUTROPHILS # (AUTO) 4.7 K/uL (1.8-8.9); PLATELET COUNT (AUTO) 291 K/uL (150-450); RED BLOOD CELL COUNT(AUTO) 4.56 MIL/uL (4.5-6.0); RED CELL DISTRIBUTION WIDTH 16.4 % (11.5-15.0); WHITE BLOOD COUNT (AUTO) 7.6 K/uL (4.3-11.0)
[2024-05-03 07:03] LABS: ALBUMIN 3.9 g/dL (3.4-5.0); BILIRUBIN,TOTAL 1.3 mg/dL (0.2-1.0); CALCIUM, SERUM 9.2 mg/dL (8.5-10.1); CREATININE 1.7 mg/dL (0.6-1.3); MAGNESIUM 3.3 mg/dL (1.8-2.4); PHOSPHORUS 3.4 mg/dL (2.5-4.9); POTASSIUM 4.1 mmol/L (3.5-5.1); TOTAL PROTEIN, SERUM 7.8 g/dL (6.4-8.2)
[2024-05-03] MEDS: PANTOPRAZOLE 40 MG VIAL IV SCH (08:23)
[2024-05-03 08:33] VITALS: BP 158/80; TEMP 98.3; O2SAT 94
[2024-05-03] MEDS ORDERED: NALO4SPR BNOSTRILS (19:20)
[2024-05-05] MEDS ORDERED: ACET-2030 PO (23:47)
[2024-05-05] MEDS ORDERED: LIDO30AD10 TP (23:47)
== END 2024-05-03 14:15 | disposition home health service (06) | DRG 439 ==
LOC: ER 11:10 → MED 17:00
DX: K85.90 Acute pancreatitis without necrosis or infection, unspecified (principal); D68.69 Other thrombophilia; I13.0 Hypertensive heart and chronic kidney disease with heart failure and stage 1 through stage 4 chronic kidney disease, or unspecified chronic kidney disease; J45.909 Unspecified asthma, uncomplicated; K29.70 Gastritis, unspecified, without bleeding; I48.91 Unspecified atrial fibrillation; E11.22 Type 2 diabetes mellitus with diabetic chronic kidney disease; N18.2 Chronic kidney disease, stage 2 (mild); E78.5 Hyperlipidemia, unspecified; Z79.01 Long term (current) use of anticoagulants; Z79.82 Long term (current) use of aspirin; Z79.84 Long term (current) use of oral hypoglycemic drugs; Z95.810 Presence of automatic (implantable) cardiac defibrillator; E80.6 Other disorders of bilirubin metabolism; I50.9 Heart failure, unspecified
CPT/HCPCS: 36415; 76705-TC; 80048-TC; 80053-TC; 80076-TC; 83690-TC; 83735-TC; 84100-TC; 85025-TC; A4223; G0378; J1885; J2270; J2470; J3490

== ENCOUNTER 2024-05-03 19:14 | Emergency (ER) | payer MEDICARE, OTHER ==
[~2024-05-03] VITALS: Ht 162.6 cm; Wt 65.8 kg
[2024-05-03 19:18] VITALS: BP 122/69; TEMP 97.9
[2024-05-03] MEDS ORDERED: NALO4SPR BNOSTRILS (19:20)
[2024-05-03 20:20] VITALS: O2SAT 99
[2024-05-05] MEDS ORDERED: ACET-2030 PO (23:47)
[2024-05-05] MEDS ORDERED: LIDO30AD10 TP (23:47)
== END 2024-05-03 20:20 | disposition home or self-care (01) ==
LOC: ER 19:17
DX: G89.29 Other chronic pain (principal); E11.9 Type 2 diabetes mellitus without complications; F17.200 Nicotine dependence, unspecified, uncomplicated; F41.9 Anxiety disorder, unspecified; I10 Essential (primary) hypertension; I48.91 Unspecified atrial fibrillation; J45.909 Unspecified asthma, uncomplicated; K86.1 Other chronic pancreatitis; Z79.01 Long term (current) use of anticoagulants; Z79.82 Long term (current) use of aspirin; Z79.84 Long term (current) use of oral hypoglycemic drugs; Z79.899 Other long term (current) drug therapy; Z90.49 Acquired absence of other specified parts of digestive tract; Z95.810 Presence of automatic (implantable) cardiac defibrillator; Z87.19 Personal history of other diseases of the digestive system

== ENCOUNTER → 2024-05-05 | Emergency (ER) | payer MEDICARE, MEDICAID ==
[~2024-05-05] VITALS: Ht 162.6 cm; Wt 65.8 kg
[~2024-05-05] MED LIST changes: +ACET-2030 PO; +ACETAMINOPHEN ES 500 MG TABLET ONE; +KETOROLAC TROMETHAMINE 15 MG/ML VIAL ONE; +LIDO30AD10 TP; +NALO4SPR BNOSTRILS
[2024-05-05] MEDS: KETOROLAC TROMETHAMINE 15 MG/ML VIAL IM ONE (23:52)
[2024-05-05] MEDS: ACETAMINOPHEN ES 500 MG TABLET PO ONE (23:52)
[2024-05-06 01:49] VITALS: BP 128/78; TEMP 98; O2SAT 98
== END | disposition home or self-care (01) ==
LOC: ER 22:31
DX: G89.29 Other chronic pain (principal); M54.50 Low back pain, unspecified; E11.9 Type 2 diabetes mellitus without complications; F17.200 Nicotine dependence, unspecified, uncomplicated; F41.9 Anxiety disorder, unspecified; I10 Essential (primary) hypertension; I48.91 Unspecified atrial fibrillation; J45.909 Unspecified asthma, uncomplicated; Z79.01 Long term (current) use of anticoagulants; Z79.82 Long term (current) use of aspirin; Z79.84 Long term (current) use of oral hypoglycemic drugs; Z79.899 Other long term (current) drug therapy; Z87.19 Personal history of other diseases of the digestive system; Z90.49 Acquired absence of other specified parts of digestive tract; Z95.810 Presence of automatic (implantable) cardiac defibrillator
CPT/HCPCS: 99283; 96372; J1885

== ENCOUNTER 2024-05-14 18:31 | Inpatient (IN) | payer MEDICARE, OTHER ==
[~2024-05-14] VITALS: Ht 170.2 cm; Wt 80.3 kg
[~2024-05-14 18:31] MED LIST changes: -ACETAMINOPHEN ES 500 MG TABLET ONE; -KETOROLAC TROMETHAMINE 15 MG/ML VIAL ONE
[2024-05-14 19:30] LABS: BASOPHILS % (AUTO) 0.4 % (0.0-2.0); EOSINOPHILS # (AUTO) 0.2 K/uL (0.0-0.7); EOSINOPHILS % (AUTO) 2.9 % (0.0-6.0); HEMATOCRIT 37 % (39-51); HEMOGLOBIN 11.8 g/dL (13.5-17.5); LYMPHOCYTES % (AUTO) 28.7 % (20.0-44.0); MEAN CORPUSCULAR HEMOGLOBIN 28 PG (26.0-33.0); MEAN CORPUSCULAR HGB CONC 32 g/dl (31.0-36.0); MEAN CORPUSCULAR VOLUME 87 fL (80-96); MONOCYTES # (AUTO) 0.6 K/uL (0.1-1.30); MONOCYTES % (AUTO) 9.2 % (2.0-12.0); NEUTROPHILS % (AUTO) 58.8 % (43.0-81.0); PLATELET COUNT (AUTO) 315 K/uL (150-450); RED BLOOD CELL COUNT(AUTO) 4.25 MIL/uL (4.5-6.0); RED CELL DISTRIBUTION WIDTH 16.8 % (11.5-15.0); WHITE BLOOD COUNT (AUTO) 6.8 K/uL (4.3-11.0)
[2024-05-14] MEDS ORDERED: CEFEPIME 1 GM VIAL ONE (19:36)
[2024-05-14] MEDS: IV NS 0.9% 1,000 ML BAG IV ONE (19:37)
[2024-05-14] MEDS: CEFEPIME 1 GM in IV D5W 50 ML IV ONE (19:37)
[2024-05-14 19:38] LABS: CALCIUM, SERUM 8.9 mg/dL (8.5-10.1); CARBON DIOXIDE 30 mmol/L (21-32); CHLORIDE 108 mmol/L (98-107); CREATININE 1.5 mg/dL (0.6-1.3); GLUCOSE 106 mg/dL (74-106); POTASSIUM 4.1 mmol/L (3.5-5.1); SODIUM SERUM 146 mmol/L (136-145); UREA NITROGEN, BLOOD 23 mg/dL (7-18)
[2024-05-14 19:44] LABS: INR 1.08 (0.91-1.10); PARTIAL THROMBOPLASTIN TIME 27.7 SEC (24.3-34.3); PROTHROMBIN TIME 11.4 SECS (9.2-11.1)
[2024-05-14 19:47] LABS: ALANINE AMINOTRANSFERASE 27 U/L (12-78); ALBUMIN 2.9 g/dL (3.4-5.0); ALKALINE PHOSPHATASE 62 U/L (46-116); ASPARTATE AMINOTRANSFERASE 23 U/L (15-37); BILIRUBIN,DIRECT 0.2 mg/dL (0.0-0.2); BILIRUBIN,TOTAL 0.5 mg/dL (0.2-1.0); LIPASE 84 U/L (16-77); TOTAL PROTEIN, SERUM 7.1 g/dL (6.4-8.2)
[2024-05-14 19:48] LABS: LACTIC ACID 1.9 mmol/L (0.4-2.0)
[2024-05-14] MEDS ORDERED: DIVA125C2 PO (20:00)
[2024-05-14] MEDS ORDERED: CLOT15CR5 TP (20:00)
[2024-05-14] MEDS ORDERED: FURO40TA5 PO (20:00)
[2024-05-14] MEDS ORDERED: METF-440 PO (20:00)
[2024-05-14] MEDS ORDERED: EZET10TA32 PO (20:00)
[2024-05-14] MEDS ORDERED: OXYC-133 PO (20:00)
[2024-05-14] MEDS ORDERED: LACT10SO29 PO (20:00)
[2024-05-14] MEDS ORDERED: POTA10TA11 PO (20:00)
[2024-05-14] MEDS ORDERED: ATOR80TA PO (20:00)
[2024-05-14] MEDS ORDERED: CARV6.252 PO (20:00)
[2024-05-14] MEDS ORDERED: OMEP1CAP24 PO (20:00)
[2024-05-14] MEDS ORDERED: LORA-258 PO (20:00)
[2024-05-14] MEDS ORDERED: CALC-494 PO (20:00)
[2024-05-14] MEDS ORDERED: KETO15CR2 TP (20:00)
[2024-05-14 21:39] LABS: APPEARANCE,URINE Clear (CLEAR); BILIRUBIN,URINE Negative (NEGATIVE); BLOOD, URINE Negative Ery/uL (NEGATIVE); COLOR,URINE YELLOW (YELLOW); KETONES,URINE Negative (NEGATIVE); LEUKOCYTE ESTERASE ,URINE Negative (NEGATIVE); NITRITE, URINE Negative (NEGATIVE); PROTEIN,URINE Negative (NEGATIVE); UGLUCOSE Negative (NEGATIVE); UROBILINOGEN,URINE 0.2 EU/dL (0.2)
[2024-05-14] MEDS: LORAZEPAM 0.5 MG TABLET PO PRN (23:26)
[2024-05-14] MEDS ORDERED: Z GUARD REMEDY 4 OZ OINT TP PRN (23:30)
[2024-05-14] MEDS ORDERED: CALCIUM CARBONATE (1250) 500 MG TABLET PO PRN (23:30)
[2024-05-14] MEDS ORDERED: ONDANSETRON HCL/PF 4 MG/2 ML VIAL IVP PRN (23:30)
[2024-05-14] MEDS ORDERED: DEXTROSE 50%-WATER 50 ML DISP.SYRIN IV PRN (23:30)
[2024-05-14] MEDS: IV D5W 1,000 ML IV ONE (23:30)
[2024-05-15] MEDS: BLOOD SUGAR DIAGNOSTIC 1 EACH STRIP IN SCH (07:08)
[2024-05-15] MEDS: INSULIN REGULAR, HUMAN 100 UNIT/ML 3 ML VIAL SQ PRN (07:09)
[2024-05-15 07:30] VITALS: BP 140/62; TEMP 98.2; O2SAT 97
[2024-05-15] MEDS: EZETIMIBE 10 MG TABLET PO SCH (09:13)
[2024-05-15] MEDS: DIVALPROEX SODIUM 125 MG CAP.SPRINK PO SCH (09:13)
[2024-05-15] MEDS: POTASSIUM CHLORIDE 10 MEQ TABLET.SA PO SCH (09:13)
[2024-05-15] MEDS: LACTULOSE 10 G/15 ML UDC (PYXIS) PO SCH (09:13)
[2024-05-15] MEDS: CARVEDILOL 6.25 MG TABLET PO SCH (09:14)
[2024-05-15] MEDS: APIXABAN 5 MG TABLET PO SCH (09:17)
[2024-05-15] MEDS: KETOCONAZOLE 2% CREAM 15 GM TUBE TP SCH (09:17)
[2024-05-15] MEDS: ACETAMINOPHEN 325 MG TABLET PO PRN (09:22)
[2024-05-15] MEDS: FUROSEMIDE 40 MG TABLET PO SCH (09:22)
[2024-05-15] MEDS ORDERED: HYDR-3980 PO (13:53)
[2024-05-15] MEDS: MAG HYDROX/AL HYDROX/SIMETH 30 ML UDC PO PRN (14:15)
[2024-05-15] MEDS: MAGNESIUM HYDROXIDE 30 ML UDC PO PRN (14:15)
[2024-05-15 17:04] LABS: BASOPHILS % (AUTO) 0.2 % (0.0-2.0); EOSINOPHILS # (AUTO) 0.1 K/uL (0.0-0.7); EOSINOPHILS % (AUTO) 1.8 % (0.0-6.0); HEMATOCRIT 36 % (39-51); HEMOGLOBIN 11.9 g/dL (13.5-17.5); LYMPHOCYTES # (AUTO) 2.2 K/uL (0.8-4.8); LYMPHOCYTES % (AUTO) 26.6 % (20.0-44.0); MEAN CORPUSCULAR HEMOGLOBIN 29 PG (26.0-33.0); MEAN CORPUSCULAR HGB CONC 33 g/dl (31.0-36.0); MEAN CORPUSCULAR VOLUME 86 fL (80-96); MONOCYTES # (AUTO) 0.9 K/uL (0.1-1.30); MONOCYTES % (AUTO) 10.5 % (2.0-12.0); NEUTROPHILS # (AUTO) 4.9 K/uL (1.8-8.9); NEUTROPHILS % (AUTO) 60.9 % (43.0-81.0); PLATELET COUNT (AUTO) 334 K/uL (150-450); RED CELL DISTRIBUTION WIDTH 16.6 % (11.5-15.0); WHITE BLOOD COUNT (AUTO) 8.1 K/uL (4.3-11.0)
[2024-05-15 17:17] LABS: CREATININE, URINE 75.3 MG/DL (30.0-125.0); URINE TOTAL PROTEIN 18.3 mg/dL (0-11.9)
[2024-05-15 17:24] LABS: ALBUMIN 3.6 g/dL (3.4-5.0); BILIRUBIN,TOTAL 0.6 mg/dL (0.2-1.0); CALCIUM, SERUM 8.8 mg/dL (8.5-10.1); CREATININE 1.4 mg/dL (0.6-1.3); MAGNESIUM 1.9 mg/dL (1.8-2.4); PHOSPHORUS 3.7 mg/dL (2.5-4.9); POTASSIUM 3.9 mmol/L (3.5-5.1); TOTAL PROTEIN, SERUM 7.2 g/dL (6.4-8.2)
[2024-05-15] MEDS: ARIPIPRAZOLE 5 MG TABLET PO SCH (18:29)
[2024-05-15 20:00] VITALS: BP 131/80; TEMP 98.4
[2024-05-15] MEDS: ATORVASTATIN 40 MG TABLET PO SCH (22:03)
[2024-05-16 11:39] LABS: BASOPHILS % (AUTO) 0.3 % (0.0-2.0); EOSINOPHILS # (AUTO) 0.1 K/uL (0.0-0.7); EOSINOPHILS % (AUTO) 0.8 % (0.0-6.0); HEMATOCRIT 41 % (39-51); HEMOGLOBIN 13.2 g/dL (13.5-17.5); LYMPHOCYTES # (AUTO) 1.5 K/uL (0.8-4.8); LYMPHOCYTES % (AUTO) 22.6 % (20.0-44.0); MEAN CORPUSCULAR HEMOGLOBIN 28 PG (26.0-33.0); MEAN CORPUSCULAR HGB CONC 32 g/dl (31.0-36.0); MEAN CORPUSCULAR VOLUME 86 fL (80-96); MONOCYTES # (AUTO) 0.6 K/uL (0.1-1.30); MONOCYTES % (AUTO) 9.5 % (2.0-12.0); NEUTROPHILS # (AUTO) 4.5 K/uL (1.8-8.9); NEUTROPHILS % (AUTO) 66.8 % (43.0-81.0); PLATELET COUNT (AUTO) 352 K/uL (150-450); RED BLOOD CELL COUNT(AUTO) 4.75 MIL/uL (4.5-6.0); RED CELL DISTRIBUTION WIDTH 16.3 % (11.5-15.0); WHITE BLOOD COUNT (AUTO) 6.7 K/uL (4.3-11.0)
[2024-05-16 11:59] LABS: CALCIUM, SERUM 9.3 mg/dL (8.5-10.1); CREATININE 1.5 mg/dL (0.6-1.3); POTASSIUM 3.6 mmol/L (3.5-5.1)
[2024-05-16] MEDS: ARIPIPRAZOLE 5 MG TABLET PO SCH (16:35)
[2024-05-16 20:10] VITALS: BP 139/90; TEMP 98.1; O2SAT 100
[2024-05-17] MEDS ORDERED: SENNOSIDES/DOCUSATE SODIUM 1 TAB TABLET PO PRN (12:00)
[2024-05-17 16:43] VITALS: TEMP 98.1
[2024-05-17 18:53] VITALS: BP 122/65
== END 2024-05-17 19:50 | DRG 641 ==
LOC: ER 18:33 → TELE1 05-15 02:28 → MEDSG1 05-15 04:13 → MED 05-16 20:11
PROVIDERS: ATTEND Nurse Practitioner Acute Care
DX: E86.0 Dehydration (principal); I13.0 Hypertensive heart and chronic kidney disease with heart failure and stage 1 through stage 4 chronic kidney disease, or unspecified chronic kidney disease; I50.22 Chronic systolic (congestive) heart failure; N17.9 Acute kidney failure, unspecified; J96.10 Chronic respiratory failure, unspecified whether with hypoxia or hypercapnia; F33.9 Major depressive disorder, recurrent, unspecified; N18.9 Chronic kidney disease, unspecified; Z95.810 Presence of automatic (implantable) cardiac defibrillator; I48.91 Unspecified atrial fibrillation; E11.22 Type 2 diabetes mellitus with diabetic chronic kidney disease; J45.909 Unspecified asthma, uncomplicated; K29.70 Gastritis, unspecified, without bleeding; D64.9 Anemia, unspecified; F41.9 Anxiety disorder, unspecified; M89.8X9 Other specified disorders of bone, unspecified site; N40.0 Benign prostatic hyperplasia without lower urinary tract symptoms; Z79.84 Long term (current) use of oral hypoglycemic drugs; Z79.01 Long term (current) use of anticoagulants; Z90.49 Acquired absence of other specified parts of digestive tract; Z79.899 Other long term (current) drug therapy; J44.9 Chronic obstructive pulmonary disease, unspecified; L21.9 Seborrheic dermatitis, unspecified; F20.9 Schizophrenia, unspecified; E78.5 Hyperlipidemia, unspecified; F41.1 Generalized anxiety disorder; E87.0 Hyperosmolality and hypernatremia
CPT/HCPCS: 36415; 71045-TC; 74018; 76770-TC; 80048-TC; 80053-TC; 80076-TC; 82570-TC; 82962-TC; 83605-TC; 83690-TC; 83735-TC; 84100-TC; 84300-TC; 84484-TC; 85025-TC; 85730-TC; 87040-TC; 87081-TC; 87086-TC; 97116-TC; 97530-TC; A4223; G0378; J0692; J1815; J3490; J7030; J7060

== ENCOUNTER 2024-05-17 16:38 | Inpatient (IN) | payer MEDICARE, OTHER ==
[~2024-05-17] VITALS: Ht 170.2 cm; Wt 80.3 kg
[~2024-05-17 16:38] MED LIST changes: -ACET-2030 PO; -ACET325T53 PO; -AMIO200T5 PO; +ATOR80TA PO; +CALC-494 PO; -CARV12.5 PO; +CARV6.252 PO; -CLON0.5T4 PO; +CLOT15CR5 TP; -DICL100G34 TP; +DIVA125C2 PO; -EMPA10TA PO; +EZET10TA32 PO; -FURO-144 PO; +FURO40TA5 PO; -GABA300C PO; +HYDR-3980 PO; +KETO15CR2 TP; +LACT10SO29 PO; -LIDO30AD10 TP; +LORA-258 PO; +METF-440 PO; -MIRT-91 PO; -NALO4SPR BNOSTRILS; -NALO4SPR NS; -OLAN10TA3 PO; +OMEP1CAP24 PO; -PARO30TA4 PO; +POTA10TA11 PO; -ROSU20TA2 PO; -SACU1TAB PO; -SPIR25TA6 PO
[2024-05-17] MEDS ORDERED: LORAZEPAM 0.5 MG TABLET PO PRN (20:30)
[2024-05-17] MEDS ORDERED: ACETAMINOPHEN 325 MG TABLET PO PRN (20:30)
[2024-05-17] MEDS ORDERED: TEMAZEPAM 7.5 MG CAPSULE PO PRN (20:30)
[2024-05-17] MEDS ORDERED: MAG HYDROX/AL HYDROX/SIMETH 30 ML UDC PO PRN (20:30)
[2024-05-17] MEDS ORDERED: MAGNESIUM HYDROXIDE 30 ML UDC PO PRN (20:30)
[2024-05-17 20:42] VITALS: BP 120/64; TEMP 98.5; O2SAT 95
[2024-05-17] MEDS ORDERED: DEXTROSE 50%-WATER 50 ML DISP.SYRIN IV PRN (21:00)
[2024-05-17] MEDS ORDERED: CALCIUM CARBONATE 500 MG TAB.CHEW PO PRN (21:00)
[2024-05-17] MEDS ORDERED: BLOOD SUGAR DIAGNOSTIC 1 EACH STRIP IN ONE (21:00)
[2024-05-17] MEDS ORDERED: INSULIN REGULAR, HUMAN 100 UNIT/ML 3 ML VIAL SQ PRN (21:00)
[2024-05-17] MEDS: ATORVASTATIN 40 MG TABLET PO SCH (21:33)
[2024-05-17] MEDS: BLOOD SUGAR DIAGNOSTIC 1 EACH STRIP IN SCH (22:16)
[2024-05-17] MEDS: LORAZEPAM 0.5 MG TABLET PO PRN (23:20)
[2024-05-18] MEDS: TEMAZEPAM 7.5 MG CAPSULE PO PRN (01:20)
[2024-05-18 08:00] VITALS: BP 114/67; TEMP 97.6; O2SAT 94
[2024-05-18] MEDS: CARVEDILOL 6.25 MG TABLET PO SCH (08:03)
[2024-05-18] MEDS: LACTULOSE 10 G/15 ML UDC (PYXIS) PO SCH (08:03)
[2024-05-18] MEDS: FUROSEMIDE 40 MG TABLET PO SCH (08:03)
[2024-05-18] MEDS: PANTOPRAZOLE 40 MG TABLET.DR PO SCH (08:03)
[2024-05-18] MEDS: EZETIMIBE 10 MG TABLET PO SCH (08:03)
[2024-05-18] MEDS: APIXABAN 5 MG TABLET PO SCH (08:04)
[2024-05-18 08:34] LABS: BASOPHILS % (AUTO) 0.3 % (0.0-2.0); EOSINOPHILS # (AUTO) 0.1 K/uL (0.0-0.7); EOSINOPHILS % (AUTO) 1.2 % (0.0-6.0); HEMATOCRIT 39 % (39-51); HEMOGLOBIN 12.7 g/dL (13.5-17.5); LYMPHOCYTES # (AUTO) 2.2 K/uL (0.8-4.8); LYMPHOCYTES % (AUTO) 28.9 % (20.0-44.0); MEAN CORPUSCULAR HEMOGLOBIN 28 PG (26.0-33.0); MEAN CORPUSCULAR HGB CONC 33 g/dl (31.0-36.0); MEAN CORPUSCULAR VOLUME 87 fL (80-96); MONOCYTES % (AUTO) 13.4 % (2.0-12.0); NEUTROPHILS # (AUTO) 4.2 K/uL (1.8-8.9); NEUTROPHILS % (AUTO) 56.2 % (43.0-81.0); PLATELET COUNT (AUTO) 351 K/uL (150-450); RED BLOOD CELL COUNT(AUTO) 4.49 MIL/uL (4.5-6.0); RED CELL DISTRIBUTION WIDTH 16.2 % (11.5-15.0); WHITE BLOOD COUNT (AUTO) 7.4 K/uL (4.3-11.0)
[2024-05-18 09:17] LABS: CALCIUM, SERUM 9.1 mg/dL (8.5-10.1); CREATININE 1.4 mg/dL (0.6-1.3); POTASSIUM 3.6 mmol/L (3.5-5.1)
[2024-05-18] MEDS: OLANZAPINE 10 MG VIAL IM ONE (11:20)
[2024-05-18 16:00] VITALS: BP 125/83; TEMP 97.9; O2SAT 94
[2024-05-18] MEDS: OLANZAPINE 2.5 MG TABLET PO SCH (16:06)
[2024-05-18] MEDS: LORAZEPAM 0.5 MG TABLET PO PRN (16:07)
[2024-05-18 21:20] VITALS: BP 120/80; TEMP 97.9; O2SAT 94
[2024-05-18] MEDS: DIVALPROEX SODIUM 250 MG TABLET.DR PO SCH (21:22)
[2024-05-19] MEDS: ZOLPIDEM TARTRATE 5 MG TABLET PO PRN (00:13)
[2024-05-19 08:00] VITALS: BP 123/56; TEMP 97.9; O2SAT 98
[2024-05-19 16:21] VITALS: BP 91/57; TEMP 98.2; O2SAT 95
[2024-05-19 20:23] VITALS: BP 122/66; TEMP 97.9; O2SAT 98
[2024-05-20 08:00] VITALS: BP 120/56; TEMP 98.2; O2SAT 100
[2024-05-20] MEDS: DIVALPROEX SODIUM 250 MG TABLET.DR PO SCH (12:40)
[2024-05-20 16:00] VITALS: BP 121/77; TEMP 97.9; O2SAT 98
[2024-05-20 16:21] LABS: BASOPHILS % (AUTO) 0.4 % (0.0-2.0); EOSINOPHILS % (AUTO) 0.1 % (0.0-6.0); HEMATOCRIT 36 % (39-51); HEMOGLOBIN 11.9 g/dL (13.5-17.5); LYMPHOCYTES # (AUTO) 1.4 K/uL (0.8-4.8); LYMPHOCYTES % (AUTO) 18.5 % (20.0-44.0); MEAN CORPUSCULAR HEMOGLOBIN 28 PG (26.0-33.0); MEAN CORPUSCULAR HGB CONC 33 g/dl (31.0-36.0); MEAN CORPUSCULAR VOLUME 86 fL (80-96); MONOCYTES # (AUTO) 1.1 K/uL (0.1-1.30); MONOCYTES % (AUTO) 14.3 % (2.0-12.0); NEUTROPHILS # (AUTO) 5.2 K/uL (1.8-8.9); NEUTROPHILS % (AUTO) 66.7 % (43.0-81.0); PLATELET COUNT (AUTO) 281 K/uL (150-450); RED BLOOD CELL COUNT(AUTO) 4.18 MIL/uL (4.5-6.0); RED CELL DISTRIBUTION WIDTH 16.5 % (11.5-15.0); WHITE BLOOD COUNT (AUTO) 7.8 K/uL (4.3-11.0)
[2024-05-20 17:29] LABS: ALBUMIN 3.5 g/dL (3.4-5.0); BILIRUBIN,TOTAL 0.6 mg/dL (0.2-1.0); CALCIUM, SERUM 8.3 mg/dL (8.5-10.1); CREATININE 1.4 mg/dL (0.6-1.3); MAGNESIUM 2.1 mg/dL (1.8-2.4); PHOSPHORUS 3.1 mg/dL (2.5-4.9); TOTAL PROTEIN, SERUM 7.2 g/dL (6.4-8.2)
[2024-05-20 20:29] VITALS: BP 136/85; TEMP 97.9; O2SAT 100
[2024-05-20] MEDS: OLANZAPINE 2.5 MG TABLET PO SCH (21:09)
[2024-05-21 08:00] VITALS: BP 103/54; TEMP 98.1; O2SAT 96
[2024-05-21 16:00] VITALS: BP 113/82; TEMP 97.7; O2SAT 96
[2024-05-21 20:15] VITALS: BP 108/56; TEMP 98.4; O2SAT 95
[2024-05-21] MEDS: OLANZAPINE 2.5 MG TABLET PO SCH (21:01)
[2024-05-22 08:00] VITALS: BP 107/73; TEMP 97.7; O2SAT 97
[2024-05-22] MEDS ORDERED: OLANZAPINE 2.5 MG TABLET PO SCH (13:00)
[2024-05-22] MEDS: HYDROCODONE/APAP 10/325MG TABLET PO PRN (15:50)
[2024-05-22 16:00] VITALS: BP 107/55; TEMP 98.1; O2SAT 99
[2024-05-22 20:00] VITALS: BP 114/67; TEMP 98.5; O2SAT 98
[2024-05-22] MEDS: OLANZAPINE 2.5 MG TABLET PO SCH (22:02)
[2024-05-23 08:00] VITALS: BP 107/66; TEMP 97.6; O2SAT 98
[2024-05-23 08:43] VITALS: BP 107/66
== END 2024-05-23 15:20 | DRG 885 ==
LOC: GPS 16:38
PROVIDERS: ADMIT Psychiatry & Neurology Psychiatry; ATTEND Nurse Practitioner Family
DX: F20.9 Schizophrenia, unspecified (principal); N18.4 Chronic kidney disease, stage 4 (severe); N17.9 Acute kidney failure, unspecified; I13.0 Hypertensive heart and chronic kidney disease with heart failure and stage 1 through stage 4 chronic kidney disease, or unspecified chronic kidney disease; I50.22 Chronic systolic (congestive) heart failure; J96.10 Chronic respiratory failure, unspecified whether with hypoxia or hypercapnia; E87.0 Hyperosmolality and hypernatremia; G72.1 Alcoholic myopathy; K51.90 Ulcerative colitis, unspecified, without complications; F39 Unspecified mood [affective] disorder; E86.0 Dehydration; F41.1 Generalized anxiety disorder; F29 Unspecified psychosis not due to a substance or known physiological condition; E78.5 Hyperlipidemia, unspecified; F32.9 Major depressive disorder, single episode, unspecified; I48.91 Unspecified atrial fibrillation; Z79.01 Long term (current) use of anticoagulants; Z95.810 Presence of automatic (implantable) cardiac defibrillator; M89.8X9 Other specified disorders of bone, unspecified site; K59.00 Constipation, unspecified; E11.22 Type 2 diabetes mellitus with diabetic chronic kidney disease; D64.9 Anemia, unspecified; J44.9 Chronic obstructive pulmonary disease, unspecified
CPT/HCPCS: 36415; 80048-TC; 80053-TC; 80061-TC; 82962-TC; 83735-TC; 84100-TC; 85025-TC; 97116-TC; 97530-TC; J1815; J3490